=== PATIENT | male | born 1955 | race Caucasian/White ===

== ENCOUNTER 2017-11-04 15:05 | Outpatient (RCR) | payer OTHER, MEDICARE, SELFPAY ==
[2017-11-04 15:20] LABS: Prothrombin Time Fingerstick 24.7 SEC (11.9-14.4)
== END 2017-11-04 15:30 | disposition home or self-care (01) ==
LOC: LAB 15:05
PROVIDERS: Family Provider Family Medicine; PCP Family Medicine; Visit Provider Internal Medicine Cardiovascular Disease
DX: I48.1 Persistent atrial fibrillation (principal)
CPT/HCPCS: 36416; 85610

== ENCOUNTER 2017-12-15 10:24 | Outpatient (RCR) | payer OTHER, MEDICARE, SELFPAY ==
[2017-12-15 11:22] LABS: International Normalized Ratio 2.5; Prothrombin Time (Protime)PT. 25.9 SECONDS (11.7-14.9)
[2017-12-15 11:43] LABS: PSA,Total- Diagnostic < 0.01 ng/mL (0.0-4.0)
== END 2017-12-15 10:45 | disposition home or self-care (01) ==
LOC: LAB 10:24
PROVIDERS: Family Provider Family Medicine; PCP Family Medicine; Visit Provider Internal Medicine Cardiovascular Disease
DX: I48.1 Persistent atrial fibrillation (principal); Z12.5 Encounter for screening for malignant neoplasm of prostate; I47.1 Supraventricular tachycardia; E78.5 Hyperlipidemia, unspecified; Z79.51 Long term (current) use of inhaled steroids
CPT/HCPCS: 36415; 84153; 85610; G0103

== ENCOUNTER 2018-02-05 10:04 | Outpatient (RCR) | payer OTHER, MEDICARE, SELFPAY ==
[2018-02-05 11:07] LABS: International Normalized Ratio 1.8
[2018-02-05 11:38] LABS: PSA,Total - Annual Screen < 0.01 ng/mL (0.00-4.00)
== END 2018-02-05 11:00 | disposition home or self-care (01) ==
LOC: LAB 10:04
PROVIDERS: Family Provider Family Medicine; PCP Family Medicine; Visit Provider Internal Medicine Cardiovascular Disease
DX: I48.1 Persistent atrial fibrillation (principal); Z12.5 Encounter for screening for malignant neoplasm of prostate
CPT/HCPCS: 36415; 84153; 85610; G0103

== ENCOUNTER 2018-03-01 12:08 | Outpatient (RCR) | payer OTHER, MEDICARE, SELFPAY | END 2018-03-01 13:00 | disposition home or self-care (01) | LOC: LAB 12:08 | PROVIDERS: Family Provider Family Medicine; PCP Family Medicine; Visit Provider Internal Medicine Cardiovascular Disease | DX: I48.1 Persistent atrial fibrillation (principal) | CPT/HCPCS: 36416; 85610 ==

== ENCOUNTER 2018-04-22 11:21 | Outpatient (RCR) | payer OTHER, MEDICARE, SELFPAY ==
[2018-04-22 13:29] LABS: International Normalized Ratio 2.3; Prothrombin Time (Protime)PT. 25.4 SECONDS (11.7-14.9)
[2018-04-22 13:47] LABS: AST(SGOT) 18 U/L (15-37); Alanine Aminotransfer ALT/SGPT 24 U/L (16-61); Albumin, Serum 3.5 g/dL (3.2-5.0); Alkaline Phosphatase 57 U/L (45-117); Cholesterol 106 mg/dL (200); Globulin 3.6 g/dL (2.2-4.2); High Density Lipoprotein 31 mg/dL; Protein, Total 7.1 g/dL (6.4-8.2); Triglycerides 166 mg/dL; Very Low Density Lipoprotein 33 mg/dL (5-40)
== END 2018-04-22 12:00 | disposition home or self-care (01) ==
LOC: LAB 11:21
PROVIDERS: Nurse Practitioner Family; Family Provider Family Medicine; PCP Family Medicine; Visit Provider Internal Medicine Cardiovascular Disease
DX: I48.1 Persistent atrial fibrillation (principal); E78.5 Hyperlipidemia, unspecified
CPT/HCPCS: 36415; 80061; 80076; 85610

== ENCOUNTER 2018-06-14 09:16 | Outpatient (RCR) | payer OTHER, MEDICARE, SELFPAY ==
[2018-06-14 11:10] LABS: International Normalized Ratio 2.7
[2018-06-14 11:41] LABS: PSA,Total- Diagnostic < 0.01 ng/mL (0.0-4.0)
== END 2018-06-14 11:00 | disposition home or self-care (01) ==
LOC: LAB 09:16
PROVIDERS: Family Provider Family Medicine; PCP Family Medicine; Visit Provider Internal Medicine Cardiovascular Disease
DX: I48.1 Persistent atrial fibrillation (principal); C61 Malignant neoplasm of prostate
CPT/HCPCS: 36415; 84153; 85610

== ENCOUNTER 2018-09-13 09:20 | Outpatient (RCR) | payer OTHER, MEDICARE, SELFPAY ==
[2018-09-13 10:09] LABS: Absolute Lymphocyte Count 1.13 X10^3/ul (0.83-4.51); Basophil# 0.04 X10^3/uL; Basophil% 0.6 % (0-1); Eosinophil# 0.25 X10^3/uL; Eosinophils% 3.5 % (0-5); Hematocrit 38.4 % (40-54); Hemoglobin 12.4 g/dl (13.0-16.5); Lymphocyte # 1.13 X10^3/ul (4.0); Lymphocyte % 15.9 % (19-41); Mean Corp Hgb Conc 32.3 g/gl (32-36); Mean Corpuscular Hgb 28.6 pg (27.0-32.0); Mean Corpuscular Volume 88.7 fL (80-94); Mean Platelet Vol. 9.3 fl (6.2-12.0); Monocyte# 0.62 X10^3/uL; Monocyte% 8.7 % (0-10); Neutrophil # 4.99 X10^3/uL (2.7-7.7); Neutrophil % 70.3 % (47-70); POSITIVE COUNT NO; POSITIVE DIFFERENTIAL NO; POSITIVE MORPHOLOGY NO; Platelet Count 265 K/mm3 (150-450); RBC Distribution Width CV 15.3 % (11.6-14.6); RBC Distribution Width SD 49.5 fl (35.1-43.9); Red Blood Count 4.33 M/mm3 (4.6-6.2); White Blood Count 7.1 K/mm3 (4.4-11.0)
[2018-09-13 10:30] LABS: International Normalized Ratio 2.2; Prothrombin Time (Protime)PT. 24.1 SECONDS (11.7-14.9)
[2018-09-13 10:58] LABS: Anion Gap 11 (5-15); BUN 28 mg/dL (7-18); BUN/Creat Ratio 28.9 RATIO (10-20); Chloride 109 mmol/L (98-107); Creatinine, Serum 0.97 mg/dL (0.70-1.30); EST Glomerular Filtration Rate 83 mL/min (>60); Est Glom Filt Rate - Afr Amer 101 mL/min (>60); Glucose 125 mg/dL (74-106); Potassium 4.3 mmol/L (3.5-5.1); Sodium Level 142 mmol/L (136-145); T4 Free Direct 0.95 ng/dL (0.76-1.46)
== END 2018-09-24 09:25 | disposition home or self-care (01) ==
LOC: LAB 09:20
PROVIDERS: Family Provider Family Medicine; PCP Family Medicine; Visit Provider Internal Medicine Cardiovascular Disease
DX: I48.1 Persistent atrial fibrillation (principal); I10 Essential (primary) hypertension; E78.5 Hyperlipidemia, unspecified; F41.9 Anxiety disorder, unspecified
CPT/HCPCS: 36415; 80048; 84439; 84443; 85025; 85610

== ENCOUNTER 2018-11-08 09:36 | Outpatient (RCR) | payer OTHER, MEDICARE, SELFPAY ==
[2018-05-06 09:36] VITALS: BMI 40.4
[2018-11-08 08:45] VITALS: BMI 42.4
[2018-11-08 09:56] LABS: Prothrombin Time Fingerstick 26.2 SEC (11.9-14.4)
[2018-11-08 10:49] LABS: AST(SGOT) 16 U/L (15-37); Alanine Aminotransfer ALT/SGPT 25 U/L (16-61); Albumin, Serum 3.4 g/dL (3.2-5.0); Alkaline Phosphatase 56 U/L (45-117); Bilirubin, Direct 0.09 mg/dL (0.00-0.30); Cholesterol 122 mg/dL (200); Globulin 3.3 g/dL (2.2-4.2); High Density Lipoprotein 31 mg/dL; Protein, Total 6.7 g/dL (6.4-8.2); Triglycerides 216 mg/dL; Very Low Density Lipoprotein 43 mg/dL (5-40)
== END 2018-11-08 10:36 | disposition home or self-care (01) ==
LOC: LAB 09:36
PROVIDERS: Family Provider Family Medicine; PCP Family Medicine; Referring Provider Internal Medicine Cardiovascular Disease; Visit Provider Internal Medicine Cardiovascular Disease
DX: I48.1 Persistent atrial fibrillation (principal); I10 Essential (primary) hypertension; E78.5 Hyperlipidemia, unspecified; F41.9 Anxiety disorder, unspecified
CPT/HCPCS: 36415; 36416; 80061; 80076; 85610

== ENCOUNTER → 2018-11-15 06:36 | Outpatient (CLI) | payer OTHER, MEDICARE, SELFPAY ==
[2018-11-08 08:45] VITALS: BMI 42.4
--- NOTE | 2018-11-15 09:56 | STRESSREP ---
Stress Test Report Pharmacologic myocardial perfusion stress test. 63-year-old man with a history of chest pain and coronary artery disease status post coronary bypass surgery. Medications: Aspirin metoprolol rosuvastatin warfarin regular thiazide losartan. Stress protocol: Resting EKG demonstrates sinus bradycardia with a rate of 54 bpm normal intervals are noted resting blood pressure 148/80 mmHg. 0.4 mg of regadenoson was infused per usual protocol followed by rapid intravenous saline flush injection continuous EKG monitoring was performed. Patient maintained sinus rhythm throughout the recording. At rest there were no ST or T wave changes noted to suggest abnormal flow reserve at peak infusion no ST or T wave changes were noted to suggest abnormal flow reserve. The maximum heart rate was 75 bpm which was 47% of maximum predicted heart rate the maximum workload was 1 metabolic equivalent. The resting blood pressure 148/80 mmHg with a final blood pressure 130/78 mmHg. Myocardial perfusion protocol. 14.7 mCi of technetium 99m sestamibi was injected at rest. 0.4 mg of regadenoson was infused per usual protocol. At peak infusion 44.6 mCi of technetium 99m sestamibi was injected stress images were obtained stress and rest images were reconstructed and compared in the short axis vertical long and horizontal long axis. Gated images were also obtained. Perfusion SPECT analysis: Review of the stress images demonstrate normal uptake of tracer noted in all areas of the myocardium. There is a small area of the inferoseptal wall on the stress images with mildly reduced perfusion but there is significant GI uptake noted in this area as well. No obvious areas of defect or reversibility are noted to suggest ischemia. Gated SPECT analysis: The gated ejection fraction is noted to be 63%. Conclusion: Normal pharmacologic myocardial perfusion stress test. Preserved ejection fraction.
--- OUTSIDE RECORDS SUMMARY | 2019-01-17 14:25 | XMS RPT_ITS ---
:1955 Author Organization OHIP Support Name Relationship Address Phone D Unavailable Unavailable Unavailable [facility], YUKO Unavailable [address] + [place] [address] NARCISO, PATRICIA Unavailable [phone] [place] [address] D Unavailable Unavailable Unavailable [facility], YUKO Unavailable [phone] [place] [address] NARCISO, PATRICIA Unavailable [phone] [place] [address] D Unavailable Unavailable Unavailable [facility], YUKO Unavailable [phone] [place] [address] NARCISO, PATRICIA Unavailable [address] + [place] [address] D Unavailable Unavailable Unavailable [facility], YUKO Unavailable [phone] [place] [address] NARCISO, PATRICIA Unavailable [phone] [place] [address] D Unavailable Unavailable Unavailable [facility] YUKO Unavailable [phone] [place] [address] NARCISO, PATRICIA Unavailable [phone] [place] [address] D Unavailable Unavailable Unavailable [facility], YUKO Unavailable [phone] [place] [address] NARCISO, PATRICIA Unavailable [phone] [place] [address] D Unavailable Unavailable Unavailable [facility], YUKO Unavailable [phone] [place] [address] NARCISO PATRICIA Unavailable [phone] [place] [address] D Unavailable Unavailable Unavailable [facility] YUKO Unavailable [phone] [place] [address] NARCISO, PATRICIA Unavailable [address] + [place] [address] D Unavailable Unavailable Unavailable [facility], YUKO Unavailable [address] + [place] [address] PATRICIA STUART Unavailable [address] + [place] [address] D Unavailable Unavailable Unavailable [facility], YUKO Unavailable [address] + [place] [address] PATRICIA STUART Unavailable [address] + [place] [address] D Unavailable Unavailable Unavailable [facility] YUKO Unavailable [address] + [place] [address] PATRICIA STUART Unavailable [address] + [place] [address] D Unavailable Unavailable Unavailable [facility] YUKO Unavailable [address] + [place] [address] PATRICIA STUART Unavailable [address] + [place] [address] D Unavailable Unavailable Unavailable [facility] YUKO Unavailable [address] + [place] [address] PATRICIA STUART Unavailable [address] + [place] [address] D Unavailable Unavailable Unavailable [facility] YUKO Unavailable [address] + [place] [address] D Unavailable Unavailable Unavailable [facility], YUKO Unavailable [address] + [place] [address] Care Team Providers Name Role Phone Abdelrahman Pacheco Attending Unavailable Jami, Lobo Referring Unavailable Lefty, Gerber Attending Unavailable Lefty, Gerber Referring Unavailable Jami, Lobo Primary Care Unavailable Nikita Doir Consulting Unavailable Nikita Dior Attending Unavailable Jami, Lobo Primary Care Unavailable Guevara Ortiz H Attending Unavailable Jami, Lobo Referring Unavailable Guevara Ortiz H Attending Unavailable Guevara Ortiz H Referring Unavailable Jami, Lobo Primary Care Unavailable Lefty, Gerber Attending Unavailable Lefty, [place] Referring Unavailable Jami, Lobo Primary Care Unavailable Nikita Dior Consulting Unavailable Lefty, [place] Attending Unavailable Lefty, [place] Referring Unavailable Jami, Lobo Primary Care Unavailable Nikita Dior Consulting Unavailable Jaime Valdez Attending Unavailable Jami, Lobo Referring Unavailable Jami, Lobo Primary Care Unavailable Mary Ellen Sparks Attending Unavailable Jami, Lobo Referring Unavailable Lefty, [place] Attending Unavailable Lefty, Gerber Referring Unavailable Jami, Lobo Primary Care Unavailable Roof, Guevara H Consulting Unavailable Mary Ellen Sparks Attending Unavailable Jami, Lobo Referring Unavailable Lefty, [place] Attending Unavailable Lefty, [place] Referring Unavailable Jami, Lobo Primary Care Unavailable Roof, Guevara H Consulting Unavailable Carl, Corry M Consulting Unavailable Lefty, [place] Attending Unavailable Jami, Lobo Referring Unavailable Lefty, [place] Attending Unavailable Lefty, Gerber Referring Unavailable Jami, Lobo Primary Care Unavailable Roof, Guevara H Consulting Unavailable Carl, Corry M Consulting Unavailable Lefty, Gerber Attending Unavailable Lefty, Gerber Referring Unavailable Jami, Lobo Primary Care Unavailable Roof, Guevara H Consulting Unavailable Carl, Corry Cancino Consulting Unavailable CONSTANTINE HELMS Attending Unavailable JAMI, LOBO VORA Referring Unavailable CONSTANTINE HELMS Attending Unavailable JAMI, LOBO Referring Unavailable JAMI, LOBO Primary Care Unavailable PROBLEMS PROBLEMS DATE TYPE CONDITION / CODE ATTENDING STATUS SOURCE 11/08/2018 Unknown Z95.1 - Presence of [facility] graft / Hospital Z95.1(ICD-10) Repository 11/08/2018 Unknown R07.9 - Chest pain, [facility] unspecified / Community R07.9(ICD-10) Hospital Repository 11/08/2018 Unknown I48.0 - Paroxysmal [facility] atrial fibrillation Community / I48.0(ICD-10) Hospital Repository 09/27/2018 Unknown I48.1 - Persistent Lefty, Gerber [facility] atrial fibrillation Community / I48.1(ICD-10) Hospital Repository 08/06/2018 Active Unknown / CONSTANTINE HELMS Active [place] UNK(Unknown) [facility] Other [place] Repository 08/06/2018 Admitting Unknown / CONSTANTINE HELMS Active [facility] UNK(Unknown) [facility] Repository 05/06/2018 Unknown E78.5 - Lefty, [place] Active [facility] Hyperlipidemia, Community unspecified / Hospital E78.5(ICD-10) Repository 05/06/2018 Unknown Z98.890 - Other Lefty, [place] [facility] specified Community postprocedural Hospital states / Repository Z98.890(ICD-10) 05/06/2018 Unknown Z86.79 - Personal Lefty, Gerber [facility] history of other Community diseases of the Hospital circulatory system / Repository Z86.79(ICD-10) 05/06/2018 Unknown I10 - Essential Lefty, [place] [facility] (primary) Community hypertension / Hospital I10(ICD-10) Repository 05/06/2018 Unknown I73.9 - Peripheral Lefty, [place] Active [facility] vascular disease, [facility] unspecified / Hospital I73.9(ICD-10) Repository 04/23/2018 Unknown Z79.01 - nursing home Lefty, Gerber [facility] (current) use of [facility] 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 / Hospital Z79.01(ICD-10) Repository 02/23/2018 Unknown Z12.5 - Encounter LeftyDerek larsonril Active [facility] for screening for [facility] malignant neoplasm [facility] / Repository Z12.5(ICD-10) PROCEDURES PROCEDURES No Procedure Records FoundRESULTS RESULTS STRESS REPORT Observed: 11/15/2018 Status: F Source: [place] 10:01 AM [facility] REPOSIT[facility] Cardiovascular Services [address] [place] [address] MR#: [id number] Acct: [id number] Name: GUEVARA SAAB Rep #: [id number] : 1955 63 From: Gerber Olea MD Primary Care: Lobo Farrell MD Status: REG CLI Ordering Dr: Sandra: Barak C Stress Test Report Pharmacologic myocardial perfusion stress test. 63-year-old man with a history of chest pain and coronary artery disease status post coronary bypass surgery. Medications: Aspirin metoprolol rosuvastatin warfarin regular thiazide losartan. Stress protocol: Resting EKG demonstrates sinus bradycardia with a rate of 54 bpm normal intervals are noted resting blood pressure 148/80 mmHg. 0.4 mg of regadenoson was infused per usual protocol followed by rapid intravenous saline flush injection continuous EKG monitoring was performed. Patient maintained sinus rhythm throughout the recording. At rest there were no ST or T wave changes noted to suggest abnormal flow reserve at peak infusion no ST or T wave changes were noted to suggest abnormal flow reserve. The maximum heart rate was 75 bpm which was 47% of maximum predicted heart rate the maximum workload was 1 metabolic equivalent. The resting blood pressure 148/80 mmHg with a final blood pressure 130/78 mmHg. Myocardial perfusion protocol. 14.7 mCi of technetium 99m sestamibi was injected at rest. 0.4 mg of regadenoson was infused per usual protocol. At peak infusion 44.6 mCi of technetium 99m sestamibi was injected stress images were obtained stress and rest images were reconstructed and compared in the short axis vertical long and horizontal long axis. Gated images were also obtained. Perfusion SPECT analysis: Review of the stress images demonstrate normal uptake of tracer noted in all areas of the myocardium. There is a small area of the inferoseptal wall on the stress images with mildly reduced perfusion but there is significant GI uptake noted in this area as well. No obvious areas of defect or reversibility are noted to suggest ischemia. Gated SPECT analysis: The gated ejection fraction is noted to be 63%. Conclusion: Normal pharmacologic myocardial perfusion stress test. Preserved ejection fraction. 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 [address] [place], [address] LIPID PROFILE Collected: 11/08/2018 Status: F Source: [place] 9:46 AM [facility] REPOSITORY TYPE CODE TESTS RESULT OUT OF RANGE REFERENCE UNITS LAB L501.4900 200 mg/dL Normal CHOL 122 Result Comment: <200 mg/dL Desirable 200-240 mg/dL Borderline >240 mg/dL High Risk LAB L501.5000 mg/dL High TRIG 216 Result Comment: The drugs N-Acetylcysteine and Metamizole may falsely depress this assay. Serum Triglycerides Reference Interval Normal <150 mg/dL Borderline high 150 - 199 mg/dL High 200 - 499 mg/dL Very High > or = 500 mg/dL LAB L501.6400 mg/dL Low HDL 31 Result Comment: The drugs N-Acetylcysteine and Metamizole may falsely depress this assay. Reference Range HDL <40 mg/dL Low HDL Cholesterol HDL >or= 60 mg/dL High HDL Cholesterol LAB L501.6500 0-130 mg/dL Normal LDL 48 LAB L501.6600 5-40 mg/dL High VLDL 43 Performed By: #### L500.3400, L500.4100 #### [facility] [address] [place], [address] PROTIME W/INR Collected: 11/08/2018 Status: F Source: [place] 9:45 AM [facility] REPOSITORY TYPE CODE TESTS RESULT OUT OF REFERENCE UNITS RANGE LAB L9200.1001 11.9-14.4 SEC High PROTIME ISTAT 26.2 Result Comment: Reference Range 11.9 - 14.4 LAB L9200.2000 Normal INR ISTAT 2.30 Result Comment: Critical Value > 3.5 Performed By: #### L9200.0000 #### [facility] Point of Care [address] [place], [place] [address] PULMONARY VISIT REPORT Observed: 10/12/2018 Status: F Source: [place] 12:10 PM [facility] REPOSITORY [facility] [place] [address] [place] [address] OFFICE VISIT Date of Service: 10/12/18 MR#: [id number] Acct: [id number] Name: GUEVARA SAAB Rep #: [id number] : 1955 Provider: Abdelrahman Pacheco MD Age/Sex: 63/M Location: [facility] Status: Signed Assessment AND Plan Problems 1. DANGELO (obstructive sleep apnea) G47.33 2. PVD (peripheral vascular disease) I73.9 3. S/P radiofrequency ablation operation for arrhythmia Z98.890; Z86.79 4. Restless legs syndrome (RLS) G25.81 Plan Harshad discussion with patient about his elevated AHI on compliance report. This is slightly improved from the previous, but is still elevated at 16-hour. Patient has been tried on medication for restless legs in the past and states that this was not effective. Patient states that he feels that the BiPAP is working effectively. Did discuss possibility of a repeat titration study, but after review of the risks, benefits and alternatives, patient would like to remain on his current BiPAP settings. Did stress to the patient role of weight loss and the overall disease plan of care. Patient has set a goal to lose 10 pounds by the next appointment. Encourage weight loss. Continue BiPAP at current settings. Plan Detail Follow Up 6 Months (CSM) HPI 6 M FU: Chief Complaint: DANGELO Details: Patient is a 63-year-old male, currently under the care of Dr. Farrell, who presents for evaluation secondary to obstructive sleep apnea. Since last visit, patient denies any ER visits, hospitalizations or prednisone burst. Patient is currently not using any inhalers. Patient feels subjectively improved compared to previous. Patient reports he has been compliant with his BiPAP therapy. Patient states I cannot sleep without it. Patient states he did have to transition from a full facemask back to a nasal interface secondary to claustrophobia. Patient states that he still has some difficulty with initially falling asleep at night, but my best sleep is at 5 AM. Patient does report 3-4 episodes of nocturia per night, but does not take naps during the day. Patient does have some dyspnea on exertion, but he attributes this to his body weight. Patient also has a history of claudication status post surgery, which limits his ability to get around. Patient denies any lower extremity edema, chest pain, abdominal pain, nausea or vomiting. Documentation personally reviewed with the patient Compliance report (August 2018): Compliant 100% of the time for an average of 12 hours 24 minutes on BiPAP 15/11 centimeters of water with residual AHI of 16.4 and fairly controlled leak. HPI Comments Details: Intake Vital Signs10/12/18 Height 5 ft 8 in 10/12/18 Weight: 124.738 kg Intake Visit Reasons: 6 M Spring Forger Required: No Accompanied by: Self Allergies adhesive Allergy (Verified 10/12/18 10:57) Unknown latex Allergy (Verified 10/12/18 10:57) Unknown lisinopril Allergy (Verified 10/12/18 10:57) Unknown Penicillins Allergy (Verified 10/12/18 10:57) Unknown rivaroxaban [From Xarelto] Allergy (Verified 10/12/18 10:57) Unknown Medications Aspirin [Adult Low Dose Aspirin EC] 81 mg PO DAILY 04/18/16 [History Confirmed 10/12/18] hydrochlorothiazide 12.5 mg capsule 12.5 mg PO DAILY #90 cap 10/21/17 [Rx Confirmed 10/12/18] cilostazol 50 mg tablet 50 mg PO BID tab 11/04/17 [History Confirmed 10/12/18] paroxetine 30 mg tablet 30 mg PO QDAY 11/04/17 [History Confirmed 10/12/18] metoprolol tartrate 50 mg tablet 50 mg PO BID #180 tab 11/30/17 [Rx Confirmed 10/12/18] omeprazole 10 mg capsule,delayed release 10 mg PO QDAY 02/24/18 [History Confirmed 10/12/18] rosuvastatin 40 mg tablet 40 mg PO QHS tab 02/24/18 [History Confirmed 10/12/18] tamsulosin 0.4 mg capsule 0.4 mg PO QDAY 02/24/18 [History Confirmed 10/12/18] fenofibrate nanocrystallized 145 mg tablet 145 mg PO DAILY #90 tab 03/15/18 [Rx Confirmed 10/12/18] losartan 100 mg tablet 100 mg PO DAILY #90 tab 04/14/18 [Rx Confirmed 10/12/18] warfarin 5 mg tablet 5 mg PO .COMPLEX #90 tab 10/11/18 [Rx Confirmed 10/12/18] [facility] Medical History Hyperlipidemia (Chronic) Persistent atrial fibrillation (Chronic) Long-term use of high-risk medication (Chronic) Tobacco abuse (Chronic) Malaise and fatigue (Chronic) Dyspnea on exertion (Chronic) DANGELO (obstructive sleep apnea) (Chronic) Bronchitis (Acute) Sinusitis (Acute) Hyperlipemia, mixed (Chronic) Hypertension (Chronic) PVD (peripheral vascular disease) (Chronic) Atherosclerosis of creek coronary artery 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) nursing home (current) use 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 (Chronic) Paroxysmal atrial fibrillation (Chronic) Cancer (Acute) Hemorrhoids (Acute) Lung disease (Acute) SOB (shortness of breath) (Acute) Surgical History History of cardiac catheterization (Resolved) History of bilateral cataract extraction (Resolved) S/P radiofrequency ablation operation for arrhythmia (Chronic) S/P femoropopliteal bypass surgery (Chronic 08/2010) History of coronary artery stent placement (Chronic) Hx of CABG (Chronic 05/2006) Family History Father Cancer Lung Other Dementia Heart disease Social History Smoking Status: Former smoker second hand exposure: No alcohol intake: current alcohol intake frequency: 0-2 drinks per day Alcohol type: beer substance use type: does not use caffeine: No what type of physical activity do you participate in: none Review of Systems Const CONSTITUTIONAL: Negative anorexia, body ache, chills, daytime sleepiness, fever(s), night sweats, oral thrush, stops breathing during sleep, weight loss, sleeping in chair, fatigue, weight loss, weight gain, frequent colds, seasonal allergies, other, headache(s) or orthopnea EETM Ear Nose Throat Mouth: Positive hearing normal; negative hard of hearing, hoarseness, dry mouth in morning, change in vision, itchy eyes, eye pain, swallowing Difficulty, ear pain, nose bleed, headache(s), mouth pain, nasal congestion, nasal discharge, post nasal drip, sinus pain, sinus pressure, sore throat or other Cardio Cardiovascular: Negative chest pain, chest pain at rest, chest pain with activity, irregular heart rhythm, edema, shortness of breath when lying down, palpitations, murmur or other Resp Respiratory: Positive as per HPI and shortness of breath shortness of breath: Positive with activity; negative pain with cough, wheezing, chest congestion, cough, chest tightness, pain on inspiration, inhalers, increase use of rescue inhalers, snoring, apnea or other Gastro Gastrointestional: Negative bloody stools, change in appetite, difficulty swallowing, reflux, hematemesis, melena stool, loose stool, constipation or other Genitourinary: Positive nocturia; negative blood in urine, pain with urination or other Musc Musculoskeletal: Negative body pain, back pain, neck pain or other Skin/Breast Skin/Breast: Negative dry skin, itching, rash, unusual bruising, breast lump or other Neuro Neurological: Negative restless legs, confusion, weakness or other Psych Psychocological: Negative abnormal sleep pattern, anxiety, thoughts of hurting self/others, hopelessness or other Lymph Lymphatic: Negative easy bleeding, easy bruising, swollen lymph nodes or other Exam Const Constitutional: Positive conversant, cooperative, in no acute respiratory distress, healthy appearing, well developed, well nourished, good hygiene and obese; negative smells of smoke, dyspenic or wearing supplemental oxygen Head Head: Positive normocephalic and atraumatic; negative cyanosis of lips/distal nose, frontal sinus tenderness or maxillary sinus tenderness Eyes Eye: Positive clear conjunctiva; negative nystagmus, scleral abnormality or cataract present Ears Ear: Positive hearing normal and external ears normal; negative hard of hearing Nose Nose: Positive external nose normal, septum normal and no nasal discharge; negative epistaxis or nasal polyp Mouth Mouth: Positive oral mucosae normal, no lesions, edentulous and crowded posterior oropharynx; negative post nasal drip, malodorous breath or oral thrush present Mallampati Score: IV: Mallampati Score Neck Neck: Positive normal visual inspection, full ROM, trachea midline and male neck greater than 43 cm (17 in); negative lymphadenopathy or JVD Chest Wall Chest: Positive normal inspection of the chest and symmetric chest movement; negative crepitus or tenderness Resp lung sounds: Positive clear to auscultation, good air exchange, normal expiratory time and normal respiratory effort; negative wheezes, rhonchi, rales, use of accessory muscles, wheeze present on forced exhalation or dullness to percussion Cardio Cardiac: Positive regular rate, S1 normal and S2 normal; negative murmur, regular rhythm, rub or gallop GI GI: Positive normal to inspection, normal bowel sounds and obese; negative distended, ascites or epigastric tenderness Genitourinary: Positive deferred Musc Musculoskeletal: Positive steady gait; negative using an assistive device for ambulation, kyphosis or scoliosis Skin Pulmonary Skin Exam: Positive intact; negative rash, lesion, ulcers, erythema or dermal atrophy Pulses Pulse: Yes radial pulses present Extremities Extremities: Yes capillary refill normal, No clubbing, No cyanosis, No edema, No stasis dermatitis Neuro Neurologic: Yes conversant, Yes no focal neuro deficits, Yes normal concentration, Yes understands questions, Yes cooperative, Yes normal cognition, Yes normal coordination Lymph Lymphatic: No lymphadenopathy Psych Appearance: Positive grossly normal Mental Status: Positive mental status grossly normal Mood: Positive congruent mood Affect: Positive normal affect Coding Level of Care Code Off vis,est,level 3 Diagnoses DANGELO (obstructive sleep apnea) G47.33 PVD (peripheral vascular disease) I73.9 S/P radiofrequency ablation operation for arrhythmia Z98.890; Z86.79 Restless legs syndrome (RLS) G25.81 10/12/18 1210 <Electronically signed by Abdelrahman Pacheco MD> Date Abdelrahman Pacheco MD Cosigner Signature: Date (if applicable) CC: Lobo Farrell MD OBSOLETE Observed: 10/09/2018 Status: COMPLETED Source: [place] 12:00 AM [facility] [place] REPOSITORY Refill (AGVASBEAL) GUEVARA [id number]) 1955 Date Time Provider Department 10/09/18 LUCILA VAZQUEZ ([facility]) [place] During your visit today, we recorded the following information about you: Allergies As of Date: 10/09/2018 Noted Allergy Reaction ANCEF (CEFAZOLIN SODIUM) 09/04/2006 2 - Rash LATEX 05/15/2016 14 - Other: See Comments Comments: Local skin reaction LISINOPRIL 05/15/2016 3 - Cough PENICILLINS 09/04/2006 4 - Hives XARELTO (RIVAROXABAN) 05/15/2016 14 - Other: See Comments Comments: Rectal bleeding Date Reviewed: 08/06/2018 Reviewed by: Constantine Helms - Fully Assessed Reason for Visit: Refill Request [94] Order(s):clopidogrel (PLAVIX) 75 mg tabletTAKE 1 TABLET BY MOUTH DAILYDisp: 90 tabletRfl: 2 Prescriptions as of 10/09/2018 Sig: CLOPIDOGREL 75 MG TABLET TAKE 1 TABLET BY MOUTH DAILY ASPIRIN 325 MG TABLET Take 81 mg by mouth once guerita* CILOSTAZOL 100 MG TABLET TAKE 1 TABLET BY MOUTH TWICE * FENOFIBRATE NANOCRYSTALLIZED * Take 145 mg by mouth once arminda* HYDROCHLOROTHIAZIDE 12.5 MG T* Take 12.5 mg by mouth once da* HYDROCHLOROTHIAZIDE 12.5 MG C* Take 12.5 mg by mouth once da* LOSARTAN 100 MG TABLET Take 100 mg by mouth once arminda* METOPROLOL TARTRATE 50 MG TAB* Take 50 mg by mouth twice arminda* NITROSTAT 0.4 MG SUBLINGUAL T* PAROXETINE 30 MG TABLET Take 30 mg by mouth once guerita* PREVACID 30 MG CAPSULE,DELAYE* one tablet daily ROSUVASTATIN 40 MG TABLET Take 40 mg by mouth once guerita* WARFARIN 5 MG TABLET Take 5 mg by mouth daily as d* Problem List As Of Date 10/09/2018 Noted Resolved Persistent atrial fibrillation (HCC) [I48.1] CAD (coronary artery disease) [I25.10] MT, old [I25.2] Dyspnea on exertion [R06.09] Anticoagulated on warfarin [Z79.01] Anticoagulant causing adverse effect in therape* More... 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 Peripheral vascular disease (HCC) [I73.9] More... Percutaneous transluminal coronary angioplasty * More... Mitral regurgitation [I34.0] More... Tricuspid regurgitation [I07.1] More... Obstructive sleep apnea [G47.33] More... Prescriptions ordered this encounter Disp Refills Start End CLOPIDOGREL 75 MG TABLET 90 t* 2 10/11/2018 Sig: TAKE 1 TABLET BY MOUTH DAILY Medications Discontinued During This Encounter clopidogrel (PLAVIX) 75 mg tablet 90 t* 2 01/12/2018 10/11/2018 Sig: TAKE 1 TABLET BY MOUTH DAILY Disc: Reason for discontinue is not on file. Encounter Status:Closed by LUCILA VAZQUEZ CNP on 10/11/18 CBC W/DIFF, AUTOMATED Collected: 09/13/2018 Status: F Source: [place] 9:31 AM [facility] REPOSITORY TYPE CODE TESTS RESULT OUT OF RANGE REFERENCE UNITS LAB L100.1000 4.4-11.0 K/mm3 Normal WBC 7.1 LAB L100.1200 4.6-6.2 M/mm3 Low RBC 4.33 LAB L100.1300 13.0-16.5 g/dl Low HGB 12.4 LAB L100.1400 40-54 % Low HCT 38.4 LAB L100.1500 80-94 fL Normal MCV 88.7 LAB L100.1600 27.0-32.0 pg Normal MCH 28.6 LAB L100.1700 32-36 g/gl Normal MCHC 32.3 LAB L100.1810 11.6-14.6 % High RDW CV 15.3 LAB L100.1820 35.1-43.9 fl High RDW SD 49.5 LAB L100.1900 150-450 K/mm3 Normal PLT 265 LAB L100.2000 6.2-12.0 fl Normal MPV 9.3 LAB L100.2100 47-70 % High NEUT% 70.3 LAB L100.2200 19-41 % Low LY% 15.9 LAB L100.2300 0-10 % Normal MONO% 8.7 LAB L100.2400 0-5 % Normal EO% 3.5 LAB L100.2500 0-1 % Normal BASO% 0.6 LAB L100.2550 0.0-0.9 % High IM GRAN % 1.000 Result Comment: IG% - Immature Granulocytes (promyelocytes, myelocytes and metamyelocytes) > 1% indicates that a LEFT SHIFT is Present. LAB L100.2620 2.0-7.7 X10 3/uL Normal Absolute Neut 5.0 LAB L100.2720 0.83-4.51 X10 3/ul Normal Absolute Lymph 1.13 Performed By: #### L100.0100 #### [facility] [address] [place], [place], [address] PROTHROMBIN TIME W/INR Collected: 09/13/2018 Status: F Source: [place] 9:31 AM [facility] REPOSITORY TYPE CODE TESTS RESULT OUT OF RANGE REFERENCE UNITS LAB L300.4150 11.7-14.9 SECONDS High PROTIME 24.1 LAB L300.4200 Normal INR 2.2 Performed By: #### L300.3900 #### [facility] [address] [place], [address] BASIC METABOLIC Collected: 09/13/2018 Status: F Source: [place] PROFILE (BMP) 9:31 AM [facility] REPOSITORY TYPE CODE TESTS RESULT OUT OF RANGE REFERENCE UNITS LAB L501.0100 74-106 mg/dL High GLU 125 Result Comment: Fasting Glucose result from 100 to 125 mg/dL suggests IMPAIRED HOMEOSTASIS per A.D.A. criteria. Please note revised GLUCOSE reference range effective 2017. LAB L501.1000 7-18 mg/dL High BUN 28 LAB L501.1100 0.70-1.30 mg/dL Normal CREAT,SERUM 0.97 Result Comment: The validity of the calculated GFR AND GFRAA in patients over 70 years has not been determined. Clinical correlation is essential. LAB L501.1110 >60 mL/min Normal EST GFR 83 Result Comment: Non- GFR Calc LAB L501.1115 >60 mL/min Normal EST GFR - AA 101 Result Comment: GFR Calc LAB L501.1300 10-20 RATIO High BUN/CRE 28.9 LAB L501.2200 8.5-10.1 mg/dL CA Normal 9.0 LAB L501.5300 136-145 mmol/L NA Normal 142 LAB L501.5600 3.5-5.1 mmol/L K Normal 4.3 LAB L501.5900 98-107 mmol/L High CL 109 LAB L501.6100 21.0-32.0 mmol/L Normal CO2 22.0 LAB L501.6200 5-15 Normal GAP 11 Performed By: #### L500.2500, L501.9520, L506.0400 #### [facility] [address] [place], [address] THYROID STIM HORMONE Collected: 09/13/2018 Status: F Source: PALM (TSH) 9:31 AM [facility] REPOSITORY TYPE CODE TESTS RESULT OUT OF RANGE REFERENCE UNITS LAB L501.9520 0.358-3.74 uIU/mL Normal TSH 3.20 Performed By: #### L500.2500, L501.9520, L506.0400 #### [facility] [address] [place], [address] T4 FREE DIRECT Collected: 09/13/2018 Status: F Source: PALM 9:31 AM [facility] REPOSITORY TYPE CODE TESTS RESULT OUT OF RANGE REFERENCE UNITS LAB L506.0400 0.76-1.46 ng/dL Normal T4 FREE 0.95 DIRECT Performed By: #### L500.2500, L501.9520, L506.0400 #### [facility] [address] [place], [address] PROGRESS Observed: 08/06/2018 Status: COMPLETED Source: [place] 11:44 AM [facility] REPOSITORY HNO ID: [id number] Author: Constantine Helms Service: (none) Author Type: Physician Type: Progress Notes Filed: 08/06/2018 11:47 AM Note Text: This patient is seen back in follow-up of his bilateral femoral-popliteal bypasses in claudication symptoms. He seems to be doing reasonably well without any evidence of new symptomatology. He remains a relatively moderate distance claudication without evidence of any rest pain. His initial bypasses were done for bilateral rest pain. At this point in time on examination his feet are both pink and warm and capillary refill is good bilaterally. He has palpable pulses and strong Doppler signals at the right foot he has weaker pulses and weak Doppler signals in the left foot. There may be some issue that he has had with the left femoral-popliteal bypass however at this point in time with his symptoms being stable I would not do anything further. He concurs with this. At this point in time I discussed with him continuing to try to walk as much as he can avoiding surfaces that are uneven and to avoid up hill and stairs as much as possible. These are the things that seemed to make his claudication symptoms occur more regularly. He states that today he walked from the parking lot to the office without any claudication symptoms at all and that is a couple 100 yards. At this point I feel as long as he can continue to do his daily activities without significant pain that I would be reluctant to consider re-intervention. I discussed with him the symptoms of rest pain and tissue loss and that he should contact us immediately should these occur otherwise I will see Guevara crouch in 1 year for ongoing follow-up.I spent 15 minutes in the visit, with more than 50% of the total soyx-dl-gyii time of the visit in counseling / coordination of care. CAPO Observed: 08/06/2018 Status: COMPLETED Source: [place] 11:15 AM [facility] REPOSITORY Office Visit (TAMIMIAmrik) GUEVARA SAAB ([id number]) 1955 M Date Time Provider Department 08/06/18 11:15 AM CONSTANTINE HELMS During your visit today, we recorded the following information about you: Pulse Respiration Blood pressure Weight 72/minute 20/minute 132/70 117.9 kg Height 1.753 m Constantine Helms MD 08/06/2018 11:47 AM Signed This patient is seen back in follow-up of his bilateral femoral-popliteal bypasses in claudication symptoms. He seems to be doing reasonably well without any evidence of new symptomatology. He remains a relatively moderate distance claudication without evidence of any rest pain. His initial bypasses were done for bilateral rest pain. At this point in time on examination his feet are both pink and warm and capillary refill is good bilaterally. He has palpable pulses and strong Doppler signals at the right foot he has weaker pulses and weak Doppler signals in the left foot. There may be some issue that he has had with the left femoral-popliteal bypass however at this point in time with his symptoms being stable I would not do anything further. He concurs with this. At this point in time I discussed with him continuing to try to walk as much as he can avoiding surfaces that are uneven and to avoid up hill and stairs as much as possible. These are the things that seemed to make his claudication symptoms occur more regularly. He states that today he walked from the parking lot to the office without any claudication symptoms at all and that is a couple 100 yards. At this point I feel as long as he can continue to do his daily activities without significant pain that I would be reluctant to consider re-intervention. I discussed with him the symptoms of rest pain and tissue loss and that he should contact us immediately should these occur otherwise I will see Guevara back in 1 year for ongoing follow-up.I spent 15 minutes in the visit, with more than 50% of the total pxdy-xn-kofk time of the visit in counseling / coordination of care. Referring Provider: LOBO FARRELL [[id number]] Allergies As of Date: 08/06/2018 Noted Allergy Reaction ANCEF (CEFAZOLIN SODIUM) 09/04/2006 2 - Rash LATEX 05/15/2016 14 - Other: See Comments Comments: Local skin reaction LISINOPRIL 05/15/2016 3 - Cough PENICILLINS 09/04/2006 4 - Hives XARELTO (RIVAROXABAN) 05/15/2016 14 - Other: See Comments Comments: Rectal bleeding Date Reviewed: 08/06/2018 Reviewed by: Constantine Helms - Fully Assessed Reason for Visit: Peripheral Vascular Disease (PVD) [3545] Cmt: Guevara is here for yearly follwo up Primary Visit Diagnosis:Peripheral vascular disease (HCC) [I73.9] Prescriptions as of 08/06/2018 Sig: CILOSTAZOL 100 MG TABLET TAKE 1 TABLET BY MOUTH TWICE * CLOPIDOGREL 75 MG TABLET TAKE 1 TABLET BY MOUTH DAILY HYDROCHLOROTHIAZIDE 12.5 MG C* Take 12.5 mg by mouth once da* LOSARTAN 100 MG TABLET Take 100 mg by mouth once arminda* NITROSTAT 0.4 MG SUBLINGUAL T* METOPROLOL TARTRATE 50 MG TAB* Take 50 mg by mouth twice arminda* FENOFIBRATE NANOCRYSTALLIZED * Take 145 mg by mouth once arminda* ROSUVASTATIN 40 MG TABLET Take 40 mg by mouth once guerita* ASPIRIN 325 MG TABLET Take 81 mg by mouth once guerita* WARFARIN 5 MG TABLET Take 5 mg by mouth daily as d* PAROXETINE 30 MG TABLET Take 30 mg by mouth once guerita* PREVACID 30 MG CAPSULE,DELAYE* one tablet daily HYDROCHLOROTHIAZIDE 12.5 MG T* Take 12.5 mg by mouth once da* Problem List As Of Date 08/06/2018 Noted Resolved Persistent atrial fibrillation (HCC) [I48.1] CAD (coronary artery disease) [I25.10] MT, old [I25.2] Dyspnea on exertion [R06.09] Anticoagulated on warfarin [Z79.01] Anticoagulant causing adverse effect in therape* More... 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 Peripheral vascular disease (HCC) [I73.9] More... Percutaneous transluminal coronary angioplasty * More... Mitral regurgitation [I34.0] More... Tricuspid regurgitation [I07.1] More... Obstructive sleep apnea [G47.33] More... Letter Text Encounter Status:Closed by CONSTANTINE HELMS MD on 08/06/18 PROTHROMBIN TIME W/INR Collected: 06/14/2018 Status: F Source: [place] 9:24 AM [facility] REPOSITORY TYPE CODE TESTS RESULT OUT OF RANGE REFERENCE UNITS LAB L300.4150 11.7-14.9 SECONDS High PROTIME 29.0 LAB L300.4200 Normal INR 2.7 Performed By: #### L300.3900 #### [facility] [address] [place], [place], [id number] PSA,TOTAL- DIAGNOSTIC Collected: 06/14/2018 Status: F Source: [place] 9:24 AM [facility] REPOSITORY TYPE CODE TESTS RESULT OUT OF RANGE REFERENCE UNITS LAB L501.9940 0.0-4.0 ng/mL PSA, Normal DIAGNOSTIC < 0.01 Result Comment: This test was performed using the TPSA assay method for the [employer] chemistry system. Values obtained with different assay methods cannot be used interchangably. When changing PSA assays in the course of monitoring a patient, additional sequential testing should be carried out to confirm baseline values. Performed By: #### L501.9940 #### [facility] [address] [place], [address] OBSOLETE Observed: 06/14/2018 Status: COMPLETED Source: [place] 12:00 AM [facility] REPOSITORY Refill (AGVASACC) GUEVARA SAAB ([id number]) 1955 M Date Time Provider Department 06/14/18 LUCILA VAZQUEZ ([facility]) AGVASACC During your visit today, we recorded the following information about you: Allergies As of Date: 06/14/2018 Noted Allergy Reaction ANCEF (CEFAZOLIN SODIUM) 09/04/2006 2 - Rash LATEX 05/15/2016 14 - Other: See Comments Comments: Local skin reaction LISINOPRIL 05/15/2016 3 - Cough PENICILLINS 09/04/2006 4 - Hives XARELTO (RIVAROXABAN) 05/15/2016 14 - Other: See Comments Comments: Rectal bleeding Date Reviewed: 08/07/2017 Reviewed by: Constantine Helms - Fully Assessed Reason for Visit: Refill Request [94] Order(s):cilostazol (PLETAL) 100 mg tabletTAKE 1 TABLET BY MOUTH TWICE DAILY.Disp: 180 tabletRfl: 3 Prescriptions as of 06/14/2018 Sig: CILOSTAZOL 100 MG TABLET TAKE 1 TABLET BY MOUTH TWICE * CLOPIDOGREL 75 MG TABLET TAKE 1 TABLET BY MOUTH DAILY HYDROCHLOROTHIAZIDE 12.5 MG C* Take 12.5 mg by mouth once da* LOSARTAN 100 MG TABLET Take 100 mg by mouth once arminda* NITROSTAT 0.4 MG SUBLINGUAL T* HYDROCHLOROTHIAZIDE 12.5 MG T* Take 12.5 mg by mouth once da* METOPROLOL TARTRATE 50 MG TAB* Take 50 mg by mouth twice arminda* FENOFIBRATE NANOCRYSTALLIZED * Take 145 mg by mouth once arminda* ROSUVASTATIN 40 MG TABLET Take 40 mg by mouth once guerita* ASPIRIN 325 MG TABLET Take 81 mg by mouth once guerita* WARFARIN 5 MG TABLET Take 5 mg by mouth daily as d* PAROXETINE 30 MG TABLET Take 30 mg by mouth once guerita* PREVACID 30 MG CAPSULE,DELAYE* one tablet daily Problem List As Of Date 06/14/2018 Noted Resolved Persistent atrial fibrillation (HCC) [I48.1] CAD (coronary artery disease) [I25.10] MT, old [I25.2] Dyspnea on exertion [R06.09] Anticoagulated on warfarin [Z79.01] Anticoagulant causing adverse effect in therape* More... 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 Peripheral vascular disease (HCC) [I73.9] More... Percutaneous transluminal coronary angioplasty * More... Mitral regurgitation [I34.0] More... Tricuspid regurgitation [I07.1] More... Obstructive sleep apnea [G47.33] More... Prescriptions ordered this encounter Disp Refills Start End CILOSTAZOL 100 MG TABLET 180 * 3 06/14/2018 Route: ORAL Sig: TAKE 1 TABLET BY MOUTH TWICE DAILY. Medications Discontinued During This Encounter cilostazol (PLETAL) 100 mg tablet 180 * 3 06/24/2017 06/14/2018 Route: ORAL Sig: Take 1 tablet by mouth twice daily. Disc: Reason for discontinue is not on file. Encounter Status:Closed by LUCILA VAZQUEZ CNP on 06/14/18 CARDIOLOGY VISIT Observed: 05/06/2018 Status: F Source: [place] REPORT 10:03 AM [facility] REPOSITORY Center [facility] [address] [place] [address] [address] [place] [address] OFFICE VISIT Date of Service: 05/06/18 MR#: [id number] Acct: [id number] Name: GUEVARA SAAB Rep #: [id number] : 1955 Provider: Gerber Olea MD Age/Sex: 62/M Location: [facility] [place] Status: Signed HPI HPI Chief Complaint: Follow up visit Details: GUEVARA SAAB, is a 62 M who presents to the office today for a follow-up visit. He is a gentleman with a history of coronary artery disease status post carotid bypass surgery in 2005 with a left internal mammary artery to the left anterior descending artery, saphenous vein graft to the circumflex artery to the posterior descending artery and 2 posterolateral branches and a sequential fashion. He also had stenting of the posterior descending artery in 2016 as well as hypertension. He also know he had had issues with paroxysmal atrial fibrillation underwent cardioversion and ablation in 2008 and a repeat ablation in 2015. He tells me that he has been doing well with only occasional chest pain which has not been increasing in frequency he has not had to use any nitroglycerin for this he has had no dizziness or diaphoresis no near syncope or syncope and he has been compliant with all his medications he continues to use his CPAP mask at night and has not had any palpitations to suggest recurrence of his atrial fibrillation. His physical exam today demonstrates clear lung szymanski regular rate and rhythm no pedal edema and normal blood pressure. 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 Required: No Accompanied by: none Is patient in pain?: No Allergies adhesive Allergy (Verified 04/22/18 10:34) Unknown latex Allergy (Verified 04/22/18 10:34) Unknown lisinopril Allergy (Verified 04/22/18 10:34) Unknown Penicillins Allergy (Verified 04/22/18 10:34) Unknown rivaroxaban [From Xarelto] Allergy (Verified 04/22/18 10:34) Unknown Medications Aspirin [Adult Low Dose Aspirin EC] 81 mg PO DAILY 04/18/16 [History Confirmed 05/06/18] warfarin 5 mg tablet 5 mg PO DAILY #90 tab 10/13/17 [Rx Confirmed 05/06/18] hydrochlorothiazide 12.5 mg capsule 12.5 mg PO DAILY #90 cap 10/21/17 [Rx Confirmed 05/06/18] cilostazol 50 mg tablet 50 mg PO BID tab 11/04/17 [History Confirmed 05/06/18] paroxetine 30 mg tablet 30 mg PO QDAY 11/04/17 [History Confirmed 05/06/18] metoprolol tartrate 50 mg tablet 50 mg PO BID #180 tab 11/30/17 [Rx Confirmed 05/06/18] omeprazole 10 mg capsule,delayed release 10 mg PO QDAY 02/24/18 [History Confirmed 05/06/18] rosuvastatin 40 mg tablet 40 mg PO QHS tab 02/24/18 [History Confirmed 03/25/18] tamsulosin 0.4 mg capsule 0.4 mg PO QDAY 02/24/18 [History Confirmed 05/06/18] fenofibrate nanocrystallized 145 mg tablet 145 mg PO DAILY #90 tab 03/15/18 [Rx Confirmed 05/06/18] losartan 100 mg tablet 100 mg PO DAILY #90 tab 04/14/18 [Rx Confirmed 05/06/18] Ejection fraction %: 50 to 54 [facility] Medical History Hyperlipidemia (Chronic) Persistent atrial fibrillation (Chronic) Long-term use of high-risk medication (Chronic) Tobacco abuse (Chronic) Malaise and fatigue (Chronic) Dyspnea on exertion (Chronic) DANGELO (obstructive sleep apnea) (Chronic) Bronchitis (Acute) Sinusitis (Acute) History of coronary artery stent placement (Chronic) Hyperlipemia, mixed (Chronic) Hypertension (Chronic) PVD (peripheral vascular disease) (Chronic) Atherosclerosis of creek coronary artery 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) 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) Paroxysmal atrial fibrillation (Chronic) Cancer (Acute) Hemorrhoids (Acute) Lung disease (Acute) SOB (shortness of breath) (Acute) Surgical History History of cardiac catheterization (Resolved) History of bilateral cataract extraction (Resolved) S/P radiofrequency ablation operation for arrhythmia (Chronic) S/P femoropopliteal bypass surgery (Chronic 08/2010) Hx of CABG (Chronic 05/2006) Family History Father Cancer Lung Other Dementia Heart disease Social History Smoking Status: Former smoker second hand exposure: No alcohol intake: current alcohol intake frequency: 0-2 drinks per day Alcohol type: beer substance use type: does not use caffeine: No what type of physical activity do you participate in: none ROS Const Const: Negative for fatigue, weakness, night sweats, excessive sweating, frequent falls, headache(s) or daytime sleepiness Eyes Eyes: Negative for loss of peripheral vision, transient loss of vision, blind spots, double vision or blurry vision ENT ENT: Negative for headache(s), dizziness, balance problems, Nosebleed/epistaxis, tongue swelling or lip swelling Cardio Chest Pain: No Palpitations: No Edema: None Muscle aches with walking: None Resp Respiratory: Negative for SOB at rest, SOB orthopnea\SOB lying down, Cough, paroxysmal nocturnal dyspnea or SOB with activity GI GI: Negative nausea, vomiting, heartburn, black,tarry stools or bright, red blood in stools : Negative for hematuria Musc Musc: Negative for balance problems, muscle aches/ myalgia, muscle weakness or joint pain Skin Skin: Negative non-healing lesions, unusual bruising or rash Neuro Neuro: Negative for weakness, frequent falls, headache(s), double vision, dizziness, lightheadedness, orthostatic symptoms, blurry vision or lack of coordination Ernie Hematologic/Lymphatic: Negative for easy bruising or easy bleeding Endo Endo: Negative for fatigue, excessive sweating, cold intolerance, heat intolerance, increased thirst/drinking or hair loss Psych Psych: Negative for anxiety or depression Allergy Allergy/Immunology: Negative for throat swelling, Negative for tongue swelling, Negative for hives, Negative for rash, Negative for lip swelling Cardiology Exam Const Appearance: cooperative, healthy appearing, well developed, well groomed and no acute distress Nutritional Appearance: well nourished and average body habitus Orientation: alert, awake and oriented x3 Head Head: normal to inspection, normocephalic and atraumatic Ears: hearing grossly normal bilaterally and external ears normal Nose: external nose normal, nasal mucous membranes and turbinates normal, nares normal, septum normal, no nasal discharge Face and Sinus: face symmetric Mouth: oral mucosae normal, tongue normal, oropharynx normal and moist mucous membranes Teeth and gingiva: dentition normal Throat: posterior oropharynx normal, tonsils normal and uvula midline Eyes General: appearance normal, both eyes and all related structures Eyelids: eyelids normal Conjunctivae: conjunctivae normal Pupils: PERRL, normal by confrontation and accommodation normal EOM: EOM intact bilaterally Neck Neck: normal visual inspection, trachea midline and no JVD JVD: +5 Carotids: normal carotid upstroke and bounding pulses Chest Chest inspection: normal inspection of the chest, symmetric chest movement and normal respiratory effort Auscultation: Bilateral: Clear to Auscultation Cardio Palpation: normal PMI Rate: regular rate Rhythm: regular rhythm Heart sounds: S1 normal, S2 normal and normal, physiologic split S2; negative rub, gallop or murmur GI GI: normal to inspection, soft, no hepatosplenomegaly and bowel sounds present Neuro General: alert, awake, oriented x3, no focal sensory deficit, gait normal and moves all extremities Skin Skin: no rashes or lesions noted Extremities Pulses: Normal: Right Femoral Pulse, Left Femoral Pulse, Right Dorsalis Pedis Pulse, Left Dorsalis Pedis Pulse, Right Posterior Tibial Pulse, Left Posterior Tibial Pulse, Right Radial Pulse, Left Radial Pulse Lower Extremity Edema: None: Bilateral Musculoskel Musculoskeletal: No joint tenderness Psych Psychological: normal affect Assessment AND Plan 1. Hx of CABG Z95.1 NATION to LAD, SVG to side to side to obtuse marginal AND end to side to LCX in a sequential fashion, SVG side to side to PD branch AND end to side to 2nd posterolateral branch of RCA in 05/2006 Plan He appears to be doing well from this standpoint he does have some stable angina but it does not appear that this warrants any change in medication or any testing at this time. We will continue to monitor it cleared carefully and have suggested to him that should he have any increased symptoms he should not hesitate to get in touch with us. 2. S/P radiofrequency ablation operation for arrhythmia Z98.890; Z86.79 11/2008; 2016 Plan He is status post radiofrequency ablation for atrial fibrillation he appears to be maintaining sinus rhythm his Holter monitor in December 2016 did not reveal any atrial fibrillation or ventricular tachyarrhythmia and he will continue on his beta- carie as well as his warfarin. 3. Essential hypertension I10 Plan His blood pressure appears to be under excellent control at this particular time and we will not make any changes in his medications. His last echocardiogram demonstrated an ejection fraction of 50% with mild to moderate tricuspid regurgitation. 4. Hyperlipidemia E78.5 Plan He remains on his lipid-lowering therapy. His most recent lipid profile demonstrated a total cholesterol of 106, LDL of 42, HDL of 31. No changes will be made. 5. PVD (peripheral vascular disease) I73.9 Plan He continues to see the vascular surgeon for the above. He does not have significant claudication he remains active is able to golf and take care of his activities of daily living. Thank you for allowing me to participate in the care of your patient. Please don't hesitate to call if any issues arise Plan Detail Follow Up 6 Months (jhr) Coding Level of Care Code Off vis,est,level 4 Diagnoses Hx of CABG Z95.1 S/P radiofrequency ablation operation for arrhythmia Z98.890; Z86.79 Essential hypertension I10 Hypertension type: essential hypertension Hyperlipidemia E78.5 PVD (peripheral vascular disease) I73.9 Coding Level of Care Code Off vis,est,level 4 Diagnoses Hx of CABG Z95.1 S/P radiofrequency ablation operation for arrhythmia Z98.890; Z86.79 Essential hypertension I10 Hypertension type: essential hypertension Hyperlipidemia E78.5 PVD (peripheral vascular disease) I73.9 05/06/18 1003 <Electronically signed by Gerber Olea MD> Date Gerbre Olea MD Cosigner Signature: Date (if applicable) CC: Lobo Farrell MD PULMONARY VISIT REPORT Observed: 04/22/2018 Status: F Source: [place] 11:49 AM [facility] REPOSITORY [facility] [address] [place] [address] OFFICE VISIT Date of Service: 04/22/18 MR#: [id number] Acct: [id number] Name: GUEVARA SAAB Rep #: [id number] : 1955 Provider: Mary Ellen Sparks Age/Sex: 62/M [place] [facility] [place] Status: Signed Assessment AND Plan 1. DANGELO (obstructive sleep apnea) G47.33 Plan Stable. Patient is using and benefiting from BiPAP. He states that he cannot sleep without it. No indication for titration study at this time even given his elevated AHI. We will continue to try to treat the restless leg syndrome in anticipation that this may lower his AHI. He has been encouraged to contact the office with an update on whether or not he is going to continue the medication. Otherwise, follow-up with Dr. Pacheco in 6 months. He does convey understanding and is agreeable to this plan 2. Restless legs syndrome (RLS) G25.81 Plan He has not had enough time on the medication to determine if it has been effective or not. He is agreeable to continue the medication as long as he does not experience recurrent chest pain. He has been encouraged to contact the office with an update on how he is responding to the medication. Follow-up with Dr. Pacheco in 6 months, otherwise he can contact the office for an acute visit as needed. Plan Detail Follow Up 6 Months ([facility]) HPI 1 M FU: Chief Complaint: Restless sleep HPI Comments Details: This patient presents the office today to follow- up after recently been started on medication. He is ambulatory and currently in room air. At the last office visit he was started on ropinirole for restless limb syndrome. He reports that the first night that he took the medication he experienced chest pain. Therefore he stopped taking medication. Recently (2 nights ago) he took a second dose of the medication and did not experience recurrent chest pain. At night he took 1 tablet, did not notice complete resolution of his symptoms but since she did not have the chest pain he took the medication again the next night. The third night he took 2 tablets. This was last night. He reports that his told him that he was less restless during sleep. He did not experience the chest pain. He did not experience any other medication side effects. He continues good compliance with his BiPAP. Compliance report has been reviewed and shows 100% compliance over the past 30 days. Current settings are 15/11 cm of water. AHI remains elevated at 21.8. Average use is 11 hours nightly. He does not nap. Leaks do not appear to be a consistent issue. Currently does have a cough that is productive of milky white sputum. This is been ongoing for the past 4-8 weeks. He denies any hemoptysis. He denies any wheezing or chest tightness. He does have shortness of breath on exertion. He has not tried any [id number] medications for this. Is not currently on any inhalers. He does report being exposed to ill contact, his my was recently treated for bronchitis.. Intake Vital Signs04/22/18 Height 5 ft 8 in 04/22/18 Weight: 267 lb Intake Visit Reasons: 1 M FU Accompanied by: Self Allergies adhesive Allergy (Verified 04/22/18 10:34) Unknown latex Allergy (Verified 04/22/18 10:34) Unknown lisinopril Allergy (Verified 04/22/18 10:34) Unknown Penicillins Allergy (Verified 04/22/18 10:34) Unknown rivaroxaban [From Xarelto] Allergy (Verified 04/22/18 10:34) Unknown Medications Aspirin [Adult Low Dose Aspirin EC] 81 mg PO DAILY 04/18/16 [History Confirmed 03/25/18] warfarin 5 mg tablet 5 mg PO DAILY #90 tab 10/13/17 [Rx Confirmed 03/25/18] hydrochlorothiazide 12.5 mg capsule 12.5 mg PO DAILY #90 cap 10/21/17 [Rx Confirmed 03/25/18] cilostazol 50 mg tablet 50 mg PO BID tab 11/04/17 [History Confirmed 03/25/18] paroxetine 30 mg tablet 30 mg PO QDAY 11/04/17 [History Confirmed 03/25/18] metoprolol tartrate 50 mg tablet 50 mg PO BID #180 tab 11/30/17 [Rx Confirmed 03/25/18] clindamycin HCl 300 mg capsule 300 mg PO TID #30 cap 02/24/18 [Rx Confirmed 03/25/18] omeprazole 10 mg capsule,delayed release 10 mg PO QDAY 02/24/18 [History Confirmed 03/25/18] rosuvastatin 40 mg tablet 40 mg PO QHS tab 02/24/18 [History Confirmed 03/25/18] tamsulosin 0.4 mg capsule 0.4 mg PO QDAY 02/24/18 [History Confirmed 03/25/18] fenofibrate nanocrystallized 145 mg tablet 145 mg PO DAILY #90 tab 03/15/18 [Rx Confirmed 03/25/18] losartan 100 mg tablet 100 mg PO DAILY #90 tab 04/14/18 [Rx] [facility] Medical History Hyperlipidemia (Chronic) Persistent atrial fibrillation (Chronic) Long-term use of high-risk medication (Chronic) Tobacco abuse (Chronic) Malaise and fatigue (Chronic) Dyspnea on exertion (Chronic) DANGELO (obstructive sleep apnea) (Chronic) Bronchitis (Acute) Sinusitis (Acute) History of coronary artery stent placement (Chronic) Hyperlipemia, mixed (Chronic) Hypertension (Chronic) PVD (peripheral vascular disease) (Chronic) Atherosclerosis of creek coronary artery 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) nursing home (current) use 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 (Chronic) Paroxysmal atrial fibrillation (Chronic) Cancer (Acute) Hemorrhoids (Acute) Lung disease (Acute) SOB (shortness of breath) (Acute) Surgical History History of cardiac catheterization (Resolved) History of bilateral cataract extraction (Resolved) S/P radiofrequency ablation operation for arrhythmia (Chronic) S/P femoropopliteal bypass surgery (Chronic 08/2010) Hx of CABG (Chronic 05/2006) Family History Father Cancer Lung Other Dementia Heart disease Social History Smoking Status: Former smoker second hand exposure: No alcohol intake: current alcohol intake frequency: 0-2 drinks per day Alcohol type: beer substance use type: does not use caffeine: No what type of physical activity do you participate in: none Review of Systems Const CONSTITUTIONAL: Negative anorexia, body ache, chills, daytime sleepiness, fever(s), night sweats, oral thrush, stops breathing during sleep, weight loss, sleeping in chair, fatigue, weight loss, weight gain, frequent colds, seasonal allergies, other, headache(s) or orthopnea EETM Ear Nose Throat Mouth: Positive hearing normal; negative hard of hearing, hoarseness, dry mouth in morning, change in vision, itchy eyes, eye pain, swallowing Difficulty, ear pain, nose bleed, headache(s), mouth pain, nasal congestion, nasal discharge, post nasal drip, sinus pain, sinus pressure, sore throat or other Cardio Cardiovascular: Negative chest pain, chest pain at rest, chest pain with activity, irregular heart rhythm, edema, shortness of breath when lying down, palpitations, murmur or other Resp Respiratory: Positive as per HPI; negative shortness of breath, pain with cough, wheezing, chest congestion, cough, chest tightness, pain on inspiration, inhalers, increase use of rescue inhalers, snoring, apnea or other Gastro Gastrointestional: Negative bloody stools, change in appetite, difficulty swallowing, reflux, hematemesis, melena stool, loose stool, constipation or other Genitourinary: Negative blood in urine, nocturia, pain with urination or other Musc Musculoskeletal: Negative body pain, back pain, neck pain or other Skin/Breast Skin/Breast: Negative dry skin, itching, rash, unusual bruising, breast lump or other Neuro Neurological: Negative restless legs, confusion, weakness or other Psych Psychocological: Negative abnormal sleep pattern, anxiety, thoughts of hurting self/others, hopelessness or other Lymph Lymphatic: Negative easy bleeding, easy bruising, swollen lymph nodes or other Exam Const Constitutional: Positive conversant, cooperative, in no acute respiratory distress, healthy appearing, well developed, well nourished, good hygiene and obese Head Head: Positive normocephalic and atraumatic; negative cyanosis of lips/distal nose Eyes Eye: Positive clear conjunctiva and nystagmus; negative scleral abnormality Ears Ear: Positive hearing normal and external ears normal; negative hard of hearing Nose Nose: Positive external nose normal and no nasal discharge; negative epistaxis Mouth Mouth: Positive oral mucosae normal, no lesions, poor dentition and crowded posterior oropharynx; negative post nasal drip, malodorous breath or oral thrush present Mallampati Score: IV: Mallampati Score Neck Neck: Positive normal visual inspection, full ROM, trachea midline, thick neck and male neck greater than 43 cm (17 in); negative lymphadenopathy, JVD or tender Chest Wall Chest: Positive normal inspection of the chest and symmetric chest movement; negative increased A/P diameter Resp lung sounds: Positive clear to auscultation, good air exchange, normal expiratory time and normal respiratory effort; negative diminished, wheezes, rhonchi, rales, dullness to percussion or wheeze present on forced exhalation Cardio Cardiac: Positive regular rate, regular rhythm, S1 normal and S2 normal; negative murmur GI GI: Positive normal to inspection, normal bowel sounds and obese; negative distended Genitourinary: Positive deferred Musc Musculoskeletal: Positive steady gait and ROM normal; negative kyphosis or scoliosis Skin Pulmonary Skin Exam: Positive intact; negative rash, lesion, erythema, ulcers, scaly or dermal atrophy Pulses Pulse: Yes pulses normal x4 extremities Extremities Extremities: Yes capillary refill normal, No clubbing, No cyanosis, Yes edema Location: lower extremity location: Bilateral pitting +1, No stasis dermatitis Neuro Neurologic: Yes conversant, Yes no focal neuro deficits, Yes cooperative, Yes normal cognition, Yes normal coordination, Yes normal concentration, Yes understands questions, No tremor Lymph Lymphatic: No lymphadenopathy, No tenderness, No cervical adenopathy, No axillary adenopathy Psych Appearance: Positive grossly normal, eye contact and well kempt Mental Status: Positive mental status grossly normal Mood: Positive labile mood Affect: Positive irritable affect Coding Level of Care Code Off vis,est,level 3 Diagnoses DANGELO (obstructive sleep apnea) G47.33 Restless legs syndrome (RLS) G25.81 04/22/18 1149 <Electronically signed by Mary Ellen WILSON> Date Mary Ellen WILSON Cosigner Signature: Date (if applicable) CC: Lobo Farrell MD PROTHROMBIN TIME W/INR Collected: 04/22/2018 Status: F Source: [facility] 11:27 AM [facility] REPOSITORY Order Comment: Comments: STANDING ORDER Comments: STANDING ORDER TYPE CODE TESTS RESULT OUT OF RANGE REFERENCE UNITS LAB L300.4150 11.7-14.9 SECONDS High PROTIME 25.4 LAB L300.4200 Normal INR 2.3 Performed By: #### L300.3900 #### [facility] [address] [place], [place], [address] LIVER PROFILE Collected: 04/22/2018 Status: F Source: [place] 11:27 AM [facility] REPOSITORY TYPE CODE TESTS RESULT OUT OF RANGE REFERENCE UNITS LAB L501.1500 6.4-8.2 g/dL Normal T PROT 7.1 LAB L501.1800 3.2-5.0 g/dL Normal ALB 3.5 LAB L501.1950 2.2-4.2 g/dL Normal GLOB 3.6 LAB L501.4100 15-37 U/L Normal AST 18 LAB L501.4305 45-117 U/L Normal ALK P 57 LAB L501.4405 16-61 U/L Normal ALT 24 LAB L501.4600 0.20-1.00 mg/dL Normal T BILI 0.30 LAB L501.4700 0.00-0.30 mg/dL Normal D BILI 0.10 Performed By: #### L500.3400, L500.4100 #### [facility] [address] [facility]. [place], [place], [id number] LIPID PROFILE Collected: 04/22/2018 Status: F Source: [facility] 11:27 AM [facility] REPOSITORY TYPE CODE TESTS RESULT OUT OF RANGE REFERENCE UNITS LAB L501.4900 200 mg/dL Normal CHOL 106 Result Comment: <200 mg/dL Desirable 200-240 mg/dL Borderline >240 mg/dL High Risk LAB L501.5000 mg/dL Normal TRIG 166 Result Comment: The drugs N-Acetylcysteine and Metamizole may falsely depress this assay. Serum Triglycerides Reference Interval Normal <150 mg/dL Borderline high 150 - 199 mg/dL High 200 - 499 mg/dL Very High > or = 500 mg/dL LAB L501.6400 mg/dL Low HDL 31 Result Comment: The drugs N-Acetylcysteine and Metamizole may falsely depress this assay. Reference Range HDL <40 mg/dL Low HDL Cholesterol HDL >or= 60 mg/dL High HDL Cholesterol LAB L501.6500 0-130 mg/dL Normal LDL 42 LAB L501.6600 5-40 mg/dL Normal VLDL 33 Performed By: #### L500.3400, L500.4100 #### [facility] [address] [place], [address] PULMONARY VISIT REPORT Observed: 03/26/2018 Status: F Source: [facility] 8:26 AM [facility] REPOSITORY [facility] [address] [place] [address] OFFICE VISIT Date of Service: 03/25/18 MR#: [id number] Acct: [id number] Name: GUEVARA SAAB Rep #: [id number] : 1955 Provider: Mary Ellen Sparks Age/Sex: 62/M Location: [facility] [place] Status: Signed Assessment AND Plan 1. DANGELO (obstructive sleep apnea) G47.33 Status Chronic Plan Stable. Maintain on current BiPAP settings. Encouraged ongoing compliance. He is using and benefiting from BiPAP. No indication for titration study at this time. Follow-up with myself in 1 month, if stable plan follow-up in 6 months. 2. Restless legs syndrome (RLS) G25.81 Status Acute Plan New. Plan to start on Requip 0.5mg nightly. Initially, will use 1 0.5 mg tablet 1 hour before bedtime. This will occur for 3 nights, if symptoms persist on that dosing he may increase to 2 0.5 mg tablets 1 hour before bedtime. Follow-up in 1 month to see how he has responded to medication, at which time we will also reviewed his compliance report to see if leaks and AHI are under 1 control. He has been encouraged to contact the office if he has any new or worsening symptoms in the meantime, as well as if he experiences any side effects from medication. Patient is agreeable to this plan. Plan Detail Other Medications New: ropinirole (Requip) administer 1 tablet 1 hour before b1 mg (2 x 0.5 mg) PO QHS 5 days edtime, may use 2 tablets if needed Follow Up 1 Month ([facility]) HPI 6 M FU: Chief Complaint: Shortness of breath with exertion HPI Comments Details: This is a 62 year old very pleasant m, here to follow up for sleep apnea. Current use of pressure support therapy is on average of 11 hours 1 minute per night with current settings of 15/11 cmH2O. he complains of occasional daytime somnolence but does not take naps. He has occasional dry mouth in the morning but does not view this as a significant problem. He does have nocturia 1-2 times a night, which he notes is a significant improvement. He denies snoring through the mask, morning headaches, and significant problems with leaking. He had recently trialed a full facemask but was unsuccessful due to significant leaks and has returned to using his nasal mask. GUEVARA reports feeling generally well rested in the morning and is benefitting from current therapy. Titration study completed on October 30, 2017 shows the patient has an overall [facility] AHI average of 30.2 events per hour, titration was performed the patient was suggested to be treated with 15/11 cm of water. It was also noted that he had a PLMS index of 73.8 events per hour. Complaints report for the past 30 days shows the patient has been 100% compliance, average use is 11 hours. Current settings are 15/11 cm of water. Current AHI remains elevated at 24.8 events on average per hour. Leaks do not appear to be a consistent issue, do occur occasionally. Currently, he feels as though he is recovering from a cold. He recently had a nonproductive cough, some chest congestion and nasal congestion. He has not used any bhfj-[id number] medications and reports that his symptoms are unrelenting. He denies any sputum production, hemoptysis, chest tightness or wheezing. He has not experienced any fever, chills or body aches. See complete review of systems. He is not currently on any inhalers. Intake Vital Signs03/25/18 Height 5 ft 8 in 03/25/18 Weight: 264 lb Intake Visit Reasons: 6 M FU [facility] ANDRE Accompanied by: Self Allergies adhesive Allergy (Verified 03/25/18 08:01) Unknown latex Allergy (Verified 03/25/18 08:01) Unknown lisinopril Allergy (Verified 03/25/18 08:01) Unknown Penicillins Allergy (Verified 03/25/18 08:01) Unknown rivaroxaban [From Xarelto] Allergy (Verified 03/25/18 08:01) Unknown Medications Aspirin [Adult Low Dose Aspirin EC] 81 mg PO DAILY 04/18/16 [History Confirmed 03/25/18] warfarin 5 mg tablet 5 mg PO DAILY #90 tab 10/13/17 [Rx Confirmed 03/25/18] hydrochlorothiazide 12.5 mg capsule 12.5 mg PO DAILY #90 cap 10/21/17 [Rx Confirmed 03/25/18] cilostazol 50 mg tablet 50 mg PO BID tab 11/04/17 [History Confirmed 03/25/18] paroxetine 30 mg tablet 30 mg PO QDAY 11/04/17 [History Confirmed 03/25/18] metoprolol tartrate 50 mg tablet 50 mg PO BID #180 tab 11/30/17 [Rx Confirmed 03/25/18] clindamycin HCl 300 mg capsule 300 mg PO TID #30 cap 02/24/18 [Rx Confirmed 03/25/18] losartan 100 mg tablet 100 mg PO DAILY 02/24/18 [History Confirmed 03/25/18] omeprazole 10 mg capsule,delayed release 10 mg PO QDAY 02/24/18 [History Confirmed 03/25/18] rosuvastatin 40 mg tablet 40 mg PO QHS tab 02/24/18 [History Confirmed 03/25/18] tamsulosin 0.4 mg capsule 0.4 mg PO QDAY 02/24/18 [History Confirmed 03/25/18] fenofibrate nanocrystallized 145 mg tablet 145 mg PO DAILY #90 tab 03/15/18 [Rx Confirmed 03/25/18] ropinirole 0.5 mg tablet 1 mg PO QHS 5 Days #60 tab 03/25/18 [Rx Confirmed 03/25/18] [facility] Medical History Hyperlipidemia (Chronic) Persistent atrial fibrillation (Chronic) Long-term use of high-risk medication (Chronic) Tobacco abuse (Chronic) Malaise and fatigue (Chronic) Dyspnea on exertion (Chronic) DANGELO (obstructive sleep apnea) (Chronic) Bronchitis (Acute) Sinusitis (Acute) History of coronary artery stent placement (Chronic) Hyperlipemia, mixed (Chronic) Hypertension (Chronic) PVD (peripheral vascular disease) (Chronic) Atherosclerosis of creek coronary artery 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) nursing home (current) use 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 (Chronic) Paroxysmal atrial fibrillation (Chronic) Cancer (Acute) Hemorrhoids (Acute) Lung disease (Acute) SOB (shortness of breath) (Acute) Surgical History History of cardiac catheterization (Resolved) History of bilateral cataract extraction (Resolved) S/P radiofrequency ablation operation for arrhythmia (Chronic) S/P femoropopliteal bypass surgery (Chronic 08/2010) Hx of CABG (Chronic 05/2006) Family History Father Cancer Lung Other Dementia Heart disease Social History Smoking Status: Former smoker second hand exposure: No alcohol intake: current alcohol intake frequency: 0-2 drinks per day Alcohol type: beer substance use type: does not use caffeine: No what type of physical activity do you participate in: none Review of Systems Const CONSTITUTIONAL: Negative anorexia, body ache, chills, daytime sleepiness, fever(s), night sweats, oral thrush, stops breathing during sleep, weight loss, sleeping in chair, fatigue, weight loss, weight gain, frequent colds, seasonal allergies, other, headache(s) or orthopnea EETM Ear Nose Throat Mouth: Positive nasal congestion and nasal discharge; negative hard of hearing, hearing normal, hoarseness, dry mouth in morning, change in vision, itchy eyes, eye pain, swallowing Difficulty, ear pain, nose bleed, headache(s), mouth pain, post nasal drip, sinus pain, sinus pressure, sore throat or other Cardio Cardiovascular: Negative chest pain, chest pain at rest, chest pain with activity, irregular heart rhythm, edema, shortness of breath when lying down, palpitations, murmur or other Resp Respiratory: Positive as per HPI, shortness of breath shortness of breath: Positive with activity and cough cough: Positive productive color: Positive thick and white; negative pain with cough, wheezing, chest congestion, chest tightness, pain on inspiration, inhalers, increase use of rescue inhalers, snoring, apnea or other Gastro Gastrointestional: Negative bloody stools, change in appetite, difficulty swallowing, reflux, hematemesis, melena stool, loose stool, constipation or other Genitourinary: Negative blood in urine, nocturia, pain with urination or other Musc Musculoskeletal: Negative body pain, back pain, neck pain or other Skin/Breast Skin/Breast: Negative dry skin, itching, rash, unusual bruising, breast lump or other Neuro Neurological: Negative restless legs, confusion, weakness or other Psych Psychocological: Negative abnormal sleep pattern, anxiety, thoughts of hurting self/others, hopelessness or other Lymph Lymphatic: Negative easy bleeding, easy bruising, swollen lymph nodes or other Exam Const Constitutional: Positive conversant, cooperative, in no acute respiratory distress, healthy appearing, well developed, well nourished, good hygiene and obese Head Head: Positive normocephalic and atraumatic; negative cyanosis of lips/distal nose Eyes Eye: Positive clear conjunctiva and nystagmus; negative scleral abnormality Ears Ear: Positive external ears normal; negative hard of hearing or hearing normal Nose Nose: Positive external nose normal and no nasal discharge; negative epistaxis Mouth Mouth: Positive oral mucosae normal, no lesions, dentures and crowded posterior oropharynx; negative post nasal drip, oral thrush present or malodorous breath Mallampati Score: III: Mallampati Score Neck Neck: Positive normal visual inspection, full ROM, trachea midline and thick neck; negative lymphadenopathy, JVD or tender Chest Wall Chest: Positive normal inspection of the chest and symmetric chest movement; negative increased A/P diameter Resp lung sounds: Positive clear to auscultation, diminished, normal expiratory time, normal respiratory effort and good air exchange; negative wheezes, rhonchi, rales, dullness to percussion or wheeze present on forced exhalation Cardio Cardiac: Positive regular rate, regular rhythm, S1 normal and S2 normal; negative murmur GI GI: Positive normal to inspection, normal bowel sounds and obese; negative distended Genitourinary: Positive deferred Musc Musculoskeletal: Positive steady gait and ROM normal; negative kyphosis or scoliosis Skin Pulmonary Skin Exam: Positive intact; negative rash, lesion, ulcers, erythema, scaly or dermal atrophy Pulses Pulse: Yes radial pulses present, Yes pulses normal x4 extremities Extremities Extremities: No edema, Yes capillary refill normal, No clubbing, No cyanosis Neuro Neurologic: Yes conversant, Yes no focal neuro deficits, Yes understands questions, Yes cooperative, Yes normal cognition, No tremor Lymph Lymphatic: No lymphadenopathy, No tenderness, No cervical adenopathy, No axillary adenopathy Psych Appearance: Positive grossly normal, eye contact and well kempt Mental Status: Positive mental status grossly normal Mood: Positive congruent mood Affect: Positive normal affect Coding Level of Care Code Off vis,est,level 4 Diagnoses DANGELO (obstructive sleep apnea) G47.33 Restless legs syndrome (RLS) G25.81 03/26/18 0826 <Electronically signed by Mary Ellen WILSON> Date Mary Ellen WEBBC Cosigner Signature: Date (if applicable) CC: Lobo Farrell PROTIME W/INR Collected: 03/01/2018 Status: F Source: [facility] [place] 12:25 PM [facility] REPOSITORY TYPE CODE TESTS RESULT OUT OF REFERENCE UNITS RANGE LAB L9200.1001 11.9-14.4 SEC High PROTIME ISTAT 28.0 Result Comment: Reference Range 11.9 - 14.4 LAB L9200.2000 Normal INR ISTAT 2.40 Result Comment: Critical Value > 3.5 Performed By: #### L9200.0000 #### [facility] Point [facility] Care [address] [place] [address] URGENT CARE VISIT Observed: 02/24/2018 Status: F Source: [facility] REPORT 12:38 PM [facility] REPOSITORY [facility] [address] [place] [id number] OFFICE VISIT Date of Service: 02/24/18 MR#: [id number] Acct: [id number] Name: KAISERGUEVARA Rep #: [id number] : 1955 Provider: Jaime FONTAINE Age/Sex: 62/M Location: [facility] [place] Status: Signed Intake Vital Signs02/24/18 Height 5 ft 8 in Intake Visit Reasons: Cough Is patient in pain?: No Allergies adhesive Allergy (Verified 02/24/18 11:30) Unknown latex Allergy (Verified 02/24/18 11:30) Unknown lisinopril Allergy (Verified 02/24/18 11:30) Unknown Penicillins Allergy (Verified 02/24/18 11:30) Unknown rivaroxaban [From Xarelto] Allergy (Verified 02/24/18 11:30) Unknown Medications Aspirin [Adult Low Dose Aspirin EC] 81 mg PO DAILY 04/18/16 [History Confirmed 02/24/18] warfarin 5 mg tablet 5 mg PO DAILY #90 tab 10/13/17 [Rx Confirmed 02/24/18] hydrochlorothiazide 12.5 mg capsule 12.5 mg PO DAILY #90 cap 10/21/17 [Rx Confirmed 02/24/18] cilostazol 50 mg tablet 50 mg PO BID tab 11/04/17 [History Confirmed 02/24/18] paroxetine 30 mg tablet 30 mg PO QDAY 11/04/17 [History Confirmed 02/24/18] metoprolol tartrate 50 mg tablet 50 mg PO BID #180 tab 11/30/17 [Rx Confirmed 02/24/18] clindamycin HCl 300 mg capsule 300 mg PO TID #30 cap 02/24/18 [Rx Confirmed 02/24/18] fenofibrate nanocrystallized 145 mg tablet 145 mg PO DAILY 02/24/18 [History Confirmed 02/24/18] losartan 100 mg tablet 100 mg PO DAILY 02/24/18 [History Confirmed 02/24/18] omeprazole 10 mg capsule,delayed release 10 mg PO QDAY 02/24/18 [History Confirmed 02/24/18] rosuvastatin 40 mg tablet 40 mg PO QHS tab 02/24/18 [History] tamsulosin 0.4 mg capsule 0.4 mg PO QDAY 02/24/18 [History Confirmed 02/24/18] PFSH Medical History History of coronary artery stent placement (Chronic) Hyperlipemia, mixed (Chronic) Hypertension (Chronic) PVD (peripheral vascular disease) (Chronic) Atherosclerosis of creek coronary artery 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) nursing home (current) use 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 (Chronic) Paroxysmal atrial fibrillation (Chronic) Cancer (Acute) Hemorrhoids (Acute) Lung disease (Acute) SOB (shortness of breath) (Acute) Surgical History S/P radiofrequency ablation operation for arrhythmia (Chronic) S/P femoropopliteal bypass surgery (Chronic 08/2010) Hx of CABG (Chronic 05/2006) Family History Other Dementia Heart disease Social History Smoking Status: Former smoker alcohol intake: current alcohol intake frequency: 0-2 drinks per day Alcohol type: beer HPI HPI Details: GUEVARA SAAB, is a 62 M who presents to the office today for initial evaluation approximately 1-1/2 week history of progressively worsening facial pressure, postnasal drip, productive cough and chills. Patient states that she will began over the last 24-48 hours and had an concern and therefore reported here for initial evaluation. He is an ex-smoker stating no other members in his household smoke and no other members in his household with similar signs or symptoms. He notes no complaints of fever, sweats, rash, chest pain/shortness of breath. He notes no other associated symptoms no alleviating or aggravating factors. ROS Const Constitutional: Positive for chills; no fever(s), night sweats or body ache Eyes Eyes: No change in vision ENT ENT: Positive for post nasal drip and sinus pressure; no abnormal hearing, ear pain, ear discharge, ear pressure, hearing loss or sore throat Resp Respiratory: Positive for cough; no chest congestion or shortness of breath Cardio Cardiology: No chest pain at rest, chest pain with exertion, shortness of breath, dyspnea on exertion, irregular heart rhythm, generalized swelling or leg pain with exertion Gastro GI: No abdominal pain, change in stool character or change in bowel habits Skin Skin: No rash Neuro Neurology: No abnormal hearing, abnormal speech or abnormal movements Exam Const General: cooperative, healthy appearing, no acute distress, comfortable, well groomed Nutritional Appearance: average body habitus, obese Orientation: alert, awake, oriented x3 [facility] Head: normal to inspection Ears: hearing grossly normal bilaterally, external ears normal, TM's normal bilaterally, EAC's normal Nose: external nose normal, nares normal, septum normal, no nasal discharge Face and sinus: normal facial exam, face symmetric, sinus tenderness maxillary and frontal Mouth: oral mucosae normal, lip normal, tongue normal, oropharynx normal Teeth and gingiva: gingiva normal, dentition normal Throat: uvula midline, tonsils normal, posterior oropharynx normal, postnasal drainage (Purulent) Eyes General: appearance normal, both eyes and all related structures Neck Neck: normal visual inspection, full ROM, no meningeal signs, supple, lymphadenopathy (Bilateral anterior cervical node swelling and tender to palpation) Neck mass: No Thyroid: thyroid normal Lymphatic: no lymphadenopathy noted Chest Chest palpation AND inspection: normal inspection of the chest Resp Effort AND Inspection: normal respiratory effort, able to speak in complete sentences, symmetric chest movement, cough (Nonproductive) Quality of cough: wet Auscultation: Bilateral: Clear to Auscultation Cardio Palpation: normal PMI Rate: regular rate Rhythm: regular rhythm Heart Sounds: S1 normal, S2 normal, no gallops, no murmurs, no rubs Pulses: radial pulses present Skin General: no rashes or lesions noted Neuro General: alert, awake, oriented x3, gait normal Cognition: normal cognition Speech: speech normal Gait: normal gait Motor: muscle tone normal throughout Sensory Exam: no sensory deficits noted Psych Appearance: grossly normal Mental Status: mental status grossly normal Mood: congruent mood Affect: normal affect Speech and Movement: speech and movement normal Attitude: cooperative Thought Process: normal Thought Content: normal Judgment: judgment good Assessment AND Plan Problems 1. Sinusitis J32.9 2. Bronchitis J40 Plan Clindamycin as prescribed today. Fluids, rest, Tylenol, warm facial compresses as needed as instructed today. Avoid tobacco smoke exposure. Follow-up with PCP in 3-5 days should symptoms not improve, sooner should symptoms worsen or any other concerns develop. Patient states acknowledging understanding all the above. This note was generated with SL[employer] dictation software. It may contain incorrect words, spelling, and punctuation that were not noted in checking the note before signing. Medications New: clindamycin HCl please inform pt unable to prescribe azithromycin due to300 mg PO TID interaction w/ other meds Coding Level of Care Code Off vis,est,level 3 Diagnoses Sinusitis J32.9 Bronchitis J40 02/24/18 1238 <Electronically signed by Jaime FONTAINE> Date Jaime FONTAINE Cosigner Signature: Date (if applicable) CC: PROTHROMBIN TIME W/INR Collected: 02/05/2018 Status: F Source: [place] 10:12 AM [facility] REPOSITORY TYPE CODE TESTS RESULT OUT OF RANGE REFERENCE UNITS LAB L300.4150 11.7-14.9 SECONDS High PROTIME 21.0 LAB L300.4200 Normal INR 1.8 Performed By: #### L300.3900 #### [facility] [address] [place], [address] PSA,TOTAL - ANNUAL Collected: 02/05/2018 Status: F Source: [facility] 10:12 AM [facility] REPOSITORY Order Comment: SEND RESULTS OF PSA TO . TYPE CODE TESTS RESULT OUT OF RANGE REFERENCE UNITS LAB L501.9910 0.00-4.00 ng/mL Normal PSA,TOT < 0.01 SCREEN Result Comment: This test was performed using the TPSA assay method for the [employer] chemistry system. Values obtained with different assay methods cannot be used interchangably. When changing PSA assays in the course of monitoring a patient, additional sequential testing should be carried out to confirm baseline values. Performed By: #### L501.9910 #### [facility] [address] [place], [address] OBSOLETE Observed: 01/12/2018 Status: COMPLETED Source: [place] 12:00 AM [facility]IN[facility] OTHER CAMPUS REPOSITORY Refill (AGVASBEAL) GUEVARA SAAB ([id number]) 1955 M Date Time Provider Department 01/12/18 LUCILA VAZQUEZ (TAXATION CONSULTANT) AGVASBEAL During your visit today, we recorded the following information about you: Allergies As of Date: 01/12/2018 Noted Allergy Reaction ANCEF (CEFAZOLIN SODIUM) 09/04/2006 2 - Rash LATEX 05/15/2016 14 - Other: See Comments Comments: Local skin reaction LISINOPRIL 05/15/2016 3 - Cough PENICILLINS 09/04/2006 4 - Hives XARELTO (RIVAROXABAN) 05/15/2016 14 - Other: See Comments Comments: Rectal bleeding Date Reviewed: 08/07/2017 Reviewed by: Constantine Helms - Fully Assessed Reason for Visit: Refill Request [94] Order(s):clopidogrel (PLAVIX) 75 mg tabletTAKE 1 TABLET BY MOUTH DAILYDisp: 90 tabletRfl: 2 Prescriptions as of 01/12/2018 Sig: CLOPIDOGREL 75 MG TABLET TAKE 1 TABLET BY MOUTH DAILY CILOSTAZOL 100 MG TABLET Take 1 tablet by mouth twice * HYDROCHLOROTHIAZIDE 12.5 MG C* Take 12.5 mg by mouth once da* LOSARTAN 100 MG TABLET Take 100 mg by mouth once arminda* NITROSTAT 0.4 MG SUBLINGUAL T* HYDROCHLOROTHIAZIDE 12.5 MG T* Take 12.5 mg by mouth once da* METOPROLOL TARTRATE 50 MG TAB* Take 50 mg by mouth twice arminda* FENOFIBRATE NANOCRYSTALLIZED * Take 145 mg by mouth once arminda* ROSUVASTATIN 40 MG TABLET Take 40 mg by mouth once guerita* ASPIRIN 325 MG TABLET Take 81 mg by mouth once guerita* WARFARIN 5 MG TABLET Take 5 mg by mouth daily as d* PAROXETINE 30 MG TABLET Take 30 mg by mouth once guerita* PREVACID 30 MG CAPSULE,DELAYE* one tablet daily Problem List As Of Date 01/12/2018 Noted Resolved Persistent atrial fibrillation (HCC) [I48.1] CAD (coronary artery disease) [I25.10] MT, old [I25.2] Dyspnea on exertion [R06.09] Anticoagulated on warfarin [Z79.01] Anticoagulant causing adverse effect in therape* More... 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 Peripheral vascular disease (HCC) [I73.9] More... Percutaneous transluminal coronary angioplasty * More... Mitral regurgitation [I34.0] More... Tricuspid regurgitation [I07.1] More... Obstructive sleep apnea [G47.33] More... Prescriptions ordered this encounter Disp Refills Start End CLOPIDOGREL 75 MG TABLET 90 t* 2 01/12/2018 Sig: TAKE 1 TABLET BY MOUTH DAILY Medications Discontinued During This Encounter clopidogrel (PLAVIX) 75 mg tablet 90 t* 3 12/11/2016 01/12/2018 Sig: TAKE 1 TABLET BY MOUTH DAILY Disc: Reason for discontinue is not on file. Encounter Status:Closed by LUCILA VAZQUEZ CNP on 01/12/18 PROTHROMBIN TIME W/INR Collected: 12/15/2017 Status: F Source: [place] 10:30 AM [facility] REPOSITORY Order Comment: DR. DIOR WANTS THE PSAD DR. OLEA WANTS THE PT TYPE CODE TESTS RESULT OUT OF RANGE REFERENCE UNITS LAB L300.4150 11.7-14.9 SECONDS High PROTIME 25.9 LAB L300.4200 Normal INR 2.5 Performed By: #### L300.3900 #### [facility] [address] [place], [address] PSA,TOTAL- DIAGNOSTIC Collected: 12/15/2017 Status: F Source: [place] 10:30 AM [facility] REPOSITORY Order Comment: DR. DIOR WANTS THE PSAD DR. OLEA WANTS THE PT TYPE CODE TESTS RESULT OUT OF RANGE REFERENCE UNITS LAB L501.9940 0.0-4.0 ng/mL PSA, Normal DIAGNOSTIC < 0.01 Result Comment: This test was performed using the TPSA assay method for the [employer] chemistry system. Values obtained with different assay methods cannot be used interchangably. When changing PSA assays in the course of monitoring a patient, additional sequential testing should be carried out to confirm baseline values. Performed By: #### L501.9940 #### [facility] [address] [place], [address] ALLERGIES ALLERGIES DATE TYPE / CODE NAME / CODE REACTION SEVERITY SOURCE 11/08/2018 Drug Penicillins/[id number] Unknown Unknown [place] Allergy/416 0476(RXNORM) [facility] 289242([facility] ED [facility]) Repository 11/08/2018 Drug lisinopril/[id number] Unknown Unknown [place] Allergy/416 658(RXNORM) [facility] 218140([facility] ED [facility]) Repository 11/08/2018 Drug adhesive/[id number] Unknown Unknown [facility] [place] Allergy/416 5(RXNORM) [facility] 729676([facility] ED CT) Repository 11/08/2018 Drug latex/[id number](R Unknown Unknown [facility] [place] Allergy/416 XNORM) [facility] 851588([facility] ED CT) Repository 11/08/2018 Drug rivaroxaban/[id number] Unknown Unknown [facility] [place] Allergy/416 2873(RXNORM) [facility] 494464([facility] ED CT) Repository 05/15/2016 DRUG LATEX OTHER: SEE C [facility] INGREDI/419 Other [place] 599251(SNOM Repository ED CT) 05/15/2016 DRUG LISINOPRIL COUGH [facility] INGREDI/419 Other [place] 223881(SNOM Repository ED CT) 05/15/2016 DRUG RIVAROXABAN OTHER: SEE C [facility] INGREDI/419 Other [place] 967955(SNOM Repository ED CT) 09/04/2006 DRUG CEFAZOLIN SODIUM RASH [facility] INGREDI/419 Other [place] 483209(SNOM Repository ED CT) 09/04/2006 Drug PENICILLINS HIVES [facility] Class/98326 Other [place] 1003(SNOMED Repository CT) NG/[id number] CEFAZOLIN SODIUM [facility] Repository NG/06064214 LATEX [facility] Repository NG/[id number] LISINOPRIL [facility] 6([facility]OM[facility]) Repository NG/88327480 PENICILLINS [facility]) Repository NG/17497322 RIVAROXABAN [facility] 6([facility]) Repository ENCOUNTERS ENCOUNTERS ADMIT/DISCHARGE ACCOUNT NUMBER ADMITTING ENCOUNTER LOCATION SOURCE CLASS 11/15/2018 [id number] Ambulatory [facility] ding:[facility] Repository 11/08/2018 [id number] Ambulatory [facility] ding:LAB Repository 11/08/2018/11/08/19 [id number] Ambulatory BMSBuilding: [place] 19 [facility] Repository 10/12/2018/10/12/20 [id number] Ambulatory BMSBuilding: [facility] [place] 18 [facility] Repository 09/13/2018/09/24/20 [id number] Ambulatory [address] ding:LAB Repository 08/06/2018/08/06/20 [id number] Ambulatory [address] Other [place] Repository 08/06/2018/08/06/20 [id number] Ambulatory [address] MEDICAL Repository CENTERBuildi ng:AGWM 06/14/2018/06/14/20 [id number] Ambulatory [facility] [place] ding:LAB Repository 05/06/2018/05/06/20 [id number] Ambulatory BMSBuilding: [place] 18 [facility] Repository 04/22/2018/04/22/20 [id number] Ambulatory [place] [address] ding:LAB Repository 04/22/2018/04/22/20 [id number] Ambulatory BMSBuilding: [facility] [place] 18 [facility] [place] [place] Repository 03/25/2018/03/25/20 [id number] Ambulatory BMSBuilding: [place] 18 BMS.[facility] [place] [place] Repository 03/01/2018/03/01/20 [id number] Ambulatory [place] Ale[place] 18 [facility] ding:LAB Repository 02/24/2018/02/25/20 [id number] Ambulatory BMSBuilding: [facility] [place] 18 [facility] Repository 02/05/2018/02/06/20 [id number] Ambulatory [place] [address] ding:LAB Repository 12/15/2017/12/15/19 [id number] Ambulatory [facility] [place] [address] ding:LAB Repository 12/01/2017 [id number] Ambulatory [facility] ding:LAB.FUT Repository URE PAYERS PAYERS ENCOUNTER GUARANTOR PAYER SUBSCRIBER SOURCE 11/15/2018 GUEVARA WILSONAM197 Primary YUKO A [place] RY Insurance:AETNAPolicy ZULEMAB: [place], [place] Number: [id number] Hospital 29[address]Ogn: (666) [id number] Repository [phone] () Date:1415-74-27TZ [address] [place] [address]ZO: 11/15/2018 Secondary GUEVARA R [place] Insurance:MEDICARE ZULEMAB: [facility] PART A [facility] [id number] Hospital Number: Repository [id number] Date:2018-11-08 11/15/2018 Tertiary NOT GIVENUNK [place] Insurance:SELF PAY [facility] Number: Effective Repository Date:2018-11-08 11/08/2018 GUEVARA GUTIÉRREZ97 Primary YUKO A [facility] [place] RY Insurance:AETNAPolicy GRAHAMDOB: [place] Number: [id number] Hospital [address]Aqd: 330 [id number] Repository [phone] () Date:8379-58-01RK [address], [place] [address]DH: 11/08/2018 Secondary GUEVARA R [place] Insurance:MEDICARE GRAHAMDOB: Community PART A [facility] [id number] Hospital Number: Repository [id number] Date:2017-11-27 11/08/2018 Tertiary NOT GIVENUNK [place] Insurance:SELF PAY [facility] Number: Effective Repository Date:2018-09-27 11/08/2018 GUEVARA GUTIÉRREZ97 Primary GUEVARA R [facility] [place] RY Insurance:MEDICARE GRAHAMDOB: [place] PART A [facility] [id number] Hospital 91993Bcu: (330) Number: Repository [phone] () [id number] Date:2018-05-06 11/08/2018 Secondary YUKO A [facility] [place] Insurance:AETNAPolicy GRAHAMDOB: Community Number: [id number] Hospital [id number] Repository Date:5557-93-50NJ [address], [place] [address]AP: 11/08/2018 Tertiary NOT GIVENUNK [facility] [place] Insurance:SELF PAY [facility] Number: Effective Repository Date:2018-11-05 10/12/2018 GUEVARA GUTIÉRREZ97 Primary YUKO A [facility] [place] RY Insurance:AETNAPolicy GRAHAMDOB: [place] Number: [id number] Hospital [address]Cqu: 330) [id number] Repository [phone] () Date:1282-62-16KD [address], [place] [address]OD: 10/12/2018 Secondary GUEVARA R [facility] [place] Insurance:MEDICARE GRAHAMDOB: Community PART A BPolicy [id number] Hospital Number: Repository [id number] Date:2018-04-22 10/12/2018 Tertiary NOT GIVENUNK [place] Insurance:SELF PAY [facility] Number: Effective Repository Date:2018-10-04 09/13/2018 GUEVARA Brennan [id number] Primary YUKO A [place] RY Insurance:AETNAPolicy GRAHAMDOB: [facility] [place] Number: [id number] Hospital 78[address]Qqu: (336) [id number] Repository [phone] (HP) Date:1902-38-71[address], [place] [address]VT: 09/13/2018 Secondary GUEVARA R [facility] [place] Insurance:MEDICARE GRAHAMDOB: Community PART A BPolicy [id number] Hospital Number: Repository [id number] Date:2017-11-27 09/13/2018 Tertiary NOT GIVENUNK [place] Insurance:SELF PAY [facility] Number: Effective Repository Date:2018-06-29 08/06/2018 GUEVARA R Primary GUEVARA [facility] GRAHAMDOB: Insurance:MEDICARE A GRAHAMDOB: Health System AND BPolicy Number: [id number] Repository RY [id number] [facility] [place] Date: [address]Tyu: (HP) 08/06/2018 Secondary YUKO A [facility] Insurance:AETNA GRAHAMDOB: Health System CHOICE POS IIPolicy [id number] Repository Number: [id number] Date: 06/14/2018 GUEVARA Amin [id number] Primary YUKO A [place] RY Insurance:AETNAPolicy GRAHAMDOB: [place] Number: [id number] Hospital 41892Zzv: (905) [id number] Repository [phone] (HP) Date:0735-78-86ED [address] [address]KM: 06/14/2018 Secondary GUEVARA R [facility] [place] Insurance:MEDICARE GRAHAMDOB: Community PART A BPolicy [id number] Hospital Number: Repository [id number] Date:2017-11-27 06/14/2018 Tertiary NOT GIVENUNK [facility] [place] Insurance:SELF PAY [facility] Number: Effective Repository Date:2018-04-23 05/06/2018 GUEVARA GUTIÉRREZ97 Primary YUKO A [facility] [place] RY Insurance:AETNAPolicy GRAHAMDOB: Community [facility] [place] Number: [id number] Hospital [address]Fnj: 330 [id number] Repository [phone] () Date:8911-25-82XI [address] [address]MN: 05/06/2018 Secondary GUEVARA R [place] Insurance:MEDICARE GRAHAMDOB: Community PART A [facility] [id number] Hospital Number: Repository [id number] Date:2017-11-04 05/06/2018 Tertiary NOT GIVENUNK [place] Insurance:SELF PAY [facility] Number: Effective Repository Date:2018-05-06 04/22/2018 GUEVARA GUTIÉRREZ97 Primary YUKO A [place] RY Insurance:AETNAPolicy GRAHAMDOB: [facility] [place] Number: [id number] Hospital 820[address]Qxb: 330 [id number] Repository [phone] (HP) Date:9624-74-95UY [address], [place] [address]CY: 04/22/2018 Secondary GUEVARA R [facility] [place] Insurance:MEDICARE GRAHAMDOB: Community PART A olicy [id number] Hospital Number: Repository [id number] Date:2017-11-27 04/22/2018 Tertiary NOT GIVENUNK [facility] [place] Insurance:SELF PAY [facility] Number: Effective Repository Date:2018-03-25 04/22/2018 GUEVARA GUTIÉRREZ97 Primary YUKO A [place] RY Insurance:AETNAPolicy GRAHAMDOB: [place], [place] Number: [id number] Hospital 103[address]Bgu: 330 [id number] Repository [phone] () Date:1624-64-99LN [address], [place] [address]SN: 04/22/2018 Secondary GUEVARA R [place] Insurance:MEDICARE GRAHAMDOB: Community PART A olic [id number] Hospital Number: Repository [id number] Date:2018-03-25 04/22/2018 Tertiary NOT GIVENUNK [place] Insurance:SELF PAY [facility] Hospital Number: Effective Repository Date:2018-04-20 03/25/2018 GUEVARA [id number] Primary YUKO A [place] ZHANG Insurance:AETNAPolicy GRAHAMDOB: [place], [place] Number: [id number] Hospital 7[address]Ysd: 330 [id number] Repository [phone] () Date:0193-33-08TB [address], [place] [address]SN: 03/25/2018 Secondary GUEVARA Fink Insurance:MEDICARE GRAHAMDOB: Community PART A [facility] [id number] Hospital Number: Repository [id number] Date:2017-10-05 03/25/2018 Tertiary NOT GIVENUNK [place] Insurance:SELF PAY [facility] Hospital Number: Effective Repository Date:2018-03-23 03/01/2018 GUEVARA [id number] Primary YUKO A Ale[place] ZHANG Insurance:AETNAPolicy GRAHAMDOB: [place], [place] Number: [id number] Hospital 605[address]Qji: 330 [id number] Repository [phone] () Date:1195-06-23UL [address], [place] [address]RP: 03/01/2018 Secondary GUEVARA Brennan Ale[place] Insurance:MEDICARE GRAHAMDOB: Community PART A [facility] [id number] Hospital Number: Repository [id number] Date:2017-11-27 03/01/2018 Tertiary NOT GIVENUNK [facility] [place] Insurance:SELF PAY [facility] Number: Effective Repository Date:2018-02-23 02/24/2018 GUEVARA Brennan [id number] Primary YUKO ZHANG Insurance:AETNAPolicy GRAHAMDOB: [facility] [place] Number: [id number] Hospital 439[address]Sku: 330 [id number] Repository [phone] (HP) Date:4855-13-08AN [address] [address]AM: 02/24/2018 Secondary GUEVARA R [place] Insurance:MEDICARE GRAHAMDOB: Community PART A olic [id number] Hospital Number: Repository [id number] Date:2018-02-24 02/24/2018 Tertiary NOT GIVENUNK [facility] [place] Insurance:SELF PAY [facility] Hospital Number: Effective Repository Date:2018-02-24 02/05/2018 GUEVARA WILSONAM260 Primary YUKO ZHANG Insurance:AETNAPolicy GRAHAMDOB: [facility] [place] Number: [id number] Hospital [address]Drv: (374) [id number] Repository [phone] () Date:4419-20-04BZ [address], [place] [address]QU: 02/05/2018 Secondary GUEVARA R Ale[place] Insurance:MEDICARE GRAHAMDOB: Community PART A olicy [id number] Hospital Number: Repository [id number] Date:2017-11-27 02/05/2018 Tertiary NOT GIVENUNK [facility] [place] Insurance:SELF PAY [facility] Hospital Number: Effective Repository Date:2017-12-24 12/15/2017 GUEVARA Brennan [id number] Primary Yuko ZHANG Insurance:AETNAPolicy GrahamDOB: [facility] [place] Number: [id number] Hospital 89[address]Lev: (653) [id number] Repository [phone] (HP) Date:9467-48-37[address] [address]HE: 12/15/2017 Secondary GUEVARA Fink Insurance:MEDICARE GRAHAMDOB: Community PART A olicy [id number] Hospital Number: Repository [id number] Date:2017-11-27 12/15/2017 Tertiary NOT GIVENUNK [facility] [place] Insurance:SELF PAY [facility] Hospital Number: Effective Repository Date:2017-11-27 12/01/2017 GUEVARA COTTER Primary Yuko ZHANG Insurance:AETNAPolicy GrahamDOB: Community [place], [place] Number: [id number] Hospital 10[address]Arr: (141) [id number] Repository [phone] () Date:5182-34-89NB [address] [place] [address]RW: 12/01/2017 Secondary GUEVARA Fink Insurance:MEDICARE GRAHAMDOB: Community PART A [facility] [id number] Hospital Number: Repository [id number] Date:2017-12-01 12/01/2017 Tertiary NOT GIVENUNK [facility] [place] Insurance:SELF PAY [facility] Number: Effective Repository Date:2017-12-01
== END ==
PROVIDERS: Family Provider Family Medicine; PCP Family Medicine; Referring Provider Nurse Practitioner Family; Visit Provider Nurse Practitioner Family
DX: R07.9 Chest pain, unspecified (principal); I48.0 Paroxysmal atrial fibrillation; Z95.1 Presence of aortocoronary bypass graft
CPT/HCPCS: 78452; 93017; A9500; A4216; J2785

== ENCOUNTER 2019-02-03 09:50 | Outpatient (RCR) | payer OTHER, MEDICARE, SELFPAY ==
[2019-02-03 10:06] LABS: Prothrombin Time Fingerstick 28.7 SEC (11.9-14.4)
== END 2019-02-22 16:00 | disposition home or self-care (01) ==
LOC: LAB 09:50
PROVIDERS: Family Provider Family Medicine; PCP Family Medicine; Referring Provider Internal Medicine Cardiovascular Disease; Visit Provider Internal Medicine Cardiovascular Disease
DX: I48.1 Persistent atrial fibrillation (principal); Z79.01 Long term (current) use 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
CPT/HCPCS: 36416; 85610

== ENCOUNTER 2019-03-28 09:18 | Outpatient (RCR) | payer OTHER, MEDICARE, SELFPAY ==
[2019-03-28 08:45] VITALS: BMI 42.5
[2019-03-29 07:20] LABS: Prothrombin Time Fingerstick 36.5 SEC (11.9-14.4)
== END 2019-03-28 10:00 | disposition home or self-care (01) ==
LOC: LAB 09:18
PROVIDERS: Family Provider Family Medicine; PCP Family Medicine; Referring Provider Internal Medicine Cardiovascular Disease; Visit Provider Internal Medicine Cardiovascular Disease
DX: I48.1 Persistent atrial fibrillation (principal); Z79.01 Long term (current) use 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
CPT/HCPCS: 36416; 85610

== ENCOUNTER 2019-05-18 10:31 | Outpatient (RCR) | payer OTHER, MEDICARE, SELFPAY ==
[2019-05-18 10:46] LABS: Prothrombin Time Fingerstick 35.6 SEC (11.9-14.4)
== END 2019-05-18 16:25 | disposition home or self-care (01) ==
LOC: LAB 10:31
PROVIDERS: Family Provider Family Medicine; PCP Family Medicine; Referring Provider Internal Medicine Cardiovascular Disease; Visit Provider Internal Medicine Cardiovascular Disease
DX: I48.1 Persistent atrial fibrillation (principal); Z79.01 Long term (current) use 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
CPT/HCPCS: 36416; 85610

== ENCOUNTER 2019-06-16 13:54 | Outpatient (RCR) | payer OTHER, MEDICARE, SELFPAY ==
[2019-05-24 10:02] VITALS: BMI 41.8
[2019-06-16 15:26] LABS: International Normalized Ratio 2.6; Prothrombin Time (Protime)PT. 27.6 SECONDS (11.7-14.9)
[2019-06-16 15:59] LABS: PSA,Total- Diagnostic 0.04 ng/mL (0.0-4.0)
== END 2019-06-16 16:00 | disposition home or self-care (01) ==
LOC: LAB 13:54
PROVIDERS: Family Provider Family Medicine; PCP Family Medicine; Referring Provider Internal Medicine Cardiovascular Disease; Visit Provider Internal Medicine Cardiovascular Disease
DX: I48.1 Persistent atrial fibrillation (principal); Z79.01 Long term (current) use 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; C61 Malignant neoplasm of prostate
CPT/HCPCS: 36415; 84153; 85610

== ENCOUNTER → 2019-07-05 | Outpatient (CLI) | payer OTHER, MEDICARE, SELFPAY ==
[2019-07-05 12:21] VITALS: BMI 40.9
--- NOTE | 2019-07-05 12:44 | CT_ITS ---
STUDY: LOW DOSE CT LUNG CANCER SCREENING REASON FOR EXAM: Male, 63 years old. Current smoker. 2 packs per day for 20 years. History of prostate cancer and radiation therapy. RADIATION DOSAGE (If Supplied By Facility): CTDIvol = ( 4.02 ) mGy, DLP = ( 150.49 ) mGycm TECHNIQUE: No contrast was administered. Low dose technique was utilized (average mAS-38 and kVp 120). 1.25 mm axial source images with a slice interval of 1.25-mm were reconstructed in lung windows. 2.5 mm axial source images with a slice interval of 2.5-mm were reconstructed in lung windows. 5.0 mm axial source images with a slice interval of 5.0-mm were reconstructed in soft tissue windows. Nodule measured using lung windows on PACS and/or independent workstation with automated measurement of minimum and maximum diameter. Nodule measurement reported as average diameter rounded to the nearest whole number. Growth is defined as an increase ins size of greater than 1.5 mm. COMPARISON: Comparison is made with prior study dated January 19, 2017. NODULES: No suspicious nodule is seen. Emphysema: Mild degree of emphysematous changes. Findings suggest a mild right apical scarring as well as mild scarring in the anterior aspect of the lingular segment of the left upper lobe and right middle lobe. Aorta: Atherosclerotic plaque formation. Coronary arteries: Prior CABG. Coronary artery calcification. Heart: Cardiomegaly. Mediastinal nodes: Small mediastinal lymph nodes. Other chest and abdominal findings: Degenerative changes of the thoracic spine. CT/Low Dose CT Lung Screening IMPRESSION: Lung-RADS category 2 - Continue annual screening with LDCT in 12 months. IMPORTANT NOTES FOR USE: ACR Lung-RADS Version 1.0 Assessment Categories Release Date: February 20, 2014 Category: Coded 0-4 bases on nodule(s) with highest degree of suspicion. Negative screen is defined as categories 1 and 2; a positive screen is defined as categories 3 and 4. Category 3 and 4A nodules that are unchanged on interval CT should be coded as category 2, and individuals returned to screening in 12 months. Category 4X: Category 3 or 4 nodules with additional imaging findings that increase the suspicion of lung cancer, such as spiculation, GGN that doubles in size in 1 year, enlarged lymph notes, etc. Category Modifiers: S (significant finding unrelated to lung cancer) and C (prior history of treated lung cancer) may be added to the 0-4 Lung-RADS Electronically Signed: Kings Riley, at 13:44 EDT , Service support ,
== END | disposition home or self-care (01) ==
LOC: CT 12:43
PROVIDERS: Family Provider Family Medicine; PCP Family Medicine; Referring Provider Nurse Practitioner Family; Visit Provider Nurse Practitioner Family
DX: F17.209 Nicotine dependence, unspecified, with unspecified nicotine-induced disorders (principal); Z12.2 Encounter for screening for malignant neoplasm of respiratory organs
CPT/HCPCS: G0297

== ENCOUNTER 2019-09-29 09:12 | Outpatient (RCR) | payer OTHER, MEDICARE, SELFPAY ==
[2019-05-24 10:02] VITALS: BMI 41.8
[2019-09-29 06:15] VITALS: BMI 42.7
[2019-09-29 09:55] LABS: Prothrombin Time (Protime)PT. 22.5 SECONDS (11.7-14.9)
== END 2019-10-25 23:59 ==
LOC: PAVLAB 09:12
PROVIDERS: Family Provider Family Medicine; PCP Family Medicine; Referring Provider Internal Medicine Cardiovascular Disease; Visit Provider Internal Medicine Cardiovascular Disease
DX: I48.11 Longstanding persistent atrial fibrillation (principal); Z79.01 Long term (current) use 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
CPT/HCPCS: 36415; 85610

== ENCOUNTER 2019-12-06 10:10 | Outpatient (RCR) | payer OTHER, MEDICARE, SELFPAY ==
[2019-12-06 10:25] LABS: Prothrombin Time Fingerstick 35.8 SEC (11.9-14.4)
== END 2019-12-06 18:00 | disposition home or self-care (01) ==
LOC: LAB 10:10
PROVIDERS: Family Provider Family Medicine; PCP Family Medicine; Referring Provider Internal Medicine Cardiovascular Disease; Visit Provider Internal Medicine Cardiovascular Disease
DX: I48.19 Other persistent atrial fibrillation (principal); Z79.01 Long term (current) use 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
CPT/HCPCS: 36416; 85610

== ENCOUNTER 2019-12-29 07:25 | Day surgery (SDC) | payer OTHER, MEDICARE, SELFPAY ==
[2019-12-22 14:24] VITALS: BMI 42.7
[2019-12-29 07:50] VITALS: BP 130/75; PULSE 67; RESP 17; TEMP 36.6; O2SAT 97; BMI 40.9
[2019-12-29] MEDS: Lactated Ringers 1,000 ML 100 ML IV (08:04)
--- NOTE | 2019-12-29 08:04 | HP.PCM_ITS ---
History and Physical Date of Admission: 12/29/19 [facility] [address] [place] [address] OFFICE VISIT Date of Service: 12/22/19 MR#: [id number] Acct: [id number] Name: GUEVARA SAAB Rep #: [id number] : 1955 Provider: Francisco goldstein MD Age/Sex: 64/M Location: [facility] Status: Signed Intake Vital Signs 12/22/19 Height 5 ft 9 in 12/22/19 Weight: 285 lb 12/22/19 BMI 42.0 12/22/19 BP 95/60 12/22/19 Blood Pressure Location Rt brachial 12/22/19 Position Sitting 12/22/19 Respiration 18 12/22/19 Pulse 76 12/22/19 Pulse Source Monitor 12/22/19 Temp 98.6 F 12/22/19 Temp Source Oral 12/22/19 Pulse Oximetry (%) 93 12/22/19 Oxygen Delivery Method room air Intake Visit Reasons: RECTAL BLEEDING/ COLONOSCOPY Chief Complaint: Follow up visit Digital Assistant Required: No Is patient in pain?: No Allergies adhesive Allergy (Verified 12/22/19 14:20) Unknown latex Allergy (Verified 12/22/19 14:20) Unknown lisinopril Allergy (Verified 12/22/19 14:20) Unknown Penicillins Allergy (Verified 12/22/19 14:20) Unknown rivaroxaban [From Xarelto] Allergy (Verified 12/22/19 14:20) Unknown Medications paroxetine HCl 30 mg tablet 30 mg PO QDAY 11/04/17 [History Confirmed 12/22/19] losartan 100 mg tablet 50 mg PO BID tab 11/08/18 [History Confirmed 12/22/19] hydrochlorothiazide 12.5 mg capsule 12.5 mg PO DAILY #90 cap 10/17/19 [Rx Confirmed 12/22/19] warfarin 5 mg tablet 5 mg PO .COMPLEX #90 tab 10/28/19 [Rx Confirmed 12/22/19] fenofibrate nanocrystallized 145 mg tablet 145 mg PO DAILY #90 tab 12/06/19 [Rx Confirmed 12/22/19] metoprolol tartrate 50 mg tablet 50 mg PO BID #180 tab 12/06/19 [Rx Confirmed 12/22/19] rosuvastatin 40 mg tablet 40 mg PO QHS #90 tab 12/06/19 [Rx Confirmed 12/22/19] aspirin 325 mg tablet 325 mg PO DAILY 12/22/19 [History Confirmed 12/22/19] cilostazol 50 mg tablet 100 mg PO BID tab 12/22/19 [History Confirmed 12/22/19] [facility] Medical History Encounter for screening for lung cancer (Acute) Prostate cancer (Chronic) Hemorrhoids (Chronic) Essential (primary) hypertension (Chronic) Restless legs syndrome (RLS) (Chronic) Hyperlipidemia (Chronic) Tobacco abuse (Chronic) DANGELO (obstructive sleep apnea) (Chronic) PVD (peripheral vascular disease) (Chronic) Atherosclerosis of [place] coronary artery of [place] heart without angina pectoris (Chronic) 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) Paroxysmal atrial fibrillation (Chronic) Bronchitis (Resolved) Persistent atrial fibrillation (Resolved) Sinusitis (Resolved) Surgical History History of tonsillectomy and adenoidectomy (Resolved) S/P PTCA (percutaneous transluminal coronary angioplasty) (Resolved 03/07/16) H/O coronary artery bypass surgery (Resolved 05/2006) History of femoropopliteal bypass (Resolved 08/2010) History of radiofrequency ablation procedure for cardiac arrhythmia (Resolved 2015) History of bilateral cataract extraction (Resolved) Family History Father Heart disease Other Dementia Social History (Updated 12/25/19 @ 10:[address] Francisco Nye MD) Smoking Status: Current every day smoker tobacco type: cigarettes Tobacco: How many years used: 20 second hand exposure: No quit status: has quit before counseling given: provider counseling alcohol intake: current alcohol intake frequency: 0-2 drinks per day Alcohol type: beer substance use type: marijuana caffeine: No what type of physical activity do you participate in: none HPI HPI HPI: GUEVARA SAAB, is a 64 M who presents to the office today for HPI HPI HPI: GUEVARA SAAB, is a 64 M who presents to the office today for Evaluation for endoscopy. Patient has been experiencing some rectal bleeding as well as diarrhea. This is been ongoing for many years with the diarrhea the rectal bleeding is something rather new. He has a history of radiation proctitis secondary to having radiation to prostate cancer. His last scope was in 2016 where a snare polypectomy showed a tubular adenoma of his transverse colon and hyperplastic polyps of his right colon. His rectal bleeding was been more on a daily basis as of late he was started on suppositories this did slightly improve the bleeding but it has not gone completely away. ROS General General: No weight change, appetite, fatigue, colon cancer, breast cancer or weakness HEENT HEENT: No difficulty swallowing, eye injury, eye surgery, swollen glands or hoarseness Endo Endocrine: No thyroid disease, diabetes mellitus, thyroid cancer, Hair loss, heat intolerance or cold intolerance Skin Skin: No rash or changing moles Musc Musculoskeletal: No back problems, arthritis, rheumatoid arthritis, gout or joint pain Cardio Cardiovascular: Yes heart disease, atrial fibrillation and heart attack; no murmur, pacemaker, high blood pressure, heart stent, palpitations, shortness of breat with exertion or chest pain Psych Psychiatric: No depression, anxiety or hearing voices Resp Respiratory: Yes shortness of breath, Yes sleep apnea, No cough, Yes COPD, No asthma, No emphysema, No wheezing Gastro Gastrointestinal: No abdominal pain, No nausea or vomiting, Yes diarrhea, No constipation, Yes blood in stool, No acid reflux, Yes hemorrhoids, No ulcers, No gallbladder problem, No black,tarry stools Ernie Hematologic: Yes blood thinners, No blood disorders, No bleeding, No anemia, No blood clots Neuro Neurologic: No system reviewed and no additional complaints, except as docu, No as per HPI, No abnormal walking, No abnormal hearing, No abnormal movements, No abnormal speech, No behavioral changes, No burning sensations, No confusion, No seizure-like activity, No unsteadiness, No dizziness, No localized weakness, No frequent falls, No headache(s), No lack of coordination, No loss of vision, No memory loss, No numbness, No other visual disturbances, No radiating pain, No restless legs, No sensory deficit, No fainting, No tingling, No tremor(s), No weakness, No other Exam Const General: no acute distress, well developed, well hydrated Orientation: oriented to person, oriented to place, oriented to time [facility] Head: normocephalic, atraumatic Ears: external ears normal Mouth: moist mucous membranes Eyes Sclera: sclerae normal Pupils: normal by confrontation Neck Neck: no lymphadenopathy noted Neck mass: No Thyroid: thyroid normal, symmetrical Chest Chest palpation & inspection: normal inspection of the chest Resp Effort & Inspection: normal respiratory effort Auscultation: clear to auscultation bilaterally Percussion: percussion normal Cardio Rate: regular rate Rhythm: regular rhythm Heart Sounds: no murmurs GI Inspection: obesity Palpation: soft, no hepatosplenomegaly, no masses, nontender Rectal Exam: other Other: Rectal exam deferred. Extrem General: normal to inspection, no clubbing, cyanosis or edema Assessment & Plan Problems 1. Rectal hemorrhage K62.5 2. Diarrhea, unspecified type R19.7 Plan I have discussed the above with the patient. I have offered the patient colonoscopy for evaluation. I have explained the risks/benefits of the procedure and described the procedure. I have discussed the risks with the patient, including but not limited to: infection, bleeding, perforation of the GI tract requiring emergency surgery, inability to complete the procedure, injury to any internal organs, complications of anesthesia, etc. - the patient understands and agrees to proceed. I have answered all the patient's questions to the patient's satisfaction and t he patient has no further questions. The patient has been given instructions for the colon cleansing preparation. We will be doing random colon biopsies. Orders Orders: Colonoscopy 12/22/19 Coding Level of Care Code Off vis,new,level 3 Diagnoses Rectal hemorrhage K62.5 Diarrhea, unspecified type R19.7 ??Diarrhea type: unspecified type 12/25/19 1002 <Electronically signed by Francisco mehta MD> Date _ Francisco Nye MD Cosigner Signature: Date (if applicable) CC: Alban Farrell MD ~ I have re-examined the patient. There are no clinical changes since date of exam.
--- NOTE | 2019-12-29 08:30 | COLBX_PTH ---
PATIENT: GUEVARA SAAB LOC: EN U#:[id number] AGE/SX: 64/M ROOM: RE12/29/[address]: Dr. Francisco Nye MD : 1955 BED: DIS: 12/29/2019 SPEC #: [id number] RECD: 12/29/19 08:54 STATUS: KARTIK SHASHANK #: [id number] THERESA: 12/29/19 08:[address]: Francisco Nye DEPT: SURGICAL PATHOLOGY RECD BY: Jaiden Correia ENTERED: 12/29/19 09:37 SP TYPE: COLON BX OTHR DR: Dr. Alban Farrell MD Tissues: COLON BIOPSY Procedures: Surgery Specimen Level IV HEADER OPERATION: Colonoscopy (MAC) PRE-OP DIAGNOSIS: Diarrhea, rectal bleeding TISSUE SUBMITTED: Random colon biopsies MICROSCOPIC DIAGNOSIS Colon, random biopsy: Fragments of colonic mucosa, no pathologic diagnosis. SJ:meseret 12/30/19 MICROSCOPIC DESCRIPTION Slides are reviewed. GROSS DESCRIPTION Received in fixative is one container labeled with the patient's name and designated random colon biopsy. The specimen consists of multiple irregular fragments of light sewell soft tissue that in aggregate measure 1.5 x 0.7 x 0.1 cm. The specimen is totally submitted in one cassette. / SJ:meseret 12/29/19 TC:4 CPT: 74211
--- NOTE | 2019-12-29 08:41 | OP.COLON_ITS ---
Patient Name: Adalberto Prather Procedure Date: 12/29/2019 8:03 AM Date of : 1955 Age: 64 Procedure: Colonoscopy Indications: Clinically significant diarrhea of unexplained origin, Rectal bleeding Providers: Francisco Nye MD Referring MD: Alban Farrell Medicines: See the Anesthesia note for documentation of the administered medications Patient Profile: This is a 64 year old male. Refer to note in patient chart for documentation of history and physical. Last Colonoscopy: 2015. Complications: No immediate complications. Procedure: Pre-Anesthesia Assessment: - Prior to the procedure, a History and Physical was performed, and patient medications and allergies were reviewed. The patient's tolerance of previous anesthesia was also reviewed. The risks and benefits of the procedure and the sedation options and risks were discussed with the patient. All questions were answered, and informed consent was obtained. Prior Anticoagulants: The patient has taken Coumadin (warfarin), last dose was 7 days prior to procedure. ASA Grade Assessment: III - A patient with severe systemic disease. After reviewing the risks and benefits, the patient was deemed in satisfactory condition to undergo the procedure. After I obtained informed consent, the scope was passed under direct vision. Throughout the procedure, the patient's blood pressure, pulse, and oxygen saturations were monitored continuously. The adult colonoscope was introduced through the anus and advanced to the cecum, identified by appendiceal orifice and ileocecal valve. The colonoscopy was performed without difficulty. The patient tolerated the procedure well. The quality of the bowel preparation was good. Scope In: 8:25:02 AM Scope Withdrawal Time 0 hours 6 minutes 6 seconds Scope Out: 8:35:30 AM Total Procedure Duration Time 0 hours 10 minutes 28 seconds Findings: The colon (entire examined portion) appeared normal. Biopsies for histology were taken with a cold forceps from the entire colon for evaluation of microscopic colitis. Non-bleeding external and internal hemorrhoids were found during retroflexion. The hemorrhoids were mild and small. The exam was otherwise without abnormality. Impression: - The entire examined colon is normal. Biopsied. - Non-bleeding external and internal hemorrhoids. - The examination was otherwise normal. Recommendation: - Discharge patient to home. - Resume previous diet. - Continue present medications. - Await pathology results. - Repeat colonoscopy in 10 years for surveillance. - Return to my office in 1 week. Procedure Code(s): --- Professional --- 41281, Colonoscopy, flexible; with biopsy, single or multiple Diagnosis Code(s): --- Professional --- K64.8, Other hemorrhoids R19.7, Diarrhea, unspecified K62.5, Hemorrhage of anus and rectum CPT copyright 2017 [employer]. All rights reserved. The codes documented in this report are preliminary and upon network communications engineer review may be revised to meet current compliance requirements. MD Francisco Willams MD 12/29/2019 8:41:30 AM This report has been signed electronically. Number of Addenda: 0 Note Initiated On: 12/29/2019 8:03 AM
--- NOTE | 2019-12-29 08:41 | OP.CCLET_ITS ---
12/29/2019 Alban Farrell Re : Colonoscopy procedure for Adalberto Farrell This procedure was performed on December. My impressions and recommendations are as follows: Impressions : - The entire examined colon is normal. Biopsied. - Non-bleeding external and internal hemorrhoids. - The examination was otherwise normal. Recommendations : - Discharge patient to home. - Resume previous diet. - Continue present medications. - Await pathology results. - Repeat colonoscopy in 10 years for surveillance. - Return to my office in 1 week. My findings are described in the full procedure note, which is enclosed. If I can be of further assistance, please feel free to contact me at Doctor phone number(s): , Fax: [phone], Work: . Sincerely, MD Francisco Willams MD 12/29/2019 8:41:30 AM This report has been signed electronically.
[2019-12-29 08:45] VITALS: BP 104/61; BP 130/75; PULSE 61; RESP 16; TEMP 36.6; O2SAT 93
[2019-12-29 08:50] VITALS: BP 109/64; BP 130/75; PULSE 60; RESP 16; O2SAT 94
[2019-12-29 08:55] VITALS: BP 112/61; BP 130/75; PULSE 60; RESP 16; O2SAT 93
[2019-12-29 09:00] VITALS: BP 130/48; BP 130/75; PULSE 62; RESP 16; TEMP 36.8; O2SAT 94
[2019-12-29 09:19] VITALS: BP 130/75
[2019-12-29 12:56] LABS: Prothrombin Time Fingerstick 16.9 SEC (11.9-14.4)
== END 2019-12-29 09:21 | disposition home or self-care (01) ==
LOC: EN 07:26 → AC 07:27
PROVIDERS: PCP Family Medicine; Referring Provider Family Medicine; Visit Provider Surgery
PROC: 0DJD8ZZ Inspection of Lower Intestinal Tract, Via Natural or Artificial Opening Endoscopic (ICD-10-PCS; CPT 45378; principal; 2019-12-29 08:25)
DX: K64.4 Residual hemorrhoidal skin tags (principal); K64.8 Other hemorrhoids; K62.5 Hemorrhage of anus and rectum; I10 Essential (primary) hypertension; E78.5 Hyperlipidemia, unspecified; G47.33 Obstructive sleep apnea (adult) (pediatric); I73.9 Peripheral vascular disease, unspecified; I25.10 Atherosclerotic heart disease of native coronary artery without angina pectoris; I48.91 Unspecified atrial fibrillation; I25.2 Old myocardial infarction; F32.9 Major depressive disorder, single episode, unspecified; F17.210 Nicotine dependence, cigarettes, uncomplicated; Z86.010 Personal history of colon polyps; Z85.46 Personal history of malignant neoplasm of prostate; Z95.1 Presence of aortocoronary bypass graft; Z79.01 Long term (current) use 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; Z79.82 Long term (current) use of aspirin; Z79.899 Other long term (current) drug therapy
CPT/HCPCS: 45380; 36416; 85610; 88305; J7120

== ENCOUNTER 2020-04-16 14:10 | Outpatient (RCR) | payer OTHER, MEDICARE, SELFPAY ==
[2019-12-22 14:24] VITALS: BMI 42.7
== END 2020-04-16 18:00 | disposition home or self-care (01) ==
LOC: LAB 14:10
PROVIDERS: Family Provider Family Medicine; PCP Family Medicine; Referring Provider Internal Medicine Cardiovascular Disease; Visit Provider Internal Medicine Cardiovascular Disease
DX: I48.19 Other persistent atrial fibrillation (principal); Z79.01 Long term (current) use 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
CPT/HCPCS: 36416; 85610

== ENCOUNTER → 2020-07-05 | Outpatient (CLI) | payer OTHER, MEDICARE, SELFPAY ==
[2020-07-05 12:28] LABS: Absolute Neutrophil Count 6.1 X10^3/uL (2.0-7.7); Basophil# 0.06 X10^3/uL; Basophil% 0.7 % (0-1); Eosinophil# 0.25 X10^3/uL; Hematocrit 43.2 % (40-54); Hemoglobin 13.8 g/dL (13.0-16.5); Lymphocyte % 14.4 % (19-41); Mean Corp Hgb Conc 31.9 g/dL (32-36); Mean Corpuscular Hgb 27.7 pg (27.0-32.0); Mean Corpuscular Volume 86.6 fL (80-94); Mean Platelet Vol. 9.6 fl (6.2-12.0); Monocyte# 0.64 X10^3/uL; Monocyte% 7.7 % (0-10); NRBC Flagged by Analyzer 0 % (0-5); Neutrophil # 6.07 X10^3/uL (2.7-7.7); Platelet Count 314 K/mm3 (150-450); RBC Distribution Width CV 14.8 % (11.6-14.6); RBC Distribution Width SD 47.1 fl (35.1-43.9); Red Blood Count 4.99 M/mm3 (4.6-6.2); White Blood Count 8.3 K/mm3 (4.4-11.0)
[2020-07-05 12:52] LABS: International Normalized Ratio 2.4; Prothrombin Time (Protime)PT. 25.7 SECONDS (11.7-14.9)
[2020-07-05 13:04] LABS: Vitamin B12 323 pg/mL (211-911)
[2020-07-05 13:05] LABS: ALB/GLOB Ratio 0.9 RATIO (0.9-2.4); AST(SGOT) 17 U/L (15-37); Alanine Aminotransfer ALT/SGPT 24 U/L (16-61); Albumin, Serum 3.4 g/dL (3.2-5.0); Alkaline Phosphatase 67 U/L (45-117); Anion Gap 8 (5-15); BUN 24 mg/dL (7-18); BUN/Creat Ratio 22.9 RATIO (10-20); Calcium,Total 9.2 mg/dL (8.5-10.1); Chloride 106 mmol/L (98-107); Cholesterol 111 mg/dL (200); Creatinine, Serum 1.05 mg/dL (0.70-1.30); EST Glomerular Filtration Rate 76 mL/min (>60); Est Glom Filt Rate - Afr Amer 92 mL/min (>60); Ferritin 136 ng/mL (26-388); Globulin 3.8 g/dL (2.2-4.2); Glucose 180 mg/dL (74-106); High Density Lipoprotein 26 mg/dL; Iron 62 ug/dL (65-175); PSA,Total- Diagnostic 0.06 ng/mL (0.0-4.0); Protein, Total 7.2 g/dL (6.4-8.2); Sodium Level 138 mmol/L (136-145); Thyroid Stim Hormone (TSH) 4.63 uIU/mL (0.358-3.74); Triglycerides 317 mg/dL; Very Low Density Lipoprotein 63 mg/dL (5-40)
== END | disposition home or self-care (01) ==
LOC: LAB.FUTURE 09:52 → BFHLAB 12:16
PROVIDERS: Internal Medicine Cardiovascular Disease; PCP Family Medicine; Visit Provider Family Medicine
DX: E78.5 Hyperlipidemia, unspecified (principal); D64.9 Anemia, unspecified; I10 Essential (primary) hypertension; C61 Malignant neoplasm of prostate; I48.0 Paroxysmal atrial fibrillation; Z79.01 Long term (current) use 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
CPT/HCPCS: 36415; 80053; 80061; 82607; 82728; 83540; 83735; 84153; 84443; 85025; 85610

== ENCOUNTER 2020-08-28 10:03 | Observation (INO) | payer OTHER, MEDICARE, SELFPAY ==
[2020-08-28] VITALS (12 sets, daily range): BP systolic 114–138; BP diastolic 61–70; PULSE 60–99; RESP 16–18; TEMP 36.4–36.9; O2SAT 95–99; BMI 40.6
--- NOTE | 2020-08-28 10:32 | ED.DCSUM_ITS ---
- ER Visit Summary Date of Service: 08/28/20 Chief Complaint: Diarrhea and fatigue History of Present Illness: The patient is a 65 M presents with diarrhea that is been getting worse over the past week. Patient describes the diarrhea as watery. Patient denies any melena or hematochezia. Patient admits to an episode of nausea and vomiting. Patient states nothing makes it better or worse. Patient states he feels weak all over. Patient denies any fevers or chills. Patient denies any urinary complaints. Patient denies any chest pain or shortness of breath. Physical Examination: Vital signs are stable. Patient is afebrile. Patient is in no acute distress. Oral mucosa is pink and moist. Neck is supple. Trachea is midline. There is no JVD noted. Heart was regular rate and rhythm. Lungs are clear and equal bilaterally. Abdomen is soft. Bowel sounds are normal. Th ere is mild diffuse tenderness. There is no rebound or guarding noted. Skin is warm dry. Cranial nerves II through XII are intact. There are no focal motor or sensory deficits noted. Extremities are intact. There is no calf tenderness or edema. Test Results: CBC is within normal limits. Comprehensive metabolic profile showed an elevated creatinine of 1.92 and an elevated BUN of 66. Lipase was also elevated at 807. Urinalysis was normal. Emergency Department Course and Treatment: Patient was given IV fluids here. Patient is feeling better on reevaluation. Case was discussed with the hospitalist, Dr. Romero. She will admit the patient for observation. Patient understood and was agreeable with the plan. All questions were answered. Disposition: Admit to hospital Impression: 1. Acute kidney injury 2. Acute pancreatitis This note was generated with [employer] dictation software. It may contain incorrect words, spelling, and punctuation that were not noted in review of the chart prior to signing ED Disposition - Plan for ED Patient: Disposition: Acute Care Hospital [facility] Diagnosis: Acute kidney injury, Pancreatitis Referrals: Alban Farrell MD [Primary Care Provider] -
[2020-08-28] MEDS: 0.9% Normal Saline 1,000 ML 1000 ML IV (10:46)
[2020-08-28 10:55] LABS: Absolute Lymphocyte Count 1.37 X10^3/uL (0.83-4.51); Absolute Neutrophil Count 6.3 X10^3/uL (2.0-7.7); Basophil# 0.05 X10^3/uL; Basophil% 0.6 % (0-1); Eosinophil# 0.15 X10^3/uL; Eosinophils% 1.7 % (0-5); Hematocrit 48.9 % (40-54); Hemoglobin 15.9 g/dL (13.0-16.5); Lymphocyte # 1.37 X10^3/ul (4.0); Lymphocyte % 15.2 % (19-41); Mean Corp Hgb Conc 32.5 g/dL (32-36); Mean Corpuscular Hgb 28.2 pg (27.0-32.0); Mean Corpuscular Volume 86.9 fL (80-94); Mean Platelet Vol. 9.6 fl (6.2-12.0); Monocyte# 0.99 X10^3/uL; NRBC Flagged by Analyzer 0 % (0-5); Neutrophil # 6.33 X10^3/uL (2.7-7.7); Neutrophil % 70.3 % (47-70); POSITIVE MORPHOLOGY YES; Platelet Count 322 K/mm3 (150-450); RBC Distribution Width CV 15.1 % (11.6-14.6); RBC Distribution Width SD 47.9 fl (35.1-43.9); Red Blood Count 5.63 M/mm3 (4.6-6.2)
[2020-08-28 10:56] LABS: Differential Indicated SCAN CRITERIA MET
[2020-08-28 11:11] LABS: ALB/GLOB Ratio 0.9 RATIO (0.9-2.4); AST(SGOT) 18 U/L (15-37); Alanine Aminotransfer ALT/SGPT 32 U/L (16-61); Albumin, Serum 3.7 g/dL (3.2-5.0); Alkaline Phosphatase 77 U/L (45-117); Anion Gap 8 (5-15); BUN 66 mg/dL (7-18); BUN/Creat Ratio 34.4 RATIO (10-20); Calcium,Total 9.8 mg/dL (8.5-10.1); Chloride 106 mmol/L (98-107); Creatinine, Serum 1.92 mg/dL (0.70-1.30); EST Glomerular Filtration Rate 38 mL/min (>60); Est Glom Filt Rate - Afr Amer 46 mL/min (>60); Estimated Creatinine Clearance 38.87 ml/min; Globulin 4.3 g/dL (2.2-4.2); Glucose 121 mg/dL (74-106); Lipase 807 U/L (73-393); Potassium 4.2 mmol/L (3.5-5.1); Sodium Level 135 mmol/L (136-145)
[2020-08-28 11:15] LABS: Bacteria 0 SEEN /hpf (None Seen); Mucous, Urine 0 SEEN /hpf (<or=2+); Red Blood Cells-Urine 0 SEEN /hpf (0-5)
[2020-08-28 11:16] LABS: Color, Urine Yellow (Yellow); Glucose, Dipstick Normal (Normal); Ketone-Dipstick 5 mg/dl (Negative); Leukocyte Esterase-Dipstick 25 /ul (Negative); Nitrite-Dipstick Negative (Negative); Occult Blood-Urine Negative /ul (Negative); Protein-Dipstick 30 mg/dl (Negative); Urine Clarity Sl. Cloudy (Clear); Urine Urobilinogen Normal (Normal)
[2020-08-28 11:18] LABS: Urine Bilirubin Dipstick 1 mg/dL (Negative)
[2020-08-28 11:24] LABS: Squamous Epithelial Cells - UA 0-5 SEEN /hpf (0-5); White Blood Cells 5-10 SEEN /hpf (0-5)
[2020-08-28 11:25] LABS: Hyaline Cast 10-25 SEEN /lpf (0-5)
[2020-08-28 11:32] LABS: Reactive Lymphocyte RARE
--- NOTE | 2020-08-28 11:57 | HP.PCM_ITS ---
History of Present Illness Date of Admission: 08/28/20 Chief Complaint: diarrhea The patient is a 65 year old M with a past medical history as outlined. He was admitted through the ED on 08/28/2020 with a complaint of diarrhea for 1 week. Patient does not member what he ate a week ago but says several other people ate the same thing. However he was 89 who started having diarrhea. Diarrhea was persistent and he cannot count the number of times he has it every day as he says is too many. It was nonbloody. He had no associated abdominal pain no vomiting no nausea. He denied any fever or chills. He has not been on any antibiotics recently and has not had any contact with any body with Covid. Review of symptoms otherwise negative. In the ED, at time of review, vitals were temperature of 98 Fahrenheit with blood pressure 119/65, pulse rate of 63 respiratory rate of 18. She was saturating at 99% on room air. Chemistry showed sodium of 135 with creatinine of 1.92 and potassium of 4.2. Lipase was elevated at 827. CBC showed WBC of 9 with hemoglobin of 15.9 and platelets of 322. He has been admitted to be managed for acute gastroenteritis and JAYNE. [] Past Medical History Past Medical History (Chronic Problems): Chronic Problems (Last Updated 07/05/20 @ 19:06 by Stephie Dimas) Atherosclerosis of [place] coronary artery of [place] heart without angina pectoris (Chronic) Paroxysmal atrial fibrillation (Chronic) RFA in 2008 & 2016 Essential (primary) hypertension (Chronic) Hyperlipidemia (Chronic) PVD (peripheral vascular disease) (Chronic) prison (current) use 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 (Chronic) Prostate cancer (Chronic) Tobacco abuse (Chronic) Medical History: Medical History (Last Updated 07/05/20 @ 19:06 by Stephie Dimas) Atherosclerosis of [place] coronary artery of [place] heart without angina pectoris (Chronic) I25.10 Paroxysmal atrial fibrillation (Chronic) I48.0 RFA in 2008 & 2016 Essential (primary) hypertension (Chronic) I10 Hyperlipidemia (Chronic) E78.5 PVD (peripheral vascular disease) (Chronic) I73.9 prison (current) use 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 (Chronic) Z79.01 Encounter for screening for lung cancer (Resolved) Z12.2 Prostate cancer (Chronic) C61 Tobacco abuse (Chronic) Z72.0 Hemorrhoids K64.9 DANGELO (obstructive sleep apnea) G47.33 BiPAP 15/11 cm of water. Restless legs syndrome (RLS) G25.81 Bronchitis (Resolved) J40 Persistent atrial fibrillation I48.1 Sinusitis (Resolved) J32.9 Allergies adhesive Allergy (Verified 08/28/20 10:05) Unknown latex Allergy (Verified 08/28/20 10:05) Unknown lisinopril Allergy (Verified 08/28/20 10:05) Unknown Penicillins Allergy (Verified 08/28/20 10:05) Unknown rivaroxaban [From Xarelto] Allergy (Verified 08/28/20 10:05) Unknown Home Medications: Ambulatory Orders Medication Instructions Recorded paroxetine HCl 30 mg tablet 40 mg PO QDAY 11/04/17 hydrochlorothiazide 12.5 mg capsule 12.5 mg PO DAILY #90 cap 10/17/19 fenofibrate nanocrystallized 145 145 mg PO DAILY #90 tab 12/06/19 mg tablet metoprolol tartrate 50 mg tablet 50 mg PO BID #180 tab 12/06/19 rosuvastatin 40 mg tablet 40 mg PO QHS #90 tab 12/06/19 Aspirin [Aspir 81] 81 mg PO DAILY 12/28/19 Warfarin Sodium [Coumadin] 5 mg PO SUFRSA 12/28/19 Warfarin [Coumadin ([facility])] 2.5 mg PO MOTUWETH 12/28/19 losartan 100 mg tablet 50 mg PO BID #60 tab 05/16/20 cilostazol 50 mg tablet 100 mg PO BID 90 Days #360 tab 07/31/20 Surgical History: Surgical History (Last Updated 07/05/20 @ 19:05 by Stephie Dimas) History of coronary angioplasty (Resolved) Onset Date: 03/07/16 Z98.61 [id number] RCA-Mid PDA 03/07/16 H/O coronary artery bypass surgery (Resolved) Onset Date: 05/2006 Z95.1 CABG x 5: NATION-LAD, Sequential SVG-LCx and OM, Sequential SVG-RPDA and RPLB 05/2006 History of bilateral cataract extraction Z98.41, Z98.42 History of femoropopliteal bypass Onset Date: 08/2010 Z98.890 History of radiofrequency ablation procedure for cardiac arrhythmia Onset Date: 2015 Z98.890 11/2008; 2015 History of tonsillectomy and adenoidectomy Z98.890 Psychiatric History: No pertinent psych hx Lives: With Family Smoking Status: Heavy Smoker (>10/day) Tobacco Use: Cigarettes Alcohol: Occasional Drugs: None - *Family History Paternal Family History: Family History (Last Reviewed 12/25/19 @ 10:[address] Francisco Nye MD) Father Heart disease Other Dementia Review of Systems Constitutional: Reports: Malaise, Weakness. Denies: Chills, Fever, Weight Change Eyes: Denies: Blurred vision HEENT: Denies: Head Aches, Sinus Congestion, Sinus Drainage Cardiovascular: Denies: Chest Pain, Palpitations Respiratory: Denies: Cough, Shortness of Breath, Shortness of breath at rest, Shortness of breath upon exertion, Sputum production Gastrointestinal: Reports: Diarrhea. Denies: Abdominal Pain, Dyspepsia, Nausea, Melena, Vomiting Genitourinary: Denies: Dysuria Musculoskeletal: Denies: Joint Pain, Joint Tenderness Skin: Denies: Rash, Wounds Neurological: Denies: Numbness, Tingling, Focal weakness Psychiatric: Denies: Anxiety, Depression, Homicidal Ideations, Suicidal Ideations Hematologic/ Lymphatic: Denies: Easy Bruising, Easy Bleeding VTE Information - Inpt Only VTE Present on Admission: No VTE Pharm Prophylaxis ordered?: Yes Patient Problems: Active and Suspected Problems (Last Updated 07/05/20 @ 19:06 by Stephie Dimas) Acute kidney injury (Acute) Pancreatitis (Acute) - Physical Exam Vitals/I&O's: Vital Signs Temp Pulse Resp BP Pulse Ox 97.8 F 60 16 114/64 96 08/28/20 11:05 08/28/20 11:05 08/28/20 11:05 08/28/20 11:05 08/28/20 11:05 Oxygen Delivery Method Room Air Weight: 274 lb 12.8 oz Body Mass Index (BMI) 40.6 General: Alert, Oriented x3, Cooperative, No apparent distress HEENT: Atraumatic, PERRLA, EOMI, Normocephalic Oral: Dry Mucosa Neck: Supple, No JVD, Negative Carotid Bruits Lungs: Clear to auscultation, Normal air movement Cardiovascular: Regular rate, Regular Rhythm, Normal S1, Normal S2, No murmurs Abdomen: Bowel Sounds Present, Soft, Non Tender, Non-Distended, No Hepato-splenomegaly, Obese Extremities: No edema, Capillary Refill Less than 3 Seconds Skin: No rashes, No breakdown Musculoskeletal: No Tenderness to Palpation of Joints or Extremities Lymphatic: No Cervical, Supraclavicular, or Inguinal Adenopathy Neurological: Cranial nerves II-XII grossly intact, Neuro grossly intact, Motor Exam 5/5 strength throughout Psych/Mental Status: Normal Affect, Appropriate, Alert and oriented to time, place, person, mood and affect Laboratory Results 08/28/20 10:40: WBC 9.0, RBC 5.63, Hgb 15.9, Hct 48.9, MCV 86.9, MCH 28.2, MCHC 32.5, RDW Std Deviation 47.9 H, RDW Coeff of [place] 15.1 H, Plt Count 322, MPV 9.6, Immature Gran % (Auto) 1.200 H, Neut % (Auto) 70.3 H, Lymph % (Auto) 15.2 L, [place] % (Auto) 11.0 H, Eos % (Auto) 1.7, Baso % (Auto) 0.6, Absolute Neuts (auto) 6.3, Absolute Lymphs (auto) 1.37, Nucleated RBC % 0, Reactive Lymphocytes RARE 08/28/20 10:40: Sodium 135 L, Potassium 4.2, Chloride 106, Carbon Dioxide 21.0, Anion Gap 8, BUN 66 H, Creatinine 1.92 H, Estim Creat Clear Calc 38.87, Est GFR (MDRD) Af Amer 46 L, Est GFR (MDRD) Non-Af 38 L, BUN/Creatinine Ratio 34.4 H, Glucose 121 H, Calcium 9.8, Total Bilirubin 0.30, AST 18, ALT 32, Alkaline Phosphatase 77, Total Protein 8.0, Albumin 3.7, Globulin 4.3 H, Albumin/Globulin Ratio 0.9, Lipase 807 H 08/28/20 11:10: Urine Color Yellow, Urine Clarity Sl. Cloudy, Urine pH 5.0, Ur Specific [place] 1.020, Urine Protein 30 H, Urine Glucose (UA) Normal, Urine Ketones 5 H, Urine Occult Blood Negative, Urine Nitrite Negative, Urine Bilirubin 1 H, Urine Urobilinogen Normal, Ur Leukocyte Esterase 25 H, Urine RBC 0 SEEN, Urine WBC 5-10 SEEN, Ur Squamous Epith Cells 0-5 SEEN, Urine Bacteria 0 SEEN, Hyaline Casts 10-25 SEEN, Urine Mucus 0 SEEN Assessment/Plan All Active Problems (Last Updated 07/05/20 @ 19:06 by Stephie Dimas) Acute kidney injury (Acute) Pancreatitis (Acute) History of coronary angioplasty (Resolved 03/07/16) H/O coronary artery bypass surgery (Resolved 05/2006) Encounter for screening for lung cancer (Resolved) Bronchitis (Resolved) Dyspnea on exertion (Resolved) Malaise and fatigue (Resolved) Sinusitis (Resolved) 65 y/o admitted with a complaint of diarrhea # Acute gastroenteritis * admit to Med surg * hydrate wtih IVF NS @ 150cc/hr * check stool for ova, parasites and enteric pathogens, and check for C Diff. * start on clear liquid diet for now * Lipase is elevated at 807. However patient does not have any abdominal pain and lipase does not meet the criteria for acute pancreatitis pain that is not more than 3 times the upper limit of normal. We will therefore monitor. # JAYNE: * Creatinine is 1.92. Baseline is around 1. * This is likely prerenal due to diarrhea. Will hydrate with IV fluids and trend. If creatinine gets worse, will consider full work-up with urine electrolytes and renal ultrasound as necessary. * #History of peripheral artery disease: On cilostazol. #Hyperlipidemia: On statin. #Hypertension: Hold hydrochlorothiazide and losartan on account of JAYNE. Continue metoprolol. #Afib: on coumadin. rate controlled. On metoprolol. Check INR DVT prophylaxis: on coumadin Code status: Full code * Patient counseled extensively about different types of CODE STATUS including full code, DNR CCA and DNR CCA. Patient elects to be full code. * Total [id number] time 16 minutes. OBSV E&M: 37050 Initial observation care L3 Procedures: 32867 Advncd Care Plan 30 Min
--- NOTE | 2020-08-28 13:00 | NURSING ---
315 JAYNE, DIARRHEA KORAM
--- NOTE | 2020-08-28 13:48 | NURSING ---
Left a voicemail for the patient's to call back with updated med list.
[2020-08-28 13:51] LABS: International Normalized Ratio 2.3; Prothrombin Time (Protime)PT. 24.6 SECONDS (11.7-14.9)
[2020-08-28] MEDS: 0.9% Saline Lock 10 ML Syringe IV (14:09)
[2020-08-28] MEDS: 0.9% Normal Saline 1,000 ML 150 ML IV ×2 (14:10→20:28)
[2020-08-28] MEDS: Atorvastatin Calcium 80 MG Tablet PO (20:28)
[2020-08-28] MEDS: Cilostazol 50 MG Tablet 100 MG PO (20:28)
[2020-08-28] MEDS: Metoprolol Tartrate 50 MG Tablet PO (20:28)
[2020-08-29 02:47] VITALS: BP 143/81; PULSE 54; RESP 18; TEMP 36.4; O2SAT 97
[2020-08-29 03:30] VITALS: PULSE 51
[2020-08-29 06:00] LABS: Absolute Lymphocyte Count 1.44 X10^3/uL (0.83-4.51); Absolute Neutrophil Count 4.8 X10^3/uL (2.0-7.7); Basophil# 0.03 X10^3/uL; Basophil% 0.4 % (0-1); Eosinophil# 0.14 X10^3/uL; Eosinophils% 1.9 % (0-5); Hematocrit 44.2 % (40-54); Hemoglobin 14.5 g/dL (13.0-16.5); Lymphocyte # 1.44 X10^3/ul (4.0); Mean Corp Hgb Conc 32.8 g/dL (32-36); Mean Corpuscular Hgb 28.8 pg (27.0-32.0); Mean Corpuscular Volume 87.7 fL (80-94); Mean Platelet Vol. 9.4 fl (6.2-12.0); Monocyte# 0.72 X10^3/uL; NRBC Flagged by Analyzer 0 % (0-5); Neutrophil % 66.7 % (47-70); POSITIVE MORPHOLOGY YES; Platelet Count 256 K/mm3 (150-450); RBC Distribution Width CV 15.1 % (11.6-14.6); RBC Distribution Width SD 48.3 fl (35.1-43.9); Red Blood Count 5.04 M/mm3 (4.6-6.2); White Blood Count 7.2 K/mm3 (4.4-11.0)
[2020-08-29 06:08] LABS: Differential Indicated SCAN CRITERIA MET
[2020-08-29 06:10] LABS: International Normalized Ratio 2.5; Prothrombin Time (Protime)PT. 26.8 SECONDS (11.7-14.9)
[2020-08-29 06:26] LABS: Anion Gap 7 (5-15); BUN 41 mg/dL (7-18); BUN/Creat Ratio 36.3 RATIO (10-20); Calcium,Total 8.4 mg/dL (8.5-10.1); Chloride 112 mmol/L (98-107); Creatinine, Serum 1.13 mg/dL (0.70-1.30); EST Glomerular Filtration Rate 69 mL/min (>60); Est Glom Filt Rate - Afr Amer 84 mL/min (>60); Estimated Creatinine Clearance 66.04 ml/min; Glucose 122 mg/dL (74-106); Potassium 3.8 mmol/L (3.5-5.1); Sodium Level 137 mmol/L (136-145)
[2020-08-29 06:28] LABS: Differential Comment SCANNED
[2020-08-29 08:04] VITALS: PULSE 54
[2020-08-29 08:40] VITALS: BP 127/77; PULSE 58; RESP 16; TEMP 36.8; O2SAT 99
[2020-08-29] MEDS: Cilostazol 50 MG Tablet 100 MG PO (08:59)
[2020-08-29] MEDS: Fenofibrate 145 MG Tablet PO (08:59)
[2020-08-29] MEDS: Paroxetine 20 MG Tablet 40 MG PO (08:59)
[2020-08-29] MEDS: Aspirin E.C. 81 MG Tablet PO (08:59)
[2020-08-29 09:00] VITALS: PULSE 58
--- NOTE | 2020-08-29 13:57 | DCINST_ITS ---
- Discharge Diagnoses Current Active Problems: Current Active and Chronic Problems (Last Updated 07/05/20 @ 19:06 by Stephie Dimas) Acute kidney injury (Acute) Pancreatitis (Acute) You will use the following diet at home:: Cardiac Your food should be the consistency of: Regular Your liquids should be the consistency of: Regular/Thin Discharge Activity: Return to Normal Activity Weight Bearing Status: Weight bearing as tolerated Call your doctor if you observe: Fever of 101 or Higher, Dizziness, Fainting spells, - - persistent diarrhea Instructions: ED Viral Gastroenteritis, Acute Kidney Failure Allergies/Adverse Reactions: Allergies adhesive Allergy (Verified 08/28/20 10:05) Unknown latex Allergy (Verified 08/28/20 10:05) Unknown lisinopril Allergy (Verified 08/28/20 10:05) Unknown Penicillins Allergy (Verified 08/28/20 10:05) Unknown rivaroxaban [From Xarelto] Allergy (Verified 08/28/20 10:05) Unknown Medications to take at Discharge paroxetine HCl 30 mg tablet 40 mg PO QDAY 11/04/17 hydrochlorothiazide 12.5 mg capsule 12.5 mg PO DAILY #90 cap 10/17/19 fenofibrate nanocrystallized 145 mg tablet 145 mg PO DAILY #90 tab 12/06/19 metoprolol tartrate 50 mg tablet 50 mg PO BID #180 tab 12/06/19 rosuvastatin 40 mg tablet 40 mg PO QHS #90 tab 12/06/19 Aspirin [Aspir 81] 81 mg PO DAILY 12/28/19 Warfarin Sodium [Coumadin] 5 mg PO SUFRSA 12/28/19 Warfarin [Coumadin] 2.5 mg PO MOTUWETH 12/28/19 losartan 100 mg tablet 50 mg PO BID #60 tab 05/16/20 cilostazol 50 mg tablet 100 mg PO BID 90 Days #360 tab 07/31/20 Primary Care Physician: Alban Farrell MD [Primary Care Provider] - Please follow up with your Primary Care Physician in: 1-2 weeks Test Results: Test results from this visit will be discussed in further detail at your follow- up appointment, if applicable. Proposed Discharge Date: 08/29/20
--- NOTE | 2020-08-29 14:01 | PCM.DC.SUM ---
Discharge Date and Diagnosis - Problem List Patient Problems: Active and Suspected Problems (Last Updated 07/05/20 @ 19:06 by Stephie Dimas) Acute kidney injury (Acute) Pancreatitis (Acute) Date of Admission: 08/28/20 Date of Discharge: 08/29/20 - Primary Discharge Diagnosis Acute Problems: Active Problems (Last Updated 07/05/20 @ 19:06 by Stephie Dimas) Acute kidney injury (Acute) acute gastroenteritis - Secondary Discharge Diagnosis Chronic Problems: Chronic Problems (Last Updated 07/05/20 @ 19:06 by Stephie Dimas) Atherosclerosis of [place] coronary artery of [place] heart without angina pectoris (Chronic) Paroxysmal atrial fibrillation (Chronic) RFA in 2008 & 2016 Essential (primary) hypertension (Chronic) Hyperlipidemia (Chronic) PVD (peripheral vascular disease) (Chronic) [place] (current) use 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 (Chronic) Prostate cancer (Chronic) Tobacco abuse (Chronic) Hospital Course and Treatment Operations: None Procedures: None Summary of Care Provided: The patient is a 65 year old M with a past medical history as outlined. He was admitted through the ED on 08/28/2020 with a complaint of diarrhea for 1 week. Patient does not member what he ate a week ago but says several other people ate the same thing. However he was 89 who started having diarrhea. Diarrhea was persistent and he cannot count the number of times he has it every day as he says is too many. It was nonbloody. He had no associated abdominal pain no vomiting no nausea. He denied any fever or chills. He has not been on any antibiotics recently and has not had any contact with any body with Covid. Review of symptoms otherwise negative. In the ED, at time of review, vitals were temperature of 98 Fahrenheit with blood pressure 119/65, pulse rate of 63 respiratory rate of 18. She was saturating at 99% on room air. Chemistry showed sodium of 135 with creatinine of 1.92 and potassium of 4.2. Lipase was elevated at 827. CBC showed WBC of 9 with hemoglobin of 15.9 and platelets of 322. He was admitted to be managed for acute gastroenteritis and JAYNE. He was hydrated with IV fluids and put on clear liquid diet. Stool for C. difficile was positive for the C. difficile antigen but negative for the toxin which indicated that he may be a carrier of C. difficile but had no active infection. Patient's diarrhea resolved and he was able to tolerate a regular diet upon advancement. Of note, lipase was 827 but patient had no abdominal pain whatsoever and there was no indication for pancreatitis as lipase was not more than 3 times the upper limit of normal. Patient remained stable and was discharged home on 08/29/2020. I did speak to patient's daughter Rafael who wanted an update about his condition prior to discharge. She was concerned the patient may have pancreatitis but I explained to her that he had no features of pancreatitis such as abdominal pain and the lipase was no markedly elevated enough to meet the criteria for pancreatitis. She did admit to her father drinking but said he had been doing better recently and had not drank in about the last week. Patient remained stable and was discharged home on 08/29/2020. He is to follow-up with his primary care doctor in 1 week. Seen and examined prior to discharge. He had no complaints and said he felt so well he wanted to go to [facility] which he could see from his window. Review of systems otherwise negative. Labs and vitals reviewed. JAYNE had resolved and creatinine had trended down to about 1.1. O/E: Vital Signs Temp Pulse Resp BP Pulse Ox 98.2 F 58 L 16 127/77 H 99 08/29/20 08:40 08/29/20 09:00 08/29/20 08:40 08/29/20 08:40 08/29/20 08:40 General: Alert, Oriented x3, Cooperative, No apparent distress HEENT: Atraumatic, PERRLA, EOMI, Normocephalic Oral: Dry Mucosa Neck: Supple, No JVD, Negative Carotid Bruits Lungs: Clear to auscultation, Normal air movement Cardiovascular: Regular rate, Regular Rhythm, Normal S1, Normal S2, No murmurs Abdomen: Bowel Sounds Present, Soft, Non Tender, Non-Distended, No Hepato-splenomegaly, Obese Extremities: No edema, Capillary Refill Less than 3 Seconds Skin: No rashes, No breakdown Musculoskeletal: No Tenderness to Palpation of Joints or Extremities Lymphatic: No Cervical, Supraclavicular, or Inguinal Adenopathy Neurological: Cranial nerves II-XII grossly intact, Neuro grossly intact, Motor Exam 5/5 strength throughout Psych/Mental Status: Normal Affect, Appropriate, Alert and oriented to time, place, person, mood and affect Plan is for discharge home. Patient Problems: Active and Suspected Problems (Last Updated 07/05/20 @ 19:06 by Stephie Dimas) Acute kidney injury (Acute) Pancreatitis (Acute) - Physical Exam Vitals/I&O's: Vital Signs Temp Pulse Resp BP Pulse Ox 98.2 F 58 L 16 127/77 H 99 08/29/20 08:40 08/29/20 09:00 08/29/20 08:40 08/29/20 08:40 08/29/20 08:40 Oxygen Delivery Method Room Air Weight: 274 lb 12.793 oz Body Mass Index (BMI) 40.6 Intake and Output for Last 24 Hours 08/27/20 08/28/20 08/29/20 23:59 23:59 23:59 Intake Total 1944 1500 / 1500 Output Total 1700 / 1700 Balance 1944 / 1944 -200 / -200 Microbiology Past 72 Hours 08/28/20 19:25 Stool C. difficile GDH Antigen & Toxins - Final 08/28/20 19:25 Stool C. difficile DNA Amplification - Final Laboratory Results 08/29/20 05:40: WBC 7.2, RBC 5.04, Hgb 14.5, Hct 44.2, MCV 87.7, MCH 28.8, MCHC 32.8, RDW Std Deviation 48.3 H, RDW Coeff of Asad 15.1 H, Plt Count 256, MPV 9.4, Immature Gran % (Auto) 1.000 H, Neut % (Auto) 66.7, Lymph % (Auto) 20.0, [place] % (Auto) 10.0, Eos % (Auto) 1.9, Baso % (Auto) 0.4, Absolute Neuts (auto) 4.8, Absolute Lymphs (auto) 1.44, Nucleated RBC % 0, Differential Comment SCANNED 08/29/20 05:40: PT 26.8 H, INR 2.5 08/29/20 05:40: Sodium 137, Potassium 3.8, Chloride 112 H, Carbon Dioxide 18.0 L, Anion Gap 7, BUN 41 H, Creatinine 1.13, Estim Creat Clear Calc 66.04, Est GFR (MDRD) Af Amer 84, Est GFR (MDRD) Non-Af 69, BUN/Creatinine Ratio 36.3 H, Glucose 122 H, Calcium 8.4 L Current Medications Aspirin (Aspirin E.C. 81 Mg Tablet) [facility] Last Admin: 08/29/20 08:59 Dose: 81 mg Documented by: Atorvastatin Calcium (Atorvastatin Calcium 80 Mg Tablet) 80 mg PO QHS [facility] Last Admin: 08/28/20 20:28 Dose: 80 mg Documented by: Cilostazol (Cilostazol 50 Mg Tablet) 100 mg PO BID [facility] Last Admin: 08/29/20 08:59 Dose: 100 mg Documented by: Fenofibrate (Fenofibrate 145 Mg Tablet) [facility] Last Admin: 08/29/20 08:59 Dose: 145 mg Documented by: Sodium Chloride () 250 mls @ 15 mls/hr IV .[id number] PRN PRN Reason: Saline Flush Sodium Chloride () 250 mls @ 15 mls/hr IV .[id number] PRN PRN Reason: Additional IVPB Infusion Metoprolol Tartrate (Metoprolol Tartrate 50 Mg Tablet) 50 mg PO BID [facility] Last Admin: 08/29/20 09:00 Dose: Not Given Documented by: Ondansetron HCl (Ondansetron 4 Mg/2 Ml Vial) 4 mg IV Q8H PRN PRN PRN Reason: NAUSEA/VOMITING Paroxetine HCl (Paroxetine 20 Mg Tablet) 40 mg PO DAILY [facility] Last Admin: 08/29/20 08:59 Dose: 40 mg Documented by: Sodium Chloride (0.9% Saline Lock 10 Ml Syringe) 10 - 40 ml IV UD PRN PRN Reason: SALINE FLUSH Last Admin: 08/28/20 14:09 Dose: 10 ml Documented by: Warfarin Sodium (Warfarin 2.5 Mg Tablet) 2.5 mg PO [id number]@1700 [facility] Last Admin: 08/28/20 16:30 Dose: 2.5 mg Documented by: Warfarin Sodium (Warfarin 5 Mg Tablet) 5 mg PO SuFrSa@1700 [facility] Discharge Diet: Low fat/ Low Cholesterol Discharge Activity: Return to Normal Activity Weight Bearing Status: Weight bearing as tolerated Call your doctor if you observe: Fever of 101 or Higher, Dizziness, Fainting spells, - - persistent diarrhea Home Medications: Medications to take at Discharge paroxetine HCl 30 mg tablet 40 mg PO QDAY 11/04/17 hydrochlorothiazide 12.5 mg capsule 12.5 mg PO DAILY #90 cap 10/17/19 fenofibrate nanocrystallized 145 mg tablet 145 mg PO DAILY #90 tab 12/06/19 metoprolol tartrate 50 mg tablet 50 mg PO BID #180 tab 12/06/19 rosuvastatin 40 mg tablet 40 mg PO QHS #90 tab 12/06/19 Aspirin [Aspir 81] 81 mg PO DAILY 12/28/19 Warfarin Sodium [Coumadin] 5 mg PO SUFRSA 12/28/19 Warfarin [Coumadin] 2.5 mg PO MOTUWETH 12/28/19 losartan 100 mg tablet 50 mg PO BID #60 tab 05/16/20 cilostazol 50 mg tablet 100 mg PO BID 90 Days #360 tab 07/31/20 Primary Care Physician: Alban Farrell MD [Primary Care Provider] - Please follow up with your Primary Care Physician in: 1-2 weeks Patient Instructions: Acute Kidney Failure, ED Viral Gastroenteritis Disposition: Home Minutes spent on discharge:: 35 Patient Condition:: Stable Medical Necessity - Tobacco Use Smoking Status: Heavy Smoker (>10/day) Tobacco Use: Cigarettes Meaningful Use Info Meaningful Use Diagnoses (Choose all that apply): None applicable OBSV E&M: 25820 Observation care discharge
[2020-08-29 14:46] VITALS: BP 110/67; PULSE 74; RESP 16; TEMP 36.4; O2SAT 98
== END 2020-08-29 14:46 | disposition home or self-care (01) ==
LOC: ED 11:56 → MS3 12:38
PROVIDERS: Admitting Provider Student in an Organized Health Care Education/Training Program; Emergency Provider Emergency Medicine; PCP Family Medicine; Visit Provider Student in an Organized Health Care Education/Training Program
DX: K85.90 Acute pancreatitis without necrosis or infection, unspecified (principal); N17.9 Acute kidney failure, unspecified; F17.210 Nicotine dependence, cigarettes, uncomplicated; Z23 Encounter for immunization; I25.10 Atherosclerotic heart disease of native coronary artery without angina pectoris; E78.5 Hyperlipidemia, unspecified; I48.19 Other persistent atrial fibrillation; I73.9 Peripheral vascular disease, unspecified; I10 Essential (primary) hypertension; G47.33 Obstructive sleep apnea (adult) (pediatric); G25.81 Restless legs syndrome; Z79.899 Other long term (current) drug therapy; Z85.46 Personal history of malignant neoplasm of prostate; Z79.01 Long term (current) use 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; Z79.82 Long term (current) use of aspirin
CPT/HCPCS: 80048; 80053; 81001; 83690; 85025; 85610; 87177; 87209; 87493; 96360; 96361; 99218; 99284; J7030; 90686; A4216; G0378

== ENCOUNTER → 2020-08-31 15:37 | Outpatient (CLI) | payer OTHER, MEDICARE, SELFPAY ==
[2020-08-28 12:57] VITALS: BMI 40.6
[2020-09-03 11:03] LABS: Thyroid Stim Hormone (TSH) 3.19 uIU/mL (0.358-3.74)
== END ==
PROVIDERS: PCP Family Medicine; Referring Provider Family Medicine; Visit Provider Family Medicine
DX: R79.89 Other specified abnormal findings of blood chemistry (principal)
CPT/HCPCS: 36415; 84443

== ENCOUNTER → 2020-09-04 13:24 | Outpatient (CLI) | payer OTHER, MEDICARE, SELFPAY ==
[2020-08-28 12:57] VITALS: BMI 40.6
--- NOTE | 2020-09-04 13:25 | CT_ITS ---
STUDY: LOW DOSE CT LUNG CANCER SCREENING REASON FOR EXAM: Male, 65 years old. LUNG CANCER SCREENING. 1PPD X 30 YEARS RADIATION DOSAGE (If Supplied By Facility): CTDIvol = ( 3.40 ) mGy, DLP = ( 111.46 ) mGycm TECHNIQUE: No contrast was administered. Low dose technique was utilized (average mAS-38 and kVp 120). 1.25 mm axial source images with a slice interval of 1.25-mm were reconstructed in lung windows. 2.5 mm axial source images with a slice interval of 2.5-mm were reconstructed in lung windows. 5.0 mm axial source images with a slice interval of 5.0-mm were reconstructed in soft tissue windows. Nodule measured using lung windows on PACS and/or independent workstation with automated measurement of minimum and maximum diameter. Nodule measurement reported as average diameter rounded to the nearest whole number. Growth is defined as an increase ins size of greater than 1.5 mm. COMPARISON: Comparison is made with prior study dated 07/05/2019. NODULES: No suspicious nodules are seen. Emphysema: Hyperinflation. Mild degree of emphysematous changes with subpleural blebs more prominent in the upper lobes. Stable mild scarring in the right lung apex as well as in the anterior aspect of the lingular segment of the left upper lobe and right middle lobe. Endobronchial lesion: None Aorta: Atherosclerotic plaque formation. Coronary arteries: Prior CABG. Calcification of the [place] coronary arteries. Mediastinal nodes: Small mediastinal lymph nodes. Other chest and abdominal findings: Degenerative changes of the thoracic spine. CT/Low Dose CT Lung Screening IMPRESSION: Lung-RADS category 2 - Continue annual screening with LDCT in 12 months. IMPORTANT NOTES FOR USE: ACR Lung-RADS Version 1.0 Assessment Categories Release Date: February 20, 2014 Category: Coded 0-4 bases on nodule(s) with highest degree of suspicion. Negative screen is defined as categories 1 and 2; a positive screen is defined as categories 3 and 4. Category 3 and 4A nodules that are unchanged on interval CT should be coded as category 2, and individuals returned to screening in 12 months. Category 4X: Category 3 or 4 nodules with additional imaging findings that increase the suspicion of lung cancer, such as spiculation, GGN that doubles in size in 1 year, enlarged lymph notes, etc. Category Modifiers: S (significant finding unrelated to lung cancer) and C (prior history of treated lung cancer) may be added to the 0-4 Lung-RADS Electronically Signed: Kings Riley, at 13:57 EST , Service support ,
== END ==
PROVIDERS: PCP Family Medicine; Referring Provider Nurse Practitioner Family; Visit Provider Nurse Practitioner Family
DX: F17.210 Nicotine dependence, cigarettes, uncomplicated (principal); Z12.2 Encounter for screening for malignant neoplasm of respiratory organs
CPT/HCPCS: G0297

== ENCOUNTER → 2020-10-10 | Outpatient (CLI) | payer OTHER, MEDICARE, SELFPAY ==
[2020-10-09 09:23] VITALS: BMI 41.8
== END | disposition home or self-care (01) ==
PROVIDERS: PCP Family Medicine; Referring Provider Nurse Practitioner Adult Health; Visit Provider Nurse Practitioner Adult Health
DX: N39.0 Urinary tract infection, site not specified (principal)
CPT/HCPCS: 87086; 87088

== ENCOUNTER 2021-01-03 11:44 | Outpatient (RCR) | payer OTHER, MEDICARE, SELFPAY ==
[2020-11-02 10:33] VITALS: BMI 41.8
[2021-01-03] MEDS: COVID-19 VACC, MRNA(PFIZER)/PF 30 MCG/0.3 ML SYRINGE IM (11:10)
[2021-01-24] MEDS: COVID-19 VACC, MRNA(PFIZER)/PF 30 MCG/0.3 ML SYRINGE IM (10:42)
== END 2021-01-03 23:59 ==
LOC: IMMUN 11:44
PROVIDERS: PCP Family Medicine; Visit Provider Family Medicine
DX: Z23 Encounter for immunization (principal)
CPT/HCPCS: 0001A; 0002A; 91300

== ENCOUNTER 2021-01-03 11:52 | Outpatient (RCR) | payer OTHER, MEDICARE, SELFPAY ==
[2020-11-02 10:33] VITALS: BMI 41.8
[2021-01-03 12:20] LABS: International Normalized Ratio 1.4
[2021-01-03 12:32] LABS: PSA,Total- Diagnostic 0.06 ng/mL (0.0-4.0)
== END 2021-01-03 18:00 | disposition home or self-care (01) ==
LOC: LAB 11:52
PROVIDERS: Nurse Practitioner Adult Health; Family Provider Family Medicine; PCP Family Medicine; Referring Provider Internal Medicine Cardiovascular Disease; Visit Provider Internal Medicine Cardiovascular Disease
DX: C61 Malignant neoplasm of prostate (principal); Z79.01 Long term (current) use 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; I48.0 Paroxysmal atrial fibrillation
CPT/HCPCS: 36415; 84153; 85610

== ENCOUNTER 2021-01-24 10:23 | Outpatient (RCR) | payer OTHER, MEDICARE, SELFPAY ==
[2020-11-02 10:33] VITALS: BMI 41.8
== END 2021-02-22 23:59 ==
LOC: PAVLAB 10:23
PROVIDERS: Family Provider Family Medicine; PCP Family Medicine; Referring Provider Internal Medicine Cardiovascular Disease; Visit Provider Internal Medicine Cardiovascular Disease
DX: I48.0 Paroxysmal atrial fibrillation (principal); Z79.01 Long term (current) use 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
CPT/HCPCS: 36415; 85610

== ENCOUNTER → 2021-03-04 15:14 | Outpatient (CLI) | payer OTHER, MEDICARE, SELFPAY ==
[2020-11-02 10:33] VITALS: BMI 41.8
== END ==
PROVIDERS: PCP Family Medicine; Referring Provider Family Medicine; Visit Provider Family Medicine
DX: R19.7 Diarrhea, unspecified (principal)
CPT/HCPCS: 83630; 87177; 87209; 87493; 87506

== ENCOUNTER 2021-04-09 10:24 | Outpatient (RCR) | payer OTHER, MEDICARE, SELFPAY ==
[2020-11-02 10:33] VITALS: BMI 41.8
[2021-04-09 07:37] VITALS: BMI 40.7
[2021-04-09 10:49] LABS: International Normalized Ratio 2.6
== END 2021-04-24 23:59 ==
LOC: PAVLAB 10:24
PROVIDERS: Family Provider Family Medicine; PCP Family Medicine; Referring Provider Internal Medicine Cardiovascular Disease; Visit Provider Internal Medicine Cardiovascular Disease
DX: I48.0 Paroxysmal atrial fibrillation (principal); Z79.01 Long term (current) use 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
CPT/HCPCS: 36415; 85610

== ENCOUNTER 2021-09-04 10:58 | Outpatient (RCR) | payer MEDICARE, SELFPAY ==
[2021-09-04 11:27] LABS: International Normalized Ratio 1.4; Prothrombin Time (Protime)PT. 16.4 SECONDS (11.7-14.9)
== END 2021-09-24 23:59 ==
LOC: PAVLAB 10:58
PROVIDERS: Family Provider Family Medicine; PCP Family Medicine; Referring Provider Internal Medicine Cardiovascular Disease; Visit Provider Internal Medicine Cardiovascular Disease
DX: I48.0 Paroxysmal atrial fibrillation (principal); Z79.01 Long term (current) use 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
CPT/HCPCS: 36415; 85610

== ENCOUNTER → 2021-10-07 11:23 | Outpatient (CLI) | payer MEDICARE, SELFPAY ==
--- NOTE | 2021-10-07 11:25 | CT_ITS ---
STUDY: LOW DOSE CT LUNG CANCER SCREENING REASON FOR EXAM: Male, 66 years old. 40+ pack year smoking history RADIATION DOSAGE (If Supplied By Facility): CTDIvol = ( 4.02 ) mGy, DLP = ( 141.95 ) mGycm TECHNIQUE: No contrast was administered. Low dose technique was utilized (average mAS-38 and kVp 120). 1.25 mm axial source images with a slice interval of 1.25-mm were reconstructed in lung windows. 2.5 mm axial source images with a slice interval of 2.5-mm were reconstructed in lung windows. 5.0 mm axial source images with a slice interval of 5.0-mm were reconstructed in soft tissue windows. Nodule measured using lung windows on PACS and/or independent workstation with automated measurement of minimum and maximum diameter. Nodule measurement reported as average diameter rounded to the nearest whole number. Growth is defined as an increase ins size of greater than 1.5 mm. COMPARISON: 09/04/2020 FINDINGS: Stable underlying emphysema with nonspecific pleural thickening. No suspicious organized infiltrate, groundglass opacifications, or suspicious noncalcified mass or nodule. 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 No suspicious adenopathy. Peripheral calcifications noted in the thoracic aorta without aneurysm. Bony structures show degenerative change. Limited cuts through the upper abdomen do not show a suspicious abnormality CT/Low Dose CT Lung Screening IMPRESSION: Lung-RADS category 2 - Continue annual screening with LDCT in 12 months. IMPORTANT NOTES FOR USE: ACR Lung-RADS Version 1.1 Assessment Categories Release Date: 2018 Category: Coded 0-4 bases on nodule(s) with highest degree of suspicion. Negative screen is defined as categories 1 and 2; a positive screen is defined as categories 3 and 4. Category 3 and 4A nodules that are unchanged on interval CT should be coded as category 2, and individuals returned to screening in 12 months. Category 4X: Category 3 or 4 nodules with additional imaging findings that increase the suspicion of lung cancer, such as spiculation, GGN that doubles in size in 1 year, enlarged lymph notes, etc. Category Modifiers: S (significant finding unrelated to lung cancer) Electronically Signed: Tay Topete MD at 14:37 EST , Service support ,
== END ==
PROVIDERS: PCP Family Medicine; Referring Provider Nurse Practitioner Acute Care; Visit Provider Nurse Practitioner Acute Care
DX: F17.210 Nicotine dependence, cigarettes, uncomplicated (principal)
CPT/HCPCS: 71271

== ENCOUNTER 2021-10-09 09:45 | Outpatient (RCR) | payer MEDICARE, SELFPAY ==
[2021-09-25 00:03] VITALS: BMI 40.7
[2021-10-09 10:36] LABS: International Normalized Ratio 1.8
== END 2021-10-25 23:59 ==
LOC: PAVLAB 09:45
PROVIDERS: Family Provider Family Medicine; PCP Family Medicine; Referring Provider Internal Medicine Cardiovascular Disease; Visit Provider Internal Medicine Cardiovascular Disease
DX: I48.0 Paroxysmal atrial fibrillation (principal); Z79.01 Long term (current) use 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
CPT/HCPCS: 36415; 85610

== ENCOUNTER → 2022-07-28 | Outpatient (CLI) | payer MEDICARE, SELFPAY ==
[2022-07-28 13:01] LABS: Microalbumin,Random Urine 48.1 mg/L (NO RANGE EST.); Microalbumin:Creatinine Ratio 50.1 mg/g CRE (<30 mg/g CRE)
[2022-07-28 13:23] LABS: ALB/GLOB Ratio 0.9 RATIO (0.9-2.4); AST(SGOT) 17 U/L (15-37); Alanine Aminotransfer ALT/SGPT 28 U/L (16-61); Albumin, Serum 3.3 g/dL (3.2-5.0); Alkaline Phosphatase 49 U/L (45-117); Anion Gap 8 (5-15); BUN 26 mg/dL (7-18); BUN/Creat Ratio 25.5 RATIO (10-20); Calcium,Total 9.2 mg/dL (8.5-10.1); Chloride 108 mmol/L (98-107); Cholesterol 103 mg/dL (200); Creatinine, Serum 1.02 mg/dL (0.70-1.30); EST Glomerular Filtration Rate 78 mL/min (>60); Est Glom Filt Rate - Afr Amer 94 mL/min (>60); Globulin 3.5 g/dL (2.2-4.2); Glucose 98 mg/dL (74-106); High Density Lipoprotein 34 mg/dL; Potassium 4.1 mmol/L (3.5-5.1); Protein, Total 6.8 g/dL (6.4-8.2); Sodium Level 140 mmol/L (136-145); Thyroid Stim Hormone (TSH) 2.42 uIU/mL (0.358-3.74); Triglycerides 144 mg/dL; Very Low Density Lipoprotein 29 mg/dL (5-40)
== END | disposition home or self-care (01) ==
LOC: BFHLAB 10:44
PROVIDERS: Internal Medicine Endocrinology, Diabetes & Metabolism; PCP Family Medicine; Visit Provider Internal Medicine Cardiovascular Disease
DX: I10 Essential (primary) hypertension (principal); E11.9 Type 2 diabetes mellitus without complications; E78.2 Mixed hyperlipidemia; E55.9 Vitamin D deficiency, unspecified
CPT/HCPCS: 80053; 80061; 82043; 82306; 82570; 84443

== ENCOUNTER → 2022-08-05 | Outpatient (CLI) | payer MEDICARE, SELFPAY ==
--- NOTE | 2022-08-05 06:54 | ECHOCS_ITS ---
Reason For Study: s/p CABG Procedure This was a 2D Doppler, Color Flow transthoracic echocardiogram. The study was technically difficult. Contrast injection was performed. Exam performed in department. Left Ventricle Normal LV size. Left ventricular systolic function is normal. The estimated ejection fraction is 55 %. No regional wall motion abnormalities noted. Right Ventricle Normal RV size. Normal systolic function. Atria The left atrium is moderately enlarged. The right atrium is mildly enlarged. Mitral Valve Normal mitral valve. Tricuspid Valve Normal tricuspid valve. Mild tricuspid valve insufficiency. Pulmonary artery systolic pressure is 36 mmHg. Aortic Valve Trisinus/trileaflet aortic valve. Mild focal aortic valve calcification. Pulmonic Valve Normal pulmonic valve. Great Vessels Normal aortic root. The pulmonary artery is normal size. Normal inferior vena cava. Pericardium/Pleural No pericardial effusion. Medication 20 gauge I.V. with prn adaptor inserted into left arm. Diluted definity 2.5ml given slow IV push to enhance endocardial definition. MMode/2D Measurements & Calculations LVIDd: 5.7 cm IVSd: 1.0 cm Ao root diam: 4.1 cm LVIDs: 3.7 cm LVPWd: 1.1 cm LA dimension: 5.5 cm RVDd: 4.5 cm FS: 34.6 % LAV(MOD-bp): 104.6 ml LA A4 area: 30.2 cm2 RA A4 area: 26.1 cm2 LAV(MOD-bp) Indexed: 45.8 ml/m2 LAV(MOD-sp2): 104.5 ml LAV(MOD-sp4): 97.1 ml Time Measurements MV dec time: 0.18 sec Doppler Measurements & Calculations MV E max edgar: 127.8 cm/sec Lat Peak E' Edgar: 9.2 cm/sec Med Peak E' Edgar: 8.1 cm/sec MV A max edgar: 34.8 cm/sec E/E' lat: 13.8 E/E' med: 15.8 MV E/A: 3.7 MV V2 max: 143.9 cm/sec MV P1/2t max edgar: 144.9 cm/sec Ao V2 max: 115.3 cm/sec MV max P.3 mmHg MV P1/2t: 61.8 msec Ao max P.3 mmHg MV V2 mean: 59.9 cm/sec MV dec slope: 686.9 cm/sec2 MV mean P.0 mmHg MV V2 VTI: 38.0 cm MVA(P1/2t): 3.6 cm2 AI max edgar: 333.6 cm/sec LV V1 max: 107.8 cm/sec PA V2 max: 86.7 cm/sec AI max P.5 mmHg LV V1 max P.6 mmHg AI dec slope: 172.5 cm/sec2 LV V1 mean P.3 mmHg AI P1/2t: 566.4 msec LV V1 mean: 71.9 cm/sec LV V1 VTI: 25.5 cm TR max edgar: 287.8 cm/sec TR max P.1 mmHg ECHO/Echo Complete W/ Contrast Interpretation Summary Normal LV size. Left ventricular systolic function is normal. The estimated ejection fraction is 55 %. Pulmonary artery systolic pressure is 36 mmHg. Contrast injection was performed. Ordering Physician: Gerber Olea Referring Physician: Alban Farrell Performed By: Eduar Huff RCS
--- NOTE | 2022-08-05 18:40 | STRESSREP_ITS ---
Stress Test Report Pharmacologic myocardial perfusion stress test. 66-year-old man with a history of coronary artery bypass surgery with a NATION to the LAD saphenous vein graft to the posterior descending artery and circumflex artery and 2 posterolateral branches in a sequential fashion. Myocardial perfusion protocol. Resting EKG demonstrates sinus rhythm with a rate of 61 bpm normal intervals are noted resting blood pressure is 142/76 mmHg. 0.4 mg of regadenoson was infused per usual protocol followed by rapid intravenous saline flush injection continuous EKG monitoring was performed. The maximum heart rate attained was 82 bpm which was 53% of max impacted heart rate the maximum workload was 1 metabolic equivalent. At rest there were no ST or T wave changes noted to suggest abnormal flow reserve and at peak infusion nonspecific ST changes were noted with did not meet the criteria for ischemia. No clinical angina was noted. The final blood pressure was 142/76 mmHg. Myocardial perfusion protocol. 14.8 mCi of technetium 99m sestamibi was injected at rest. 0.4 mg of regadenoson was infused per usual protocol. At peak infusion 44.6 mCi of t echnetium 99m sestamibi was injected stress images were obtained stress and rest images were reconstructed in comparing the short axis vertical long and horizontal long axis. Gated images were also obtained to Perfusion SPECT analysis: Review of the stress images demonstrate a normal cardiac silhouette size. There is mild reduction of perfusion noted in the apex and the anterior septal wall and the inferoseptal wall. The resting images demonstrate improvement in these areas suggesting a mild to moderate amount of composite ischemia in the apical segment in the inferoseptal segments. No previous infarct is noted. Gated SPECT analysis: The gated ejection fraction is 63%. Conclusion: Abnormal pharmacologic myocardial perfusion stress test with mild to moderate anterior apical and inferoseptal ischemia present. Preserved ejection fraction.
== END | disposition home or self-care (01) ==
PROVIDERS: PCP Family Medicine; Referring Provider Internal Medicine Cardiovascular Disease; Visit Provider Internal Medicine Cardiovascular Disease
DX: I25.10 Atherosclerotic heart disease of native coronary artery without angina pectoris (principal); I48.0 Paroxysmal atrial fibrillation; Z95.1 Presence of aortocoronary bypass graft
CPT/HCPCS: 78452; 93017; 93306; A9500; Q9957; A4216; C8929; J2785

== ENCOUNTER → 2022-08-11 | Outpatient (CLI) | payer MEDICARE, SELFPAY ==
--- NOTE | 2022-08-11 10:03 | RAD_ITS ---
INDICATION: Pre-Procedure: [facility] EXAMINATION/TECHNIQUE: X-RAY - XR Chest 2 Views COMPARISON: 02/21/2016. FINDINGS: Slight increase in interstitial markings likely represents chronic lung changes. Sternal cerclage wires and vascular clips are present from a prior sternotomy and coronary artery bypass graft procedure (CABG). Tortuous and calcified thoracic aorta. The heart is borderline enlarged. No pleural effusion or pneumothorax. Degenerative changes of the thoracic spine. RAD/Chest PA and Lateral IMPRESSION: Chronic lung changes. No definite acute lung findings. Electronically Signed: Bob Hannah MD at 17:00 EDT ,
[2022-08-15 07:45] VITALS: BMI 40.1
--- NOTE | 2022-08-15 10:19 | HP.PCM_ITS ---
History and Physical Date of Admission: 08/18/22 GUEVARA SAAB, is a 66 M who presents to the office today for a diagnostic heart cath for an abnormal stress test. He has a history of coronary artery disease status post coronary bypass surgery in 2005 with a left internal mammary artery to the left anterior descending artery, saphenous vein graft to the circumflex artery to the posterior descending artery and 2 posterolateral branches and a sequential fashion.? He also had stenting of the posterior descending artery in 2015, paroxysmal atrial fibrillation with cardioversion and ablation in 2008 and repeat ablation 2015, hypertension, hyperlipidemia, vascular disease in which he follows with the vascular surgeon, prostate cancer, and obstructive sleep apnea with CPAP therapy. Pt was in the office in May for a routine appt. He had a stress test for routine follow up this demonstrated Abnormal pharmacologic myocardial perfusion stress test with mild to moderate anterior apical and inferoseptal ischemia present. Because of this he is undergoing a heart cath. Preserved ejection fraction. He denies chest, arm, jaw, or neck discomfort. He continues with shortness of breath with exertion that improves with rest. He denies symptoms of shortness of breath at rest, orthopnea, PND, sudden weight gain, or bilateral lower extremity edema. He denies chronic cough. He denies palpitations, lightheadedness, dizziness, near syncope, or syncopal episodes. He denies claudication issues. He denies fever or chills. He denies blood in urine, blood in stool, or epistaxis. He denies myalgia. He denies unexplainable fatigue. His exercise tolerance is stable. Medications aspirin 81 mg tablet,delayed release 81 mg PO DAILY 12/28/19 [History Confirmed 06/10/22] losartan 50 mg tablet 50 mg PO BID #180 tabs 10/15/21 [Rx Confirmed 06/10/22] doxycycline hyclate 100 mg tablet 100 mg PO BID #20 tabs 11/06/21 [Rx Confirmed 06/10/22] dulaglutide 0.75 mg/0.5 mL subcutaneous pen injector (Trulicity) 0.75 mg (0.5 mL) subcut QWEEK #2 mL 11/15/21 [Rx Confirmed 06/10/22] icosapent ethyl 1 gram capsule (Vascepa) 2 g PO BID #120 caps 11/15/21 [Rx Confirmed 06/10/22] metformin 500 mg tablet 500 mg PO BID #60 tabs 11/15/21 [Rx Confirmed 06/10/22] cilostazol 50 mg tablet 100 mg PO BID 90 days #360 tabs 11/25/21 [Rx Confirmed 06/10/22] hydrochlorothiazide 12.5 mg capsule 12.5 mg PO DAILY #90 caps 11/25/21 [Rx Confirmed 06/10/22] metoprolol tartrate 50 mg tablet 50 mg PO BID #180 tabs 12/19/21 [Rx Confirmed 06/10/22] fenofibrate nanocrystallized 145 mg tablet See Rx Instructions .Route .COMPLEX #90 tabs 01/07/22 [Rx Confirmed 06/10/22] rosuvastatin 40 mg tablet 40 mg PO QHS #90 tabs 03/13/22 [Rx Confirmed 06/10/22] warfarin 5 mg tablet 5 mg PO .COMPLEX #90 tabs 03/13/22 [Rx Confirmed 06/10/22] clopidogrel 75 mg tablet (Plavix) 75 mg PO DAILY 06/10/22 [History Confirmed 06/10/22] fenofibrate nanocrystallized 145 mg tablet (Tricor) 145 mg PO DAILY 06/10/22 [History Confirmed 06/10/22] paroxetine HCl 40 mg tablet (Paxil) 40 mg PO DAILY 06/10/22 [History Confirmed 06/10/22] warfarin 5 mg tablet 5 mg PO DAILY 06/10/22 [History Confirmed 06/10/22] Ejection fraction %: 50 to 54 PFSH Medical History? Acute kidney injury Atherosclerosis of [place] coronary artery of [place] heart without angina pectoris Bronchitis Diabetes Encounter for screening for lung cancer Essential (primary) hypertension Hemorrhoids Hyperlipidemia correction (current) use 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 Nicotine dependence Obesity DANGELO (obstructive sleep apnea) Pancreatitis Paroxysmal atrial fibrillation Persistent atrial fibrillation Prostate cancer PVD (peripheral vascular disease) Restless legs syndrome (RLS) Sinusitis Surgical History? H/O coronary artery bypass surgery (05/2006) History of bilateral cataract extraction History of coronary angioplasty (03/07/16) History of femoropopliteal bypass (08/2010) History of radiofrequency ablation procedure for cardiac arrhythmia (2015) History of tonsillectomy and adenoidectomy Family History? Father Heart diseaseOther Dementia Social History? Smoking Status:? Former smoker how long ago did patient quit smoking:? 3 months ago alcohol intake:? current alcohol intake frequency: 3 or more drinks per day Alcohol type: beer substance use type:? marijuana caffeine:? No what type of physical activity do you participate in:? none ROS Const Const: Negative for fatigue, weakness, headache(s), frequent falls, difficulty sleeping or excessive sweating Eyes Eyes: Negative for loss of peripheral vision, transient loss of vision, blurry vision, double vision or tunnel vision ENT ENT: Negative for headache(s), dizziness, Nosebleed/epistaxis or balance problems Cardio Chest Pain: No Palpitations: No Edema: None Muscle aches with walking: None Resp Respiratory: Negative for SOB with activity, SOB at rest, SOB orthopnea\SOB lying down, Cough or paroxysmal nocturnal dyspnea GI GI: Negative nausea, vomiting, heartburn or black,tarry stools : Negative for hematuria Musc Musc: Negative for muscle aches/ myalgia, muscle weakness, joint pain or balance problems Skin Skin: Negative non-healing lesions, rash or unusual bruising Neuro Neuro: Negative for dizziness, lightheadedness, near syncope, syncope, orthostatic symptoms, frequent falls, headache(s), weakness, confusion, memory loss, blurry vision, double vision, vertigo or lack of coordination Ernie Hematologic/Lymphatic: Negative for easy bleeding or easy bruising Endo Endo: Negative for fatigue, excessive sweating, flushing or increased thirst/drinking Psych Psych: Negative for anxiety or depression Allergy Allergy/Immunology: Negative for hives and Negative for rash Cardiology Exam Const Appearance: cooperative, healthy appearing, comfortable and no acute distress Nutritional Appearance: well nourished and obese Orientation: alert, awake and oriented x3 Head Head: normal to inspection Ears: hearing grossly normal bilaterally Nose: external nose normal Face and Sinus: face symmetric Mouth: oral mucosae normal Eyes General: appearance normal, both eyes and all related structures Eyelids: eyelids normal EOM: EOM intact bilaterally Neck Neck: normal visual inspection and no JVD Carotids: normal carotid upstroke Chest Chest inspection: normal inspection of the chest, symmetric chest movement and normal respiratory effort; Negative cough Auscultation: Bilateral: Clear to Auscultation Cardio Rate: regular rate Rhythm: regular rhythm Heart sounds: S1 normal and S2 normal; Negative rub, gallop or murmur GI GI: normal to inspection and obese Neuro General: patient alert, patient awake, patient oriented x3 and CN's II-XI intact bilaterally Skin Skin: no rashes or lesions noted Extremities Pulses: Normal: Right Posterior Tibial Pulse, Left Posterior Tibial Pulse, Right Radial Pulse and Left Radial Pulse Lower Extremity Edema: None: Bilateral Psych Psychological: normal affect Assessment & Plan Assessment/Plan (1) Abnormal stress test: (2) Atherosclerosis of [place] coronary artery of [place] heart without angina pectoris: (3) H/O coronary artery bypass surgery: (4) Paroxysmal atrial fibrillation: (5) Essential (primary) hypertension: (6) Hyperlipidemia: QUALIFIERS: Hyperlipidemia type: mixed hyperlipidemia Qualified Code(s): E78.2 - Mixed hyperlipidemia PLAN: Plan Pt will undergo a diagnostic heart cath today. Recommendations will be based on findings.
== END | disposition home or self-care (01) ==
PROVIDERS: PCP Family Medicine; Referring Provider Internal Medicine Cardiovascular Disease; Visit Provider Internal Medicine Cardiovascular Disease
DX: R94.39 Abnormal result of other cardiovascular function study (principal); E11.9 Type 2 diabetes mellitus without complications; I25.10 Atherosclerotic heart disease of native coronary artery without angina pectoris; I10 Essential (primary) hypertension
CPT/HCPCS: 71046

== ENCOUNTER 2022-09-09 11:05 | Day surgery (SDC) | payer MEDICARE, SELFPAY ==
[2022-09-09] VITALS (10 sets, daily range): BP systolic 125–160; BP diastolic 60–87; PULSE 56–60; RESP 14–16; TEMP 35.9; O2SAT 90–95; BMI 39.8
[2022-09-09 11:15] LABS: INR Fingerstick 1.1; Prothrombin Time Fingerstick 14.3 SEC (11.7-14.9)
--- NOTE | 2022-09-09 17:28 | CL.D_ITS ---
Patient Name: GUEVARA SAAB Study Date: 09/09/2022 Performing: Gerber Olea MD Ht: 68 inches 172.72 cm : 1955 Wt: 262.3 lbs 118.84 kg Age: 67 Gender: male BSA: 2.29 PROCEDURE(S) PERFORMED [id number]-(17100)[facility] CLINICAL PROFILE AND INDICATIONS Indications: Suspected CAD Heart Failure: None Stress/Imaging Date: 08/05/22Stress Test with SPECT MPI: Positive Low Risk CAD Presentations: No Sxs, no angina. CONCLUSIONS Severe [place] coronary artery disease with patent bypass grafts to the LAD territory, circumflex territory, and right coronary artery territory. RECOMMENDATIONS Medical therapy DESCRIPTION OF PROCEDURE The patient arrived to the procedure lab. The risks and benefits of the procedure as well as a full description of our services here and current unavailability of surgical backup were fully explained to the patient and/or their significant other prior to the catheterization. The Timeout was completed, verifying the correct patient and procedure. The patient's procedural site was prepped and draped in the usual fashion. Local anesthetic was given subcutaneously to right groin region with Lidocaine 2%. Using a modified Seldinger technique, Left Coronary Artery selective angiography was performed in multiple views using a 5 Fr. JL 5 catheter. Right Coronary Artery selective angiography was then performed in multiple views using a 5 Fr. 3DRC (Carlos) catheter. Saphenous Vein graft to the RCA selective angiography was performed in multiple views using a 5 Fr. 3DRC (Carlos) catheter. Saphenous Vein graft to the OM 1 selective angiography was performed in multiple views using a 5 Fr. 3DRC (Carlos) catheter. Left internal mammary artery graft to the LAD selective angiography was performed in multiple views using a 5 Fr. 3DRC (Carlos) catheter.The arterial sheath was pulled and manual compression applied until hemostasis is achieved. CORONARY ANGIOGRAPHY DOMINANCE: Right Dominant LEFT HEART ASSESSMENT Left Ventricular Ejection Fraction: by Echo 55 % Normal LV wall motion Normal Left Ventricular systolic function LEFT MAIN: Severely diseased and subtotally occluded LEFT ANTERIOR DESCENDING ARTERY: OSTIAL LAD: is occluded CIRCUMFLEX ARTERY: OSTIAL CIRC: is occluded RIGHT CORONARY ARTERY: This vessel is diffusely diseased throughout with multiple areas of 60 to 70% stenosis GRAFTS: NATION graft to the Mid LAD is patent Sequential graft to the First and second obtuse marginal branches is patent with small distal vessels but no high-grade obstruction Sequential graft to the Posterior descending artery limbs is patent with diffuse disease but no high-grade obstruction COMPLICATIONS No Complications PROCEDURE MEDICATIONS Versed 1 mg IV Fentanyl 50 mcg IV Versed 1 mg IV Oxygen: 2 L/min via nasal cannula Aspirin (325mg) 1 Tabs PO @ 09/09/2022 12:53:25 SUMMARY OF HEMODYNAMIC DATA Time AIR REST ECG 11:36:51 AO 118/42 (77) SA 13:07:19 Signed By Gerber Olea MD On 09/09/2022 17:28:35 Gerber Olea MD
--- NOTE | 2022-09-09 18:54 | NURSING ---
Bedrest completed at 1845, Pt walked in hallway. Site remains soft, no bruising, no bleeding noted.
== END 2022-09-09 19:06 | disposition home or self-care (01) ==
LOC: CLSP 11:12 → PCU 14:28
PROVIDERS: PCP Family Medicine; Referring Provider Internal Medicine Cardiovascular Disease; Visit Provider Internal Medicine Cardiovascular Disease
DX: I25.10 Atherosclerotic heart disease of native coronary artery without angina pectoris (principal); I48.0 Paroxysmal atrial fibrillation; E11.9 Type 2 diabetes mellitus without complications; G47.33 Obstructive sleep apnea (adult) (pediatric); E78.5 Hyperlipidemia, unspecified; E66.9 Obesity, unspecified; Z95.1 Presence of aortocoronary bypass graft; Z87.891 Personal history of nicotine dependence; Z79.899 Other long term (current) drug therapy; Z79.84 Long term (current) use of oral hypoglycemic drugs; Z79.01 Long term (current) use 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; Z68.39 Body mass index [BMI] 39.0-39.9, adult
CPT/HCPCS: 36416; 85610; 93455; 99152; 99153; J7040; C1769; Q9967

== ENCOUNTER → 2022-09-29 | Outpatient (CLI) | payer MEDICARE, SELFPAY | END | disposition home or self-care (01) | LOC: RAD 08:14 | PROVIDERS: PCP Family Medicine; Visit Provider Internal Medicine Critical Care Medicine | DX: Z00.00 Encounter for general adult medical examination without abnormal findings (principal) ==

== ENCOUNTER → 2022-11-21 | Outpatient (CLI) | payer MEDICARE, SELFPAY ==
--- NOTE | 2022-11-21 08:36 | CT_ITS ---
STUDY: LOW DOSE CT LUNG CANCER SCREENING REASON FOR EXAM: Male, 67 years old. Smoker and gt; 40 pack years RADIATION DOSAGE (If Supplied By Facility): CTDIvol = ( 4.02 ) mGy, DLP = ( 152.50 ) mGycm TECHNIQUE: No contrast was administered. Low dose technique was utilized (average mAS-38 and kVp 120). 1.25 mm axial source images with a slice interval of 1.25-mm were reconstructed in lung windows. 2.5 mm axial source images with a slice interval of 2.5-mm were reconstructed in lung windows. 5.0 mm axial source images with a slice interval of 5.0-mm were reconstructed in soft tissue windows. COMPARISON: Comparison is made with prior study dated 10/07/2021. NODULES: No suspicious nodules are seen. Emphysema: Stable linear scarring in the anterior aspect of the right upper lobe. Stable mild emphysematous changes at the lung bases with the scarring. Endobronchial lesion: Unremarkable Aorta: Atherosclerotic calcification of the aortic arch. CORONARY ARTERIES: Coronary artery calcification is seen. Heart: Unremarkable Pulmonary artery: Unremarkable Mediastinal nodes: Small mediastinal lymph nodes Other chest and abdominal findings: CT/Low Dose CT Lung Screening IMPRESSION: Lung-RADS category 2 - Continue annual screening with LDCT in 12 months. IMPORTANT NOTES FOR USE: ACR Lung-RADS Version 1.1 Assessment Categories Release Date: 2018 Category: Coded 0-4 bases on nodule(s) with highest degree of suspicion. Negative screen is defined as categories 1 and 2; a positive screen is defined as categories 3 and 4. Category 3 and 4A nodules that are unchanged on interval CT should be coded as category 2, and individuals returned to screening in 12 months. Category 4X: Category 3 or 4 nodules with additional imaging findings that increase the suspicion of lung cancer, such as spiculation, GGN that doubles in size in 1 year, enlarged lymph notes, etc. Category Modifiers: S (significant finding unrelated to lung cancer) Electronically Signed: Kinsg Riley MD at 13:56 EST ,
== END | disposition home or self-care (01) ==
LOC: CT 08:35
PROVIDERS: PCP Family Medicine; Visit Provider Nurse Practitioner Acute Care
DX: Z87.891 Personal history of nicotine dependence (principal)
CPT/HCPCS: 71271

== ENCOUNTER 2023-08-07 22:44 | Inpatient (IN) | payer MEDICARE, SELFPAY ==
[2023-08-07 22:47] VITALS: BP 160/102; PULSE 142; RESP 18; TEMP 35.6; O2SAT 97; BMI 39.6
[2023-08-07 22:49] VITALS: BP 160/102; PULSE 142; RESP 18; TEMP 35.6; O2SAT 97
--- NOTE | 2023-08-07 22:52 | EKG12_ITS ---
Test Reason : CP Blood Pressure : / mmHG Vent. Rate : 117 BPM Atrial Rate : 288 BPM P-R Int : 000 ms QRS Dur : 094 ms QT Int : 364 ms P-R-T Axes : 143 078 009 degrees QTc Int : 507 ms Atrial Fibrillation with variable A-V block Nonspecific ST and T wave abnormality Abnormal ECG Confirmed by ZAIRA LY, LEELA ([id number]), editor school photograph RAZA RODRIGEZ ([id number]) on 08/11/2023 7:47:48 AM Referred By: CHAN Confirmed By:LEELA MENESES MD
[2023-08-07 23:34] LABS: Absolute Lymphocyte Count 2.06 X10^3/uL (0.83-4.51); Absolute Neutrophil Count 6.9 X10^3/uL (2.0-7.7); Basophil# 0.08 X10^3/uL; Basophil% 0.8 % (0-1); Eosinophil# 0.24 X10^3/uL; Eosinophils% 2.4 % (0-5); Hematocrit 48.9 % (40-54); Hemoglobin 16.1 g/dL (13.0-16.5); Lymphocyte # 2.06 X10^3/ul (0.83-4.51); Lymphocyte % 20.2 % (19-41); Mean Corp Hgb Conc 32.9 g/dL (32-36); Mean Corpuscular Hgb 28.3 pg (27.0-32.0); Mean Corpuscular Volume 86.1 fL (80-94); Mean Platelet Vol. 9.3 fl (6.2-12.0); Monocyte# 0.77 X10^3/uL; Monocyte% 7.6 % (0-10); NRBC Flagged by Analyzer 0 % (0-5); Neutrophil # 6.93 X10^3/uL (2.7-7.7); Neutrophil % 67.9 % (47-70); Platelet Count 305 K/mm3 (150-450); RBC Distribution Width CV 15.4 % (11.6-14.6); RBC Distribution Width SD 48.2 fl (35.1-43.9); Red Blood Count 5.68 M/mm3 (4.6-6.2); White Blood Count 10.2 K/mm3 (4.4-11.0)
--- NOTE | 2023-08-07 23:35 | EDS_ITS ---
HPI History of Present Illness Chief Complaint: Chest Pain Informant: patient, spouse/S.O. and family Narrative Narrative: Patient is a 68-year-old male with past medical history of paroxysmal atrial fibrillation/flutter on Coumadin with hypertension and hyperlipidemia. Patient states for the last 24 to 48 hours she has experienced chest discomfort located in the middle portion of his chest along the lower sternum/upper abdomen. He states there is no associated nausea vomiting diaphoresis or shortness of breath with the discomfort. He states this evening he noticed that when he checked his vitals that his heart rate was elevated. Family states that cardioversions have not worked for him and he is required 2 previous ablations. 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 Nicotine dependence Obesity DANGELO (obstructive sleep apnea) Pancreatitis Paroxysmal atrial fibrillation Persistent atrial fibrillation Prostate cancer PVD (peripheral vascular disease) Restless legs syndrome (RLS) Sinusitis Home Medications paroxetine HCl 40 mg tablet (Paxil) 40 mg PO DAILY DEPRESSION 06/10/22 [History Last Taken Unknown] nitroglycerin 0.4 mg sublingual tablet (Nitrostat) 0.4 mg sublingual Q5-15M PRN chest pain #25 tabs 08/25/22 [Rx Last Taken Unknown] cilostazol 50 mg tablet 100 mg (2 x 50 mg) PO BID BLOOD THINNER 90 days #360 tabs 12/15/22 [Rx Last Taken Unknown] metoprolol tartrate 50 mg tablet 50 mg PO BID BP #180 tabs 01/30/23 [Rx Last Taken Unknown] rosuvastatin 40 mg tablet 40 mg PO QHS CHOLESTEROL #90 tabs 04/27/23 [Rx Last Taken Unknown] glimepiride 4 mg tablet 4 mg PO DAILY SUGAR #90 tabs 05/25/23 [Rx Last Taken Unknown] fenofibrate nanocrystallized 145 mg tablet 145 mg PO DAILY TRIGYLCERIDES #90 tabs 08/03/23 [Rx Last Taken Unknown] losartan 50 mg tablet 50 mg PO DAILY BP 08/08/23 [History Last Taken Unknown] warfarin 5 mg tablet 5 mg PO .COMPLEX BLOOD THINNER 08/08/23 [History Last Taken Unknown] Allergy/AdvReac Type Severity Reaction Status Date / Time adhesive Allergy Unknown Verified 08/07/23 22:45 latex Allergy Unknown Verified 08/07/23 22:45 lisinopril Allergy Unknown Verified 08/07/23 22:45 Penicillins Allergy Unknown Verified 08/07/23 22:45 rivaroxaban [From Xarelto] Allergy Unknown Verified 08/07/23 22:45 Family History Father Heart disease Other Cancer Dementia Surgical History H/O coronary artery bypass surgery (05/2006) H/O Mohs micrographic surgery for skin cancer History of bilateral cataract extraction History of coronary angioplasty (03/07/16) History of femoropopliteal bypass (08/2010) History of nasal surgery History of radiofrequency ablation procedure for cardiac arrhythmia (2015) History of tonsillectomy and adenoidectomy Social History Smoking Status: Current every day smoker tobacco type: cigarettes Tobacco: How many years used: 40 alcohol intake: current alcohol intake frequency: 3 or more drinks per day Alcohol type: beer substance use type: marijuana caffeine: No what type of physical activity do you participate in: none ROS ROS ED Constitutional Constitutional ED: Denies chills or fever(s) ENT ENT ED: Denies sore throat Cardiovascular Cardiovascular: Reports chest pain and racing heartbeat Respiratory/Chest Respiratory/Chest: Denies cough or dyspnea Gastrointestinal Gastrointestinal: Denies abdominal pain, diarrhea, nausea or vomiting Genitourinary Genitourinary ED: Denies dysuria Musculoskeletal Musculoskeletal: Denies back pain or myalgias Integumentary Denies rash Neurologic Neurologic: Denies headache(s) Hematologic/Lymphatic Hematologic/Lymphatic: Reports easy bleeding and easy bruising EXAM Physical Exam Const Vital Signs: 08/07/23 22:47 08/07/23 22:49 08/07/23 23:40 Temperature 96.1 F L 96.1 F L Temperature Source Temporal Temporal Pulse Rate 142 H 142 H Respiratory Rate 18 18 Respiratory Effort Normal Blood Pressure 160/102 H 160/102 H Blood Pressure Mean 121 121 Pulse Ox 97 97 Oxygen Delivery Method Room Air Room Air 08/08/23 00:15 08/08/23 01:00 Temperature Temperature Source Pulse Rate 69 71 Respiratory Rate 16 15 Respiratory Effort Blood Pressure 119/74 133/76 H Blood Pressure Mean 89 95 Pulse Ox 94 94 Oxygen Delivery Method Room Air Room Air Positive well nourished, well developed and obese General Appearance ED: well developed; Negative for pallor Nutritional Appearance: obese HEENT Reports moist mucous membranes Eyes PERRL and EOMs intact bilaterally General Eye ED: Negative for pale conjunctiva or scleral icterus Neck supple and no JVD Chest Wall palpation of chest normal Resp normal respiratory effort and clear to auscultation bilaterally Cardio Rate: other Other Details: Irregularly irregular rhythm with tachycardic rate GI normal to inspection, nondistended, normoactive bowel sounds, non-tender, non- distended and no masses GI Narrative: No voluntary guarding or rigidity. No pulsatile mass or fluid wave Auscultation: normoactive bowel sounds Palpation: soft Extremity normal to inspection Extremity Narrative: Negative Homans' sign bilaterally Neuro oriented x3, CN's II-XII intact bilaterally and no sensory deficits noted Sensorium / Orientation: alert Motor Exam: strength 5/5 throughout Psych mental status grossly normal Skin no rashes or lesions noted General Skin Exam: Negative for pallor MDM MDM MDM Narrative Medical decision making narrative: Patient presented to the ER hypertensive and tachycardic with an EKG showing atrial flutter. Secondary to this basic labs were obtained and a chest x-ray was ordered. Differential diagnosis is for a breakthrough of paroxysmal atrial flutter with tachycardic rate versus non-STEMI versus thyroid dysfunction versus acute kidney injury versus electrolyte abnormality. Lab work showed an elevated troponin at 799 consistent with non-STEMI. However after patient was given 20 mg of IV Cardizem and the rate reduced to 70 and patient reported resolution of his pain. Patient did state that after thinking about it he realized he was having profuse sweating and fatigue 2 or 3 days prior to today's symptoms. Therefore at this time I believe patient had a non-STEMI which led to his cardiac dysrhythmia. The case was discussed with cardiology on-call Dr. Olea and he recommends admission for continued observation with potential stress test versus heart catheterization. As the patient is on Coumadin he does not recommend any type of heparin and as rate is not controlled after 1 dose of Cardizem he recommends just spot treatment if rate increases once again. Plan of care was discussed with the patient and family and both are agreeable to it. Secondary to this medicine/hospitalist was contacted for admission and he does agree to accept the patient at this time History & Record Review Discussion w/independent historian: Patient Lab Data Attestation: I reviewed the patient's lab results. Labs: Laboratory Results - last 24 hr 08/07/23 08/08/23 23:20 01:25 WBC 10.2 RBC 5.68 Hgb 16.1 Hct 48.9 MCV 86.1 MCH 28.3 MCHC 32.9 RDW Std Deviation 48.2 H RDW Coeff of Asad 15.4 H Plt Count 305 MPV 9.3 Immature Gran % (Auto) 1.100 H Neut % (Auto) 67.9 Lymph % (Auto) 20.2 [place] % (Auto) 7.6 Eos % (Auto) 2.4 Baso % (Auto) 0.8 Absolute Neuts (auto) 6.9 Absolute Lymphs (auto) 2.06 Nucleated RBC % 0 PT 29.8 H INR 2.8 APTT 41.9 H Sodium 140 Potassium 3.5 Chloride 108 H Carbon Dioxide 26.0 Anion Gap 6 BUN 29 H Creatinine 1.22 Estim Creat Clear Calc 56.84 Est GFR (MDRD) Af Amer 76 Est GFR (MDRD) Non-Af 63 BUN/Creatinine Ratio 23.8 H Glucose 139 H Calcium 9.9 Magnesium 2.0 Total Bilirubin 0.40 Direct Bilirubin 0.12 AST 19 ALT 26 Alkaline Phosphatase 62 Troponin I High Sens 799 H* 1011 H* Total Protein 7.0 Albumin 3.3 Globulin 3.7 Lipase 40 TSH 7.58 H Radiography Diagnostic Testing: Clinical Impression(s) from Imaging Studies Chest X-Ray 08/07/23 23:40 IMPRESSION: Bibasilar atelectasis. No acute abnormalities identified. 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
--- NOTE | 2023-08-07 23:40 | RAD_ITS ---
EXAM: XR CHEST, 1 VIEW CLINICAL INDICATION: chest pain TECHNIQUE: Frontal view of the chest. COMPARISON: Two-view chest 08/11/2022 FINDINGS: LUNGS AND PLEURAL SPACES: Bibasilar atelectasis. No pneumothorax. No effusion. HEART: Unremarkable. Cardiac silhouette not enlarged. MEDIASTINUM: Surgical changes of the mediastinum. BONES/JOINTS: Unremarkable. SOFT TISSUES: Unremarkable. RAD/Chest 1 View (Portable) IMPRESSION: Bibasilar atelectasis. No acute abnormalities identified. Electronically Signed: Yevgeniy Mayberry MD at 0:29 EDT ,
[2023-08-07] MEDS: dilTIAZem 25 MG/5 ML Vial 20 MG IV BOLUS (23:46)
[2023-08-08] VITALS (9 sets, daily range): BP systolic 119–159; BP diastolic 66–95; PULSE 69–85; RESP 15–20; TEMP 36.1–36.8; O2SAT 94–96; BMI 39.4
--- NOTE | 2023-08-08 00:12 | EKG12_ITS ---
Test Reason : RHYTHM CONVERSION Blood Pressure : / mmHG Vent. Rate : 069 BPM Atrial Rate : 288 BPM P-R Int : 000 ms QRS Dur : 102 ms QT Int : 418 ms P-R-T Axes : 000 069 065 degrees QTc Int : 447 ms Atrial Fibrillation Abnormal ECG Confirmed by ZAIRA LY, LEELA ([id number]), online editor RAZA RODRIGEZ ([id number]) on 08/11/2023 7:47:16 AM Referred By: Confirmed By:LEELA MENESES MD
[2023-08-08 00:14] LABS: AST(SGOT) 19 U/L (15-37); Alanine Aminotransfer ALT/SGPT 26 U/L (16-61); Albumin, Serum 3.3 g/dL (3.2-5.0); Alkaline Phosphatase 62 U/L (45-117); Anion Gap 6 (5-15); BUN 29 mg/dL (7-18); BUN/Creat Ratio 23.8 RATIO (10-20); Bilirubin, Direct 0.12 mg/dL (0.00-0.30); Calcium,Total 9.9 mg/dL (8.5-10.1); Chloride 108 mmol/L (98-107); Creatinine, Serum 1.22 mg/dL (0.70-1.30); EST Glomerular Filtration Rate 63 mL/min (>60); Est Glom Filt Rate - Afr Amer 76 mL/min (>60); Estimated Creatinine Clearance 56.84 ml/min; Globulin 3.7 g/dL (2.2-4.2); Glucose 139 mg/dL (74-106); Lipase 40 U/L (13-75); Potassium 3.5 mmol/L (3.5-5.1); Sodium Level 140 mmol/L (136-145); Thyroid Stim Hormone (TSH) 7.58 uIU/mL (0.358-3.74); Troponin-I HS 799 pg/mL (3.0-78.0)
[2023-08-08 00:30] LABS: International Normalized Ratio 2.8; Prothrombin Time (Protime)PT. 29.8 SECONDS (11.7-14.9)
[2023-08-08 00:31] LABS: Partial Thromboplast Time 41.9 Seconds (24.1-36.2)
--- NOTE | 2023-08-08 01:23 | PCM.HP.STD ---
HPI - General General Date of Admission: 08/08/23 Date of Service: 08/08/23 Chief Complaint: Chest pain HPI Narrative GUEVARA SAAB, is a 68 M with a significant history of tobacco abuse; CAD status post 5 vessel CABG; paroxysmal A-fib and a flutter status post ablation who presents emergency department with substernal chest pain that started on the same day of presentation. Patient reports that his pain intensity was 6 out of 10. He described the pain as a heartburn. The pain was episodic. The pain was nonradiating. He denies any aggravating factors to the pain. Nitroglycerin helped with the pain. He denies any nausea or vomiting. He reports palpitations. On presentation to the emergency department patient was in a flutter with rates of about 117. He was given a Cardizem bolus IV which effectively controlled his rates but continues to be in A-fib. 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 Nicotine dependence Obesity DANGELO (obstructive sleep apnea) Pancreatitis Paroxysmal atrial fibrillation Persistent atrial fibrillation Prostate cancer PVD (peripheral vascular disease) Restless legs syndrome (RLS) Sinusitis Home Medications paroxetine HCl 40 mg tablet (Paxil) 40 mg PO DAILY DEPRESSION 06/10/22 [History Last Taken Unknown] nitroglycerin 0.4 mg sublingual tablet (Nitrostat) 0.4 mg sublingual Q5-15M PRN chest pain #25 tabs 08/25/22 [Rx Last Taken Unknown] cilostazol 50 mg tablet 100 mg (2 x 50 mg) PO BID BLOOD THINNER 90 days #360 tabs 12/15/22 [Rx Last Taken Unknown] metoprolol tartrate 50 mg tablet 50 mg PO BID BP #180 tabs 01/30/23 [Rx Last Taken Unknown] rosuvastatin 40 mg tablet 40 mg PO QHS CHOLESTEROL #90 tabs 04/27/23 [Rx Last Taken Unknown] glimepiride 4 mg tablet 4 mg PO DAILY SUGAR #90 tabs 05/25/23 [Rx Last Taken Unknown] fenofibrate nanocrystallized 145 mg tablet 145 mg PO DAILY TRIGYLCERIDES #90 tabs 08/03/23 [Rx Last Taken Unknown] losartan 50 mg tablet 50 mg PO DAILY BP 08/08/23 [History Last Taken Unknown] warfarin 5 mg tablet 5 mg PO .COMPLEX BLOOD THINNER 08/08/23 [History Last Taken Unknown] Allergy/AdvReac Type Severity Reaction Status Date / Time adhesive Allergy Unknown Verified 08/07/23 22:45 latex Allergy Unknown Verified 08/07/23 22:45 lisinopril Allergy Unknown Verified 08/07/23 22:45 Penicillins Allergy Unknown Verified 08/07/23 22:45 rivaroxaban [From Xarelto] Allergy Unknown Verified 08/07/23 22:45 Family History Father Heart disease Other Cancer Dementia Surgical History H/O coronary artery bypass surgery (05/2006) H/O Mohs micrographic surgery for skin cancer History of bilateral cataract extraction History of coronary angioplasty (03/07/16) History of femoropopliteal bypass (08/2010) History of nasal surgery History of radiofrequency ablation procedure for cardiac arrhythmia (2015) History of tonsillectomy and adenoidectomy Social History Smoking Status: Current every day smoker tobacco type: cigarettes Tobacco: How many years used: 40 alcohol intake: current alcohol intake frequency: 3 or more drinks per day Alcohol type: beer substance use type: marijuana caffeine: No what type of physical activity do you participate in: none ROS ROS Narrative Pertinent positives and pertinent negatives as noted in HPI. All other systems were reviewed and are negative Vital Signs Vital Signs Vital Signs: 08/07/23 22:47 08/07/23 22:49 08/07/23 23:40 Temperature 96.1 F L 96.1 F L Temperature Source Temporal Temporal Pulse Rate 142 H 142 H Respiratory Rate 18 18 Respiratory Effort Normal Blood Pressure 160/102 H 160/102 H Blood Pressure Mean 121 121 Pulse Ox 97 97 Oxygen Delivery Method Room Air Room Air 08/08/23 00:15 Temperature Temperature Source Pulse Rate 69 Respiratory Rate 16 Respiratory Effort Blood Pressure 119/74 Blood Pressure Mean 89 Pulse Ox 94 Oxygen Delivery Method Room Air Weight Weight: 118.1 kg Body Mass Index (BMI) 39.6 Physical Exam Narrative Physical exam: General: Well-nourished, well-developed. Head: Normocephalic, atraumatic, no tenderness Eyes: Vision is grossly intact. EOMI ENT, no trauma, moist mucous membranes, no rhinorrhea Neck: Nontender, No thyromegaly. CVS: Regular rate and rhythm. S1-S2 present. No murmur, gallop or rub. Respiratory : clear to auscultation bilaterally, chest wall nontender Abdomen: Soft, nontender, nondistended, normal bowel sounds, no masses : Deferred Back: Nontender, no CVA tenderness, no midline spinal tenderness, deformities, step-offs Extremities: Nontender full range of motion, no trauma Skin: Normal color, no trauma, abrasions Neuro: Alert, oriented, cranial nerves II through XII grossly intact. Psychiatry: Normal mood. Normal affect. Not depressed. Not anxious. Results Lab / Micro Data 08/07/23 23:20 08/07/23 23:20 Labs: Laboratory Results - last 24 hr 08/07/23 23:20: WBC 10.2, RBC 5.68, Hgb 16.1, Hct 48.9, MCV 86.1, MCH 28.3, MCHC 32.9, RDW Std Deviation 48.2 H, RDW Coeff of Asad 15.4 H, Plt Count 305, MPV 9.3, Immature Gran % (Auto) 1.100 H, Neut % (Auto) 67.9, Lymph % (Auto) 20.2, [place] % (Auto) 7.6, Eos % (Auto) 2.4, Baso % (Auto) 0.8, Absolute Neuts (auto) 6.9, Absolute Lymphs (auto) 2.06, Nucleated RBC % 0, PT 29.8 H, INR 2.8, APTT 41.9 H, Sodium 140, Potassium 3.5, Chloride 108 H, Carbon Dioxide 26.0, Anion Gap 6, BUN 29 H, Creatinine 1.22, Estim Creat Clear Calc 56.84, Est GFR (MDRD) Af Amer 76, Est GFR (MDRD) Non-Af 63, BUN/Creatinine Ratio 23.8 H, Glucose 139 H, Calcium 9.9, Magnesium 2.0, Total Bilirubin 0.40, Direct Bilirubin 0.12, AST 19, ALT 26, Alkaline Phosphatase 62, Troponin I High Sens 799 H*, Total Protein 7.0, Albumin 3.3, Globulin 3.7, Lipase 40, TSH 7.58 H Radiology Impression Chest X-Ray 08/07/23 23:40 IMPRESSION: Bibasilar atelectasis. No acute abnormalities identified. Electronically Signed: Yevgeniy Mayberry MD at 0:29 EDT , Assessment & Plan Assessment/Plan (1) Non-ST elevated myocardial infarction (non-STEMI): (2) Atrial flutter with rapid ventricular response: PLAN: Plan Non-STEMI Initial high sensitive troponin was 7 nine 9 repeat was [address] on a monitored bed at progressive care unit Actual CXR image was independently visualized. No acute cardiopulmonary process was noted. Agrees with with radiology interpretation Actual EKG tracing was independently visualized. EKG tracing showed A-fib with RVR was controlled by Cardizem bolus Patient is on warfarin. On presentation full dose aspirin was given at the emergency department. We will continue patient on daily baby aspirin. SL NTG 0.4 mg prn as needed for chest pain ordered Morphine as needed for pain ordered We will check lipid panel. We will start the metoprolol continued. Morphine and Tylenol for pain. Stat EKG as needed for chest pain Afebrile 5-year Cardizem given. Rhythm rates controlled. DVT prophylaxis ordered. Hypertension Blood pressure is not within goal Home blood pressure medication continued. Trend blood pressure and adjust blood pressure medications. Time spent in the patient's overall evaluation,decision-making process, review of diagnostic data, adjustment of management, discussion with other providers, nursing nursing and ancillary staff involved in patient's care documentation, 70 minutes. Charges/Coding Visit Charges Inpatient E&M: 75070 Init Hosp L3
[2023-08-08] MEDS: Aspirin 325 MG Tablet PO (01:39)
[2023-08-08 01:59] LABS: Troponin-I HS 1011 pg/mL (3.0-78.0)
--- NOTE | 2023-08-08 03:08 | EKG12_ITS ---
Test Reason : CP ADMIT Blood Pressure : / mmHG Vent. Rate : 083 BPM Atrial Rate : 277 BPM P-R Int : 000 ms QRS Dur : 098 ms QT Int : 402 ms P-R-T Axes : 151 068 -09 degrees QTc Int : 472 ms Atrial flutter with variable A-V block Abnormal ECG When compared with ECG of 08-AUG-2023 00:21, MANUAL COMPARISON REQUIRED, DATA IS UNCONFIRMED Confirmed by ZAIRA LY, LEELA ([id number]), communications editor DICK KINSEY ([id number]) on 08/13/2023 1:38:12 PM Referred By: Confirmed By:LEELA MENESES MD
[2023-08-08 06:34] LABS: Absolute Lymphocyte Count 1.96 X10^3/uL (0.83-4.51); Absolute Neutrophil Count 5.2 X10^3/uL (2.0-7.7); Basophil# 0.09 X10^3/uL; Basophil% 1.1 % (0-1); Eosinophil# 0.25 X10^3/uL; Hematocrit 48.4 % (40-54); Hemoglobin 15.4 g/dL (13.0-16.5); Lymphocyte # 1.96 X10^3/ul (0.83-4.51); Lymphocyte % 23.7 % (19-41); Mean Corp Hgb Conc 31.8 g/dL (32-36); Mean Corpuscular Hgb 27.7 pg (27.0-32.0); Mean Corpuscular Volume 87.2 fL (80-94); Mean Platelet Vol. 9.2 fl (6.2-12.0); Monocyte# 0.69 X10^3/uL; Monocyte% 8.4 % (0-10); NRBC Flagged by Analyzer 0 % (0-5); Neutrophil # 5.18 X10^3/uL (2.7-7.7); Neutrophil % 62.7 % (47-70); Platelet Count 289 K/mm3 (150-450); RBC Distribution Width CV 15.5 % (11.6-14.6); RBC Distribution Width SD 49.4 fl (35.1-43.9); Red Blood Count 5.55 M/mm3 (4.6-6.2); White Blood Count 8.3 K/mm3 (4.4-11.0)
[2023-08-08 06:44] LABS: International Normalized Ratio 2.6; Prothrombin Time (Protime)PT. 28.2 SECONDS (11.7-14.9)
[2023-08-08 07:08] LABS: Anion Gap 6 (5-15); BUN 28 mg/dL (7-18); BUN/Creat Ratio 26.7 RATIO (10-20); Calcium,Total 9.6 mg/dL (8.5-10.1); Chloride 110 mmol/L (98-107); Creatinine, Serum 1.05 mg/dL (0.70-1.30); EST Glomerular Filtration Rate 75 mL/min (>60); Est Glom Filt Rate - Afr Amer 91 mL/min (>60); Estimated Creatinine Clearance 66.05 ml/min; Glucose 103 mg/dL (74-106); Potassium 3.8 mmol/L (3.5-5.1); Sodium Level 139 mmol/L (136-145)
[2023-08-08 07:12] LABS: Troponin-I HS 1224 pg/mL (3.0-78.0)
--- NOTE | 2023-08-08 07:58 | PN.HOSP_ITS ---
Reason for Visit Reason for Visit: Diagnoses Non-ST elevation (NSTEMI) myocardial infarction (08/08/23) Unspecified atrial flutter (08/08/23) Subjective Subjective Patient is a 68-year-old gentleman with past medical history single for coronary artery disease with previous CABG who presented with chest discomfort with elevated troponin consistent with acute non-STEMI admitted to monitored bed for further management Objective Data Objective Data Vital Signs: Vital Signs Temp Pulse Resp BP Pulse Ox O2 Del Method 97.0 F L 76 15 153/82 H 96 Room Air 08/08/23 02:59 08/08/23 02:59 08/08/23 02:59 08/08/23 02:59 08/08/23 02:59 08/08/23 03:00 Oxygen Delivery Method Room Air Weight: 117.6 kg Body Mass Index (BMI) 39.4 Lab / Micro Data 08/08/23 06:12 08/08/23 06:12 Labs: Laboratory Results - last 24 hr 08/07/23 23:20: WBC 10.2, RBC 5.68, Hgb 16.1, Hct 48.9, MCV 86.1, MCH 28.3, MCHC 32.9, RDW Std Deviation 48.2 H, RDW Coeff of Asad 15.4 H, Plt Count 305, MPV 9.3, Immature Gran % (Auto) 1.100 H, Neut % (Auto) 67.9, Lymph % (Auto) 20.2, [place] % (Auto) 7.6, Eos % (Auto) 2.4, Baso % (Auto) 0.8, Absolute Neuts (auto) 6.9, Absolute Lymphs (auto) 2.06, Nucleated RBC % 0, PT 29.8 H, INR 2.8, APTT 41.9 H, Sodium 140, Potassium 3.5, Chloride 108 H, Carbon Dioxide 26.0, Anion Gap 6, BUN 29 H, Creatinine 1.22, Estim Creat Clear Calc 56.84, Est GFR (MDRD) Af Amer 76, Est GFR (MDRD) Non-Af 63, BUN/Creatinine Ratio 23.8 H, Glucose 139 H, Calcium 9.9, Magnesium 2.0, Total Bilirubin 0.40, Direct Bilirubin 0.12, AST 19, ALT 26, Alkaline Phosphatase 62, Troponin I High Sens 799 H*, Total Protein 7.0, Albumin 3.3, Globulin 3.7, Lipase 40, TSH 7.58 H 08/08/23 01:25: Troponin I High Sens 1011 H* 08/08/23 06:12: WBC 8.3, RBC 5.55, Hgb 15.4, Hct 48.4, MCV 87.2, MCH 27.7, MCHC 31.8 L, RDW Std Deviation 49.4 H, RDW Coeff of Asad 15.5 H, Plt Count 289, MPV 9.2, Immature Gran % (Auto) 1.100 H, Neut % (Auto) 62.7, Lymph % (Auto) 23.7, [place] % (Auto) 8.4, Eos % (Auto) 3.0, Baso % (Auto) 1.1 H, Absolute Neuts (auto) 5.2, Absolute Lymphs (auto) 1.96, Nucleated RBC % 0, PT 28.2 H, INR 2.6, Sodium 139, Potassium 3.8, Chloride 110 H, Carbon Dioxide 23.0, Anion Gap 6, BUN 28 H, Creatinine 1.05, Estim Creat Clear Calc 66.05, Est GFR (MDRD) Af Amer 91, Est GFR (MDRD) Non-Af 75, BUN/Creatinine Ratio 26.7 H, Glucose 103, Calcium 9.6, Troponin I High Sens 1224 H* Radiography Diagnostic Testing: Radiology Impression Chest X-Ray 08/07/23 23:40 IMPRESSION: Bibasilar atelectasis. No acute abnormalities identified. Electronically Signed: Yevgeniy Mayberry MD at 0:29 EDT , Physical Exam Narrative GENERAL: cooperative HEENT: Atraumatic; normocephalic EYES; Anicteric, Normal Conjunctiva NECK; supple, normal thyroid, RESPIRATORY: Diminished to auscultation CARDIOVASCULAR: Regular S1 S2, GI: soft, normoactive bowel sounds, : No Renal angle tenderness; EXTREMITIES: No edema, no clubbing, MUSCULOSKELETAL: no muscle wasting NEURO: Awake; no lateralizing signs. SKIN: No Rash PSYCH; Flat affect Assessment & Plan Assessment/Plan (1) Non-ST elevated myocardial infarction (non-STEMI): (2) Atrial flutter with rapid ventricular response: PLAN: Plan Patient is a 68-year-old gentleman with past medical history single for coronary artery disease with previous CABG who presented with chest discomfort with elevated troponin consistent with acute non-STEMI admitted to monitored bed for further management 1. Acute non-STEMI ? Admitted to monitored bed managed per protocol with beta-blockers, aspirin, statin therapy. Patient was not placed on heparin since patient is on warfarin with a therapeutic INR. Patient to undergo subsequent evaluation with a 2D echo. Case discussed with cardiology. Plans for patient to undergo left heart catheterization on 08/10/2023 with intervention if needed 2. Coronary artery disease ? Status post CABG in 2005. Patient is on guideline directed medical therapy 3. Class II obesity with BMI of 39.4 ? Weight loss advised 4. Hypertension - Blood pressure controlled, home medications continued with dose adjustment as needed 5. Obstructive sleep apnea ? Patient is on CPAP at home home settings continued 6. Diabetes mellitus type II -patient's oral hypoglycemics held. Placed on long acting insulin, Accu-Cheks a.c. and at bedtime and covered with sliding scale insulin 7. Peripheral arterial disease ? Patient is on cilostazol did continue 8. Paroxysmal A-fib ? Rate controlled on systemic anticoagulation with warfarin INR on admission 2.6. Warfarin held in anticipation of patient left heart catheterization 9. Dyslipidemia -Patient is on statin therapy as well as fenofibrate, continued at home dose 10. DVT prophylaxis ? On systemic anticoagulation Time spent in the patient's overall evaluation,decision-making process, review of diagnostic data, adjustment of management, discussion with other providers, nursing nursing and ancillary staff involved in patient's care documentation, 55 Minutes Charges/Coding Visit Charges Inpatient E&M: 14666 [facility] Hosp L3
[2023-08-08] MEDS: 0.9% Saline Lock 10 ML Syringe IV (09:01)
--- NOTE | 2023-08-08 09:21 | ECHOD_ITS ---
Reason For Study: s/p CABG Procedure This was a 2D Doppler, Color Flow transthoracic echocardiogram. Exam performed portable in patient room. Left Ventricle Normal LV size. Moderate concentric left ventricular hypertrophy. Left ventricular systolic function is normal. The estimated ejection fraction is 55 %. No regional wall motion abnormalities noted. Right Ventricle Normal RV size. Normal systolic function. Atria The left atrium is moderately enlarged. Normal right atrium. Mitral Valve There is mild mitral annular calcification. Tricuspid Valve Normal tricuspid valve. Mild (1+) tricuspid valve insufficiency. Pulmonary artery systolic pressure is 44 mmHg. Aortic Valve The aortic valve is not well visualized. Mild (1+) aortic valve insufficiency. Pulmonic Valve Normal pulmonic valve. Great Vessels Mildly dilated aortic root. The pulmonary artery is normal size. Normal inferior vena cava. Pericardium/Pleural No pericardial effusion. MMode/2D Measurements & Calculations LVIDd: 5.5 cm IVSd: 1.5 cm Ao root diam: 4.1 cm LVIDs: 4.0 cm LVPWd: 1.5 cm RVDd: 4.6 cm FS: 27.1 % LAV(MOD-bp): 80.7 ml LA A4 area: 26.2 cm2 LA dimension(2D): 5.7 cm LAV(MOD-bp) Indexed: 35.4 ml/m2 LAV(MOD-sp2): 71.2 ml LAV(MOD-sp4): 75.4 ml RA A4 area: 19.2 cm2 Doppler Measurements & Calculations MV E max edgar: 122.4 cm/sec Lat Peak E' Edgar: 10.4 cm/sec Med Peak E' Edgar: 9.0 cm/sec E/E' lat: 11.8 E/E' med: 13.6 Ao V2 max: 140.5 cm/sec AI max edgar: 325.0 cm/sec LV V1 max: 120.0 cm/sec Ao max P.9 mmHg AI max P.2 mmHg LV V1 max P.8 mmHg Ao V2 mean: 100.6 cm/sec AI dec slope: 141.1 cm/sec2 LV V1 mean P.4 mmHg Ao mean P.5 mmHg AI P1/2t: 674.5 msec LV V1 mean: 69.4 cm/sec Ao V2 VTI: 25.8 cm LV V1 VTI: 22.1 cm AV (velocity ratio): 0.86 PA V2 max: 83.4 cm/sec TR max edgar: 316.3 cm/sec TR max P.0 mmHg ECHO/Echo Complete Interpretation Summary Normal LV size. Moderate concentric left ventricular hypertrophy. Left ventricular systolic function is normal. The estimated ejection fraction is 55 %. There is mild mitral annular calcification. Mild (1+) aortic valve insufficiency. Pulmonary artery systolic pressure is 44 mmHg. Ordering Physician: Gerber Olea Referring Physician: Sara Pemberton Performed By: Sara Ortiz, SAVAGE, RVT
[2023-08-08] MEDS: Fenofibrate 145 MG Tablet PO (09:23)
[2023-08-08] MEDS: Metoprolol Tartrate 50 MG Tablet PO ×2 (09:23→22:39)
[2023-08-08] MEDS: Aspirin E.C. 81 MG Tablet PO (09:23)
[2023-08-08] MEDS: Losartan Potassium 50 MG Tablet PO (09:23)
[2023-08-08] MEDS: Cilostazol 50 MG Tablet 100 MG PO ×2 (09:24→22:40)
[2023-08-08] MEDS: Paroxetine 20 MG Tablet 40 MG PO (09:24)
--- NOTE | 2023-08-08 09:25 | PCM.CONS.C ---
Assessment & Plan Assessment/Plan (1) Non-ST elevated myocardial infarction (non-STEMI): PLAN: He does present with a non-ST elevation myocardial infarction, I did review his previous cardiac catheterization. I would recommend that we obtain an echocardiogram and then schedule him for a repeat cardiac catheterization when his INR is appropriate. I discussed this with him he understands and agrees to proceed. (2) Atrial flutter with rapid ventricular response: PLAN: He does have atrial fibrillation flutter with a controlled ventricular response rate. The plan is to continue him on the anticoagulation postprocedure and for him to remain on his beta-carie. (3) Coronary artery disease with angina pectoris: PLAN: He does have history of coronary artery disease status post coronary bypass surgery. His last catheterization a year ago demonstrated patent NATION to the LAD, saphenous vein graft to the right coronary artery, and a sequential saphenous vein graft to obtuse marginal branches. Distal disease was noted. We will take a look at this again. If medical therapy is recommended he may be a candidate for low-dose colchicine. (4) Essential (primary) hypertension: PLAN: His blood pressure appears to be under good control and the plan to be to continue the current medical therapy. (5) Obesity: QUALIFIERS: Obesity type: due to excess calories Obesity classification: adult class 3 (BMI >= 40) Serious obesity comorbidity presence: with serious comorbidity Body mass index: BMI 40.0-44.9 Qualified Code(s): E66.01 - Morbid (severe) obesity due to excess calories; Z68.41 - Body mass index [BMI]40.0-44.9, adult PLAN: He does have a history of obesity. The plan is for him to continue with risk factor modification. He will also continue using his CPAP for his obstructive sleep apnea. HPI Consult Data Date of Consult: 08/08/23 HPI Narrative HPI Narrative: GUEVARA SAAB, is a 68 M who presents to the emergency room with complaints of chest discomfort over the last 2 days. He says approximately 2 weeks ago he had significant diaphoresis which was unprovoked. He has a history of coronary artery disease status post coronary bypass surgery in 2005 with a left internal mammary artery to the left anterior descending artery, saphenous vein graft to the circumflex artery to the posterior descending artery and 2 posterolateral branches and a sequential fashion.? He also had stenting of the posterior descending artery in 2016, paroxysmal atrial fibrillation with cardioversion and ablation in 2008 and repeat ablation 2016, hypertension, hyperlipidemia, vascular disease in which he follows with the vascular surgeon, prostate cancer, and obstructive sleep apnea with CPAP therapy. He is at the moment in permanent atrial fibrillation. He was seen in the office in November of this year and at that time he denied any chest pain or shortness of breath. He says that he has had multiple surgeries on his nose and other parts of his body which have necessitated interruption of his Coumadin. In the emergency room he was noted to be in atrial fibrillation with a controlled ventricular response rate. Cardiac enzymes came back abnormal. FOR[facility], LATER [facility] Medical History Acute kidney injury Atherosclerosis of [place] coronary artery of [place] heart without angina pectoris Bronchitis Diabetes Dyspnea on exertion Encounter for screening for lung cancer Essential (primary) hypertension Hemorrhoids Hyperlipidemia residential (current) use 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 Nicotine dependence Obesity DANGELO (obstructive sleep apnea) Pancreatitis Paroxysmal atrial fibrillation Persistent atrial fibrillation Prostate cancer PVD (peripheral vascular disease) Restless legs syndrome (RLS) Sinusitis Home Medications paroxetine HCl 40 mg tablet (Paxil) 40 mg PO DAILY DEPRESSION 06/10/22 [History Last Taken Unknown] nitroglycerin 0.4 mg sublingual tablet (Nitrostat) 0.4 mg sublingual Q5-15M PRN chest pain #25 tabs 08/25/22 [Rx Last Taken Unknown] cilostazol 50 mg tablet 100 mg (2 x 50 mg) PO BID BLOOD THINNER 90 days #360 tabs 12/15/22 [Rx Last Taken Unknown] metoprolol tartrate 50 mg tablet 50 mg PO BID BP #180 tabs 01/30/23 [Rx Last Taken Unknown] rosuvastatin 40 mg tablet 40 mg PO QHS CHOLESTEROL #90 tabs 04/27/23 [Rx Last Taken Unknown] glimepiride 4 mg tablet 4 mg PO DAILY SUGAR #90 tabs 05/25/23 [Rx Last Taken Unknown] fenofibrate nanocrystallized 145 mg tablet 145 mg PO DAILY TRIGYLCERIDES #90 tabs 08/03/23 [Rx Last Taken Unknown] losartan 50 mg tablet 50 mg PO DAILY BP 08/08/23 [History Last Taken Unknown] warfarin 5 mg tablet 5 mg PO .COMPLEX BLOOD THINNER 08/08/23 [History Last Taken Unknown] Allergy/AdvReac Type Severity Reaction Status Date / Time adhesive Allergy Unknown Verified 08/07/23 22:45 latex Allergy Unknown Verified 08/07/23 22:45 lisinopril Allergy Unknown Verified 08/07/23 22:45 Penicillins Allergy Unknown Verified 08/07/23 22:45 rivaroxaban [From Xarelto] Allergy Unknown Verified 08/07/23 22:45 Family History Father Heart disease Other Cancer Dementia Surgical History H/O coronary artery bypass surgery (05/2006) H/O Mohs micrographic surgery for skin cancer History of bilateral cataract extraction History of coronary angioplasty (03/07/16) History of femoropopliteal bypass (08/2010) History of nasal surgery History of radiofrequency ablation procedure for cardiac arrhythmia (2015) History of tonsillectomy and adenoidectomy Social History Smoking Status: Current every day smoker tobacco type: cigarettes Tobacco: How many years used: 40 alcohol intake: current alcohol intake frequency: 3 or more drinks per day Alcohol type: beer substance use type: marijuana caffeine: No what type of physical activity do you participate in: none ROS Constitutional Constitutional: Denies fever(s) or weight loss Eyes Eyes: Reports systems reviewed and no addt'l complaints, except as documented ENT HEENT: Reports systems reviewed and no addt'l complaints, except as documented Cardiovascular Cardiovascular: Denies chest pain at rest, chest pain with activity, dyspnea at rest, dyspnea on exertion, edema, palpitations or paroxysmal nocturnal dyspnea Respiratory/Chest Respiratory/Chest: Denies dyspnea on exertion, productive cough, shortness of breath at rest or shortness of breath with exertion Gastrointestinal Gastrointestinal: Denies change in bowel habits, nausea, vomiting or weight changes Genitourinary Genitourinary: Denies difficulty urinating Musculoskeletal Musculoskeletal: Denies joint stiffness or muscle weakness Integumentary Integumentary: Denies lesions Neurologic Neurologic: Denies dizziness or syncope Psychiatric Psychiatric: Denies anxiety Endocrine Endocrinology: Denies excessive sweating or fatigue Hematologic/Lymphatic Hematologic/Lymphatic: Denies anemia Allergic/Immunologic Allergic/Immunologic: Denies seasonal rhinorrhea Physical Exam Const alert, oriented x3 and no apparent distress General Appearance: cooperative HEENT hearing grossly normal bilaterally Head and Scalp: atraumatic Eyes EOMs intact bilaterally Neck General: normal visual inspection Chest inspection of chest normal and palpation of chest normal Resp normal respiratory effort Auscultation: clear to auscultation bilaterally Cardio S1 normal heart sound and S2 normal heart sound Jugular Venous Distention: JVD Rhythm: abnormal rhythm irregularly irregular GI normal to inspection, nondistended, normoactive bowel sounds Extremity normal capillary refill and no pedal edema Peripheral Pulses: Yes pulses 2+ throughout and femoral pulses present Skin no rashes or lesions noted Neuro oriented x3 and CN's II-XII intact bilaterally Psych Appearance: grossly normal and appropriate Risk Stratification Risk Stratification Applicable: Yes Age >/= 65: Yes >/= 3 CAD Risk Factors (HTN, HLD, DM, family hx of CAD, or current smoker): Yes Aspirin Use in the Past 7 Days: Yes Severe Angina (>/= episodes in 24 hours): No EKG ST Changes >/= 0.5mm: No Positive Cardiac Marker: Yes NICOLE Risk Stratification Score: 4 NICOLE % Risk: 20% Risk Objective Data Vital Signs: Vital Signs Temp Pulse Resp BP Pulse Ox O2 Del Method 97.6 F L 85 16 159/94 H 96 Room Air 08/08/23 09:13 08/08/23 09:13 08/08/23 09:13 08/08/23 09:13 08/08/23 09:13 08/08/23 09:13 Oxygen Delivery Method Room Air Weight: 259 lb 4.218 oz Body Mass Index (BMI) 39.4 Lab / Micro Data 08/08/23 06:12 08/08/23 06:12 Labs: Laboratory Results - last 24 hr 08/07/23 23:20: WBC 10.2, RBC 5.68, Hgb 16.1, Hct 48.9, MCV 86.1, MCH 28.3, MCHC 32.9, RDW Std Deviation 48.2 H, RDW Coeff of Asad 15.4 H, Plt Count 305, MPV 9.3, Immature Gran % (Auto) 1.100 H, Neut % (Auto) 67.9, Lymph % (Auto) 20.2, Terrell % (Auto) 7.6, Eos % (Auto) 2.4, Baso % (Auto) 0.8, Absolute Neuts (auto) 6.9, Absolute Lymphs (auto) 2.06, Nucleated RBC % 0, PT 29.8 H, INR 2.8, APTT 41.9 H, Sodium 140, Potassium 3.5, Chloride 108 H, Carbon Dioxide 26.0, Anion Gap 6, BUN 29 H, Creatinine 1.22, Estim Creat Clear Calc 56.84, Est GFR (MDRD) Af Amer 76, Est GFR (MDRD) Non-Af 63, BUN/Creatinine Ratio 23.8 H, Glucose 139 H, Calcium 9.9, Magnesium 2.0, Total Bilirubin 0.40, Direct Bilirubin 0.12, AST 19, ALT 26, Alkaline Phosphatase 62, Troponin I High Sens 799 H*, Total Protein 7.0, Albumin 3.3, Globulin 3.7, Lipase 40, TSH 7.58 H 08/08/23 01:25: Troponin I High Sens 1011 H* 08/08/23 06:12: WBC 8.3, RBC 5.55, Hgb 15.4, Hct 48.4, MCV 87.2, MCH 27.7, MCHC 31.8 L, RDW Std Deviation 49.4 H, RDW Coeff of Asad 15.5 H, Plt Count 289, MPV 9.2, Immature Gran % (Auto) 1.100 H, Neut % (Auto) 62.7, Lymph % (Auto) 23.7, Terrell % (Auto) 8.4, Eos % (Auto) 3.0, Baso % (Auto) 1.1 H, Absolute Neuts (auto) 5.2, Absolute Lymphs (auto) 1.96, Nucleated RBC % 0, PT 28.2 H, INR 2.6, Sodium 139, Potassium 3.8, Chloride 110 H, Carbon Dioxide 23.0, Anion Gap 6, BUN 28 H, Creatinine 1.05, Estim Creat Clear Calc 66.05, Est GFR (MDRD) Af Amer 91, Est GFR (MDRD) Non-Af 75, BUN/Creatinine Ratio 26.7 H, Glucose 103, Calcium 9.6, Troponin I High Sens 1224 H* Cardiology Labs/Tests 08/07/23 23:20: WBC 10.2, RBC 5.68, Hgb 16.1, Hct 48.9, MCV 86.1, MCH 28.3, MCHC 32.9, Plt Count 305, MPV 9.3, Immature Gran % (Auto) 1.100 H, Neut % (Auto) 67.9, Lymph % (Auto) 20.2, Terrell % (Auto) 7.6, Eos % (Auto) 2.4, Baso % (Auto) 0.8, Absolute Neuts (auto) 6.9, Nucleated RBC % 0, PT 29.8 H, INR 2.8, APTT 41.9 H, Sodium 140, Potassium 3.5, Chloride 108 H, Carbon Dioxide 26.0, Anion Gap 6, BUN 29 H, Creatinine 1.22, Est GFR (MDRD) Af Amer 76, Est GFR (MDRD) Non-Af 63, BUN/Creatinine Ratio 23.8 H, Glucose 139 H, Calcium 9.9, Magnesium 2.0, Total Bilirubin 0.40, Direct Bilirubin 0.12 08/08/23 06:12: WBC 8.3, RBC 5.55, Hgb 15.4, Hct 48.4, MCV 87.2, MCH 27.7, MCHC 31.8 L, Plt Count 289, MPV 9.2, Immature Gran % (Auto) 1.100 H, Neut % (Auto) 62.7, Lymph % (Auto) 23.7, Terrell % (Auto) 8.4, Eos % (Auto) 3.0, Baso % (Auto) 1.1 H, Absolute Neuts (auto) 5.2, Nucleated RBC % 0, PT 28.2 H, INR 2.6, Sodium 139, Potassium 3.8, Chloride 110 H, Carbon Dioxide 23.0, Anion Gap 6, BUN 28 H, Creatinine 1.05, Est GFR (MDRD) Af Amer 91, Est GFR (MDRD) Non-Af 75, BUN/Creatinine Ratio 26.7 H, Glucose 103, Calcium 9.6 Rhythm: EKG: ECHO: Stress Test: Cardiac Cath: PCI: CT Surgery: Holter monitor: EPS: PPM: CXR: Chest CT Scan: Radiography Diagnostic Testing: Radiology Impression Chest X-Ray 08/07/23 23:40 IMPRESSION: Bibasilar atelectasis. No acute abnormalities identified. Electronically Signed: Yevgeniy Mayberry MD at 0:29 EDT ,
--- NOTE | 2023-08-08 09:40 | CASEMGMT ---
CHEYENNE MARIN Assessment: Face to Face with pt for initial transition planning/care coordination assessment. RN TANIA introduced self and role at [facility], pt voices understanding and consents to assessment. Pt is A&O x4 and answers all questions appropriately at this time. Pt lying in bed with cpap on and at bedside. Care providers, pharmacy, and demographics verified/updated. Admitting Dx: NSTEMI PCP:Sara Pemberton Specialists:emery Pacheco; Lefty cardio; aldo Koo Pref[facility] Insurance: [employer] [facility] Prescription Benefit: yes LNOK: Yuko Prather, ; Catherine Doe, dtr Living Arrangements: Pt lives in a two story home with and 3 steps to enter with a rail. They do not use the upstairs. Pt reports he is I in ADL's and denies concerns at home. Transportation: Pt drives self and denies concerns with transportation. DME:PT/INR machine, CPAP, BGM with sufficient supply of strips and lancets HHC/SNF: Pt denies hx of Pt states no concerns with going home at time of dc. Plan for pt to have heart cath on Thursday. Pt states no further concerns/needs. CM to follow. Advised pt to ask CM if any further question/concerns/needs arise, voices understanding. Pt Goal: Home Plan: Home
[2023-08-08] MEDS: Atorvastatin Calcium 80 MG Tablet PO (22:39)
[2023-08-09 05:16] VITALS: BMI 38.8
[2023-08-09 05:30] VITALS: BP 151/90; PULSE 87; RESP 16; TEMP 36.6; O2SAT 96
[2023-08-09 06:04] LABS: Absolute Neutrophil Count 6.2 X10^3/uL (2.0-7.7); Basophil# 0.07 X10^3/uL; Basophil% 0.8 % (0-1); Eosinophil# 0.23 X10^3/uL; Eosinophils% 2.6 % (0-5); Hematocrit 49.3 % (40-54); Hemoglobin 15.8 g/dL (13.0-16.5); Lymphocyte % 16.9 % (19-41); Mean Corpuscular Hgb 27.7 pg (27.0-32.0); Mean Corpuscular Volume 86.3 fL (80-94); Mean Platelet Vol. 9.4 fl (6.2-12.0); NRBC Flagged by Analyzer 0 % (0-5); Neutrophil # 6.17 X10^3/uL (2.7-7.7); Neutrophil % 69.6 % (47-70); Platelet Count 307 K/mm3 (150-450); RBC Distribution Width CV 15.6 % (11.6-14.6); RBC Distribution Width SD 49.1 fl (35.1-43.9); Red Blood Count 5.71 M/mm3 (4.6-6.2); White Blood Count 8.9 K/mm3 (4.4-11.0)
[2023-08-09 06:51] LABS: International Normalized Ratio 2.2; Prothrombin Time (Protime)PT. 24.8 SECONDS (11.7-14.9)
[2023-08-09 07:04] LABS: Anion Gap 7 (5-15); BUN 27 mg/dL (7-18); Calcium,Total 9.4 mg/dL (8.5-10.1); Chloride 110 mmol/L (98-107); EST Glomerular Filtration Rate 79 mL/min (>60); Est Glom Filt Rate - Afr Amer 96 mL/min (>60); Estimated Creatinine Clearance 69.35 ml/min; Glucose 106 mg/dL (74-106); Magnesium 2.3 mg/dL (1.6-2.6); Phosphorus 3.2 mg/dL (2.5-4.9); Potassium 4.3 mmol/L (3.5-5.1); Sodium Level 138 mmol/L (136-145)
[2023-08-09] MEDS: Fenofibrate 145 MG Tablet PO (07:48)
[2023-08-09] MEDS: Aspirin E.C. 81 MG Tablet PO (07:48)
--- NOTE | 2023-08-09 08:03 | PCM.PN.HOSP ---
Reason for Visit Reason for Visit: Diagnoses Morbid (severe) obesity due to excess calories (08/08/23) Essential (primary) hypertension (08/08/23) Non-ST elevation (NSTEMI) myocardial infarction (08/08/23) Atherosclerotic heart disease of [place] coronary artery with unspecified angina pectoris (08/08/23) Unspecified atrial flutter (08/08/23) Body mass index [BMI] 40.0-44.9, adult (08/08/23) Subjective Subjective Patient seen chest pain improved. Scheduled to undergo left heart catheterization on 08/10/2023 Objective Data Objective Data Vital Signs: Vital Signs Temp Pulse Resp BP Pulse Ox O2 Del Method 97.8 F 87 16 151/90 H 96 Room Air 08/09/23 05:30 08/09/23 05:30 08/09/23 05:30 08/09/23 05:30 08/09/23 05:30 08/09/23 07:38 Oxygen Delivery Method Room Air Weight: 115.8 kg Body Mass Index (BMI) 38.8 Intake & Output: Intake and Output for Last 24 Hours 08/07/23 08/08/23 08/09/23 23:59 23:59 23:59 Intake Total 240 / 240 Balance 240 / 240 Lab / Micro Data 08/09/23 05:07 08/09/23 05:07 Labs: Laboratory Results - last 24 hr 08/09/23 05:07: WBC 8.9, RBC 5.71, Hgb 15.8, Hct 49.3, MCV 86.3, MCH 27.7, MCHC 32.0, RDW Std Deviation 49.1 H, RDW Coeff of Asad 15.6 H, Plt Count 307, MPV 9.4, Immature Gran % (Auto) 1.100 H, Neut % (Auto) 69.6, Lymph % (Auto) 16.9 L, [place] % (Auto) 9.0, Eos % (Auto) 2.6, Baso % (Auto) 0.8, Absolute Neuts (auto) 6.2, Absolute Lymphs (auto) 1.50, Nucleated RBC % 0, PT 24.8 H, INR 2.2, Sodium 138, Potassium 4.3, Chloride 110 H, Carbon Dioxide 21.0, Anion Gap 7, BUN 27 H, Creatinine 1.00, Estim Creat Clear Calc 69.35, Est GFR (MDRD) Af Amer 96, Est GFR (MDRD) Non-Af 79, BUN/Creatinine Ratio 27.0 H, Glucose 106, Calcium 9.4, Phosphorus 3.2, Magnesium 2.3 Radiography Diagnostic Testing: Radiology Impression Echocardiogram 08/08/23 09:21 Interpretation Summary Normal LV size. Moderate concentric left ventricular hypertrophy. Left ventricular systolic function is normal. The estimated ejection fraction is 55 %. There is mild mitral annular calcification. Mild (1+) aortic valve insufficiency. Pulmonary artery systolic pressure is 44 mmHg. Ordering Physician: Gerber Olea Referring Physician: Sara Pemberton Performed By: Sara Ortiz, SAVAGE, RVT Physical Exam Narrative GENERAL: cooperative HEENT: Atraumatic; normocephalic EYES; Anicteric, Normal Conjunctiva NECK; supple, normal thyroid, RESPIRATORY: Diminished to auscultation CARDIOVASCULAR: Regular S1 S2, GI: soft, normoactive bowel sounds, : No Renal angle tenderness; EXTREMITIES: No edema, no clubbing, MUSCULOSKELETAL: no muscle wasting NEURO: Awake; no lateralizing signs. SKIN: No Rash PSYCH; Flat affect Assessment & Plan Assessment/Plan (1) Non-ST elevated myocardial infarction (non-STEMI): (2) Atrial flutter with rapid ventricular response: PLAN: Plan Patient is a 68-year-old gentleman with past medical history single for coronary artery disease with previous CABG who presented with chest discomfort with elevated troponin consistent with acute non-STEMI admitted to monitored bed for further management 1. Acute non-STEMI ? Admitted to monitored bed managed per protocol with beta-blockers, aspirin, statin therapy. Patient was not placed on heparin since patient is on warfarin with a therapeutic INR. Patient to undergo subsequent evaluation with a 2D echo. Case discussed with cardiology. Plans for patient to undergo left heart catheterization on 08/10/2023 with intervention if needed -08/09/2023; Patient seen chest pain improved. Scheduled to undergo left heart catheterization on 08/10/2023 2. Coronary artery disease ? Status post CABG in 2005. Patient is on guideline directed medical therapy 3. Class II obesity with BMI of 39.4 ? Weight loss advised 4. Hypertension - Blood pressure controlled, home medications continued with dose adjustment as needed 5. Obstructive sleep apnea ? Patient is on CPAP at home home settings continued 6. Diabetes mellitus type II -patient's oral hypoglycemics held. Placed on long acting insulin, Accu-Cheks a.c. and at bedtime and covered with sliding scale insulin 7. Peripheral arterial disease ? Patient is on cilostazol did continue 8. Paroxysmal A-fib ? Rate controlled on systemic anticoagulation with warfarin INR on admission 2.6. Warfarin held in anticipation of patient left heart catheterization 9. Dyslipidemia -Patient is on statin therapy as well as fenofibrate, continued at home dose 10. DVT prophylaxis ? On systemic anticoagulation Time spent in the patient's overall evaluation,decision-making process, review of diagnostic data, adjustment of management, discussion with other providers, nursing nursing and ancillary staff involved in patient's care documentation, 35 Minutes Charges/Coding Visit Charges Inpatient E&M: 78186 Subs Hosp L2
[2023-08-09 09:30] VITALS: BP 139/86; PULSE 99; RESP 16; TEMP 36.4; O2SAT 96
[2023-08-09 09:36] VITALS: BP 139/86; PULSE 99
[2023-08-09] MEDS: Losartan Potassium 50 MG Tablet PO (09:36)
[2023-08-09] MEDS: Metoprolol Tartrate 50 MG Tablet PO ×2 (09:36→20:42)
[2023-08-09] MEDS: Paroxetine 20 MG Tablet 40 MG PO (09:37)
[2023-08-09] MEDS: Cilostazol 50 MG Tablet 100 MG PO ×2 (09:37→20:42)
--- NOTE | 2023-08-09 09:58 | PN.CARD_ITS ---
Subjective Subjective Patient seen and evaluated. Appears to be doing quite well at this time. No further chest his pain Objective Data Vital Signs: Vital Signs Temp Pulse Resp BP Pulse Ox O2 Del Method 97.5 F L 99 16 139/86 H 96 Room Air 08/09/23 09:30 08/09/23 09:36 08/09/23 09:30 08/09/23 09:36 08/09/23 09:30 08/09/23 09:30 Oxygen Delivery Method Room Air Weight: 255 lb 4.725 oz Body Mass Index (BMI) 38.8 Intake & Output: Intake and Output for Last 24 Hours 08/07/23 08/08/23 08/09/23 23:59 23:59 23:59 Intake Total 240 / 240 Balance 240 / 240 Lab / Micro Data 08/09/23 05:07 08/09/23 05:07 Labs: Laboratory Results - last 24 hr 08/09/23 05:07: WBC 8.9, RBC 5.71, Hgb 15.8, Hct 49.3, MCV 86.3, MCH 27.7, MCHC 32.0, RDW Std Deviation 49.1 H, RDW Coeff of Asad 15.6 H, Plt Count 307, MPV 9.4, Immature Gran % (Auto) 1.100 H, Neut % (Auto) 69.6, Lymph % (Auto) 16.9 L, [place] % (Auto) 9.0, Eos % (Auto) 2.6, Baso % (Auto) 0.8, Absolute Neuts (auto) 6.2, Absolute Lymphs (auto) 1.50, Nucleated RBC % 0, PT 24.8 H, INR 2.2, Sodium 138, Potassium 4.3, Chloride 110 H, Carbon Dioxide 21.0, Anion Gap 7, BUN 27 H, Creatinine 1.00, Estim Creat Clear Calc 69.35, Est GFR (MDRD) Af Amer 96, Est GFR (MDRD) Non-Af 79, BUN/Creatinine Ratio 27.0 H, Glucose 106, Calcium 9.4, Phosphorus 3.2, Magnesium 2.3 Cardiology Labs/Tests 08/09/23 05:07: WBC 8.9, RBC 5.71, Hgb 15.8, Hct 49.3, MCV 86.3, MCH 27.7, MCHC 32.0, Plt Count 307, MPV 9.4, Immature Gran % (Auto) 1.100 H, Neut % (Auto) 69.6, Lymph % (Auto) 16.9 L, [place] % (Auto) 9.0, Eos % (Auto) 2.6, Baso % (Auto) 0.8, Absolute Neuts (auto) 6.2, Nucleated RBC % 0, PT 24.8 H, INR 2.2, Sodium 138, Potassium 4.3, Chloride 110 H, Carbon Dioxide 21.0, Anion Gap 7, BUN 27 H, Creatinine 1.00, Est GFR (MDRD) Af Amer 96, Est GFR (MDRD) Non-Af 79, BUN/Creatinine Ratio 27.0 H, Glucose 106, Calcium 9.4, Phosphorus 3.2, Magnesium 2.3 Rhythm: EKG: ECHO: Stress Test: Cardiac Cath: PCI: CT Surgery: Holter monitor: EPS: PPM: CXR: Chest CT Scan: Radiography Diagnostic Testing: Radiology Impression Echocardiogram 08/08/23 09:21 Interpretation Summary Normal LV size. Moderate concentric left ventricular hypertrophy. Left ventricular systolic function is normal. The estimated ejection fraction is 55 %. There is mild mitral annular calcification. Mild (1+) aortic valve insufficiency. Pulmonary artery systolic pressure is 44 mmHg. Ordering Physician: Gerber Olea Referring Physician: Sara Pemberton Performed By: Sara Ortiz, RDCS, RVT Physical Exam Const alert, oriented x3 and no apparent distress General Appearance: cooperative HEENT hearing grossly normal bilaterally Head and Scalp: atraumatic Eyes EOMs intact bilaterally Neck General: normal visual inspection Chest inspection of chest normal and palpation of chest normal Resp normal respiratory effort Auscultation: clear to auscultation bilaterally Cardio S1 normal heart sound and S2 normal heart sound Jugular Venous Distention: JVD Rhythm: abnormal rhythm irregularly irregular GI normal to inspection, nondistended, normoactive bowel sounds Extremity normal capillary refill and no pedal edema Peripheral Pulses: Yes pulses 2+ throughout and femoral pulses present Skin no rashes or lesions noted Neuro oriented x3 and CN's II-XII intact bilaterally Psych Appearance: grossly normal and appropriate Assessment & Plan Assessment/Plan (1) Non-ST elevated myocardial infarction (non-STEMI): PLAN: He does present with a non-ST elevation myocardial infarction, I did review his previous cardiac catheterization. His echocardiogram demonstrated preserved left ventricular ejection fraction. He will be scheduled for a repeat cardiac catheterization when his INR is appropriate. I discussed this with him he understands and agrees to proceed. (2) Atrial flutter with rapid ventricular response: PLAN: He does have atrial fibrillation flutter with a controlled ventricular response rate. The plan is to continue him on the anticoagulation postprocedure and for him to remain on his beta-carie. (3) Coronary artery disease with angina pectoris: PLAN: He does have history of coronary artery disease status post coronary bypass surgery. His last catheterization a year ago demonstrated patent NATION to the LAD, saphenous vein graft to the right coronary artery, and a sequential saphenous vein graft to obtuse marginal branches. Distal disease was noted. We will take a look at this again. If medical therapy is recommended he may be a candidate for low-dose colchicine. (4) Essential (primary) hypertension: PLAN: His blood pressure appears to be under good control and the plan to be to continue the current medical therapy. (5) Obesity: QUALIFIERS: Obesity type: due to excess calories Obesity classification: adult class 3 (BMI >= 40) Serious obesity comorbidity presence: with serious comorbidity Body mass index: BMI 40.0-44.9 Qualified Code(s): E66.01 - Morbid (severe) obesity due to excess calories; Z68.41 - Body mass index [BMI]40.0-44.9, adult PLAN: He does have a history of obesity. The plan is for him to continue with risk factor modification. He will also continue using his CPAP for his obstructive sleep apnea.
[2023-08-09 15:33] VITALS: BP 144/83; PULSE 93; RESP 16; TEMP 37.1; O2SAT 96
[2023-08-09 20:42] VITALS: PULSE 76
[2023-08-09] MEDS: Atorvastatin Calcium 80 MG Tablet PO (20:42)
[2023-08-09 21:00] VITALS: BP 149/84; PULSE 76; RESP 18; TEMP 36.6; O2SAT 95
[2023-08-10] VITALS (13 sets, daily range): BP systolic 116–153; BP diastolic 79–108; PULSE 72–97; RESP 13–22; TEMP 36.2–36.6; O2SAT 92–97; BMI 38.8
--- NOTE | 2023-08-10 05:00 | EKG12_ITS ---
Test Reason : AM EKG Blood Pressure : / mmHG Vent. Rate : 095 BPM Atrial Rate : 000 BPM P-R Int : 000 ms QRS Dur : 086 ms QT Int : 390 ms P-R-T Axes : 000 070 001 degrees QTc Int : 490 ms Atrial fibrillation Junctional ST depression, probably normal Abnormal ECG When compared with ECG of 08-AUG-2023 02:39, MANUAL COMPARISON REQUIRED, DATA IS UNCONFIRMED Confirmed by ZAIRA LY, LEELA ([id number]), order editor DICK KINSEY ([id number]) on 08/13/2023 1:34:08 PM Referred By: Confirmed By:LEELA MENESES MD
[2023-08-10] MEDS: 0.9% Normal Saline (1000mL) 1,000 ML 15 ML IV (05:13)
[2023-08-10] MEDS: Metoprolol Tartrate 50 MG Tablet PO (05:13)
[2023-08-10] MEDS: Aspirin E.C. 81 MG Tablet PO (05:14)
[2023-08-10] MEDS: Losartan Potassium 50 MG Tablet PO (05:15)
[2023-08-10 06:46] LABS: Absolute Lymphocyte Count 1.83 X10^3/uL (0.83-4.51); Absolute Neutrophil Count 6.1 X10^3/uL (2.0-7.7); Basophil# 0.08 X10^3/uL; Basophil% 0.9 % (0-1); Eosinophil# 0.25 X10^3/uL; Eosinophils% 2.7 % (0-5); Hemoglobin 15.8 g/dL (13.0-16.5); Lymphocyte # 1.83 X10^3/ul (0.83-4.51); Lymphocyte % 20.1 % (19-41); Mean Corp Hgb Conc 32.2 g/dL (32-36); Mean Corpuscular Hgb 27.9 pg (27.0-32.0); Mean Corpuscular Volume 86.4 fL (80-94); Mean Platelet Vol. 9.6 fl (6.2-12.0); Monocyte# 0.78 X10^3/uL; Monocyte% 8.6 % (0-10); NRBC Flagged by Analyzer 0 % (0-5); Neutrophil # 6.08 X10^3/uL (2.7-7.7); Neutrophil % 66.6 % (47-70); Platelet Count 302 K/mm3 (150-450); RBC Distribution Width CV 15.6 % (11.6-14.6); RBC Distribution Width SD 49.1 fl (35.1-43.9); Red Blood Count 5.67 M/mm3 (4.6-6.2); White Blood Count 9.1 K/mm3 (4.4-11.0)
[2023-08-10 06:59] LABS: International Normalized Ratio 1.6; Prothrombin Time (Protime)PT. 19.4 SECONDS (11.7-14.9)
[2023-08-10 07:12] LABS: Anion Gap 8 (5-15); BUN 29 mg/dL (7-18); BUN/Creat Ratio 26.6 RATIO (10-20); Calcium,Total 9.5 mg/dL (8.5-10.1); Chloride 109 mmol/L (98-107); Creatinine, Serum 1.09 mg/dL (0.70-1.30); EST Glomerular Filtration Rate 72 mL/min (>60); Est Glom Filt Rate - Afr Amer 87 mL/min (>60); Estimated Creatinine Clearance 63.62 ml/min; Glucose 114 mg/dL (74-106); Potassium 3.9 mmol/L (3.5-5.1); Sodium Level 138 mmol/L (136-145)
[2023-08-10] MEDS: Paroxetine 20 MG Tablet 40 MG PO (09:02)
[2023-08-10] MEDS: Cilostazol 50 MG Tablet 100 MG PO (09:02)
--- NOTE | 2023-08-10 10:03 | CASEMGMT ---
Insurance review for hospitals In-network with?Em [facility] if transfer is recommended is as follows:. [facility], [place], [facility], [facility], [facility], [facility] ([facility]), [facility], [facility], and . Lori Robb, Discharge Planning Asst.
--- NOTE | 2023-08-10 10:31 | CASEMGMT ---
Patient has a Healthcare Power of Marina Porter and a Healthcare Living Will. Patient is aware they are not on file at [facility] and to bring in copies. Sosa CADET
--- NOTE | 2023-08-10 10:45 | EKG12_ITS ---
Test Reason : PCI Blood Pressure : / mmHG Vent. Rate : 089 BPM Atrial Rate : 300 BPM P-R Int : 000 ms QRS Dur : 102 ms QT Int : 402 ms P-R-T Axes : 000 065 014 degrees QTc Int : 489 ms Atrial flutter with variable A-V block Abnormal ECG When compared with ECG of 10-AUG-2023 05:34, MANUAL COMPARISON REQUIRED, DATA IS UNCONFIRMED Confirmed by ZAIRA LY, LEELA ([id number]), technical editor DICK KINSEY ([id number]) on 08/13/2023 1:33:29 PM Referred By: ZAIRA Confirmed By:LEELA MENESES MD
--- NOTE | 2023-08-10 11:04 | PCM.PN.HOSP ---
Reason for Visit Reason for Visit: Diagnoses Morbid (severe) obesity due to excess calories (08/08/23) Essential (primary) hypertension (08/08/23) Non-ST elevation (NSTEMI) myocardial infarction (08/08/23) Atherosclerotic heart disease of [place] coronary artery with unspecified angina pectoris (08/08/23) Unspecified atrial flutter (08/08/23) Body mass index [BMI] 40.0-44.9, adult (08/08/23) Subjective Subjective Patient scheduled to undergo [facility] Objective Data Objective Data Vital Signs: Vital Signs Temp Pulse Resp BP Pulse Ox O2 Del Method 97.2 F L 96 16 141/81 H 92 Room Air 08/10/23 09:00 08/10/23 09:00 08/10/23 09:00 08/10/23 09:00 08/10/23 09:00 08/10/23 09:31 Oxygen Delivery Method Room Air Weight: 115.9 kg Body Mass Index (BMI) 38.8 Intake & Output: Intake and Output for Last 24 Hours 08/08/23 08/09/23 08/10/23 23:59 23:59 23:59 Intake Total 240 / 240 0.5 / 0.5 Balance 240 / 240 0.5 / 0.5 Lab / Micro Data 08/10/23 05:40 08/10/23 05:40 Labs: Laboratory Results - last 24 hr 08/10/23 05:40: WBC 9.1, RBC 5.67, Hgb 15.8, Hct 49.0, MCV 86.4, MCH 27.9, MCHC 32.2, RDW Std Deviation 49.1 H, RDW Coeff of Asad 15.6 H, Plt Count 302, MPV 9.6, Immature Gran % (Auto) 1.100 H, Neut % (Auto) 66.6, Lymph % (Auto) 20.1, [place] % (Auto) 8.6, Eos % (Auto) 2.7, Baso % (Auto) 0.9, Absolute Neuts (auto) 6.1, Absolute Lymphs (auto) 1.83, Nucleated RBC % 0, PT 19.4 H, INR 1.6, Sodium 138, Potassium 3.9, Chloride 109 H, Carbon Dioxide 21.0, Anion Gap 8, BUN 29 H, Creatinine 1.09, Estim Creat Clear Calc 63.62, Est GFR (MDRD) Af Amer 87, Est GFR (MDRD) Non-Af 72, BUN/Creatinine Ratio 26.6 H, Glucose 114 H, Calcium 9.5 Physical Exam Narrative GENERAL: cooperative HEENT: Atraumatic; normocephalic EYES; Anicteric, Normal Conjunctiva NECK; supple, normal thyroid, RESPIRATORY: Diminished to auscultation CARDIOVASCULAR: Regular S1 S2, GI: soft, normoactive bowel sounds, : No Renal angle tenderness; EXTREMITIES: No edema, no clubbing, MUSCULOSKELETAL: no muscle wasting NEURO: Awake; no lateralizing signs. SKIN: No Rash PSYCH; Flat affect Assessment & Plan Assessment/Plan (1) Non-ST elevated myocardial infarction (non-STEMI): (2) Atrial flutter with rapid ventricular response: PLAN: Plan Patient is a 68-year-old gentleman with past medical history single for coronary artery disease with previous CABG who presented with chest discomfort with elevated troponin consistent with acute non-STEMI admitted to monitored bed for further management 1. Acute non-STEMI ? Admitted to monitored bed managed per protocol with beta-blockers, aspirin, statin therapy. Patient was not placed on heparin since patient is on warfarin with a therapeutic INR. Patient to undergo subsequent evaluation with a 2D echo. Case discussed with cardiology. Plans for patient to undergo left heart catheterization on 08/10/2023 with intervention if needed -08/09/2023; Patient seen chest pain improved. Scheduled to undergo left heart catheterization on 08/10/2023 -08/10/2023 Scheduled to undergo left heart catheterization 2. Coronary artery disease ? Status post CABG in 2005. Patient is on guideline directed medical therapy 3. Class II obesity with BMI of 39.4 ? Weight loss advised 4. Hypertension - Blood pressure controlled, home medications continued with dose adjustment as needed 5. Obstructive sleep apnea ? Patient is on CPAP at home home settings continued 6. Diabetes mellitus type II -patient's oral hypoglycemics held. Placed on long acting insulin, Accu-Cheks a.c. and at bedtime and covered with sliding scale insulin 7. Peripheral arterial disease ? Patient is on cilostazol did continue 8. Paroxysmal A-fib ? Rate controlled on systemic anticoagulation with warfarin INR on admission 2.6. Warfarin held in anticipation of patient left heart catheterization 9. Dyslipidemia -Patient is on statin therapy as well as fenofibrate, continued at home dose 10. DVT prophylaxis ? On systemic anticoagulation Time spent in the patient's overall evaluation,decision-making process, review of diagnostic data, adjustment of management, discussion with other providers, nursing nursing and ancillary staff involved in patient's care documentation, 35 Minutes Charges/Coding Visit Charges Inpatient E&M: 82088 Subs Hosp L2
--- NOTE | 2023-08-10 11:09 | CL.D_ITS ---
Patient Name: GUEVARA SAAB Study Date: 08/10/2023 Performing: Ana Luisa Whitlock MD Ht: 68 inches 172.72 cm : 1955 Wt: 255.8 lbs 115.9 kg Age: 68 Gender: male BSA: 2.27 PROCEDURE(S) PERFORMED [id number]-([id number])[facility] CL[facility]ICAL PROFILE AND INDICATIONS Indications: ACS <= 24 hrs Heart Failure: None Stress/Imaging Stress/Image Study Performed: No CAD Presentations: Non-STEMI. Symptom onset Date/Time: Time Not Available CONCLUSIONS Severe yocha dehe CAD as described. Patent 3 out of 4 bypass grafts. RECOMMENDATIONS Medical Therapy for CAD DESCRIPTION OF PROCEDURE The patient arrived to the procedure lab. The risks and benefits of the procedure as well as a full description of our services here and current unavailability of surgical backup were fully explained to the patient and/or their significant other prior to the catheterization. The Timeout was completed, verifying the correct patient and procedure. The patient's procedural site was prepped and draped in the usual fashion. Local anesthetic was given subcutaneously to right groin region with Lidocaine 2%. Using a modified Seldinger technique, arterial access was obtained via the right femoral artery, a 5Fr sheath was inserted. Left Coronary Artery selective angiography was performed in multiple views using a 5 Fr. JL 5 catheter. Right Coronary Artery selective angiography was then performed in multiple views using a 5 Fr. JR 4 catheter. Saphenous Vein graft to the Circumflex selective angiography was performed in multiple views using a 5 Fr. JR 4 catheter. Left internal mammary artery graft to the LAD selective angiography was performed in multiple views using a 5 Fr. IM catheter. Saphenous Vein graft to the RPDA sequential to PL branch selective angiography was performed in multiple views using a 5 Fr. MPA.Contrast was injected through the sheath and the Right Iliac and Femoral artery were assessed for possible closure device.The arterial sheath was pulled and manual compression applied until hemostasis is achieved. CORONARY ANGIOGRAPHY DOMINANCE: Right Dominant LEFT MAIN: severe diffuse disease LEFT ANTERIOR DESCENDING ARTERY: OSTIAL LAD: 100 % Stenosis CIRCUMFLEX ARTERY: OSTIAL CIRC: 80 % Stenosis RIGHT CORONARY ARTERY: OSTIAL RCA: 60-70 % Stenosis DISTAL RCA: 70-80 % Stenosis. Collateral flow noted from LAD to RPDA (see during NATION to LAD injection) GRAFTS: NATION graft to the LAD is widely patent Saphenous Vein graft to the CIRC is patent Saphenous Vein graft to the PLV is patent. This is a sequential graft to RPDA and RPL. There is no flow from this graft to the RPDA. This finding is unchanged from 2021. COMPLICATIONS No Complications PROCEDURE MEDICATIONS Versed 1 mg IV Fentanyl 50 mcg IV Versed 1 mg IV Oxygen: 2 L/min via nasal cannula SUMMARY OF HEMODYNAMIC DATA Time AIR REST ECG 09:18:06 AO 124/79 (99) SA 09:45:00 Signed By Ana Luisa Whitlock MD On 08/10/2023 11:08:54 Ana Luisa Whitlock MD
--- NOTE | 2023-08-10 13:22 | PCM.DC.SUM ---
Providers Date of Admission: 08/08/23 Date of Discharge: 08/10/23 Primary Care Physician: KATIE Hoover Consultations 08/08/23 02:33 Consult: Cardiology Routine Consulting Provider: Gerber Olea Reason for Consult: nstemi EMERGENT Consult: Yes MD Notified: Yes Date Notified: 08/08/23 Time Notified: 01:37 Method of Notification: ED Physician Initiated Method of Consult:: In-Person Reason For Visit: NSTEMI Diagnosis Discharge Diagnosis (1) Non-ST elevated myocardial infarction (non-STEMI): Status: Acute Code(s): I21.4 - Non-ST elevation (NSTEMI) myocardial infarction (2) Atrial flutter with rapid ventricular response: Status: Acute Code(s): I48.92 - Unspecified atrial flutter Plan Patient is a 68-year-old gentleman with past medical history single for coronary artery disease with previous CABG who presented with chest discomfort with elevated troponin consistent with acute non-STEMI admitted to monitored bed for further management 1. Acute non-STEMI ? Admitted to monitored bed managed per protocol with beta-blockers, aspirin, statin therapy. Patient was not placed on heparin since patient is on warfarin with a therapeutic INR. Patient to undergo subsequent evaluation with a 2D echo. Case discussed with cardiology. Plans for patient to undergo left heart catheterization on 08/10/2023 with intervention if needed -08/09/2023; Patient seen chest pain improved. Scheduled to undergo left heart catheterization on 08/10/2023 -08/10/2023 Scheduled to undergo left heart catheterization ? 08/10/2023 patient left heart catheterization was apparently unchanged from the previous one a year ago. Cardiology subsequently recommended optimization of medical therapy with addition of Ranexa 2. Coronary artery disease ? Status post CABG in 2005. Patient is on guideline directed medical therapy 3. Class II obesity with BMI of 39.4 ? Weight loss advised 4. Hypertension - Blood pressure controlled, home medications continued with dose adjustment as needed 5. Obstructive sleep apnea ? Patient is on CPAP at home home settings continued 6. Diabetes mellitus type II -patient's oral hypoglycemics held. Placed on long acting insulin, Accu-Cheks a.c. and at bedtime and covered with sliding scale insulin 7. Peripheral arterial disease ? Patient is on cilostazol did continue 8. Paroxysmal A-fib ? Rate controlled on systemic anticoagulation with warfarin INR on admission 2.6. Warfarin held in anticipation of patient left heart catheterization 9. Dyslipidemia -Patient is on statin therapy as well as fenofibrate, continued at home dose 10. DVT prophylaxis ? On systemic anticoagulation Time spent in the patient's overall evaluation,decision-making process, review of diagnostic data, adjustment of management, discussion with other providers, nursing nursing and ancillary staff involved in patient's care documentation, 35 Minutes Medications at Discharge Home Medications paroxetine HCl 40 mg tablet (Paxil) 40 mg PO DAILY DEPRESSION 06/10/22 nitroglycerin 0.4 mg sublingual tablet (Nitrostat) 0.4 mg sublingual Q5-15M PRN chest pain #25 tabs 08/25/22 cilostazol 50 mg tablet 100 mg (2 x 50 mg) PO BID BLOOD THINNER 90 days #360 tabs 12/15/22 metoprolol tartrate 50 mg tablet 50 mg PO BID BP #180 tabs 01/30/23 rosuvastatin 40 mg tablet 40 mg PO QHS CHOLESTEROL #90 tabs 04/27/23 glimepiride 4 mg tablet 4 mg PO DAILY SUGAR #90 tabs 05/25/23 fenofibrate nanocrystallized 145 mg tablet 145 mg PO DAILY TRIGYLCERIDES #90 tabs 08/03/23 losartan 50 mg tablet 50 mg PO DAILY BP 08/08/23 warfarin 5 mg tablet 5 mg PO .COMPLEX BLOOD THINNER 08/08/23 aspirin 81 mg tablet,delayed release 81 mg PO BREAKFAST #60 tabs 08/10/23 ranolazine 500 mg tablet,extended release,12 hr 500 mg PO BID #120 tabs 08/10/23 Physical Exam Narrative GENERAL: cooperative HEENT: Atraumatic; normocephalic EYES; Anicteric, Normal Conjunctiva NECK; supple, normal thyroid, RESPIRATORY: Diminished to auscultation CARDIOVASCULAR: Regular S1 S2, GI: soft, normoactive bowel sounds, : No Renal angle tenderness; EXTREMITIES: No edema, no clubbing, MUSCULOSKELETAL: no muscle wasting NEURO: Awake; no lateralizing signs. SKIN: No Rash PSYCH; Flat affect Weight / BMI Weight Weight: 115.9 kg Body Mass Index (BMI) 38.8 ABG / Lab / Microbiology Data 08/10/23 05:40 08/10/23 05:40 Laboratory: Laboratory Results - last 24 hr 08/10/23 05:40: WBC 9.1, RBC 5.67, Hgb 15.8, Hct 49.0, MCV 86.4, MCH 27.9, MCHC 32.2, RDW Std Deviation 49.1 H, RDW Coeff of Asad 15.6 H, Plt Count 302, MPV 9.6, Immature Gran % (Auto) 1.100 H, Neut % (Auto) 66.6, Lymph % (Auto) 20.1, [place] % (Auto) 8.6, Eos % (Auto) 2.7, Baso % (Auto) 0.9, Absolute Neuts (auto) 6.1, Absolute Lymphs (auto) 1.83, Nucleated RBC % 0, PT 19.4 H, INR 1.6, Sodium 138, Potassium 3.9, Chloride 109 H, Carbon Dioxide 21.0, Anion Gap 8, BUN 29 H, Creatinine 1.09, Estim Creat Clear Calc 63.62, Est GFR (MDRD) Af Amer 87, Est GFR (MDRD) Non-Af 72, BUN/Creatinine Ratio 26.6 H, Glucose 114 H, Calcium 9.5 D/C Instructions Discharge Diet: Low fat / Low cholesterol and 1800 Calorie Control Diet Discharge Activity: Return to Normal Activity Call your doctor if you observe: Fever of 101 or Higher, Shortness of breath, Fainting spells and Chest pain Meaningful Use Info Meaningful Use Diagnoses (Choose all that apply): AMI AMI/Post PCI/Angioplasty Aspirin given w/in 24hrs of arrival?: Yes ASA at discharge?: Yes Statins at discharge?: Yes Reynaldo/ARB at discharge?: No Reason Reynaldo/ARB not ordered:: Not indicated Beta Selena at discharge?: Yes Done w/ Acute NH measure.: Yes Documented LVEF (%): 55 Discharge Plan Admission Admit Date/Time: 08/08/23 01:27 Attending Provider: Dallas Mane Primary Care Provider: Sara Pemberton Consulting Providers: Gerber Olea; Chase Austin Discharge Orders/Prescriptions Prescriptions: New aspirin 81 mg Tablet,Delayed Release (Dr/Ec) 81 mg PO BREAKFAST Qty: 60 0RF ranolazine 500 mg tablet extended release 12 hr 500 mg PO BID Qty: 120 0RF Continued paroxetine HCl [Paxil] 40 mg tablet 40 mg PO DAILY losartan 50 mg tablet 50 mg PO DAILY Patient Comments: TAKE 1 TABLET BY MOUTH TWICE DAILY warfarin 5 mg tablet 5 mg PO .COMPLEX Protocol: Dose Management Condition: Thursday Dose/Route: 2.5 mg Instruction: 0.5 x 5 mg tablets Condition: Thursday Dose/Route: 2.5 mg Instruction: 0.5 x 5 mg tablets Condition: Thursday Dose/Route: 5 mg Instruction: 1 x 5 mg tablet Condition: Thursday Dose/Route: 5 mg Instruction: 1 x 5 mg tablet Condition: Dose/Route: 5 mg Instruction: 1 x 5 mg tablet Condition: Thursday Dose/Route: 2.5 mg Instruction: 0.5 x 5 mg tablets Condition: Thursday Dose/Route: 2.5 mg Instruction: 0.5 x 5 mg tablets Protocol Text: Adjustment Start Date: Thursday07/24/23 INR Value: 2.7 INR Date: 07/24/23 Recheck Date: 07/31/23 Rx Instructions: 5 mg PO; 5 mg PO 1 tablet by mouth 4 days per week and 2.5 tablet by mouth 3 days per week; OR DIRECTED nitroglycerin [Nitrostat] 0.4 mg tablet, sublingual 0.4 mg sublingual Q5-15M PRN (Reason: chest pain) Qty: 25 3RF Rx Instructions: do not exceed 3 doses per episode cilostazol 50 mg tablet 100 mg PO BID 90 Days Qty: 360 3RF Hold Instructions: coumadin metoprolol tartrate 50 mg tablet 50 mg PO BID Qty: 180 3RF rosuvastatin 40 mg tablet 40 mg PO QHS Qty: 90 3RF glimepiride 4 mg tablet 4 mg PO DAILY Qty: 90 1RF fenofibrate nanocrystallized 145 mg tablet 145 mg PO DAILY Qty: 90 4RF Referrals / Follow Up: Gerber Olea MD [Med Staff - Active Staff] - Within 2 Weeks Alban Farrell MD [Non-Staff] - Within 2 Weeks Sara Pemberton NP-C [Primary Care Provider] - Disposition Disposition (needs filled in before D/C Order can be placed): Home, Self Care Charges/Coding Visit Charges Inpatient E&M: 17409 Disch Hosp >30min
--- NOTE | 2023-08-10 14:10 | PHA.DC.MC.R ---
Pharmacy [facility] has performed discharge medication reconciliation and counseling for this patient. The patient's discharge medication list was reviewed for discrepancies and discrepancies were resolved. The patient was counseled on the following discharge medications and changes in medications for homegoing were reviewed. The Reason for Use, instructions for use, and potential side effects were reviewed for all new medications. The patient's questions regarding all of their medications were answered. 1. Aspirin 81 mg PO daily 2. Ranolazine 500 mg PO BID The patient was able to verbally demonstrate an understanding of their discharge medications. Medications at Discharge Home Medications paroxetine HCl 40 mg tablet (Paxil) 40 mg PO DAILY DEPRESSION 06/10/22 nitroglycerin 0.4 mg sublingual tablet (Nitrostat) 0.4 mg sublingual Q5-15M PRN chest pain #25 tabs 08/25/22 cilostazol 50 mg tablet 100 mg (2 x 50 mg) PO BID BLOOD THINNER 90 days #360 tabs 12/15/22 metoprolol tartrate 50 mg tablet 50 mg PO BID BP #180 tabs 01/30/23 rosuvastatin 40 mg tablet 40 mg PO QHS CHOLESTEROL #90 tabs 04/27/23 glimepiride 4 mg tablet 4 mg PO DAILY SUGAR #90 tabs 05/25/23 fenofibrate nanocrystallized 145 mg tablet 145 mg PO DAILY TRIGYLCERIDES #90 tabs 08/03/23 losartan 50 mg tablet 50 mg PO DAILY BP 08/08/23 warfarin 5 mg tablet 5 mg PO .COMPLEX BLOOD THINNER 08/08/23 aspirin 81 mg tablet,delayed release 81 mg PO BREAKFAST #60 tabs 08/10/23 ranolazine 500 mg tablet,extended release,12 hr 500 mg PO BID #120 tabs 08/10/23
--- NOTE | 2023-08-10 14:45 | CASEMGMT ---
CHEYENNE MARIN updated by [facility] that patient will need prior auth for Ranexa. CHEYENNE MARIN called [phone] and completed prior auth via phone and got approval. Auth # [id number]. CHEYENNE MARIN updated [facility]. CHEYENNE MARIN in to discuss needs at discharge with patient. Patient denies needs at discharge. Patient had no further questions or concerns.
--- NOTE | 2023-08-10 15:16 | NURSING ---
pt ambulated after heart cath recovery complete. Femoral site c/d/i.
== END 2023-08-10 16:32 | disposition home or self-care (01) | DRG 281 ==
LOC: ED 08-08 01:20 → PCU 08-08 03:36
PROVIDERS: Admitting Provider Hospitalist; Emergency Provider Emergency Medicine; PCP Nurse Practitioner Family; Visit Provider Internal Medicine
DX: I21.4 Non-ST elevation (NSTEMI) myocardial infarction (principal); I48.92 Unspecified atrial flutter; I48.21 Permanent atrial fibrillation; E11.51 Type 2 diabetes mellitus with diabetic peripheral angiopathy without gangrene; Z95.1 Presence of aortocoronary bypass graft; I25.119 Atherosclerotic heart disease of native coronary artery with unspecified angina pectoris; I10 Essential (primary) hypertension; E78.5 Hyperlipidemia, unspecified; F17.210 Nicotine dependence, cigarettes, uncomplicated; G47.33 Obstructive sleep apnea (adult) (pediatric); Z68.39 Body mass index [BMI] 39.0-39.9, adult; E66.9 Obesity, unspecified; Z79.01 Long term (current) use 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; Z79.02 Long term (current) use of antithrombotics/antiplatelets; Z95.5 Presence of coronary angioplasty implant and graft; Z85.46 Personal history of malignant neoplasm of prostate
CPT/HCPCS: 36415; 71045; 80048; 80076; 83690; 83735; 84100; 84443; 84484; 85025; 85610; 85730; 93005; 93306; 93454; 97802; 99152; 99153; 99284; J7030; Q9957; Q9967; A4216; C1769

== ENCOUNTER → 2023-08-14 | Outpatient (CLI) | payer MEDICARE, SELFPAY ==
[2023-08-14 12:23] LABS: Absolute Lymphocyte Count 1.44 X10^3/uL (0.83-4.51); Absolute Neutrophil Count 6.3 X10^3/uL (2.0-7.7); Basophil# 0.09 X10^3/uL; Eosinophils% 3.4 % (0-5); Hematocrit 48.7 % (40-54); Hemoglobin 15.7 g/dL (13.0-16.5); Lymphocyte # 1.44 X10^3/ul (0.83-4.51); Lymphocyte % 16.1 % (19-41); Mean Corp Hgb Conc 32.2 g/dL (32-36); Mean Corpuscular Hgb 27.9 pg (27.0-32.0); Mean Corpuscular Volume 86.7 fL (80-94); Mean Platelet Vol. 9.6 fl (6.2-12.0); Monocyte# 0.76 X10^3/uL; Monocyte% 8.5 % (0-10); NRBC Flagged by Analyzer 0 % (0-5); Neutrophil # 6.25 X10^3/uL (2.7-7.7); Neutrophil % 70.1 % (47-70); Platelet Count 283 K/mm3 (150-450); RBC Distribution Width CV 15.6 % (11.6-14.6); RBC Distribution Width SD 49.1 fl (35.1-43.9); Red Blood Count 5.62 M/mm3 (4.6-6.2); White Blood Count 8.9 K/mm3 (4.4-11.0)
[2023-08-14 13:22] LABS: ALB/GLOB Ratio 0.8 RATIO (0.9-2.4); AST(SGOT) 15 U/L (15-37); Alanine Aminotransfer ALT/SGPT 26 U/L (16-61); Albumin, Serum 3.1 g/dL (3.2-5.0); Alkaline Phosphatase 61 U/L (45-117); Anion Gap 9 (5-15); BUN 24 mg/dL (7-18); BUN/Creat Ratio 20.3 RATIO (10-20); Chloride 109 mmol/L (98-107); Cholesterol 105 mg/dL (200); Creatinine, Serum 1.18 mg/dL (0.70-1.30); EST Glomerular Filtration Rate 65 mL/min (>60); Est Glom Filt Rate - Afr Amer 79 mL/min (>60); Globulin 3.8 g/dL (2.2-4.2); Glucose 160 mg/dL (74-106); High Density Lipoprotein 30 mg/dL; PSA,Total - Annual Screen 0.05 ng/mL (0.00-4.00); Potassium 4.2 mmol/L (3.5-5.1); Protein, Total 6.9 g/dL (6.4-8.2); Sodium Level 137 mmol/L (136-145); Triglycerides 262 mg/dL; Very Low Density Lipoprotein 52 mg/dL (5-40)
== END | disposition home or self-care (01) ==
LOC: BFHLAB 10:33
PROVIDERS: PCP Nurse Practitioner Family; Visit Provider Nurse Practitioner Family
DX: I10 Essential (primary) hypertension (principal); C61 Malignant neoplasm of prostate; E11.9 Type 2 diabetes mellitus without complications
CPT/HCPCS: 36415; 80053; 80061; 84153; 85025; G0103

== ENCOUNTER → 2023-08-18 | Outpatient (CLI) | payer MEDICARE, SELFPAY ==
[2023-08-18 13:16] LABS: Vitamin B12 265 pg/mL (211-911); Vitamin D,25 Hydroxy 19.5 ng/mL
[2023-08-18 13:40] LABS: Ferritin 100 ng/mL (26-388); Iron 62 ug/dL (65-175); T4 Free Direct 0.91 ng/dL (0.76-1.46); Thyroid Stim Hormone (TSH) 4.61 uIU/mL (0.358-3.74)
== END | disposition home or self-care (01) ==
LOC: BFHLAB 10:29
PROVIDERS: PCP Nurse Practitioner Family; Referring Provider Nurse Practitioner Family; Visit Provider Nurse Practitioner Family
DX: R53.83 Other fatigue (principal); E55.9 Vitamin D deficiency, unspecified; E61.1 Iron deficiency; E53.8 Deficiency of other specified B group vitamins; R79.89 Other specified abnormal findings of blood chemistry
CPT/HCPCS: 36415; 82306; 82607; 82728; 83540; 84439; 84443

== ENCOUNTER → 2023-09-29 | Outpatient (CLI) | payer MEDICARE, SELFPAY ==
--- NOTE | 2023-10-02 13:43 | PFTCOMP ---
COMPLETE PULMONARY FUNCTION TEST INTERPRETATION Brief HPI: Patient is a 68-year-old male, currently under the care of Mary Ellen Sparks, who presents to [facility] for complete pulmonary function tests secondary to diagnosis of dyspnea. Respiratory therapist reports good effort and reproducible results. Interpretation: Forced expiration spirometry shows a moderate large airways obstructive ventilatory defect with an FEV1 of 68% predicted. There is no significant bronchodilator response by strict ATS criteria. Spirograms are of good quality and plateau slowly, indicating slowly emptying areas of the lungs. The respiratory flow volume loop shows decreased expiratory flow rates at all lung volumes consistent with airway obstruction. Lung volumes by body plethysmography show a normal total lung capacity at 5.73 L, 85% predicted. All other lung volumes are within normal limits. Diffusion capacity by carbon monoxide is decreased at 42% predicted. The airway resistance is normal. Compared to previous pulmonary function tests from 06/30/2017, there has been a significant reduction in DLCO. Impression: Irreversible moderate large airways obstructive ventilatory defect with a disproportionate reduction in diffusion capacity, and some worsening compared to 2017
== END | disposition home or self-care (01) ==
LOC: PSN 12:57
PROVIDERS: PCP Nurse Practitioner Family; Referring Provider Nurse Practitioner Acute Care; Visit Provider Nurse Practitioner Acute Care
DX: R06.09 Other forms of dyspnea (principal)
CPT/HCPCS: 94060; 94726; 94729

== ENCOUNTER → 2023-10-01 | Outpatient (CLI) | payer MEDICARE, SELFPAY ==
[2023-10-01 11:29] VITALS: PULSE 56; PULSE 61; PULSE 82; O2SAT 94; O2SAT 96
--- NOTE | 2023-10-01 11:32 | CPS ---
Pt needed to take a rest against the wall at end of minute 1 due to calf pain. Pt denies any S.O.B. Pt refused to do any more of the walk. Pt again stated it was due to his pain in his legs that he had surgery on the veins years ago and that he is having issues with walking from the pain. Pt also stated he never walks for 6 minutes at a time.
--- NOTE | 2023-10-02 13:57 | PCM.PSN.6M ---
PSN 6 Minute Walk Test 6 Minute Walk Test 6 Minute Walk Test: 6 Minute Walk Test PSN:6-Minute Walk Test Start: 10/01/23 11:28 Freq: Status: Active Protocol: [id number].[id number] Document 10/01/23 11:29 [facility] (Rec: 10/01/23 11:39 [facility] Desktop) 6 Minute Walk Test Date Performed 10/01/23 Time Performed 11:15 Height 5 ft 8 in Weight: 121.563 kg Weight in Pounds 268.[address]: Yael Assistive device used: None Pre-test Oxygen Delivery Method Room Air Pulse Ox 96 Pulse Rate (60-100) 61 Dyspnea Hannah Scale (0-10) 1 Exertion Hannah Scale (6-20) 6 Number of Rests Taken 1 1st minute Oxygen Delivery Method Room Air Pulse Ox 94 Pulse Rate (60-100) 82 Post-test Oxygen Delivery Method Room Air Pulse Ox 96 Pulse Rate (60-100) 56 L Full Laps Walked 2 Partial Lap, Number of Tiles Walked 0 Total Distance Walked (ft) 118 10/01/23 11:32 Cardiopulmonary Services by Dennise Garcia Pt needed to take a rest against the wall at end of minute 1 due to calf pain. Pt denies any S.O.B. Pt refused to do any more of the walk. Pt again stated it was due to his pain in his legs that he had surgery on the veins years ago and that he is having issues with walking from the pain. Pt also stated he never walks for 6 minutes at a time. Initialized on 10/01/23 11:32 - END OF NOTE Interpretation Interpretation: The patient was noted to be 96% on room air at rest. However, patient developed significant calf pain within the first minute of ambulation and refused to finish. In total, the patient traveled only 118 feet during testing. Consider evaluation for peripheral vascular disease and claudication as a cause of limited exercise tolerance. If patient can have intervention, might be worth retesting Recommendations Recommendations: Patient with no significant desaturation, but does have findings consistent with possible claudication as a limitation exercise tolerance. Patient might need to be retested if there is intervention available
== END | disposition home or self-care (01) ==
LOC: PSN 11:08
PROVIDERS: PCP Nurse Practitioner Family; Referring Provider Nurse Practitioner Acute Care; Visit Provider Nurse Practitioner Acute Care
DX: R06.09 Other forms of dyspnea (principal)
CPT/HCPCS: 94618

== ENCOUNTER → 2023-11-26 | Outpatient (CLI) | payer MEDICARE, SELFPAY ==
--- NOTE | 2023-11-26 13:07 | CT_ITS ---
STUDY: LOW DOSE CT LUNG CANCER SCREENING REASON FOR EXAM: Male, 68 years old. 4 pack per day smoker x50 years now smokes one half pack per day RADIATION DOSAGE (If Supplied By Facility): CTDIvol = ( 4.02 ) mGy, DLP = ( 145.47 ) mGycm TECHNIQUE: No contrast was administered. Low dose technique was utilized (average mAS-38 and kVp 120). 1.25 mm axial source images with a slice interval of 1.25-mm were reconstructed in lung windows. 2.5 mm axial source images with a slice interval of 2.5-mm were reconstructed in lung windows. 5.0 mm axial source images with a slice interval of 5.0-mm were reconstructed in soft tissue windows. COMPARISON: 11/21/2022 FINDINGS: Lung windows show the lungs to be normally expanded. Chronic interstitial changes noted in both lung szymanski without organized infiltrate, effusion, or suspicious noncalcified mass or nodule. There is evidence of chronic bronchitis. Limited soft tissue windows show a normal-appearing thyroid gland. 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 Bony structures show degenerative change. Limited cuts through the upper abdomen do not show suspicious solid organ abnormality. Overall, no interval change since the previous study CT/Low Dose CT Lung Screening IMPRESSION: Lung-RADS category 2 - Continue annual screening with LDCT in 12 months. IMPORTANT NOTES FOR USE: ACR Lung-RADS Version 1.1 Assessment Categories Release Date: 2018 Category: Coded 0-4 bases on nodule(s) with highest degree of suspicion. Negative screen is defined as categories 1 and 2; a positive screen is defined as categories 3 and 4. Category 3 and 4A nodules that are unchanged on interval CT should be coded as category 2, and individuals returned to screening in 12 months. Category 4X: Category 3 or 4 nodules with additional imaging findings that increase the suspicion of lung cancer, such as spiculation, GGN that doubles in size in 1 year, enlarged lymph notes, etc. Category Modifiers: S (significant finding unrelated to lung cancer) Electronically Signed: Tay Topete MD at 14:13 EST ,
--- OUTSIDE RECORDS SUMMARY | 2023-11-26 14:59 | XMS RPT_ITS | CCD ---
Author Name Unknown Address [address] [place] [address] Organization [facility] Care Team Providers Care Manager Lvn Name Role Phone Gisele WINSLOWNMarjorie Unavailable Unavaila chidi Dimas, RN, Stephie Cancino Unavailable Unavailjannet Dimas, [place], Stephie Cancino Unavailable Unavailjannet e VINCE Nurse Unavailable Unavailable Gloria Oliver Unavailable Unavailable [place] Dimas, Stephie Cancino Unavailable UnavailCONSTANTINE Purvis Unavailable Unavailable ALBAN FARRELL Unavailable Unavailable ALBAN FARRELL Unavailable Unavailable Alban Farrell Primary Care Provider Lefty, Gerber S Unavailable Constantine Helms Unavailable [phone] Alban Farrell MD Primary Care Provider Lefty, [place] S Unavailable Constantine Helms MD Unavailable [phone] Justina Jiménez MD Primary Care Provider Lefty Gerber S Unavailable Constantine Helms MD Unavailable ALBAN FARRELL Primary Care Unavailable YSABEL ROSE Attending Unavailable JUSTINA JIMÉNEZ Primary Care Unavailable AUGUSTINE PARSON Attending Unavailable YSABEL ROSE Attending Unavailable JUSTINA JIMÉNEZ Primary Care Unavailable YSABEL ROSE Attending Unavailable JUSTINA JIMÉNEZ Primary Care Unavailable YSABEL ROSE Attending Unavailable JUSTINA JIMÉNEZ Primary Care Unavailable Allergies Allergy Classification Reported Allergen(s) Allergy Type Date of Onset Reaction(s) Facility (6 sources) Adhesive bandage; Translations: [ADHESIVE BANDAGES] allergy to substance 5 [facility] Work Phone: [phone] (16 sources) lisinopril; Translations: [LISINOPRIL] Drug Allergy 5 Cough [facility] Work Phone: [phone] (8 sources) natural latex rubber; Translations: [LATEX] allergy to substance 5 rash [facility] Work Phone: [phone] (6 sources) penicillin Drug Allergy 1 Severe hives [facility] Work Phone: [phone] (6 sources) rivaroxaban Drug Allergy 6 Rectal Bleeding [facility] Work Phone: [phone] (10 sources) ceFAZolin; Translations: [CEFAZOLIN SODIUM] Drug Allergy 6 Rash [facility] Repository (10 sources) Penicillins; Translations: [PENICILLINS] Propensity to adverse reactions (disorder) [address] [facility] Repository (10 sources) rivaroxaban; Translations: [RIVAROXABAN] Drug Allergy 6 Other: See Comments [facility] Repository (8 sources) Latex Drug Intolerance 6 Other: See Comments [facility] Medications Completed/Discontinued Medications Medication Drug Class(es) Dates Sig (Normalized) Sig (Original) acetaminophen 325 mg / HYDROcodone bitartrate 5 mg oral tablet (2 sources) Opioid Agonist Start: 05-07-2023 take 1 tablet by mouth every four hours as needed for pain, then take 2 tablets by mouth every six hours as needed for pain HYDROcodone-aceta minophen (NORCO) 5-325 mg per tablet TAKE 1 TABLET BY MOUTH EVERY 4 HOURS or 2 tablets every 6 hours as needed for pain 0 05/07/2023 Active Problems Active Problems Problem Classification Problem Date Documented Date Episodic/Chronic Acute myocardial infarction (6 sources) Subsequent ST elevation (STEMI) myocardial infarction of inferior wall; Translations: [Subsequent ST elevation (STEMI) myocardial infarction of inferior wall] Onset: 05-01-2011 05-01-2011 Chronic Cardiac dysrhythmias (20 sources) Persistent atrial fibrillation; Translations: [Atrial fibrillation] Onset: 05-01-2011 03-05-2016 Chronic Complication of device; implant or graft (18 sources) 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; Translations: [Arteriosclerosis of autologous vein coronary artery bypass graft] Onset: 05-01-2011 07-23-2016 Chronic Coronary atherosclerosis and other heart disease (20 sources) Coronary arteriosclerosis; Translations: [Coronary atherosclerosis] Onset: 05-01-2011 Resolved: 08-24-2015 05-01-2011 Chronic Coronary atherosclerosis and other heart disease (10 sources) Presence of aortocoronary bypass graft; Translations: [History of percutaneous transluminal coronary angioplasty] Onset: 05-01-2011 05-01-2011 Episodic Disorders of lipid metabolism (6 sources) Hyperlipidemia; Translations: [Hyperlipidemia, unspecified] Onset: 05-01-2011 05-01-2011 Chronic Heart valve disorders (16 sources) Tricuspid valve regurgitation; Translations: [Mitral valve regurgitation] 05-15-2016 Chronic Malaise and fatigue (14 sources) Malaise and fatigue; Translations: [Fatigue] Onset: 03-05-2016 03-05-2016 Episodic Open wounds of head; neck; and trunk (11 sources) Open wound of nose; Translations: [Unspecified open wound of nose, sequela] Onset: 05-18-2023 05-25-2023 Episodic Other aftercare (6 sources) Anticoagulant effect; Translations: [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) use 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] 05-15-2016 Episodic Other lower respiratory disease (14 sources) Dyspnea on exertion; Translations: [Other forms of dyspnea] Onset: 12-24-2016 12-24-2016 Episodic Other nervous system disorders (6 sources) Claudication; Translations: [Peripheral vascular disease, unspecified] Onset: 05-12-2014 02-21-2016 Chronic Other nutritional; endocrine; and metabolic disorders (8 sources) Body mass index 30+ - obesity; Translations: [Obesity, unspecified] 05-15-2016 Chronic Other nutritional; endocrine; and metabolic disorders (8 sources) Obese class II; Translations: [Obesity, unspecified] Onset: 05-19-2023 05-25-2023 Chronic Peripheral and visceral atherosclerosis (20 sources) Peripheral vascular disease, unspecified; Translations: [Peripheral vascular disease] Onset: 05-12-2014 05-12-2014 Chronic Poisoning by other medications and drugs (8 sources) Anticoagulant adverse reaction; Translations: [Adverse effect 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, initial encounter] 05-15-2016 Episodic Residual codes; unclassified (8 sources) Obstructive sleep apnea syndrome; Translations: [Obstructive sleep apnea (adult) (pediatric)] 05-15-2016 Chronic Residual codes; unclassified (1 source) Postoperative state; Translations: [Other specified postprocedural states] 07-01-2023 Episodic Residual codes; unclassified (1 source) Other specified postprocedural states; Translations: [Post-operative state] Onset: 07-01-2023 Episodic Substance-related disorders (14 sources) Tobacco dependence syndrome; Translations: [Nicotine dependence] Onset: 02-21-2016 02-21-2016 Chronic Unclassified (20 sources) Body mass index (BMI) 38.0-38.9, adult; Translations: [Body mass index (BMI) 36.0-36.9, adult] Onset: 07-26-2013 Resolved: 02-21-2016 02-21-2016 Chronic Unclassified (6 sources) Long-term drug therapy; Translations: [Other parts counterman (current) drug therapy] Onset: 05-01-2011 05-01-2011 Unclassified (6 sources) Radiofrequency ablation operation for arrhythmia ; Translations: [Other specified postprocedural states] Onset: 02-21-2016 02-21-2016 Unclassified (1 source) Unknown / UNK(Unknown) Onset: 08-06-2018 Unclassified (2 sources) Anticoagulant effect; Translations: [Anticoagulated on warfarin] 05-15-2016 Unclassified (1 source) New Patient Onset: 05-12-2023 Past or Other Problems Problem Classification Problem Date Documented Date Episodic/Chronic Cardiac dysrhythmias (12 sources) Palpitations; Translations: [Palpitations] Onset: 05-01-2011 Resolved: 03-10-2016 03-10-2016 Episodic Nonspecific chest pain (18 sources) Chest pain; Translations: [Other chest pain] Onset: 02-21-2016 Resolved: 03-10-2016 03-05-2016 Episodic Screening or history of mental health and substance abuse (12 sources) Personal history of nicotine dependence; Translations: [Personal history of nicotine dependence] Onset: 05-01-2011 Resolved: 03-10-2016 03-10-2016 Episodic Syncope (12 sources) Syncope and collapse; Translations: [Syncope and collapse] Onset: 05-01-2011 Resolved: 03-10-2016 03-10-2016 Episodic Unclassified (12 sources) Preoperative cardiovascular examination ; Translations: [Encounter for preprocedural cardiovascular examination] Onset: 05-01-2011 Resolved: 08-24-2015 08-24-2015 Results Test Name Value Interpretation Reference Range Facil ity Vital Signs Date Time Vital Sign Value Performing Clinician Gutierrez erickson 07-01-2023 11:24-0400 Diastolic blood pressure 77 mm[Hg] Augustine Parson APRN.HOSPITAL EDUCATOR Work Phone: [facility] 07-01-2023 11:24-0400 Heart rate 57 /min Augustine Parson VOICE OVER ANNOUNCER.HOSPITAL EDUCATOR Work Phone: [facility] 07-01-2023 11:24-0400 Systolic blood pressure 147 mm[Hg] Augustine Parson VOICE OVER ANNOUNCER.HOSPITAL EDUCATOR Work Phone: [facility] 06-03-2023 11:24-0400 Body height 172.7 cm Ysabel Rose MD Work Phone: [facility] 06-03-2023 11:24-0400 Body weight 118.39 kg Ysabel Rose MD Work Phone: [facility] 05-12-2023 08:28-0400 Body height 172.7 cm Ysabel Rose MD Work Phone: [facility] 05-12-2023 08:28-0400 Body weight 119.3 kg Ysabel Rose MD Work Phone: [facility] 09-16-2017 05:23-0500 BMI (Body Mass Index) 39.57 kg/m2 [facility] Work Phone: 09-16-2017 05:23-0500 Body Temperature 98.2 [degF] [facility] Work Phone: 09-16-2017 05:23-0500 BP Diastolic 76 mm[Hg] [facility] Work Phone: 09-16-2017 05:23-0500 BP Systolic 132 mm[Hg] [facility] Work Phone: 09-16-2017 05:23-0500 Height 175.26 cm [facility] Work Phone: 09-16-2017 05:23-0500 Pulse (Heart Rate) 60 /min [facility] Work Phone: 09-16-2017 05:23-0500 Respiratory Rate 18 /min [facility] Work Phone: 09-16-2017 05:23-0500 Weight 121.56 kg [facility] Work Phone: 06-25-2017 06:11-0400 BMI (Body Mass Index) 39.72 kg/m2 [facility] Work Phone: 06-25-2017 06:11-0400 Body Temperature 97.5 [degF] [facility] Work Phone: 06-25-2017 06:11-0400 BP Diastolic 59 mm[Hg] [facility] Work Phone: 06-25-2017 06:11-0400 BP Systolic 92 mm[Hg] [facility] Work Phone: 06-25-2017 06:11-0400 Height 175.26 cm [place] [facility] Work Phone: 06-25-2017 06:11-0400 Pulse (Heart Rate) 64 /min [facility] Work Phone: 06-25-2017 06:11-0400 Respiratory Rate 18 /min [facility] Work Phone: 06-25-2017 06:11-0400 Weight 122.02 kg [place] [facility] Work Phone: 11-25-2016 09:20-0500 BSA (Body Surface Area) 2.35 m2 [place] [facility] Work Phone: 07-24-2016 13:06-0400 Pulse Oximetry 96 % Stephie Dimas RN [facility] Work Phone: Encounters Encounter Date Encounter Type Care Provider Facility Start: 07-01-2023 End: 07-01-2023 ambulatory JUSTINA JIMÉNEZ Facility:[facility] Start: 07-01-2023 End: 07-01-2023 Patient encounter procedure Augustine Parson VOICE OVER ANNOUNCER.HOSPITAL EDUCATOR Work Phone: [facility] [place] [facility] Procedures Date Procedure Procedure Detail Performing Clinician Start: 07-05-2020 End: 07-05-2020 EXTERNAL LAB External Provider Start: 04-07-2017 End: 04-07-2017 Follow Up Appt 6 months Barak Boswell Start: 04-07-2017 End: 04-07-2017 MMBarak Olea MD Start: 01-15-2017 End: 01-15-2017 *BMP Loida Russell PA-C Work Phone: Start: 01-15-2017 End: 01-15-2017 SPACE STUDIES FACULTY MEMBER Loida Russell PA-C Work Phone: Start: 01-15-2017 End: 01-15-2017 Follow Up Appt 3 months Loida Russell PA-C Work Phone: Start: 01-15-2017 End: 02-26-2017 INR in Platelet poor plasma by Coagulation assay Loida Russell PA-C Work Phone: Start: 12-24-2016 End: 01-23-2017 24 hour holter monitor Gerber Olea MD Start: 12-24-2016 End: 01-19-2017 Ct angiography chest w/contrast/noncontrast Gerber Olea MD Start: 12-24-2016 End: 01-19-2017 Echocardiography Gerber Olea MD Start: 11-25-2016 End: 11-25-2016 Ecg routine ecg w/least 12 lds w/i&r Gerber Olea MD Start: 11-25-2016 End: 11-25-2016 Follow Up Appt 4 months Barak Boswell Start: 11-25-2016 End: 11-25-2016 MMBarak Olea MD Start: 08-21-2016 End: 08-21-2016 *Hepatic Function Panel Barak Boswell Start: 08-21-2016 End: 08-21-2016 Lipid 1996 panel - Serum or Plasma Gerber Olea MD Start: 07-24-2016 End: 07-24-2016 Follow Up Appt 4 months Barak Boswell Start: 07-24-2016 End: 07-24-2016 MMBarak Olea MD Start: 05-13-2016 End: 05-13-2016 Follow Up Appt 3 months Barak Boswell Start: 05-13-2016 End: 05-13-2016 MMBarak Olea MD Start: 04-18-2016 End: 04-19-2016 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 to 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[employer] mechanical Gerber Olea MD Start: 04-17-2016 End: 04-18-2016 *BMP Gerber Olea MD Start: 04-17-2016 End: 04-18-2016 INR in Platelet poor plasma by Coagulation assay Gerber Olea MD Start: 04-17-2016 End: 04-17-2016 Nurse, Teaching, Wound Check (no charge) Gerber Olea MD Start: 04-03-2016 End: 04-18-2016 Cardioversion Gerber Olea MD Start: 04-03-2016 End: 04-03-2016 SP[employer]UDIES FACULTY MEMBER Gerber Olea MD Start: 04-03-2016 End: 04-18-2016 Ecg routine ecg w/least 12 lds w/i&r Gerber Olea MD Start: 04-03-2016 End: 04-03-2016 Follow Up Appt 6 weeks Gerber Olea MD Start: 04-03-2016 End: 04-23-2016 INR in Platelet poor plasma by Coagulation assay Gerber Olea MD Start: 04-03-2016 End: 04-18-2016 Transesophageal echocardiogram (MARITZA) Gerber Olea MD Start: 03-12-2016 End: 03-12-2016 Ecg routine ecg w/least 12 lds w/i&r Gerber Olea MD Start: 03-12-2016 End: 03-12-2016 Follow Up Appt 3 months Barak Boswell Start: 03-12-2016 End: 03-12-2016 MMM Gerber Olea MD Start: 03-05-2016 End: 03-05-2016 Nurse, Teaching, Wound Check (no charge) Gerber Olea MD Start: 02-21-2016 End: 02-21-2016 *BMP Gerber Olea MD Start: 02-21-2016 End: 02-21-2016 *Hepatic Function Panel Barak Boswell Start: 02-21-2016 End: 02-21-2016 CBC W Auto Differential panel - Blood Gerber Olea MD Start: 02-21-2016 End: 02-26-2016 Chest x-ray Gerber Olea MD Start: 02-21-2016 End: 02-21-2016 SPACE [employer]UDIES FACULTY MEMBER Gerber Olea MD Start: 02-21-2016 End: 02-26-2016 Ecg routine ecg w/least 12 lds w/i&r Gerber Olea MD Start: 02-21-2016 End: 02-21-2016 Follow Up Appt 3 months Barak Boswell Start: 02-21-2016 End: 02-21-2016 INR in Platelet poor plasma by Coagulation assay Gerber Olea MD Start: 02-21-2016 End: 02-26-2016 Left Heart Cath W/Grafts Gerber Olea MD Start: 02-21-2016 End: 02-21-2016 Lipid 1996 panel - Serum or Plasma Gerber Olea MD Start: 08-24-2015 End: 08-25-2015 Documentation of current medications Gerber Olea MD Start: 08-24-2015 End: 08-24-2015 Follow Up Appt 6 months Barak Boswell Start: 08-24-2015 End: 08-24-2015 MMM Gerber Olea MD Start: 02-21-2015 End: 02-21-2015 SP[employer]UDIES FACULTY MEMBER Loida Russell PA-C Work Phone: Start: 02-21-2015 End: 02-22-2015 Documentation of current medications Loida Russell PA-C Work Phone: Start: 02-21-2015 End: 02-21-2015 Ecg routine ecg w/least 12 lds w/i&r Loida Russlel PA-C Work Phone: Start: 02-21-2015 End: 02-21-2015 Follow Up Appt 6 months Loida Russell PA-C Work Phone: Start: 02-21-2015 End: 02-21-2015 Thyrotropin [Units/volume] in Serum or Plasma Loida Russell PA-C Work Phone: Start: 08-22-2014 End: 08-22-2014 Follow Up Appt 6 months Barak Boswell Start: 08-22-2014 End: 08-22-2014 KIANA Olea MD Start: 01-31-2014 End: 01-31-2014 [employer]AC[employer]Y MEMBER Loida Russell PA-C Work Phone: Start: 01-31-2014 End: 01-31-2014 Follow Up Appt 6 months Loida Russell PA-C Work Phone: Start: 07-26-2013 End: 01-20-2014 Follow Up Appt 6 months Barak Boswell Start: 07-26-2013 End: 01-20-2014 MMBarak Olea MD Start: 07-26-2013 End: 01-20-2014 Nuclear stress test -exercise Gerber Olea MD Start: 04-25-2013 End: 08-16-2013 *Hepatic Function Panel Barak Boswell Start: 04-25-2013 End: 08-16-2013 Lipid 1996 panel - Serum or Plasma Gerber Olea MD Start: 09-29-2012 End: 11-24-2012 *Hepatic Function Panel Barak Boswell Start: 09-29-2012 End: 09-29-2012 Follow Up Appt 6 months Barak Boswell Start: 09-29-2012 End: 11-24-2012 Lipid 1996 panel - Serum or Plasma Gerber Olea MD Start: 02-24-2012 End: 02-24-2012 Follow Up Appt 6 months Barak Boswell History of coronary artery bypass grafting S/P CABG (coronary artery bypass graft) Ysabel Rose MD Work Phone: History of percutane ous transluminal coronary angioplasty Percutaneous transluminal coronary angioplasty (PTCA) within last 14 to 24 months Ysabel Rose MD Work Phone: Plan of Treatment Date Care Activity Detail Author Start: 06-26-2023 Influenza vaccination INFLUENZA (#1) [facility] Start: 10-26-2022 ADVANCE DIRECTIVE DISCUSSION ADVANCE DIRECTIVE DISCUSSION [facility] Start: 10-26-2022 DEPRESSION ASSESSMENT DEPRESSION ASSESSMENT [facility] Start: 11-28-2021 COVID-19 VACCINE (4 - Pfizer series) COVID-19 VACCINE (4 - Pfizer series) [facility] Start: 08-21-2021 LIPID SCREEN LIPID SCREEN [facility] Start: 02-25-2021 LIPID SCREEN LIPID SCREEN [facility] Start: 06-26-2020 Influenza vaccination INFLUENZA (#1) [facility] Start: 09-24-2019 DIABETES SCREEN DIABETES SCREEN [facility] Start: 03-15-2018 End: 03-15-2018 Appointment Appointment [facility] Work Phone: Start: 10-23-2017 End: 10-23-2017 Appointment Appointment [facility] Work Phone: Start: 09-16-2017 End: 09-16-2017 [facility] Work Phone: Start: 09-16-2017 End: 09-16-2017 Follow Up Appt 6 months Follow Up Appt 6 months [facility] Work Phone: Start: 09-16-2017 End: 09-16-2017 Retitration ONLY -PCP to follow up Retitration ONLY -PCP to follow up [facility] Work Phone: Start: 09-16-2017 End: 09-16-2017 Appointment Appointment [facility] Work Phone: Start: 08-21-2017 Hepatitis B surface antibody level LDL CHOLESTEROL [facility] Start: 06-25-2017 End: 06-25-2017 Follow Up Appt 3 months Follow Up Appt 3 months [facility] Work Phone: Start: 06-25-2017 End: 06-25-2017 INR Coag RelTime (PPP) *PT/INR - Standing Order [facility] Work Phone: Start: 06-25-2017 End: 06-25-2017 Pulmonary Function Test - complete Pulmonary Function Test - complete [facility] Work Phone: Start: 04-07-2017 End: 04-07-2017 Follow Up Appt 6 months Follow Up Appt 6 months [facility] Work Phone: Start: 04-07-2017 End: 04-07-2017 MMM MMM [facility] Work Phone: Start: 02-25-2017 Hepatitis B surface antibody level LDL CHOLESTEROL [facility] Start: 02-19-2017 End: 08-23-2016 *Hepatic Function Panel *Hepatic Function Panel [facility] Work Phone: Start: 02-19-2017 End: 08-23-2016 Lipid panel [AGGREGATE] *Lipid Profile CC PCP [facility] Work Phone: Start: 01-15-2017 End: 01-15-2017 *BMP *BMP [facility] Work Phone: Start: 01-15-2017 End: 01-15-2017 SP[employer]UDIES FACULTY MEMBER SPACE [employer]UDIES FACULTY MEMBER [facility] Work Phone: Start: 01-15-2017 End: 01-15-2017 Follow Up Appt 3 months Follow Up Appt 3 months [facility] Work Phone: Start: 01-15-2017 End: 02-26-2017 INR Coag RelTime (PPP) *PT/INR - Standing Order [facility] Work Phone: Start: 12-24-2016 End: 12-25-2016 24 hour holter monitor 24 hour holter monitor [facility] Work Phone: Start: 12-24-2016 End: 12-25-2016 Ct angiography chest w/contrast/noncontrast CTA Chest, with contrast material(s) [facility] Work Phone: Start: 12-24-2016 End: 12-25-2016 Echocardiography Echocardiogram (complete) [facility] Phone: Start: 11-25-2016 End: 11-25-2016 Ecg routine ecg w/least 12 lds w/i&r EKG (In office) [facility] Work Phone: Start: 11-25-2016 End: 11-25-2016 Follow Up Appt 4 months Follow Up Appt 4 months [employer] Phone: Start: 11-25-2016 End: 11-25-2016 MMM MMM [facility] Phone: Start: 08-21-2016 End: 08-21-2016 *Hepatic Function Panel *Hepatic Function Panel [employer] Phone: Start: 08-21-2016 End: 08-21-2016 Lipid panel [AGGREGATE] *Lipid Profile CC PCP [employer] Phone: Start: 07-24-2016 End: 07-24-2016 Follow Up Appt 4 months Follow Up Appt 4 months [employer] Phone: Start: 07-24-2016 End: 07-24-2016 MMM MMM [facility] Phone: Start: 05-13-2016 End: 05-13-2016 Follow Up Appt 3 months Follow Up Appt 3 months [employer] Work Phone: Start: 05-13-2016 End: 05-13-2016 MMM MMM [facility] Work Phone: Start: 04-18-2016 End: 04-18-2016 Cardiac Referral Cardiac Referral Jesus Polo, [facility] [place], [address] [place] [address], [id number] [facility] Work Phone: Start: 04-17-2016 End: 04-18-2016 *BMP *BMP [facility] Work Phone: Start: 04-17-2016 End: 04-18-2016 INR Coag RelTime (PPP) *PT/INR [facility] Work Phone: Start: 04-03-2016 End: 04-09-2016 Cardioversion Cardioversion [facility] Work Phone: Start: 04-03-2016 End: 04-03-2016 SPACE STUDIES FACULTY MEMBER SPACE STUDIES FACULTY MEMBER [facility] Work Phone: Start: 04-03-2016 End: 04-18-2016 Ecg routine ecg w/least 12 lds w/i&r EKG (In office) [facility] Work Phone: Start: 04-03-2016 End: 04-03-2016 Follow Up Appt 6 weeks Follow Up Appt 6 weeks [facility] Work Phone: Start: 04-03-2016 End: 04-23-2016 INR Coag RelTime (PPP) *PT/INR - Standing Order [facility] Work Phone: Start: 04-03-2016 End: 04-18-2016 Transesophageal echocardiogram (MARITZA) Transesophageal echocardiogram (MARITZA) [facility] Work Phone: Start: 03-12-2016 End: 03-12-2016 Ecg routine ecg w/least 12 lds w/i&r EKG (In office) [facility] Work Phone: Start: 03-12-2016 End: 03-12-2016 Follow Up Appt 3 months Follow Up Appt 3 months [facility] Work Phone: Start: 03-12-2016 End: 03-12-2016 MMM MMM [facility] Work Phone: Start: 03-11-2016 End: 02-21-2016 *Hepatic Function Panel *Hepatic Function Panel [facility] Work Phone: Start: 03-11-2016 End: 02-21-2016 Lipid panel [AGGREGATE] *Lipid Profile CC PCP [facility] Work Phone: Start: 02-21-2016 End: 02-21-2016 *BMP *BMP [facility] Work Phone: Start: 02-21-2016 End: 02-21-2016 CBC W Auto Differential panel - Blood *CBC without Diff [facility] Work Phone: Start: 02-21-2016 End: 02-26-2016 Chest x-ray X-Ray, Chest, PA & Lateral [facility] Work Phone: Start: 02-21-2016 End: 02-21-2016 SPACE STUDIES FACULTY MEMBER SPACE STUDIES FACULTY MEMBER [facility] Work Phone: Start: 02-21-2016 End: 02-26-2016 Ecg routine ecg w/least 12 lds w/i&r EKG (In office) [facility] Work Phone: Start: 02-21-2016 End: 02-21-2016 Follow Up Appt 3 months Follow Up Appt 3 months [facility] Work Phone: Start: 02-21-2016 End: 02-21-2016 INR Coag RelTime (PPP) *PT/INR [facility] Work Phone: Start: 02-21-2016 End: 02-21-2016 Left Heart Cath W/Grafts Left Heart Cath W/Grafts [facility] Work Phone: Start: 08-24-2015 End: 08-24-2015 Follow Up Appt 6 months Follow Up Appt 6 months [facility] Work Phone: Start: 08-24-2015 End: 08-24-2015 MMM MMM [facility] Work Phone: Start: 02-21-2015 End: 02-21-2015 SPACE STUDIES FACULTY MEMBER SPACE STUDIES FACULTY MEMBER [facility] Work Phone: Start: 02-21-2015 End: 02-21-2015 Ecg routine ecg w/least 12 lds w/i&r EKG (In office) [facility] Work Phone: Start: 02-21-2015 End: 02-21-2015 Follow Up Appt 6 months Follow Up Appt 6 months [facility] Work Phone: Start: 02-21-2015 End: 02-21-2015 Thyroid stimulating hormone (TSH) *TSH [facility] Work Phone: Start: 08-22-2014 End: 08-22-2014 Follow Up Appt 6 months Follow Up Appt 6 months [facility] Work Phone: Start: 08-22-2014 End: 08-22-2014 MMM MMM [facility] Work Phone: Start: 01-31-2014 End: 01-31-2014 SPACE STUDIES FACULTY MEMBER SPACE STUDIES FACULTY MEMBER [facility] Work Phone: Start: 01-31-2014 End: 01-31-2014 Follow Up Appt 6 months Follow Up Appt 6 months [facility] Work Phone: Start: 07-26-2013 End: 01-20-2014 Follow Up Appt 6 months Follow Up Appt 6 months [facility] Work Phone: Start: 07-26-2013 End: 01-20-2014 MMM MMM [facility] Work Phone: Start: 07-26-2013 End: 07-26-2013 Nuclear stress test -exercise Nuclear stress test -exercise [facility] Work Phone: Start: 04-25-2013 End: 08-16-2013 *Hepatic Function Panel *Hepatic Function Panel [facility] Work Phone: Start: 04-25-2013 End: 08-16-2013 Lipid panel [AGGREGATE] *Lipid Profile [facility] Work Phone: Start: 09-29-2012 End: 09-29-2012 *Hepatic Function Panel *Hepatic Function Panel [facility] Work Phone: Start: 09-29-2012 End: 09-29-2012 Follow Up Appt 6 months Follow Up Appt 6 months [facility] Work Phone: Start: 09-29-2012 End: 11-24-2012 Lipid panel [AGGREGATE] *Lipid Profile [facility] Work Phone: Start: 02-24-2012 End: 02-24-2012 Follow Up Appt 6 months Follow Up Appt 6 months [facility] Work Phone: Start: 2011 PROSTATE CANCER SCREENING DISCUSSION PROSTATE CANCER SCREENING DISCUSSION [facility] Start: 2006 SHINGRIX VACCINE (1 of 2) SHINGRIX VACCINE (1 of 2) [facility] Start: 2006 Tuberculosis screening COLORECTAL CANCER SCREENING,SEE MODIFIER [facility] Start: 2001 COLOGUARD (FIT-DNA) COLOGUARD (FIT-DNA) [facility] Start: 2001 Colonoscopy COLONOSCOPY [facility] Start: 2001 COLORECTAL CANCER SCREENING COLORECTAL CANCER SCREENING [facility] Start: [address] COLONOGRAPHY [facility] Start: 2001 FECAL OCCULT BLOOD FECAL OCCULT BLOOD [facility] Start: 2001 SIGMOIDOSCOPY SIGMOIDOSCOPY [facility] Start: 1975 Urine microalbumin profile DTAP,TDAP,TD (1 - Tdap) [facility] Start: 1974 ANNUAL PCP TEAM CHRONIC DISEASE VISIT ANNUAL PCP TEAM CHRONIC DISEASE VISIT [facility] Start: 1974 HEPATITIS C SCREENING HEPATITIS C SCREENING [facility] Start: 1974 HIV SCREENING HIV SCREENING [facility] Start: 1962 PNEUMOCOCCAL: 65+ (1 - PCV) PNEUMOCOCCAL: 65+ (1 - PCV) [facility] Start: 1956 ABDOMINAL AORTIC ANEURYSM SCREENING ABDOMINAL AORTIC ANEURYSM SCREENING [facility] Patient Education [facility] Work Phone: [facility] Payers Date Payer Category Payer Unknown HA [employer] S [employer] MEDIBLUE O [id number] 2021-Present [phone] [address] [place] [address] O [id number] 2021 Unknown [id number] 2011 Private Health Insurance [employer]ET[employer] A ETNA CHOICE POS II [id number] 2011-Present POS [id number] 2010 Medicare MEDICARE MEDICAR E A AND B [id number] 2010-Present [place] Medicare [id number] 1956 Unknown [id number] Medicare [id number] Private Health Insurance [id number] Social History Date Type Detail Facility Start: 06-10-2019 Tobacco smoking stat [facility] Former smoker [facility] Start: 10-26-1973 End: 12-14-2005 History of tobacco use Current smoker [facility] Start: 10-26-1973 End: 12-14-2005 History of tobacco use Cigarette Smoker [facility] Start: 06-10-2019 End: 05-27-2023 Cigarettes smoked current (pack per day) - Reported [facility] Start: 06-10-2019 End: 05-12-2023 Tobacco use and exposure Never used [facility] Start: 06-10-2019 End: 07-01-2023 Alcohol intake Current drinker of alcohol (finding) [facility] Start: 05-15-2016 End: 05-12-2023 Tobacco Comment quit from 1985 - 1995 [facility] Start: 1955 Sex Assigned At Not on file [facility] Start: 10-26-1973 [facility] Start: 05-12-2023 End: 05-27-2023 Tobacco use panel [facility] National Score (1-10 0), lower number is lower risk 52 [facility] Clinical Notes 05-12-2023 to 07-01-2023 Augustine Parson APRN.ANDERS - 07/01/2023 11:30 AM Ysabel Akers MD - 06/18/2023 11:44 AM Ammy Saab - 06/09/2023 8:40 AM Ysabel Akers MD - 06/03/2023 11:45 AM EDT Note Date & Type Note Facility 07-01-2023 Note HNO ID: [id number] Author: Augustine Parson APRN.CNP Service: ? Author Type: Nurse Practitioner Type: Progress Notes Filed: 07/01/2023 11:39 AM Note Text: Plastic Surgery Postop Note Subjective: Guevara Prather is a 67 year old male who presents status post right nasal reconstruction with paramedian forehead flap. Patient is doing well status post division of the flap. Physical Exam There were no vitals taken for this visit. General Appearance: Well appearing, alert, in no acute distress, well-hydrated, well nourished.. Skin: Skin color, texture, turgor normal, no suspicious rashes or lesions. Neurologic: Gait normal. Reflexes normal and symmetric. Sensation grossly intact.. INCISION: Healed; stitches removed ASSESSMENT/PLAN: 1. Post-operative state - ICD9: V45.89, ICD10: Z98.890 -pt happy with results -no issues/questions/concerns at this time -will reach out if needed Augustine Parson APRN.HOSPITAL EDUCATOR [facility] 07-01-2023 History of Present illness Narrative Plastic Surgery Postop Note Subjective: Guevara Prather is a 67 year old male who presents status post right nasal reconstruction with paramedian forehead flap. Patient is doing well status post division of the flap. Physical Exam There were no vitals taken for this visit. General Appearance: Well appearing, alert, in no acute distress, well-hydrated, well nourished.. Skin: Skin color, texture, turgor normal, no suspicious rashes or lesions. Neurologic: Gait normal. Reflexes normal and symmetric. Sensation grossly intact.. INCISION: Healed; stitches removed ASSESSMENT/PLAN: 1. Post-operative state - ICD9: V45.89, ICD10: Z98.890 -pt happy with results -no issues/questions/concerns at this time -will reach out if needed Augustine Parson APRN.HOSPITAL EDUCATOR documented in this encounter [facility] 06-18-2023 Note HNO ID: [id number] Author: Ysabel Rose MD Service: ? Author Type: Physician Type: Progress Notes Filed: 06/18/2023 11:45 AM Note Text: DOS: 06/12/2023 1. Division of paramedian forehead flap Present with Doing very well Able to wear his BiPAP again No complaints Notes headaches have resolved Able to breathe through nose without difficulty Spouse notes that the flap had a slightly purple appearance the day after surgery however that is resolved Exam Forehead healing well, some dry scabbing to the area Right airway patent Flap healing well on the nose A/P 67-year-old male status post right nasal reconstruction with paramedian forehead flap. Patient is doing well status post division of the flap. -Follow-up in 2 weeks for suture removal -Continue antibiotic ointment to the incisions on the nose and forehead -Okay to wear BiPAP -No restrictions [facility] 06-18-2023 History of Present illness Narrative DOS: 06/12/2023 1. Division of paramedian forehead flap Present with Doing very well Able to wear his BiPAP again No complaints Notes headaches have resolved Able to breathe through nose without difficulty Spouse notes that the flap had a slightly purple appearance the day after surgery however that is resolved Exam Forehead healing well, some dry scabbing to the area Right airway patent Flap healing well on the nose A/P 67-year-old male status post right nasal reconstruction with paramedian forehead flap. Patient is doing well status post division of the flap. -Follow-up in 2 weeks for suture removal -Continue antibiotic ointment to the incisions on the nose and forehead -Okay to wear BiPAP -No restrictions documented in this encounter [facility] 06-12-2023 Note HNO ID: [id number] Author: Lulu Velasquez APRN.DERRICK WORKER Service: Anesthesiology Author Type: Nurse Medical Collector Type: Anesthesia Procedure Notes Filed: 06/12/2023 8:39 AM Note Text: ANESTHESIOLOGY PROCEDURE NOTE Airway General Information Procedure Start Time/Medication Administration: 06/12/2023 8:14 AM Patient location during procedure: OR Timeout Performed Pre-procedure: timeout performed Consent Obtained: Yes Patient identity confirmed: arm band and patient Staffing Anesthesiologist: Lupillo Lares MD DERRICK WORKER: Lulu Velasquez APRN.DERRICK WORKER Performed by: DAVON Indications and Patient Condition Indications for airway management: anesthesia Preoxygenated: yes anesthesia circuit Patient position: sniffing Method: asleep Final Airway Details Final airway type: endotracheal airway Final Endotracheal Airway: ETT Cuffed: yes Successful intubation technique: video laryngoscopy Devices used: Granados and intubating stylet Endotracheal tube insertion site: oral Blade: Elbert Blade size: #4 ETT size (mm): 8.0 Measured from: lips Measurement (cm): 23 Placement verified by: chest auscultation and capnometry Cormack-Lehane Classification: grade I - full view of glottis Number of attempts at approach: 1 SIGNATURE: Lulu Velasquez APRN.DERRICK WORKER PATIENT NAME: Guevara Prather DATE: June 12, 2023 TIME: 8:37 AM CSN: [id number] [facility] 06-09-2023 Note HNO ID: [id number] Author: Ammy Quinones Service: ? Author Type: ? Type: Progress Notes Filed: 06/09/2023 8:45 AM Note Text: pagan [facility] 06-09-2023 History of Present illness Narrative pagan documented in this encounter [facility] 06-03-2023 Note HNO ID: [id number] Author: Ysabel Rose MD Service: ? Author Type: Physician Type: Progress Notes Filed: 06/17/2023 8:48 AM Note Text: Post-op DOS: 05/18/23 SURGERY/PROCEDURE(S): 1. Reconstruction of right nose ala and sidewall status post Mohs resection with paramedian forehead flap Doing well Exam Dressing removed, paramedian forehead flap viable A/P 67-year-old male status post for stage paramedian forehead flap for nasal reconstruction -We will schedule for surgery -Discussed risk benefits -Patient expressed understanding wish to proceed [facility] 06-03-2023 History of Present illness Narrative Post-op DOS: 05/18/23 SURGERY/PROCEDURE(S): 1. Reconstruction of right nose ala and sidewall status post Mohs resection with paramedian forehead flap Doing well Exam Dressing removed, paramedian forehead flap viable A/P 67-year-old male status post for stage paramedian forehead flap for nasal reconstruction -We will schedule for surgery -Discussed risk benefits -Patient expressed understanding wish to proceed documented in this encounter [facility] 05-27-2023 Note HNO ID: [id number] Author: Ysabel Rose MD Service: ? Author Type: Physician Type: Progress Notes Filed: 06/16/2023 8:18 AM Note Text: Post-op DOS: 05/18/23 SURGERY/PROCEDURE(S): 1. Reconstruction of right nose ala and sidewall status post Mohs resection with paramedian forehead flap --------- Present with Notes malodor from the dressing Restarted anticoagulation Has had difficulty BiPAP given the nasal forehead flap Exam Bloodstained dressing with dried blood, removed, malodor, after removal, no signs of infection, flap is viable with good healing A/P 67-year-old male status post right paramedian forehead flap for right nasal reconstruction -Dressing change -Healing well -Follow-up 1 week for dressing change -Plan for flap division in 3 weeks -Call with questions [facility] 05-27-2023 History of Present illness Narrative Post-op DOS: 05/18/23 SURGERY/PROCEDURE(S): 1. Reconstruction of right nose ala and sidewall status post Mohs resection with paramedian forehead flap --------- Present with Notes malodor from the dressing Restarted anticoagulation Has had difficulty BiPAP given the nasal forehead flap Exam Bloodstained dressing with dried blood, removed, malodor, after removal, no signs of infection, flap is viable with good healing A/P 67-year-old male status post right paramedian forehead flap for right nasal reconstruction -Dressing change -Healing well -Follow-up 1 week for dressing change -Plan for flap division in 3 weeks -Call with questions documented in this encounter [facility] 05-19-2023 Note HNO ID: [id number] Author: Nina Mcclain PAIrena Service: Plastic Surgery Author Type: Physician 2Nd Grade Teacher Type: Progress Notes Filed: 05/19/2023 10:19 AM Note Text: INPATIENT PROGRESS NOTE SERVICE DATE: 05/19/2023 SERVICE TIME: 8:15 AM Assessment: Pt is POD #1 forehead flap to right nose Plan : N- pain control P- IS CV- ira, hold AM metoprolol, INR, restart Coumadin for AF Fengi- regular diet - No pisano Endo- glucose stable Heme- no h/o anemia Wound- leave dressing intact, Bacitracin to scalp wound and lower nose incision BID Proph- restart Coumadin ID- clinda, no home antibiotic Activity: OOB Dispo- can DC home this afternoon, FU in the office next week Subjective INTERVAL HPI: Pt is POD #1 forehead flap to right nose. He is awake and ready for breakfast. Forehead feels tight. Controlled with Percocet. Current Facility-Administered Medications Medication Dose Route Frequency rosuvastatin 40 mg tab(s) (CRESTOR) 40 mg ORAL DAILY metoprolol tartrate (short acting) 50 mg tab(s) (LOPRESSOR) 50 mg ORAL BID PARoxetine 40 mg tab(s) (PAXIL) 40 mg ORAL DAILY NaCl 0.9% iv flush bag 20 mL INTRAVENOUS PRN acetaminophen 500-1,000 mg tab(s) (TYLENOL) 500-1,000 mg ORAL q 4 H PRN oxyCODONE-acetaminophen 5-325 mg 1 tablet (PERCOCET) 1 tablet ORAL q 4 H PRN HYDROmorphone (PF) 0.5 mg injection (DILAUDID) 0.5 mg INTRAVENOUS q 2 H PRN oxyCODONE-acetaminophen 5-325 mg 2 tablet (PERCOCET) 2 tablet ORAL q 4 H PRN ondansetron (PF) 4 mg injection (ZOFRAN) 4 mg INTRAVENOUS q 4 H PRN fenofibrate 200 mg cap(s) (LOFIBRA) 200 mg ORAL DAILY WITH BREAKFAST warfarin 5 mg tab(s) (COUMADIN) 5 mg ORAL ONCE - WARFARIN Objective PHYSICAL EXAM: BP 141/86 Pulse 47 Temp (Src) 97.9 (Oral) Resp 20 Ht 5' 8 (1.73m) Wt 261 lb (118.4kg) SpO2 96% BMI 39.69 kg/(m2). O2 Therapy: Nasal Cannula, Liters: 2 Physical Exam Performed GENERAL: Alert, no distress, cooperative SKIN: Skin color, texture, turgor normal. No rashes or lesions. HEAD/SINUSES: incision c/d/I and dressing intact right nose. No bleeding or drainage. DATA: Diagnostic tests reviewed for today's visit: No new labs Medication and Non-Pharmacologic VTE Prophylaxis/Anticoagulants Anticoagulant AND Antiplatelet Medications (From admission, onward) Start Dose Route Frequency Last Action Ordered Stop 05/19/23 1700 warfarin 5 mg tab(s) (COUMADIN) 5 mg ORAL ONCE - WARFARIN Ordered 05/19/23 0811 05/20/23 0459 05/18/23 220 vte pharmacologic prophylaxis contraindicated (oh,tx) 05/18/23 220 pneumatic compression stockings (oh,tx) 05/18/23 220 activity - mobilize patient ([place], [place]) VTE Prophylaxis: VTE prophylaxis appropriate SIGNATURE: Nina Mcclain PA-C PATIENT NAME: Guevara Prather DATE: May 19, 2023 TIME: 8:15 AM [facility] 05-18-2023 Note HNO ID: [id number] Author: Gerber Verde RN Service: Nursing Author Type: Registered Nurse Type: Nursing Progress Note Filed: 05/18/2023 4:33 PM Note Text: RT at bedside for breathing treatment; [facility] 05-18-2023 Note HNO ID: [id number] Author: Serenity Feng APRN.DERRICK WORKER Service: ? Author Type: Nurse Medical Collector Type: Anesthesia Procedure Notes Filed: 05/18/2023 1:46 PM Note Text: ANESTHESIOLOGY PROCEDURE NOTE Airway General Information Procedure Start Time/Medication Administration: 05/18/2023 1:24 PM Patient location during procedure: OR Timeout Performed Pre-procedure: timeout performed Consent Obtained: Yes Patient identity confirmed: arm band Staffing DERRICK WORKER: Serenity Feng APRN.DERRICK WORKER Performed by: DERRICK WORKER Indications and Patient Condition Indications for airway management: anesthesia Preoxygenated: yes anesthesia circuit Patient position: sniffing Method: asleep Cricoid Pressure: No Manual In-Line Stabilization: No Difficult Mask: No Airway Accessory: oral airway Final Airway Details Final airway type: endotracheal airway Final Endotracheal Airway: ETT Cuffed: yes Successful intubation technique: video laryngoscopy Devices used: Granados and intubating stylet Endotracheal tube insertion site: oral Blade: Elbert Blade size: #4 ETT size (mm): 7.5 Measured from: lips Measurement (cm): 25 Placement verified by: chest auscultation Cormack-Lehane Classification: grade I - full view of glottis Number of attempts at approach: 1 SIGNATURE: Serenity Feng APRN.CRNA PATIENT NAME: Guevara Prather DATE: May 18, 2023 TIME: 1:44 PM CSN: [id number] [facility] 05-12-2023 Note HNO ID: [id number] Author: Ysabel Rose MD Service: ? Author Type: Physician Type: Progress Notes Filed: 05/25/2023 7:19 AM Note Text: Chief Complaint: Skin cancer of nose [facility] History of Present Illness: Guevara Prather is a 67 year old male that presents today following up from having removal of skin cancer on nose last 05/07/23. Patient is here today to discuss surgery. Patient has a full-thickness defect of the right nose including sidewall and ala. Patient has multiple medical issues including A-fib, on anticoagulation, diabetic, dyspnea on exertion, hypertension, history of NSTEMI and mitral regurgitation, peripheral vascular disease, status post CABG. Patient wears a BiPAP at night and sleeps approximately 12 hours. PAST MEDICAL HISTORY Diagnosis Date Anticoagulant causing adverse effect in therapeutic use rectal bleeding with rivaroxaban (Xarelto) Anticoagulated on warfarin Anxiety disorder feels much better with Paxil; worse without it Atrial fibrillation (HCC) see persistent atrial fibrillation CAD (coronary artery disease) s/p emergent CABG 2005; s/p POBA distal RCA, mid PDA 12/2015 Claudication of calf muscles ([facility]) s/p right fem-pop bypass 01/2013; s/p left fem-pop bypass 08/2010 COPD (chronic obstructive pulmonary disease) ([facility]) Dyspnea on exertion attributes to AF Edentulous had all teeth removed at age 19 yrs; has dentures but has not worn them for many years Essential hypertension Fatigue attributes to AF Former tobacco use GERD (gastroesophageal reflux disease) Hyperlipemia OR, old 05/2006 NSTEMI 05/2006 Mitral regurgitation mild to moderate by MARITZA 03/2016 Nephrolithiasis Obesity (BMI 30-39.9) Obstructive sleep apnea uses CPAP faithfully Percutaneous transluminal coronary angioplasty (PTCA) within last 14 to 24 months POBA 12/2015 Peripheral vascular disease (HCC) sees Dr. Helms, Vascular Surgery; s/p fem-pop bypasses bilaterally Persistent atrial fibrillation (HCC) diagnosed at time of CABG 2005; symptomatic; failed antiarrhythmic drug therapy and one previous AF ablation (PVAI) 2008; s/p redo AF ablation (PVAI) 09/23/2016 Post-radiation rectal bleeding after XRT for prostate cancer Prostate cancer (HCC) diagnosed 05/2014; s/p XRT S/P CABG (coronary artery bypass graft) emergent CABG 2005 Tricuspid regurgitation mild by MARITZA 03/2016 PAST SURGICAL HISTORY Procedure Laterality Date AFIB ABLATION/PULM VEIN ISOLATION 12/18/2008 RFCA [facility] [place], roof line, SVC isolation; [facility] Dr. Polo AFIB ABLATION/PULM VEIN ISOLATION 09/23/2016 redo AF RF ablation/PVAI with ICE-guided, circular mapping, Carto approach using Stereotaxis; secondary sites: CODY, roof, posterior wall; [facility] Dr. Davis BYPASS GRAFT OTHR,FEM-POP Right 02/15/2013 right fem-pop bypass with graft; Dr. Helms; [facility] BYPASS GRAFT OTHR,FEM-POP Left 09/23/2010 left fem-pop bypass with graft; left common femoral patch angioplasty with bovine pericardium; Dr. Helms; [facility] CABG (2) VEIN GRAFTS AND ARTERIAL GRAFT(S 05/2006 emergent CABG: NATION-LAD; SVG-OM-CX; SVG-PDA-PL2 of RCA; [facility] Dr. Sierra CARDIAC CATH 02/26/2016 POBA distal RCA and mid PDA (unable to pass stent) CARDIAC CATH 06/22/2006 severe CAD involving distal LM and distal RCA; IABP placed and patient referred for emergent CABG; [facility] Dr. Hung CARDIAC CATH 02/25/2016 [facility]; patent NATION-LAD; patent SVGs; severe 3-vessel CAD with progression of disease in [place] RCA CARDIOVERSION, ELECTIVE, ELECTRICAL 04/18/16 only transient sinus rhythm for about 30 seconds; [facility] CARDIOVERSION, ELECTIVE, ELECTRICAL 02/09/2007 unsuccessful CARDIOVERSION, ELECTIVE, ELECTRICAL 03/2008 CAROTID DUPLEX COMP 12/17/2015 mild (<50%) disease; antegrade flow in vertebrals CATARACT EXTRACTION HX bilateral ECHO 04/18/16 MARITZA (TRANSESOPHAGEAL ECHO) 04/18/2016 LVEF 45%; moderate LAE; mild to mod MR; mild TR; no LA/CODY thrombus MARITZA (TRANSESOPHAGEAL ECHO) 02/09/2007 MARITZA (TRANSESOPHAGEAL ECHO) 03/2008 MARITZA (TRANSESOPHAGEAL ECHO) 11/2008 FAMILY HISTORY Problem Relation Age of Onset Alzheimer's Disease Mother Cancer Father lung other (adrenal insufficiencey) Sister Social History Tobacco Use Smoking status: Former Packs/day: 2.00 Types: Cigarettes Start date: 10/26/1973 Quit date: 12/14/2005 Years since quittin.4 Smokeless tobacco: Never Tobacco comments: quit from 1985 - 1995 Substance Use Topics Alcohol use: Yes Alcohol/week: 30.0 standard drinks of alcohol Types: 12 Cans of Beer (12oz) per week Drug use: No ALLERGIES Allergen Reactions Ancef [Cefazolin So* Rash Latex Other: See Comments Local skin reaction Lisinopril Cough Penicillins Hives Xarelto [Rivaroxaba* Other: See Comments Rectal bleeding Current Outpatient Medications on File Prior to Visit Medication Sig cil (more content not included)... [facility] 05-12-2023 History of Present illness Narrative Chief Complaint: Skin cancer of nose Referring: Dr. Nina [facility]ess[facility] dermatology History of Present Illness: Guevara Prather is a 67 year old male that presents today following up from having removal of skin cancer on nose last 05/07/23. Patient is here today to discuss surgery. Patient has a full-thickness defect of the right nose including sidewall and ala. Patient has multiple medical issues including A-fib, on anticoagulation, diabetic, dyspnea on exertion, hypertension, history of NSTEMI and mitral regurgitation, peripheral vascular disease, status post CABG. Patient wears a BiPAP at night and sleeps approximately 12 hours. PAST MEDICAL HISTORY Diagnosis Date Anticoagulant causing adverse effect in therapeutic use rectal bleeding with rivaroxaban (Xarelto) Anticoagulated on warfarin Anxiety disorder feels much better with Paxil; worse without it Atrial fibrillation (HCC) see persistent atrial fibrillation CAD (coronary artery disease) s/p emergent CABG 2005; s/p POBA distal RCA, mid PDA 12/2015 Claudication of calf muscles (HCC) s/p right fem-pop bypass 01/2013; s/p left fem-pop bypass 08/2010 COPD (chronic obstructive pulmonary disease) (HCC) Dyspnea on exertion attributes to AF Edentulous had all teeth removed at age 19 yrs; has dentures but has not worn them for many years Essential hypertension Fatigue attributes to AF Former tobacco use GERD (gastroesophageal reflux disease) Hyperlipemia OR, old 05/2006 NSTEMI 05/2006 Mitral regurgitation mild to moderate by MARITZA 03/2016 Nephrolithiasis Obesity (BMI 30-39.9) Obstructive sleep apnea uses CPAP faithfully Percutaneous transluminal coronary angioplasty (PTCA) within last 14 to 24 months POBA 12/2015 Peripheral vascular disease (HCC) sees Dr. Helms, Vascular Surgery; s/p fem-pop bypasses bilaterally Persistent atrial fibrillation (HCC) diagnosed at time of CABG 2005; symptomatic; failed antiarrhythmic drug therapy and one previous AF ablation (PVAI) 2008; s/p redo AF ablation (PVAI) 09/23/2016 Post-radiation rectal bleeding after XRT for prostate cancer Prostate cancer (HCC) diagnosed 05/2014; s/p XRT S/P CABG (coronary artery bypass graft) emergent CABG 2005 Tricuspid regurgitation mild by MARITZA 03/2016 PAST SURGICAL HISTORY Procedure Laterality Date AFIB ABLATION/PULM VEIN ISOLATION 12/18/2008 RFCA [facility] [place], roof line, SVC isolation; [facility] Dr. Polo AFIB ABLATION/PULM VEIN ISOLATION 09/23/2016 redo AF RF ablation/PVAI with ICE-guided, circular mapping, Carto approach using Stereotaxis; secondary sites: CODY, roof, posterior wall; [facility] Dr. Davis BYPASS GRAFT OTHR,FEM-POP Right 02/15/2013 right fem-pop bypass with graft; Dr. Helms; [facility] BYPASS GRAFT OTHR,FEM-POP Left 09/23/2010 left fem-pop bypass with graft; left common femoral patch angioplasty with bovine pericardium; Dr. Helms; [facility] CABG (2) VEIN GRAFTS & ARTERIAL GRAFT(S 05/2006 emergent CABG: NATION-LAD; SVG-OM-CX; SVG-PDA-PL2 of RCA; [facility] Dr. Sierra CARDIAC CATH 02/26/2016 POBA distal RCA and mid PDA (unable to pass stent) CARDIAC CATH 06/22/2006 severe CAD involving distal LM and distal RCA; IABP placed and patient referred for emergent CABG; [facility] Dr. Hung CARDIAC CATH 02/25/2016 [facility]; patent NATION-LAD; patent SVGs; severe 3-vessel CAD with progression of disease in [place] RCA CARDIOVERSION, ELECTIVE, ELECTRICAL 04/18/16 only transient sinus rhythm for about 30 seconds; [place] CARDIOVERSION, ELECTIVE, ELECTRICAL 02/09/2007 unsuccessful CARDIOVERSION, ELECTIVE, ELECTRICAL 03/2008 CAROTID DUPLEX COMP 12/17/2015 mild (<50%) disease; antegrade flow in vertebrals CATARACT EXTRACTION HX bilateral ECHO 04/18/16 MARITZA (TRANSESOPHAGEAL ECHO) 04/18/2016 LVEF 45%; moderate LAE; mild to mod MR; mild TR; no LA/CODY thrombus MARITZA (TRANSESOPHAGEAL ECHO) 02/09/2007 MARITZA (TRANSESOPHAGEAL ECHO) 03/2008 MARITZA (TRANSESOPHAGEAL ECHO) 11/2008 FAMILY HISTORY Problem Relation Age of Onset Alzheimer's Disease Mother Cancer Father lung other (adrenal insufficiencey) Sister Social History Tobacco Use Smoking status: Former Packs/day: 2.00 Types: Cigarettes Start date: 10/26/1973 Quit date: 12/14/2005 Years since quittin.4 Smokeless tobacco: Never Tobacco comments: quit from 1985 - 1995 Substance Use Topics Alcohol use: Yes Alcohol/week: 30.0 standard drinks of alcohol Types: 12 Cans of Beer (12oz) per week Drug use: No ALLERGIES Allergen Reactions Ancef [Cefazolin So* Rash Latex Other: See Comments Local skin reaction Lisinopril Cough Penicillins Hives Xarelto [Rivaroxaba* Other: See Comments Rectal bleeding Current Outpatient Medications on File Prior to Visit Medication Sig cilostazol (PLETAL) 100 mg tablet TAKE 1 TABLET BY MOUTH TWICE DAILY. clopidogrel (PLAVIX) 75 mg tablet TAKE 1 TABLET BY MOUTH DAILY Hydrochlorothiazide 12.5 mg capsule Take 12.5 mg by mouth once daily. losartan (COZAAR) 100 mg tablet Take 100 mg by mouth once daily. NITROSTAT 0.4 mg SL tablet hydrochlorothiazide (HYDRODIURIL, ESIDRIX) 12.5 mg tablet Take 12.5 mg by mouth once daily. metoprolol tartrate, short acting, (LOPRESSOR) 50 mg tablet Take 50 mg by mouth twice daily. fenofibrate nanocrystallized (TRICOR) 145 mg tablet Take 145 mg by mouth once daily. rosuvastatin (CRESTOR) 40 mg tablet Take 40 mg by mouth once daily. aspirin 325 mg tablet Take 81 mg by mouth once daily. warfarin (COUMADIN) 5 mg tablet Take 5 mg by mouth daily as directed. Every other day is 5mg and then 2.5mg every other day PARoxetine (PAXIL) 30 mg tablet Take 30 mg by mouth once daily. PREVACID 30 MG CAP one tablet daily No current facility-administered medications on file prior to visit. Physical Exam BMI: 39.6 Alert & Oriented x 3, NAD Normal respirations 3 x 3 full-thickness defect of the right nose including sidewall, ala. 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 Patient does have a history of A-fib, on blood thinners, COPD, cardiovascular disease, morbid obesity, use of BiPAP. Discussion: 1. We discussed nasal reconstruction with a paramedian forehead flap. Discussed risk and benefits. Patient to stop his anticoagulation and will restart it the day prior. We will attempt to schedule for this week. Patient will try a different BiPAP mask in order to be able to use 1 that does not put compression across the upper portion of the nose. We will arrange surgery and scheduling. We will admit patient for monitoring postoperatively I spent 25 minutes in the visit, with more than 50% of the total ejrc-sa-olbr time of the visit in counseling / coordination of care. Consultation requested by Dr. Nina Mendes for an opinion regarding nasal reconstruction. My final recommendations will be communicated back to the requesting physician by way of shared Medical record or letter to requesting physician via US mail. Ysabel Rose MD documented in this encounter [facility] Diagnosis Open wound of nose with complication, initial encounter- Primary Open wound of nose with complication, initial encounter [facility] Open wound of nose, sequela- Primary [facility] Diagnosis Obesity, Class II, BMI 35-39.9- Primary Obesity, unspecified Open wound of nose, sequela Nicotine use disorder, F17.2 Tobacco use disorder [facility] this [facility] Diagnosis Open wound of nose, sequela- Primary documented in this encounter [facility] note* Diagnosis Post-operative state- Primary Other postprocedural status documented in this encounter [facility] Summary Purpose Family History No Family History Records FoundNo Family History Records Found Advance Directives No Advanced Directives Records FoundNo Advanced Directives Records Found Additional Source Comments (unrecognized sect ion and content) No Status Records FoundNo Status Records Found INFORMATION SOURCE (unrecogn ized section and content) DATE CREATED AUTHOR AUTHOR'S ORGANIZ ATION 07/02/2023 [facility] Source Comments (unrecognize d section and content) In the event this informatio n is protected by the Federal Confidentiality of Alcohol and Drug Abuse Patient Records regulations: The Federal rules restrict any use of the information to criminally investigate or prosecute any alcohol or drug abuse patient.[facility] the event this information is protected by the Federal Confidentiality of Alcohol and Drug Abuse Patient Records regulations: The Federal rules restrict any use of the information to criminally investigate or prosecute any alcohol or drug abuse patient.[facility] the event this information is protected by the Federal Confidentiality of Alcohol and Drug Abuse Patient Records regulations: The Federal rules restrict any use of the information to criminally investigate or prosecute any alcohol or drug abuse patient.[facility] the event this information is protected by the Federal Confidentiality of Alcohol and Drug Abuse Patient Records regulations: The Federal rules restrict any use of the information to criminally investigate or prosecute any alcohol or drug abuse patient.[facility] the event this information is protected by the Federal Confidentiality of Alcohol and Drug Abuse Patient Records regulations: The Federal rules restrict any use of the information to criminally investigate or prosecute any alcohol or drug abuse patient.[facility] the event this information is protected by the Federal Confidentiality of Alcohol and Drug Abuse Patient Records regulations: The Federal rules restrict any use of the information to criminally investigate or prosecute any alcohol or drug abuse patient.[facility] the event this information is protected by the Federal Confidentiality of Alcohol and Drug Abuse Patient Records regulations: The Federal rules restrict any use of the information to criminally investigate or prosecute any alcohol or drug abuse patient.[facility] the event this information is protected by the Federal Confidentiality of Alcohol and Drug Abuse Patient Records regulations: The Federal rules restrict any use of the information to criminally investigate or prosecute any alcohol or drug abuse patient.[facility] Reason for Visit (unrecogniz ed section and content) Reason Comments Post Op Reason Comments Established Patient Care Teams (unrecognized sec tion and content) Manager Lvn Relationship Specialty Start Date End Date Justina Jiménez MD [address] [place], [place] [id number] PCP - General Family Medicine 05/18/23 Gerber Olea Specialty Canteen Manager Cardiology 05/15/16 Constantine Helms MD [address] [place] [address] Specialty Canteen Manager Vascular Surgery 05/15/16 Manager Lvn Relationship Specialty Start Date End Date Justina Jiménez MD [address] [place], [place] [id number] PCP - General Family Medicine 05/18/23 Gerber Olea Specialty Canteen Manager Cardiology 05/15/16 Constantine Helms MD [address] [place] [address] Specialty Canteen Manager Vascular Surgery 05/15/16 Manager Lvn Relationship Specialty Start Date End Date Justina Jiménez MD [address] [place], [place] [phone] PCP - General Family Medicine 05/18/23 Gerber Olea S Specialty Canteen Manager Cardiology 05/15/16 Constantine Helms MD [address] [place] [id number] Specialty Canteen Manager Vascular Surgery 05/15/16 Manager Lvn Relationship Specialty Start Date End Date Justina Jiménez MD [address] [place], [place] [id number] PCP - General Family Medicine 05/18/23 Lefty, Gerber S Specialty Canteen Manager Cardiology 05/15/16 Constantine Helms MD [address] [place] [address] Specialty Canteen Manager Vascular Surgery 05/15/16 Manager Lvn Relationship Specialty Start Date End Date Justina Jiménez MD [address] [place] [id number] PCP - General Family Medicine 05/18/23 Lefty, Gerber S Specialty Canteen Manager Cardiology 05/15/16 Constantine Helms MD [address] [place] [address] Specialty Canteen Manager Vascular Surgery 05/15/16 FOR RECORDS PERTAINING TO PATIENTS WHO ARE OR HAVE BEEN ENROLLED IN A CHEMICAL DEPENDENCY/SUBSTANCEABUSE PROGRAM, SOME INFORMATION MAY BE OMITTED. This clinical summary was aggregated from multiple sources. Caution should be exercised in using it in the provision of clinical care. This summary normalizes information from multiple sources, and as a consequence, information in this document may materially change the coding, format and clinical context of patient data. In addition, data may be omitted in some cases. CLINICAL DECISIONS SHOULD BE BASED ON THE PRIMARY CLINICAL RECORDS. [facility]. provides no warranty or guarantee of the accuracy or completeness of information in this document.
== END | disposition home or self-care (01) ==
LOC: CT 13:01
PROVIDERS: PCP Nurse Practitioner Family; Referring Provider Nurse Practitioner Acute Care; Visit Provider Nurse Practitioner Acute Care
DX: F17.210 Nicotine dependence, cigarettes, uncomplicated (principal)
CPT/HCPCS: 71271

== ENCOUNTER → 2024-01-07 | Outpatient (CLI) | payer MEDICARE, SELFPAY ==
--- NOTE | 2024-01-07 09:49 | ART_ITS ---
Reason For Study: S/P bilateral fem-pop bypass, recurrent claudication Procedure A bilateral lower extremity continuous wave Doppler with analog waveform analysis and ankle brachial indexes. Left Segmental Pressures Left brachial= 194mmHg. Left posterior tibial artery = 29mmHg. Left dorsalis pedis artery = 50mmHg. The left dorsalis pedis waveforms are monophasic. The left posterior tibial artery waveforms are monophasic. Right Segmental Pressures Right brachial= 135mmHg. Right posterior tibial artery = 78mmHg. Right dorsalis pedis artery = 94mmHg. The right dorsalis pedis waveforms are monophasic. The right posterior tibial artery waveforms are monophasic. Indices The right ankle brachial index by the dorsalis pedis is 0.48. The right ankle brachial index by the posterior tibial artery is 0.40. The left ankle brachial index by the dorsalis pedis is 0.26. The left ankle brachial index by the posterior tibial artery is 0.15. . Preliminary report given to Isabella KHAN. VL/Ankle Brachial Index Interpretation Summary Right REGINA 0.48, severe arterial insufficiency. Doppler/PVR waveforms of the rig ht ankle severely diminished at rest. Left REGINA 0.26, severe arterial insufficiency. Doppler/PVR waveforms of the left ankle severely diminished at rest. Ordering Physician: Ling Mark Referring Physician: Sara Pemberton Performed By: Moon Darnell RVT
--- NOTE | 2024-01-07 09:49 | ADU_ITS ---
Reason For Study: S/P bilateral fem-pop bypass, recurrent claudication Right Velocities Left Velocities Ext. Iliac Artery, dist = 257.3 cm./sec. Ext Iliac Artery, dist = 25.9 cm./sec. Common Femoral Artery, mid = 107 cm./sec. Common Femoral Artery, mid = 35.8 cm./sec. Fem-Pop Bypass Fem-Pop Bypass Prox anastomosis, 56.3 cm/sec. Prox anastomosis, 13.4 cm/sec. No Flow throughout bypass. No Flow throughout bypass. Distal anastomosis, 36.5 cm/sec. Profunda Femoral Artery = 15.4 cm./sec. Profunda Femoral Artery = 34.6 cm./sec. Popliteal artery, No flow. Popliteal Artery, mid = 21.1 cm./sec. GEOPOLITICS TEACHER prox, No flow, Post. Tibial Artery, prox = 11.5 cm./sec. GEOPOLITICS TEACHER mid, 12.9 cm/sec. Post. Tibial Artery, mid = 11.8 cm./sec. GEOPOLITICS TEACHER distal, 13.8 cm/sec. Post. Tibial Artery, dist = 16.3 cm./sec. Peroneal artery, No flow. Peroneal artery, No flow. Ant.Tibial Artery, prox = 8.2 cm./sec. SHAHRZAD prox-mid, No flow. Ant Tibial Artery, mid = 6.9 cm./sec. SHAHRZAD distal, 10.9 cm/sec. Ant. Tibial Artery, distal = 12.3 cm./sec. Procedure Exam performed in department. Preliminary report given to Isabella KHAN. /US Art Duplex Bilat Lower Ext Interpretation Summary Right femoral-popliteal bypass occluded. External iliac artery with >50% stenos is, monophasic waveforms distally. Popliteal reconstitution, peroneal and proximal anterior ti bial arteries occluded Left femoral-poplitea artery occluded. External iliac with monophasic waveforms , reconstitution of anterior tibial and distal posterior tibial arteries. Ordering Physician: Ling Mark Referring Physician: Sara Pemberton Performed By: Moon Darnell RVT
== END | disposition home or self-care (01) ==
LOC: CVS 09:49
PROVIDERS: PCP Nurse Practitioner Family; Referring Provider Physician Assistant; Visit Provider Physician Assistant
DX: I73.9 Peripheral vascular disease, unspecified (principal)
CPT/HCPCS: 93922; 93925

== ENCOUNTER 2024-01-19 15:47 | Outpatient (CLI) | payer MEDICARE, SELFPAY ==
--- NOTE | 2024-01-19 15:52 | CT_ITS ---
STUDY: CTA OF THE ABDOMINAL AORTA AND BILATERAL LOWER EXTREMITIES REASON FOR EXAM: Male, 68 years old. PAD, bilat fem-pop bypass graft RADIATION DOSAGE (If Supplied By Facility): CTDIvol = ( 10.80 ) mGy, DLP = ( 1703.50 ) mGycm TECHNIQUE: Axial CT angiography multi-detector data acquisition was obtained from the dome of the liver to the level of the ankles following intravenous administration of 100 ML ISOVUE 370. Axial images and MIP images were reconstructed from the axial data set. Post-processing of the angiographic images was performed, with multiplanar reformation and 3D reconstruction. Individualized dose optimization techniques were used for this CT. TECHNICAL QUALITY: Good COMPARISON: Comparison is made with prior study September 20, 2012. Descriptors of Narrowing: None (0%) Mild (< 50%) Moderate (50-70%) Severe (70-90%) Subtotal/Total Occlusion (90-100%) Non-Evaluable (technically non-diagnostic FINDINGS: Coronary artery calcification. Diffuse fatty infiltration of the liver. Findings suggestive of a 1.9 cm left adrenal adenoma. There is a 3 cm cyst in the lower pole of the right kidney. Abdominal aorta: Atherosclerotic plaque formation. Aneurysmal dilatation of the infrarenal abdominal aorta with a transverse dimension of 3.9 cm. There is evidence of mural thrombus. Celiac and superior mesenteric arteries: Atherosclerotic plaque formation at the origin of the celiac artery as well as the superior mesenteric artery. Tight stenosis at the origin of the superior mesenteric artery. Inferior mesenteric artery: Not visualized. Right renal artery(arteries): Stenotic plaque formation at the origin of the right renal artery. Left renal artery(arteries): Mild atherosclerotic plaque formation at the origin of the left renal artery. Right common iliac artery: Diffuse stenotic calcific plaques. Right external iliac artery: Diffuse calcific plaques with stenoses. Right internal iliac artery: No demonstrated narrowing. Left common iliac artery: Diffuse calcific plaques with tight stenoses. Left external iliac artery: Diffuse calcific plaques with tight stenoses. Left internal iliac artery: No demonstrated narrowing. RIGHT LOWER EXTREMITY Right common femoral artery: Diffuse atherosclerotic plaques and stenoses. Right profundus femoris: No demonstrated narrowing. Right superficial femoral: Diffuse calcified plaques throughout the entire course of the superficial femoral artery with multiple tight stenoses. Right popliteal artery: Calcific plaques with stenoses. Right tibioperoneal trunk: No demonstrated narrowing. Right anterior tibial artery: Scattered calcific plaques Right posterior tibial artery: Scattered calcific plaque Right peroneal artery: Scattered calcific plaques LEFT LOWER EXTREMITY Left common femoral artery: Multiple calcific plaques with tight stenoses. Left profundus femoris: No demonstrated narrowing. Left superficial femoral: Occlusion of the superficial femoral artery at its origin. Left popliteal artery: Reconstitution of the popliteal artery with evidence of a tight stenosis in its midportion. Left tibioperoneal trunk: Calcific plaques without significant stenoses. Left anterior tibial artery: Calcific plaques at its origin. Left posterior tibial artery: Calcific plaques. Left peroneal artery: No demonstrated narrowing. 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 Three-vessel runoff in both lower extremities. Electronically Signed: Kings Riley MD at 13:57 EDT ,
--- NOTE | 2024-01-19 15:54 | CT_ITS ---
STUDY: CT ABDOMEN AND PELVIS WITHOUT CONTRAST REASON FOR EXAM: Male, 68 years old. UNSPECIFIED ABDOMINAL PAIN/GROSS HEMATURIA/ PERSONAL HX OF MALIGN RADIATION DOSAGE (If Supplied By Facility): CTDIvol = ( 21.64 ) mGy, DLP = ( 1200.02 ) mGycm TECHNIQUE: Transaxial images were obtained from the dome of the diaphragm to the symphysis pubis without oral contrast, and without intravenous contrast. Sagittal and coronal images were reconstructed. Individualized dose optimization techniques were used for this CT. COMPARISON: None. FINDINGS: Mild increased linear markings at the lung bases suggestive of scarring. Subpleural blebs. Coronary artery calcification. Prior CABG. Normal liver. Normal gallbladder and extrahepatic biliary system. Normal spleen. Normal pancreas. Normal bilateral adrenal glands. There is a 3.8 cm x 2.8 cm cyst in the lower pole of the right kidney. There is a 2.7 cm x 1.6 cm hypodense nodule along the lateral margin of the left kidney. This most likely represents a small renal cyst. There is evidence of intrarenal arterial branches calcification. Normal visualized stomach. Normal small intestine. There are colonic diverticula consistent with diverticulosis. There is a calcified appendicolith. There is diffuse atherosclerotic calcification of the abdominal aorta and its major visceral branches including the superior mesenteric and celiac arteries. There is minimal aneurysmal dilatation of the infrarenal abdominal aorta with a transverse dimension of 3.8 cm. Normal inferior vena cava. Normal retroperitoneum. Mild diffuse bladder wall thickening. Prostatic calcifications. 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 There is a small umbilical hernia containing fat. There are degenerative changes of the visualized lumbar spine. CT/Abdomen/Pelvis without Cont IMPRESSION: Scarring at the lung bases. Bilateral renal cysts. Atherosclerotic calcification of the abdominal aorta and major visceral branches. Aneurysmal dilatation of the distal abdominal aorta with a transverse dimension of 3.8 cm. Diffusely thickened bladder wall with prostatic calcifications. Electronically Signed: Kings Riley MD at 13:44 EDT ,
[2024-01-19 16:18] LABS: CREATININE FINGERSTICK 1.1 mg/dL (0.70-1.30); EGFR FINGERSTICK > 60.0000 mL/min (>60)
== END 2024-01-19 23:59 | disposition home or self-care (01) ==
PROVIDERS: PCP Nurse Practitioner Family; Referring Provider Nurse Practitioner; Visit Provider Physician Assistant
DX: T82.898A Other specified complication of vascular prosthetic devices, implants and grafts, initial encounter (principal); I73.9 Peripheral vascular disease, unspecified; R10.9 Unspecified abdominal pain; R31.0 Gross hematuria; N28.1 Cyst of kidney, acquired; Z85.46 Personal history of malignant neoplasm of prostate; Z98.890 Other specified postprocedural states; I70.0 Atherosclerosis of aorta
CPT/HCPCS: 74176; 75635; Q9967

== ENCOUNTER → 2024-02-22 | Outpatient (CLI) | payer MEDICARE, SELFPAY ==
[2024-02-22 10:53] LABS: Bacteria 0 SEEN /hpf (None Seen); Mucous, Urine 0 SEEN /hpf (<or=2+); Squamous Epithelial Cells - UA 0 SEEN /hpf (0-5)
[2024-02-22 11:13] LABS: Color, Urine Red (Yellow); Glucose, Dipstick Normal (Normal); Ketone-Dipstick Negative (Negative); Leukocyte Esterase-Dipstick 100 /ul (Negative); Nitrite-Dipstick Negative (Negative); Occult Blood-Urine 250 /ul (Negative); Protein-Dipstick 100 mg/dl (Negative); Specific Gravity, Urine 1.015 (1.002-1.030); Urine Bilirubin Dipstick Negative (Negative); Urine Clarity Cloudy (Clear); Urine Urobilinogen Normal (Normal)
[2024-02-22 11:21] LABS: Red Blood Cells-Urine > 100 SEEN /hpf (0-5); White Blood Cells 0-5 SEEN /hpf (0-5)
[2024-02-22 11:36] LABS: ALB/GLOB Ratio 0.9 RATIO (0.9-2.4); AST(SGOT) 25 U/L (15-37); Alanine Aminotransfer ALT/SGPT 29 U/L (16-61); Albumin, Serum 3.2 g/dL (3.2-5.0); Alkaline Phosphatase 53 U/L (45-117); Anion Gap 5 (5-15); BUN 18 mg/dL (7-18); BUN/Creat Ratio 16.8 RATIO (10-20); Chloride 111 mmol/L (98-107); Creatinine, Serum 1.07 mg/dL (0.70-1.30); EST Glomerular Filtration Rate 73 mL/min (>60); Est Glom Filt Rate - Afr Amer 89 mL/min (>60); Globulin 3.6 g/dL (2.2-4.2); Glucose 108 mg/dL (74-106); Potassium 3.9 mmol/L (3.5-5.1); Protein, Total 6.8 g/dL (6.4-8.2); Sodium Level 140 mmol/L (136-145); T4 Free Direct 0.98 ng/dL (0.76-1.46); Thyroid Stim Hormone (TSH) 1.62 uIU/mL (0.358-3.74); Vitamin D,25 Hydroxy 26.2 ng/mL
[2024-02-23 04:07] LABS: Thyroid Peroxidase AB < 9 IU/mL (0-34)
== END | disposition home or self-care (01) ==
LOC: PAVLAB 10:31
PROVIDERS: PCP Nurse Practitioner Family; Referring Provider Internal Medicine Endocrinology, Diabetes & Metabolism; Visit Provider Internal Medicine Endocrinology, Diabetes & Metabolism
DX: R94.6 Abnormal results of thyroid function studies (principal); I48.0 Paroxysmal atrial fibrillation; E11.9 Type 2 diabetes mellitus without complications; I73.9 Peripheral vascular disease, unspecified; E78.5 Hyperlipidemia, unspecified; I10 Essential (primary) hypertension; E66.9 Obesity, unspecified; E55.9 Vitamin D deficiency, unspecified; R31.9 Hematuria, unspecified
CPT/HCPCS: 36415; 80053; 81001; 82306; 84439; 84443; 86376; 87086; 87088

== ENCOUNTER → 2024-02-25 | Outpatient (CLI) | payer MEDICARE, SELFPAY ==
--- NOTE | 2024-02-25 09:40 | VDLE_ITS ---
Reason For Study: Pre-Op GSV/SSV for BPG RIGHT LEFT Rt GSV Prox Thigh - 0.40cm x 0.42cm Lt GSV Prox Thigh - 0.47cm x 0.45cm Rt GSV Mid Thigh - 0.36cm x 0.34cm Lt GSV Mid Thigh - 0.19cm x 0.20cm Rt GSV Dist Thigh - 0.31cm x 0.35cm Lt GSV Dist Thigh - 0.15cm x 0.18cm RT Anterior ASV Prox Thigh - 0.21cm x 0.21cm Lateral and Medial Branches noted at Mid RT Anterior ASV Mid Thigh - 0.21cm x 0.23cm Thigh GSV. RT Anterior ASV Dist Thigh - 0.20cm x 0.21cm GSV knee to ankle Harvested GSV knee to ankle Harvested SSV is Partially Compressible with bright SSV is Partially Compressible with bright intraluminal echoes throughout. Consistent intraluminal echoes throughout. Consistent with chronic SVT. with chronic SVT. Procedure This is a venous duplex using B-mode, color flow and spectral Doppler. Exam performed in department. The exam was diagnostic. VL/Saphenous Vein Mapping, Bilat Interpretation Summary Right great saphenous vein patent to knee with measurements above. Below knee s egment previously harvested. Left great saphenous vein patent to knee with measurements above. Below knee se gment previously harvested. Bilateral small saphenous veins with chronic venous thrombosis changes Ordering Physician: Ling Mark Referring Physician: Sara Pemberton Performed By: Dannie Rose RVT
== END | disposition home or self-care (01) ==
LOC: CVS 09:39
PROVIDERS: PCP Nurse Practitioner Family; Referring Provider Physician Assistant; Visit Provider Physician Assistant
DX: Z01.818 Encounter for other preprocedural examination (principal); I70.213 Atherosclerosis of native arteries of extremities with intermittent claudication, bilateral legs; Z98.890 Other specified postprocedural states
CPT/HCPCS: 93970

== ENCOUNTER → 2024-03-14 | Outpatient (CLI) | payer MEDICARE, SELFPAY ==
[2024-03-20 02:06] LABS: Calprotectin, Stool 57 ug/g (0-120); Fats, Neutral Normal (.); Fats, Total Normal (.)
== END | disposition home or self-care (01) ==
LOC: LABSPEC 08:41
PROVIDERS: PCP Nurse Practitioner Family; Referring Provider Internal Medicine Gastroenterology; Visit Provider Internal Medicine Gastroenterology
DX: R19.7 Diarrhea, unspecified (principal)
CPT/HCPCS: 82705; 83993

== ENCOUNTER → 2024-05-10 | Outpatient (CLI) | payer MEDICARE, SELFPAY | END | disposition home or self-care (01) | LOC: SL 19:44 | PROVIDERS: PCP Nurse Practitioner Family; Referring Provider Nurse Practitioner Acute Care; Visit Provider Nurse Practitioner Acute Care | DX: G47.33 Obstructive sleep apnea (adult) (pediatric) (principal) | CPT/HCPCS: 95811 ==

== ENCOUNTER → 2024-06-16 | Outpatient (CLI) | payer MEDICARE, SELFPAY ==
[2024-06-16 13:37] LABS: Allen Test Positive; Base Excess -1 mmol/L (-2 to +2); Bicarbonate 23.7 mmol/L (22-26); Blood Gas Specimen Type ART; Mode Not entered; O2 Delivery Device Room Air; PO2 64 mmHG (75-100); SITE L Radial; SO2 93 % (95-99); Total Carbon Dioxide 25 mmol/L; pCO2 35.9 mmHg (35-45); pH 7.43 (7.35-7.45)
== END | disposition home or self-care (01) ==
LOC: PSN 12:43
PROVIDERS: PCP Nurse Practitioner Family; Referring Provider Nurse Practitioner Acute Care; Visit Provider Nurse Practitioner Acute Care
DX: G47.33 Obstructive sleep apnea (adult) (pediatric) (principal); J44.9 Chronic obstructive pulmonary disease, unspecified
CPT/HCPCS: 36600; 82803

== ENCOUNTER → 2024-07-26 | Outpatient (CLI) | payer MEDICARE, SELFPAY | END | disposition home or self-care (01) | LOC: SL 20:15 | PROVIDERS: PCP Nurse Practitioner Family; Referring Provider Nurse Practitioner Acute Care; Visit Provider Nurse Practitioner Acute Care | DX: G47.31 Primary central sleep apnea (principal); G47.39 Other sleep apnea | CPT/HCPCS: 95811 ==

== ENCOUNTER → 2024-08-09 | Outpatient (CLI) | payer MEDICARE, SELFPAY | END | disposition home or self-care (01) | LOC: SL 13:19 | PROVIDERS: PCP Nurse Practitioner Family; Visit Provider Nurse Practitioner Acute Care | DX: Z46.89 Encounter for fitting and adjustment of other specified devices (principal) ==

== ENCOUNTER 2024-08-23 18:02 | Inpatient (IN) | payer MEDICARE, SELFPAY ==
[2024-08-23 18:04] VITALS: BP 167/92; PULSE 59; RESP 20; TEMP 36.3; O2SAT 100
[2024-08-23 18:06] VITALS: BP 167/92; PULSE 59; RESP 20; TEMP 36.3; O2SAT 100
[2024-08-23 18:34] VITALS: BMI 41.8
--- NOTE | 2024-08-23 18:42 | ED.RN ---
Dr. Joy bedside
--- NOTE | 2024-08-23 18:44 | RAD_ITS ---
STUDY: X-RAY - RIGHT HAND REASON FOR EXAM: Male, 69 years old. Infection/pain TECHNIQUE: 3 view(s) of the hand. COMPARISON: None. FINDINGS: Normal radiocarpal articulation. Normal distal radioulnar joint. Normal visualized carpal bones. Normal carpal articulations There is degenerative arthrosis of the carpometacarpal (CMC) articulation of the thumb. Normal second through fifth carpometacarpal joints. Normal metacarpi. Normal metacarpophalangeal joint of the thumb. Normal interphalangeal joint of the thumb. Normal proximal and distal phalanges of the thumb. Normal metacarpophalangeal joints of the second, fourth, fifth fingers. There is degenerative change of the third MCP joint. There is diffuse articular joint space narrowing of the proximal and distal interphalangeal joints of the second through fifth fingers, but without erosive changes or periarticular soft tissue swelling. Normal phalanges of the second through fifth fingers. There is no acute fracture. There is soft tissue swelling of the fingers. RAD/Hand Min 3 Views IMPRESSION: Degenerative joint disease of the hand, as described above. Soft tissue swelling. Electronically Signed: Delroy Perales MD at 20:30 EDT ,
--- NOTE | 2024-08-23 18:46 | EX.ED.UPPERE ---
HPI History of Present Illness Chief Complaint: Wound Check Informant: patient Narrative Narrative: 59-year-old diabetic states he was bit by a dog in the right hand about 2 weeks ago, his doctor put him on doxycycline, he continued to get worse, he was started on Bactrim yesterday but saw orthopedics today, squeezed pus out of it and directed him to the ER so that they could admit him for planned surgical I&D tomorrow. Patient has not been having any fevers or systemic symptoms. 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 Paroxysmal atrial fibrillation Home Medications ?Medication ?Instructions ?Recorded ?Last Taken ?Type paroxetine HCl 40 mg tablet (Paxil) 40 mg PO DAILY DEPRESSION 06/10/22 Unknown History fenofibrate nanocrystallized 145 145 mg PO DAILY TRIGYLCERIDES #90 08/03/23 Unknown Rx mg tablet tabs aspirin 81 mg tablet,delayed 81 mg PO BREAKFAST #60 tabs 08/10/23 Unknown Rx release nitroglycerin 0.4 mg sublingual 0.4 mg sublingual Q5-15M PRN chest 12/08/23 Unknown Rx tablet (Nitrostat) pain #25 tabs ranolazine 500 mg tablet,extended 500 mg PO BID #180 tabs 01/04/24 Unknown Rx release,12 hr metoprolol tartrate 50 mg tablet 50 mg PO BID BP #180 tabs 02/01/24 Unknown Rx rosuvastatin 40 mg tablet 40 mg PO QHS CHOLESTEROL #90 tabs 03/24/24 Unknown Rx cilostazol 50 mg tablet 100 mg (2 x 50 mg) PO BID BLOOD 04/07/24 Unknown Rx THINNER 90 days #360 tabs Ozempic 0.25 mg or 0.5 mg (2 mg/3 0.5 mg (0.736 mL) subcut QWEEK #3 06/10/24 Unknown Rx mL) subcutaneous pen injector mL (semaglutide) guaifenesin 1,200 mg tablet, 1,200 mg PO Q12H #60 tabs 07/05/24 Unknown Rx extended release 12 hr diltiazem HCl 120 mg capsule,24 120 mg PO DAILY #90 caps 07/06/24 Unknown Rx hr,extended release warfarin 5 mg tablet 5 mg PO .COMPLEX BLOOD THINNER #90 07/06/24 Unknown Rx tabs albuterol sulfate 90 mcg/actuation 2 puff inhalation Q4H PRN 07/08/24 Unknown Rx aerosol inhaler (Ventolin HFA) shortness of breath or wheezing #18 grams tiotropium 2.5 mcg-olodaterol 2.5 2 inh inhalation DAILY #4 grams 08/01/24 Unknown Rx mcg/actuation mist for inhalation (Stiolto Respimat) glimepiride 2 mg tablet 4 mg PO DAILY 08/12/24 Unknown History losartan 100 mg tablet (Cozaar) 100 mg PO QDAY 08/12/24 Unknown History omeprazole 20 mg capsule,delayed 20 mg PO QDAY 08/12/24 Unknown History release Allergy/AdvReac Type Severity Reaction Status Date / Time latex Allergy Severe Unknown Verified 08/23/24 18:03 Penicillins Allergy Severe Hives Verified 08/23/24 18:03 rivaroxaban (From Xarelto) Allergy Severe Bleeding Verified 08/23/24 18:03 adhesive Allergy Intermediate Unknown Verified 08/23/24 18:03 lisinopril AdvReac Intermediate other Verified 08/23/24 18:03 Family History (Reviewed 08/12/24 @ 10:07 by Adalberto Ortiz OPERATING ROOM TECHNICIAN, OPERATING ROOM TECHNICIAN-C) Father Heart disease Other Cancer Dementia Surgical History (Reviewed 08/12/24 @ 10:07 by Adalberto Ortiz OPERATING ROOM TECHNICIAN, OPERATING ROOM TECHNICIAN-C) Hx of cardiac catheterization (~08/10/23) History of nasal surgery H/O Mohs micrographic surgery for skin cancer History of coronary angioplasty (03/07/16) H/O coronary artery bypass surgery (05/2006) History of femoropopliteal bypass (08/2010) History of radiofrequency ablation procedure for cardiac arrhythmia (2015) History of tonsillectomy and adenoidectomy History of bilateral cataract extraction Social History (Reviewed 08/12/24 @ 10:07 by Adalberto Ortiz OPERATING ROOM TECHNICIAN, OPERATING ROOM TECHNICIAN-C) Smoking Status: Former smoker quit date: 11/09/23 Tobacco: How many years used: 40 alcohol intake: current alcohol intake frequency: 3 or more drinks per day Alcohol type: beer substance use type: marijuana caffeine: No what type of physical activity do you participate in: none ROS ROS ED Constitutional Constitutional ED: Denies chills or fever(s) Musculoskeletal Musculoskeletal: Reports extremity pain; Denies neck pain Integumentary Reports rash and wounds; Denies Abrasions Neurologic Neurologic: Denies paresthesias or weakness EXAM Physical Exam Const Vital Signs: 08/23/24 18:04 08/23/24 18:06 Temperature 97.4 F L 97.4 F L Temperature Source Oral Oral Pulse Rate 59 L 59 L Respiratory Rate 20 H 20 H Blood Pressure 167/92 H 167/92 H Blood Pressure Mean 117 117 Pulse Ox 100 100 Oxygen Delivery Method Room Air Room Air Positive well nourished, well developed and obese General Appearance ED: well developed and NAD Nutritional Appearance: obese Neck full ROM and supple Resp normal respiratory effort and clear to auscultation bilaterally Cardio regular rate, regular rhythm and no murmurs Rate: Negative for tachycardic GI non-tender and non-distended Auscultation: normoactive bowel sounds Palpation: soft Back/Spine normal ROM and normal to inspection Extremity Extremity Narrative: Swollen erythematous tender wound with opening and purulent discharge in the right hand, it is in the webspace between the thumb and the index finger and including dorsum of the hand with a couple different punctures/openings, there is no lymphangitis streaking or any erythema proximal to the wrist, there is no epitrochlear lymphadenopathy. He is neurovascular tact distally has full range of motion of all fingers. No other rashes or lesions. Neuro oriented x3, no focal motor deficits and no sensory deficits noted Sensorium / Orientation: alert Psych mental status grossly normal and thought process normal Skin Skin Narrative: See extremity exam right hand MDM MDM MDM Narrative Medical decision making narrative: Labs obtained, I was able to express fresh purulent material from the wound which I sent for culture, followed by giving the patient vancomycin and obtaining a 3 view hand x-ray which on interpretation shows no acute bony abnormality or tracking there. Discussed with hospitalist as well as orthopedics who plans on performing operative I&D tomorrow. Management Discussion w/another healthcare provider: Hospitalist and Video Game Designer (Basilio) Discharge Plan Dx/Rx/DC Orders Clinical Impression: Dog bite of right hand with infection, Failure of outpatient treatment Disposition Disposition: Acute Care Hospital [facility]
[2024-08-23 19:06] VITALS: BP 112/79; PULSE 58; RESP 18; TEMP 36.6; O2SAT 93
[2024-08-23 19:20] LABS: Hematocrit 40.7 % (40-54); Hemoglobin 12.6 g/dL (13.0-16.5); Mean Corpuscular Hgb 26.3 pg (27.0-32.0); Mean Corpuscular Volume 84.8 fL (80-94); Mean Platelet Vol. 8.7 fl (6.2-12.0); POSITIVE COUNT YES; POSITIVE MORPHOLOGY YES; Platelet Count 398 K/mm3 (150-450); RBC Distribution Width CV 16.4 % (11.6-14.6); RBC Distribution Width SD 50.7 fl (35.1-43.9); White Blood Count 9.2 K/mm3 (4.4-11.0)
[2024-08-23 19:22] LABS: Differential Indicated MANUAL DIFF
[2024-08-23] MEDS: Vancomycin HCl 1,750 MG in 0.9% Normal Saline (500mL Bag) 500 ML 250 MG IV (19:22)
[2024-08-23 19:39] LABS: International Normalized Ratio 1.9; Prothrombin Time (Protime)PT. 21.4 SECONDS (11.7-14.9)
[2024-08-23 19:40] LABS: Anion Gap 4 (5-15); BUN 28 mg/dL (7-18); BUN/Creat Ratio 25.5 RATIO (10-20); CRP 9.76 mg/L (0.0-3.0); Calcium,Total 9.5 mg/dL (8.5-10.1); Chloride 108 mmol/L (98-107); EST Glomerular Filtration Rate 71 mL/min (>60); Est Glom Filt Rate - Afr Amer 86 mL/min (>60); Estimated Creatinine Clearance 82.71 ml/min; Glucose 63 mg/dL (74-106); Potassium 4.2 mmol/L (3.5-5.1); Sodium Level 136 mmol/L (136-145)
[2024-08-23 20:00] VITALS: BP 146/87; PULSE 60; RESP 20; TEMP 36.4; O2SAT 94
[2024-08-23 20:14] LABS: Eosinophil 6 % (0-5); Lymphocyte 22 % (19-41); Metamyelocyte 1 % (0-1); Monocyte 4 % (0-10); Myelocyte 3 % (0-0); Neutrophil-Band 2 % (0-5); Neutrophil-Segmented 62 % (47-70); Total Cells Counted 100 (MANUAL DIFF)
[2024-08-23 20:16] LABS: Absolute Lymphocyte Count 2.03 X10^3/uL (0.83-4.51); Absolute Neutrophil Count 5.9 X10^3/uL (2.0-7.7); Erythrocyte Sedimentation Rate 38 mm/hr (0-20)
[2024-08-23 20:17] LABS: Toxic Granulation 62
[2024-08-23 20:18] VITALS: BP 146/87; PULSE 60; RESP 20; TEMP 36.4; O2SAT 94
--- NOTE | 2024-08-23 21:14 | PCM.HP.STD ---
HPI - General General Date of Admission: 08/23/24 Date of Service: 08/23/24 Chief Complaint: Right hand dog bite. HPI Narrative GUEVARA SAAB, is a 69 M came to ED with worsening of right hand dog bite which she sustained on 11 August 2024 about 12 days ago. Dog bit him on the dorsal aspect of the right hand and also on ventral aspect. Patient right hand is swollen, edematous, painful 7/10 intensity and erythematous. He was seen by Dr. Richmond as an outpatient and asked him to get admitted for I&D tomorrow. He squeezed purulent material in the office. No fever or chills. Patient had Keflex and doxycycline for 3 to 4 days before changing to doxycycline and Bactrim yesterday which she had only 2 doses. Patient has a history of diabetes mellitus type 2 but A1c was 6.0 on 06/10/2024. Patient was given IV vancomycin initially and further admitted. Patient has history of smoking started at the age of 18, a pack per day and quit in October 2023. [facility] Medical History Abnormal results of thyroid function studies Diabetes Obesity Nicotine dependence DANGELO (obstructive sleep apnea) Pancreatitis Acute kidney injury Encounter for screening for lung cancer Prostate cancer Essential (primary) hypertension Restless legs syndrome (RLS) Hyperlipidemia Persistent atrial fibrillation Dyspnea on exertion Bronchitis Sinusitis Hemorrhoids PVD (peripheral vascular disease) Atherosclerosis of [place] coronary artery of [place] heart without angina pectoris long-term (current) use 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 Paroxysmal atrial fibrillation Home Medications ?Medication ?Instructions ?Recorded ?Last Taken ?Type paroxetine HCl 40 mg tablet (Paxil) 40 mg PO DAILY DEPRESSION 06/10/22 Unknown History fenofibrate nanocrystallized 145 145 mg PO DAILY TRIGYLCERIDES #90 08/03/23 Unknown Rx mg tablet tabs aspirin 81 mg tablet,delayed 81 mg PO BREAKFAST preventative 08/10/23 Unknown Rx release #60 tabs nitroglycerin 0.4 mg sublingual 0.4 mg sublingual Q5-15M PRN chest 12/08/23 Unknown Rx tablet (Nitrostat) pain #25 tabs ranolazine 500 mg tablet,extended 500 mg PO BID angina #180 tabs 01/04/24 Unknown Rx release,12 hr metoprolol tartrate 50 mg tablet 50 mg PO BID BP #180 tabs 02/01/24 Unknown Rx rosuvastatin 40 mg tablet 40 mg PO QHS CHOLESTEROL #90 tabs 03/24/24 Unknown Rx cilostazol 50 mg tablet 100 mg (2 x 50 mg) PO BID BLOOD 04/07/24 Unknown Rx THINNER 90 days #360 tabs diltiazem HCl 120 mg capsule,24 120 mg PO DAILY HTN #90 caps 07/06/24 Unknown Rx hr,extended release warfarin 5 mg tablet 5 mg PO .COMPLEX BLOOD THINNER #90 07/06/24 Unknown Rx tabs albuterol sulfate 90 mcg/actuation 2 puff inhalation Q4H PRN 07/08/24 Unknown Rx aerosol inhaler (Ventolin HFA) shortness of breath or wheezing #18 grams tiotropium 2.5 mcg-olodaterol 2.5 2 inh inhalation DAILY SOB #4 grams 08/01/24 Unknown Rx mcg/actuation mist for inhalation (Stiolto Respimat) glimepiride 2 mg tablet 4 mg PO DAILY diabetes 08/12/24 Unknown History omeprazole 20 mg capsule,delayed 20 mg PO QDAY acid reflux 08/12/24 Unknown History release Allergy/AdvReac Type Severity Reaction Status Date / Time latex Allergy Severe Unknown Verified 08/23/24 18:03 Penicillins Allergy Severe Hives Verified 08/23/24 18:03 rivaroxaban (From Xarelto) Allergy Severe Bleeding Verified 08/23/24 18:03 adhesive Allergy Intermediate Unknown Verified 08/23/24 18:03 lisinopril AdvReac Intermediate other Verified 08/23/24 18:03 Family History Father Heart disease Other Cancer Dementia Surgical History Hx of cardiac catheterization (~08/10/23) History of nasal surgery H/O Mohs micrographic surgery for skin cancer History of coronary angioplasty (03/07/16) H/O coronary artery bypass surgery (05/2006) History of femoropopliteal bypass (08/2010) History of radiofrequency ablation procedure for cardiac arrhythmia (2015) History of tonsillectomy and adenoidectomy History of bilateral cataract extraction Social History Smoking Status: Former smoker quit date: 11/09/23 Tobacco: How many years used: 40 alcohol intake: current alcohol intake frequency: 3 or more drinks per day Alcohol type: beer substance use type: marijuana caffeine: No what type of physical activity do you participate in: none ROS ROS Narrative Constitutional: Reports chronic fatigue and weakness. No fever. Obese. HEENT: Reports systems reviewed and no addt'l complaints, except as documented Respiratory/Chest: DANGELO. No acute shortness of breath or respiratory distress or wheezing. CVS: No chest pain or shortness of breath. CAD, PAD and CABG. Left femoropopliteal surgery. Gastrointestinal: Denies coffee ground emesis, hematemesis or vomiting Genitourinary: Denies burning urination or new urinary tract symptoms Musculoskeletal: Right hand swelling as described in HPI Neurologic: Denies seizure-like symptoms. skin: Dog bite on right hand with redness. Endocrinology: Reports systems reviewed and no addt'l complaints, except as documented Hematologic/Lymphatic: Reports systems reviewed and no addt'l complaints, except as documented Rest 14 ROS are negative except as mentioned in HPI Vital Signs Vital Signs Vital Signs: 08/23/24 18:04 08/23/24 18:06 08/23/24 19:06 Temperature 97.4 F L 97.4 F L 97.8 F Temperature Source Oral Oral Oral Pulse Rate 59 L 59 L 58 L Respiratory Rate 20 H 20 H 18 Blood Pressure 167/92 H 167/92 H 112/79 Blood Pressure Mean 117 117 90 Pulse Ox 100 100 93 Oxygen Delivery Method Room Air Room Air Room Air 08/23/24 20:00 08/23/24 20:18 Temperature 97.6 F L 97.6 F L Temperature Source Oral Pulse Rate 60 60 Respiratory Rate 20 H 20 H Blood Pressure 146/87 H 146/87 H Blood Pressure Mean 106 106 Pulse Ox 94 94 Oxygen Delivery Method Room Air Weight Weight: 275 lb 4.086 oz Body Mass Index (BMI) 41.8 Physical Exam Narrative General: Alert, Oriented x3, Cooperative HEENT: Atraumatic, PERRLA, EOMI, Normocephalic Oral: Deep oropharyngeal structures could not be visualized Neck: Supple, No JVD, Negative Carotid Bruits Chest wall/Lungs: Air entry diminished in bilateral lung bases. No crepitation/rhonchi Cardiovascular: Sinus rhythm, Normal S1, Normal S2, history of CABG, RFA. No M/G/R Abdomen: Bowel Sounds Present, Soft, Non Tender, Non-Distended : No dysuria. No renal angle tenderness. No suprapubic tenderness. Extremities: Left femoropopliteal surgical scar. No edema, Capillary Refill Less than 3 Seconds Skin: Right hand and distal forearm is swollen with redness, tenderness. Purulent and bloody material drainage from 1 of 2 dog bites kelly. Musculoskeletal: Tenderness present in right wrist and hand. Neurological: Cranial nerves II-XII grossly intact, DTR 2+/4. No acute focal neurological deficit. Psych/Mental Status: Normal Affect, Appropriate. Results Lab / Micro Data 08/23/24 19:00 08/23/24 19:00 Labs: Laboratory Results - last 24 hr 08/23/24 19:00: WBC 9.2, RBC 4.80, Hgb 12.6 L, Hct 40.7, MCV 84.8, MCH 26.3 L, MCHC 31.0 L, RDW Std Deviation 50.7 H, RDW Coeff of Asad 16.4 H, Plt Count 398, MPV 8.7, Neut % (Auto) Not Reportable, Absolute Neuts (auto) 5.9, Absolute Lymphs (auto) 2.03, Total Counted 100, Neutrophils % (Manual) 62, Band Neutrophils % 2, Lymphocytes % (Manual) 22, Monocytes % (Manual) 4, Eosinophils % (Manual) 6 H, Metamyelocytes % 1, Myelocytes % 3 H, Diff Path Review May foll, Toxic Granulation 62, ESR 38 H, PT 21.4 H, INR 1.9, Sodium 136, Potassium 4.2, Chloride 108 H, Carbon Dioxide 24.0, Anion Gap 4 L, BUN 28 H, Creatinine 1.10, Estim Creat Clear Calc 82.71, Est GFR (MDRD) Af Amer 86, Est GFR (MDRD) Non-Af 71, BUN/Creatinine Ratio 25.5 H, Glucose 63 L, Calcium 9.5, C-React Prot Ext Range 9.76 H Imaging Radiology Impression Hand X-Ray 08/23/24 18:44 IMPRESSION: Degenerative joint disease of the hand, as described above. Soft tissue swelling. Electronically Signed: Delroy Perales MD at 20:30 EDT , Assessment & Plan Assessment/Plan (1) Dog bite of right hand with infection: PLAN: Plan This 69-year-old gentleman being admitted after dog bite 12 days ago 1. Right hand and distal forearm complicated infection with cellulitis, deep pocket abscess after dog bite: [facility] No fever and patient does not look toxic. Vitals and labs does not suggest features of sepsis. Started on IV antibiotic vancomycin, Cipro and Flagyl as patient is allergic to penicillin. ID consult requested for further opinion. Dr. Richmond is being consulted for surgical management. Plan for incision and drainage tomorrow. X-ray shows soft tissue swelling. CT is ordered by surgeon. 2. Coronary artery disease status post CABG in 2005 and cardiac stent Patient is on guideline directed medical therapy, continued 3. Diabetes mellitus type 2: His kidney function is normal and patient is allergic to latex therefore continue glimepiride. A1c 6.0 in May 2024. Accu-Chek before meals and at bedtime with Humalog sliding scale coverage and hypoglycemia protocol. 4. Class III obesity with BMI of 42.9 kg/m? ? Weight loss advised. Corn Cutter Operator consult 4. Hypertension: Blood pressure 167/92, elevated. Home BP medications continued with monitoring and dose adjustment as needed 5. Obstructive sleep apnea ? Patient is on CPAP at home home settings continued 7. Peripheral arterial disease status post left femoropopliteal surgery: Patient on baby aspirin and cilostazol. Hold cilostazol for proposed surgery tomorrow morning. 8. Paroxysmal A-fib status post RFA: Patient on warfarin, INR subtherapeutic 1.9 but acceptable. Warfarin held because of for surgery. Lovenox DVT dose. 9. Dyslipidemia -Patient is on statin therapy as well as fenofibrate, continued at home dose 10. DVT prophylaxis ? Warfarin held for proposed surgery tomorrow but resume once hemostasis is controlled. Living will/advanced directive/end of life care: Patient does have living will or advanced directive. Patient's POA and his daughter present in ED. After discussion of benefits/risks procedures involved with full code, DNR CC arrest and DNR CC, the patient opted for full code. Patient does want artificial life support including intubation, tube feed, ventilator and/chest compression, central venous catheter, vasopressor and DC shock if needed Total time spent in [id number] encounter in discussion of advanced directive 17 minutes. Laboratory Results 08/23/24 19:00: WBC 9.2, RBC 4.80, Hgb 12.6 L, Hct 40.7, MCV 84.8, MCH 26.3 L, MCHC 31.0 L, RDW Std Deviation 50.7 H, RDW Coeff of Asad 16.4 H, Plt Count 398, MPV 8.7, Neut % (Auto) Not Reportable, Absolute Neuts (auto) 5.9, Absolute Lymphs (auto) 2.03, Total Counted 100, Neutrophils % (Manual) 62, Band Neutrophils % 2, Lymphocytes % (Manual) 22, Monocytes % (Manual) 4, Eosinophils % (Manual) 6 H, Metamyelocytes % 1, Myelocytes % 3 H, Diff Path Review May foll, Toxic Granulation 62, ESR 38 H, PT 21.4 H, INR 1.9, Sodium 136, Potassium 4.2, Chloride 108 H, Carbon Dioxide 24.0, Anion Gap 4 L, BUN 28 H, Creatinine 1.10, Estim Creat Clear Calc 82.71, Est GFR (MDRD) Af Amer 86, Est GFR (MDRD) Non-Af 71, BUN/Creatinine Ratio 25.5 H, Glucose 63 L, Calcium 9.5, C-React Prot Ext Range 9.76 H Clinical Impression(s) from Imaging Studies Hand X-Ray 08/23/24 18:44 IMPRESSION: Degenerative joint disease of the hand, as described above. Soft tissue swelling. Charges/Coding Visit Charges Inpatient E&M: 68432 Disch Hosp >30min Procedures Hospitalists Procedures: 56347 Advncd Care Plan 30 Min
--- NOTE | 2024-08-23 21:17 | CON.PCM.OR_ITS ---
HPI Consult Data Date of Consult: 08/23/24 HPI Narrative HPI Narrative: GUEVARA SAAB, is a 69 M who was seen by for this this afternoon for a right hand dog bite and infection. He was bitten by his dog at home 2 weeks ago. He is seen in his primary care physician who is treated the patient with oral antibiotics. He was recently put on doxycycline due to worsening infection. Cultures were taken yesterday. Due to worsening infection and will call office for an evaluation. I saw the patient this afternoon. Patient and daughter described worsening right hand pain, swelling and foul odor. He also reported purulent drainage. He denied prior injury to the right hand no problems with it. Denies any numbness or tingling. Reports most of his pain is in the first webspace. Denies any feelings of general sickness including fevers, chills, nausea vomiting. Denies any chest pain or shortness of breath. FOR[facility]LY [facility], LATER [facility] Medical History Abnormal results of thyroid function studies Diabetes Obesity Nicotine dependence DANGELO (obstructive sleep apnea) Pancreatitis Acute kidney injury Encounter for screening for lung cancer Prostate cancer Essential (primary) hypertension Restless legs syndrome (RLS) Hyperlipidemia Persistent atrial fibrillation Dyspnea on exertion Bronchitis Sinusitis Hemorrhoids PVD (peripheral vascular disease) Atherosclerosis of [place] coronary artery of [place] heart without angina pectoris FPC (current) use 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 Paroxysmal atrial fibrillation Home Medications ?Medication ?Instructions ?Recorded ?Last Taken ?Type paroxetine HCl 40 mg tablet (Paxil) 40 mg PO DAILY DEPRESSION 06/10/22 Unknown History fenofibrate nanocrystallized 145 145 mg PO DAILY TRIGYLCERIDES #90 08/03/23 Unknown Rx mg tablet tabs aspirin 81 mg tablet,delayed 81 mg PO BREAKFAST preventative 08/10/23 Unknown Rx release #60 tabs nitroglycerin 0.4 mg sublingual 0.4 mg sublingual Q5-15M PRN chest 12/08/23 Unknown Rx tablet (Nitrostat) pain #25 tabs ranolazine 500 mg tablet,extended 500 mg PO BID angina #180 tabs 01/04/24 Unknown Rx release,12 hr metoprolol tartrate 50 mg tablet 50 mg PO BID BP #180 tabs 02/01/24 Unknown Rx rosuvastatin 40 mg tablet 40 mg PO QHS CHOLESTEROL #90 tabs 03/24/24 Unknown Rx cilostazol 50 mg tablet 100 mg (2 x 50 mg) PO BID BLOOD 04/07/24 Unknown Rx THINNER 90 days #360 tabs diltiazem HCl 120 mg capsule,24 120 mg PO DAILY HTN #90 caps 07/06/24 Unknown Rx hr,extended release warfarin 5 mg tablet 5 mg PO .COMPLEX BLOOD THINNER #90 07/06/24 Unknown Rx tabs albuterol sulfate 90 mcg/actuation 2 puff inhalation Q4H PRN 07/08/24 Unknown Rx aerosol inhaler (Ventolin HFA) shortness of breath or wheezing #18 grams tiotropium 2.5 mcg-olodaterol 2.5 2 inh inhalation DAILY SOB #4 grams 08/01/24 Unknown Rx mcg/actuation mist for inhalation (Stiolto Respimat) glimepiride 2 mg tablet 4 mg PO DAILY diabetes 08/12/24 Unknown History omeprazole 20 mg capsule,delayed 20 mg PO QDAY acid reflux 08/12/24 Unknown History release Allergy/AdvReac Type Severity Reaction Status Date / Time latex Allergy Severe Unknown Verified 08/23/24 18:03 Penicillins Allergy Severe Hives Verified 08/23/24 18:03 rivaroxaban (From Xarelto) Allergy Severe Bleeding Verified 08/23/24 18:03 adhesive Allergy Intermediate Unknown Verified 08/23/24 18:03 lisinopril AdvReac Intermediate other Verified 08/23/24 18:03 Family History Father Heart disease Other Cancer Dementia Surgical History Hx of cardiac catheterization (~08/10/23) History of nasal surgery H/O Mohs micrographic surgery for skin cancer History of coronary angioplasty (03/07/16) H/O coronary artery bypass surgery (05/2006) History of femoropopliteal bypass (08/2010) History of radiofrequency ablation procedure for cardiac arrhythmia (2015) History of tonsillectomy and adenoidectomy History of bilateral cataract extraction Social History Smoking Status: Former smoker quit date: 11/09/23 Tobacco: How many years used: 40 alcohol intake: current alcohol intake frequency: 3 or more drinks per day Alcohol type: beer substance use type: marijuana caffeine: No what type of physical activity do you participate in: none ROS ROS Narrative 12 point review systems obtained, negative as otherwise noted in HPI. Vital Signs Vital Signs Vital Signs: 08/23/24 18:04 08/23/24 18:06 08/23/24 19:06 Temperature 97.4 F L 97.4 F L 97.8 F Temperature Source Oral Oral Oral Pulse Rate 59 L 59 L 58 L Respiratory Rate 20 H 20 H 18 Blood Pressure 167/92 H 167/92 H 112/79 Blood Pressure Mean 117 117 90 Pulse Ox 100 100 93 Oxygen Delivery Method Room Air Room Air Room Air 08/23/24 20:00 08/23/24 20:18 Temperature 97.6 F L 97.6 F L Temperature Source Oral Pulse Rate 60 60 Respiratory Rate 20 H 20 H Blood Pressure 146/87 H 146/87 H Blood Pressure Mean 106 106 Pulse Ox 94 94 Oxygen Delivery Method Room Air Weight Weight: 275 lb 4.086 oz Body Mass Index (BMI) 41.8 Physical Exam Narrative General -A&Ox3, NAD, appears stated age. Vital signs stable, afebrile. Respiratory -normal work of breathing, no intercostal retractions. CV -pulses regular, brisk capillary refill ?4 limbs. Abdomen-soft, nontender, nondistended. No guarding, rigidity, rebound tenderness. Musculoskeletal/neurologic -full range of motion nontender throughout bilateral lower extremities, left upper extremitywith full sensation and strength in all dermatomes and myotomes. No midline cervical tenderness. Right hand: Erythema noted about the first webspace without oropharyngitis. Prescriptively from the fingertips. Fluctuance and swelling noted in the first webspace mostly dorsal. 2 significant wounds are noted with expressible purulent drainage on the dorsum of the first metacarpal radial aspect. Sensation intact throughout. Compartments soft and compressible. Lab / Micro Data 08/23/24 19:00 08/23/24 19:00 Labs: Laboratory Results - last 24 hr 08/23/24 19:00: WBC 9.2, RBC 4.80, Hgb 12.6 L, Hct 40.7, MCV 84.8, MCH 26.3 L, M CHC 31.0 L, RDW Std Deviation 50.7 H, RDW Coeff of Asad 16.4 H, Plt Count 398, MPV 8.7, Neut % (Auto) Not Reportable, Absolute Neuts (auto) 5.9, Absolute Lymphs (auto) 2.03, Total Counted 100, Neutrophils % (Manual) 62, Band Neutrophils % 2, Lymphocytes % (Manual) 22, Monocytes % (Manual) 4, Eosinophils % (Manual) 6 H, Metamyelocytes % 1, Myelocytes % 3 H, Diff Path Review May foll, Toxic Granulation 62, ESR 38 H, PT 21.4 H, INR 1.9, Sodium 136, Potassium 4.2, C hloride 108 H, Carbon Dioxide 24.0, Anion Gap 4 L, BUN 28 H, Creatinine 1.10, Estim Creat Clear Calc 82.71, Est GFR (MDRD) Af Amer 86, Est GFR (MDRD) Non-Af 71, BUN/Creatinine Ratio 25.5 H, Glucose 63 L, Calcium 9.5, C-React Prot Ext Range 9.76 H Imaging Radiology Impression Hand X-Ray 08/23/24 18:44 IMPRESSION: Degenerative joint disease of the hand, as described above. Soft tissue swelling. Electronically Signed: Delroy Perales MD at 20:30 EDT , Assessment & Plan Assessment/Plan (1) Dog bite of right hand with infection: PLAN: Patient seen and examined. Subcutaneous abscess is suspected. Will obtain a CT of the right hand with contrast to help guide surgical planning. Incision and drainage of the right hand tomorrow afternoon. IV antibiotics per primary. Cultures were obtained Emergency Department by the emergency room physician. Will follow his cultures closely. Strict elevation right hand. Patient be n.p.o. after breakfast tomorrow. I discussed the procedure in details. I discussed with the risks, benefits, alternatives. Risks include but are not limited to bleeding, infection, loss of life or limb, need for additional surgery, persistent pain, need for repeat surgery, loss of life or limb, numbness or tingling, damage to surrounding structures, nonhealing wounds. Informed consent was obtained. I will defer to primary regarding the degree of anticoagulation given his A-fib history. My preference would be short acting anticoagulant such as weight-based heparin or Lovenox to mitigate intraoperative bleeding. Further recommendations pending surgery.
--- NOTE | 2024-08-23 21:32 | CT_ITS ---
STUDY: CT RIGHT HAND WITH CONTRAST REASON FOR EXAM: Male, 69 years old. R hand abscess, first webspace s/p dog bite RADIATION DOSAGE (If Supplied By Facility): CTDIvol = ( 24.58 ) mGy, DLP = ( 536.02 ) mGycm TECHNIQUE: Transaxial CT imaging of the right hand was performed post contrast administration. The examination was performed with intravenous administration of IV 100mL Isovue-370. Sagittal and coronal images were reconstructed. Individualized dose optimization techniques were used for this CT. COMPARISON: X-ray FINDINGS: Normal visualized radius and ulna. Normal radiocarpal articulation. Normal distal radioulnar joint. There are cysts of the trapezium, trapezoid, and capitate. Normal carpal articulations There is degenerative arthrosis of the carpometacarpal (CMC) articulation of the thumb. Normal second through fifth carpometacarpal joints. Normal metacarpi. Normal metacarpophalangeal joint of the thumb. Normal interphalangeal joint of the thumb. Normal proximal and distal phalanges of the thumb. Normal metacarpophalangeal joints of the second through fifth fingers. There is diffuse articular joint space narrowing of the proximal and distal interphalangeal joints of the second through fifth fingers, but without erosive changes or periarticular soft tissue swelling. Normal phalanges of the second through fifth fingers. There is a 2.4 x 2.1 cm heterogeneous intermediate density enhancing phlegmonous region at the first dorsal interosseous muscle. There is adjacent subcutaneous edema and skin thickening. CT/Extremity Upper WITH Contrast IMPRESSION: Soft tissue swelling with enlargement and phlegmonous appearance of the first dorsal interosseous muscle. No discrete abscess seen. Electronically Signed: Delroy Perales MD at 23:43 EDT ,
--- NOTE | 2024-08-23 21:32 | EKG12_ITS ---
Test Reason : pre-op Blood Pressure : */* mmHG Vent. Rate : 65 BPM Atrial Rate : 65 BPM P-R Int : 156 ms QRS Dur : 110 ms QT Int : 490 ms P-R-T Axes : 64 52 49 degrees QTcB Int : 509 ms Normal sinus rhythm Nonspecific ST abnormality Abnormal ECG When compared with ECG of 10-Aug-2023 11:25, Sinus rhythm has replaced Atrial flutter Confirmed by ZAIRA LY, LEELA ([id number]), tape editor DICK KINSEY ([id number]) on 08/25/2024 11:36:26 AM Referred By: Confirmed By: LEELA MENESES MD
[2024-08-23 21:33] VITALS: BMI 42.8
[2024-08-23 21:41] VITALS: BP 120/65; PULSE 59; RESP 18; TEMP 37.1; O2SAT 94
--- NOTE | 2024-08-23 22:26 | CPS ---
pt brought own cpap machine in set up at bedside
--- NOTE | 2024-08-23 23:09 | PCM.RX.CS ---
Consult Antibiotic Management Pharmacy has been consulted to manage selected antibiotic: Vancomycin Type of Intervention Type of Consult: New start Suspected Infection Suspected Infection: Skin/Soft tissue (Cellulitis/dog bite) Labs Labs: Sodium 136 mmol/L (136-145) 08/23/24 19:00 Potassium 4.2 mmol/L (3.5-5.1) 08/23/24 19:00 Chloride 108 mmol/L (98-107) H 08/23/24 19:00 Carbon Dioxide 24.0 mmol/L (21.0-32.0) 08/23/24 19:00 Anion Gap 4 (5-15) L 08/23/24 19:00 BUN 28 mg/dL (7-18) H 08/23/24 19:00 Creatinine 1.10 mg/dL (0.70-1.30) 08/23/24 19:00 Est GFR (MDRD) Af Amer 86 mL/min (>60) 08/23/24 19:00 Est GFR (MDRD) Non-Af 71 mL/min (>60) 08/23/24 19:00 BUN/Creatinine Ratio 25.5 RATIO (10-20) H 08/23/24 19:00 Glucose 63 mg/dL (74-106) L 08/23/24 19:00 Dosing Weight Weight used for dosin kg Estimated Creatinine Clearance Estimated Creatinine Clearance: 82.71 Goal Trough Goal Trough: 15-20 mcg/mL Pharmacy Plan for Drug Dosing Pharmacy Plan for Drug Dosing: Consulting Physician: Dr. Ayers Indication: Cellulitis/dog bite Goal Trough: 15-20 SrCr: 1.10 CrCl: 82.71 ml/min Comments: Received Vancomycin 1750mg x1 dose in ED at 19:22 08/23/24. Also receiving Ciprofloxacin and Metronidazole. Scheduled for I&D by ortho tomorrow. Vancomycin Dose: 1500mg Q12H to start at 07:00 08/24/24 (AdjBW 92kg) Pending Level: Vancomycin trough @ 06:30 08/25/24 Pharmacy Service will continue to monitor and adjust dosing as required. Follow-Up Labs Follow-Up Labs: Trough: Vancomycin (08/25/24 @ 06:30)
[2024-08-23] MEDS: metroNIDAZOLE 500 MG/100 ML BAG 100 MG IV (23:28)
[2024-08-23] MEDS: Acetaminophen 500 MG Tablet 1000 MG PO (23:34)
[2024-08-23] MEDS: Enoxaparin 40 MG/0.4 ML Syringe SC (23:34)
[2024-08-24] VITALS (15 sets, daily range): BP systolic 121–154; BP diastolic 52–93; PULSE 55–81; RESP 16–20; TEMP 36.2–37.1; O2SAT 91–98; BMI 42.8; BMI 42.9
[2024-08-24] MEDS: Ciprofloxacin 400 MG/200 ML BAG 200 MG IV ×2 (00:40→10:39)
[2024-08-24 01:10] LABS: Bedside Glucose 171 mg/dL (74-106)
[2024-08-24] MEDS: Lactated Ringers 1,000 ML 100 ML IV (01:55)
[2024-08-24] MEDS: oxyCODONE 5 MG Tablet PO ×3 (02:06→23:30)
[2024-08-24] MEDS: 0.9% Saline Lock 10 ML Syringe IV (02:06)
[2024-08-24 04:20] LABS: Hematocrit 35.7 % (40-54); Hemoglobin 11.3 g/dL (13.0-16.5); Mean Corp Hgb Conc 31.7 g/dL (32-36); Mean Corpuscular Hgb 26.6 pg (27.0-32.0); Mean Platelet Vol. 8.7 fl (6.2-12.0); POSITIVE COUNT YES; POSITIVE MORPHOLOGY YES; Platelet Count 374 K/mm3 (150-450); RBC Distribution Width CV 16.6 % (11.6-14.6); RBC Distribution Width SD 50.6 fl (35.1-43.9); Red Blood Count 4.25 M/mm3 (4.6-6.2); White Blood Count 8.8 K/mm3 (4.4-11.0)
[2024-08-24 04:21] LABS: Differential Indicated MANUAL DIFF
[2024-08-24 04:46] LABS: International Normalized Ratio 1.7
[2024-08-24 04:50] LABS: Anion Gap 7 (5-15); BUN 25 mg/dL (7-18); BUN/Creat Ratio 23.8 RATIO (10-20); Chloride 112 mmol/L (98-107); Creatinine, Serum 1.05 mg/dL (0.70-1.30); EST Glomerular Filtration Rate 75 mL/min (>60); Est Glom Filt Rate - Afr Amer 90 mL/min (>60); Estimated Creatinine Clearance 87.81 ml/min; Glucose 102 mg/dL (74-106); Potassium 3.6 mmol/L (3.5-5.1); Sodium Level 140 mmol/L (136-145)
[2024-08-24 05:09] LABS: Eosinophil 5 % (0-5); Lymphocyte 19 % (19-41); Metamyelocyte 5 % (0-1); Monocyte 4 % (0-10); Myelocyte 1 % (0-0); Neutrophil-Band 2 % (0-5); Neutrophil-Segmented 64 % (47-70); Total Cells Counted 100 (MANUAL DIFF)
[2024-08-24 05:14] LABS: Anisocytosis 1+; Howell-Jolly Body RARE; Ovalocyte 1+; Platelet Estimate ADEQUATE (ADEQ); Polychromasia 1+; Tear Drop Cell 1+
[2024-08-24 05:17] LABS: Absolute Lymphocyte Count 1.68 X10^3/uL (0.83-4.51); Absolute Neutrophil Count 5.8 X10^3/uL (2.0-7.7)
[2024-08-24] MEDS: metroNIDAZOLE 500 MG/100 ML BAG 100 MG IV (06:19)
[2024-08-24] MEDS: Acetaminophen 500 MG Tablet 1000 MG PO ×2 (06:19→20:46)
[2024-08-24 06:58] LABS: Bedside Glucose 89 mg/dL (74-106)
--- NOTE | 2024-08-24 07:16 | PN.HOSP_ITS ---
Reason for Visit Reason for Visit: Diagnoses Local infection of the skin and subcutaneous tissue, unspecified (08/23/24) Open bite of right hand, initial encounter (08/23/24) Bitten by dog, initial encounter (08/23/24) Subjective Subjective Patient is a 69-year-old gentleman who presented with right hand and forearm swelling and erythema he had apparently been bitten by a dog 12 days prior to his admission he had been treated with doxycycline and Bactrim without much improvement admitted to regular nursing floor for further management Objective Data Objective Data Vital Signs: Vital Signs Temp Pulse Resp BP Pulse Ox O2 Del Method 97.9 F 55 L 18 147/85 H 97 Room Air 08/24/24 06:37 08/24/24 06:37 08/24/24 06:37 08/24/24 06:37 08/24/24 06:37 08/24/24 06:37 Oxygen Delivery Method Room Air Weight: 127.9 kg Body Mass Index (BMI) 42.8 Intake & Output: Intake and Output for Last 24 Hours 08/22/24 08/23/24 08/24/24 23:59 23:59 23:59 Intake Total 535 / 535 768.33 / 768.33 Balance 535 / 535 768.33 / 768.33 Lab / Micro Data 08/24/24 03:37 08/24/24 03:37 Labs: Laboratory Results - last 24 hr 08/23/24 19:00: WBC 9.2, RBC 4.80, Hgb 12.6 L, Hct 40.7, MCV 84.8, MCH 26.3 L, M CHC 31.0 L, RDW Std Deviation 50.7 H, RDW Coeff of Asad 16.4 H, Plt Count 398, MPV 8.7, Neut % (Auto) Not Reportable, Absolute Neuts (auto) 5.9, Absolute Lymphs (auto) 2.03, Total Counted 100, Neutrophils % (Manual) 62, Band Neutrophils % 2, Lymphocytes % (Manual) 22, Monocytes % (Manual) 4, Eosinophils % (Manual) 6 H, Metamyelocytes % 1, Myelocytes % 3 H, Diff Path Review May foll, Toxic Granulation 62, ESR 38 H, PT 21.4 H, INR 1.9, Sodium 136, Potassium 4.2, C hloride 108 H, Carbon Dioxide 24.0, Anion Gap 4 L, BUN 28 H, Creatinine 1.10, Estim Creat Clear Calc 82.71, Est GFR (MDRD) Af Amer 86, Est GFR (MDRD) Non-Af 71, BUN/Creatinine Ratio 25.5 H, Glucose 63 L, Calcium 9.5, C-React Prot Ext Range 9.76 H 08/23/24 23:22: POC Glucose 171 H 08/24/24 03:37: WBC 8.8, RBC 4.25 L, Hgb 11.3 L, Hct 35.7 L, MCV 84.0, MCH 26.6 L, MCHC 31.7 L, RDW Std Deviation 50.6 H, RDW Coeff of Asad 16.6 H, Plt Count 374, MPV 8.7, Neut % (Auto) Not Reportable, Absolute Neuts (auto) 5.8, Absolute Lymphs (auto) 1.68, Total Counted 100, Neutrophils % (Manual) 64, Band Neutrophils % 2, Lymphocytes % (Manual) 19, Monocytes % (Manual) 4, Eosinophils % (Manual) 5, Metamyelocytes % 5 H, Myelocytes % 1 H, Diff Path Review May foll, Platelet Estimate ADEQUATE, Polychromasia 1+, Anisocytosis 1+, Tear Drop Cells 1+, Ovalocytes 1+, [place] Bodies RARE, PT 20.0 H, INR 1.7, Sodium 140, Potassium 3.6, Chloride 112 H, Carbon Dioxide 22.0, Anion Gap 7, BUN 25 H, Creatinine 1.05, Estim Creat Clear Calc 87.81, Est GFR (MDRD) Af Amer 90, Est GFR (MDRD) Non-Af 75, BUN/Creatinine Ratio 23.8 H, Glucose 102, Calcium 9.0 08/24/24 06:18: POC Glucose 89 Radiography Diagnostic Testing: Radiology Impression Hand X-Ray 08/23/24 18:44 IMPRESSION: Degenerative joint disease of the hand, as described above. Soft tissue swelling. Electronically Signed: Delroy Perales MD at 20:30 EDT , Upper Extremity CT 08/23/24 21:32 IMPRESSION: Soft tissue swelling with enlargement and phlegmonous appearance of the first dorsal interosseous muscle. No discrete abscess seen. Electronically Signed: Delroy Perales MD at 23:43 EDT , Physical Exam Narrative GENERAL: cooperative HEENT: Atraumatic; normocephalic EYES; Anicteric, Normal Conjunctiva NECK; supple, normal thyroid, RESPIRATORY: Diminished to auscultation CARDIOVASCULAR: Regular S1 S2, GI: soft, normoactive bowel sounds, : No Renal angle tenderness; EXTREMITIES: No edema, no clubbing, MUSCULOSKELETAL: no muscle wasting NEURO: Awake; no lateralizing signs. SKIN: No Rash Skin: Right hand and distal forearm is swollen with redness, tenderness. Purulent and bloody material drainage from 1 of 2 dog bites kelly. PSYCH; Flat affect Assessment & Plan Assessment/Plan (1) Dog bite of right hand with infection: PLAN: Plan Patient is a 69-year-old gentleman who presented with right hand and forearm swelling and erythema he had apparently been bitten by a dog 12 days prior to his admission he had been treated with doxycycline and Bactrim without much improvement admitted to regular nursing floor for further management this 69-year-old gentleman being admitted after dog bite 12 days ago 1. Right hand and distal forearm complicated infection with cellulitis, deep pocket abscess after dog bite -Admitted to regular nursing floor started on vancomycin Cipro and Flagyl (has allergy to penicillin). Imaging studies demonstrated Soft tissue swelling with enlargement and phlegmonous appearance of the first dorsal interosseous muscle. No discrete abscess seen consult was placed orthopedic surgery for possible I&D as well as infectious disease 2. Coronary artery disease ? With previous CABG and subsequent stent placement patient is on guideline directed medical therapy which was continued 3. Class III obesity with BMI of 42.9 complicating care, weight loss advised 4. Hypertension ? Blood pressure controlled, home medications continued with dose adjustment as needed 5. Diabetes mellitus type II -patient's oral hypoglycemics held. Placed on long acting insulin, Accu-Cheks a.c. and at bedtime and covered with sliding scale insulin 6. Obstructive sleep apnea ? Consistent use of CPAP encouraged 7. Peripheral arterial disease -status post left femoropopliteal surgery: Patient on baby aspirin and cilostazol. Cilostazol was held in anticipation of patient's surgical procedure 8. Paroxysmal A-fib status post RFA: On systemic anticoagulation with warfarin INR was 1.9 on admission subsequently held plan is to resume following patient's surgical process 9. Dyslipidemia -Patient is on statin therapy as well as fenofibrate, continued at home dose 10. DVT prophylaxis ? Warfarin held for proposed surgery tomorrow but resume once hemostasis is controlled. Time spent in the patient's overall evaluation,decision-making process, review of diagnostic data, adjustment of management, discussion with other providers, nursing nursing and ancillary staff involved in patient's care documentation, 50 Minutes Charges/Coding Visit Charges Inpatient E&M: 69357 [facility] L3
--- NOTE | 2024-08-24 07:37 | CPS ---
Attempted to start SMI and address smoking with pt. Upon entering room pt was heard saying what the hell now. don't you people leave anyone alone. Pt was informed that if he would like I could leave hime alone and come back later. Pt stated good,shut the door It is noted that SMI was not started and pt had his own cpap/bipap machine on.
[2024-08-24] MEDS: Vancomycin HCl 1,500 MG in 0.9% Normal Saline (500mL Bag) 500 ML 250 MG IV ×2 (08:00→19:10)
[2024-08-24] MEDS: dilTIAZem CD 120 MG Capsule PO (10:40)
[2024-08-24] MEDS: Metoprolol Tartrate 50 MG Tablet PO ×2 (10:40→20:45)
--- NOTE | 2024-08-24 11:09 | CPS ---
attempted to do SMI but pt sleeping at this time. SMI held
--- NOTE | 2024-08-24 11:35 | CASEMGMT ---
CHEYENNE MARIN Assessment: Face to Face with pt for initial transition planning/care coordination assessment. RN TANIA introduced self and role at [facility], pt voices understanding and consents to assessment. Pt is A&O x4 and answers all questions appropriately at this time. Pt sitting up in bed in no distress. Care providers, pharmacy, and demographics verified/updated. Admitting Dx: R hand dog bite with infection Strata Score: 2 PCP:Sara Pemberton Specialists:Basilio, ortho; Lefty, cardio; Laura Pulm Preferred Pharmacy: [facility] Insurance: [employer] [facility] Prescription Benefit: yes LNOK: Yuko Prather, ; Catherine Doe, dtr Living Arrangements: Pt lives with in a single story home with 3 steps to enter. Pt reports he is I in ADL/IADLs typically. Pt denies concerns at home. Transportation: Pt drives self and denies concerns with transportation. DME:PT/INR machine, Bipap, BGM with sufficient supply of strips and lancets HHC/SNF: Denies hx of Pt states no concerns with going home at time of dc. Pt to have OR today. Pt states his dtr is a nurse and his dtr in law is a [employer]. Pt does not feel he will need any services at dc. ID to consult. Pt states no further concerns/needs. CM to follow. Advised pt to ask CM if any further question/concerns/needs arise, voices understanding. Pt Goal: Home Plan: Home with family support, follow for wound care and ID yolanda Chung RN, CM
[2024-08-24 12:02] LABS: Bedside Glucose 108 mg/dL (74-106)
[2024-08-24 13:14] LABS: Pathologist Review Reviewed
--- NOTE | 2024-08-24 13:14 | WOUNDNOTE ---
Was consulted on patient for dog bite to the right hand. pt going to OR today with Dr Richmond. will follow.
[2024-08-24 13:16] LABS: Pathologist Review Reviewed
--- NOTE | 2024-08-24 14:38 | PCM.PRE.AN2 ---
ASA Classification* ASA Classification ASA Classification: 3 and E Assessment & Plan Anesthesia* Anesthesia Assessment Anesthesia Assessment: Discussed sedation and/or anesthesia options, risks, benefits, and alternatives with patient/parents/legal guardian/POA. Questions invited. The patient/parents/legal guardian/POA seems to understand and agrees to proceed with anesthesia plan. Reviewed the physical assessment, medical history, allergy history and patient home medications list prior to surgery/procedure/anesthetic and documented any changes. Performed airway and anesthesia risk assessments. Anesthesia Type Anesthesia Type: General Anesthesia Focused Assessment* Temperature: 98.3 F Pulse Rate: 58 Blood Pressure: 142/85 Respiratory Rate: 18 Pulse Ox: 97 Airway Assessment Mouth opens: >3 cm Mallampati Score: II Focused Labs Anesthesia Preop lab: CBC WBC 8.8 K/mm3 (4.4-11.0) 08/24/24 03:37 RBC 4.25 M/mm3 (4.6-6.2) L 08/24/24 03:37 Hgb 11.3 g/dL (13.0-16.5) L 08/24/24 03:37 Hct 35.7 % (40-54) L 08/24/24 03:37 Plt Count 374 K/mm3 (150-450) 08/24/24 03:37 CHEMISTRY Potassium 3.6 mmol/L (3.5-5.1) 08/24/24 03:37 Sodium 140 mmol/L (136-145) 08/24/24 03:37 Magnesium 2.3 mg/dL (1.6-2.6) 08/09/23 05:07 Phosphorus 3.2 mg/dL (2.5-4.9) 08/09/23 05:07 BUN 25 mg/dL (7-18) H 08/24/24 03:37 Creatinine 1.05 mg/dL (0.70-1.30) 08/24/24 03:37 Glucose 102 mg/dL (74-106) 08/24/24 03:37 POC Glucose 108 mg/dL (74-106) H 08/24/24 11:43 TSH 1.62 uIU/mL (0.358-3.74) 02/22/24 10:46 COAG PT 20.0 SECONDS (11.7-14.9) H 08/24/24 03:37 INR 2.3 07/29/24 10:51 Pre-Assessment Diagnosis/Proposed Procedure Planned Operative Procedure(s): I&D right Hand Anesthesia History 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 When Was Last Pacemaker Check QUESTION #4 FULL TEXT: You/Your Family Experience fever (hyperthermia) with Anesthesia Last Oral Intake Last Oral intake: Last Oral Intake NPO since 00:00 08/24/24 13:51 Meds taken in AM with sips of Yes 08/24/24 13:51 water? Meds patient instructed to CARDIZEM. ATENOLOL 08/24/24 13:51 take am of surgery PONV PONV - mathematical scientist: PONV - mathematical scientist Female HX of Motion Sickness HX of N/V After Surgery Non-Smoker Duration of Surgery greater than 60 minutes Number of Risk Factors PONV Score Height & Weight Height & Weight: Anesthesia: Height & Weight Height 5 ft 8 in 08/24/24 13:51 Weight: 127.9 kg 08/24/24 13:51 Body Mass Index (BMI) 42.8 08/24/24 13:51 Respiratory Assessment Respiratory Assessment - mathematical scientist: Respiratory Tract Infection Hx - mathematical scientist Hx Respiratory Tract Infection No 08/23/24 21:37 STOP Sleep Apnea STOP Sleep Apnea - mathematical scientist: STOP Sleep Apnea - mathematical scientist Hx Hypertension Yes: controlled with med 08/24/24 13:47 Hx Sleep Apnea Yes: . 08/23/24 21:34 CPAP No 08/23/24 21:34 BIPAP Yes 08/23/24 21:34 Do you snore loudly (louder than talking or can be heard Do you often feel tired/ fatigued/ sleepy during daytime? Has anyone observed you stop breathing during sleep? STOP Results Positive 08/23/24 21:34 QUESTION #5 FULL TEXT : Do you snore loudly (louder than talking or can be heard through closed doors)? 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 Specify any problems Hx of Preganancy in last 3 N/A 08/23/24 21:34 Months Nurse Filling Out Transfusion DREDICK 08/23/24 21:34 & Questions: Date: 08/23/24 08/23/24 21:34 Time: 21:35 08/23/24 21:34 Patient unable to answer at this time (ie. confused, unrespo /Reproduction History /Reproductive History - mathematical scientist: /Reproductive Hx- mathematical scientist Hx Now No 08/23/24 21:37 Gestational Age (in weeks): EDC: Hx Hx Para Hx Section SAB No 08/23/24 21:37 Active Medications Active Medications: Current Medications Generic Name Dose Route Start Last Admin Trade Name Freq PRN Reason Stop Dose Admin Acetaminophen 1,000 mg 08/23/24 22:00 08/24/24 06:19 Acetaminophen 500 Mg Tablet PO 1,000 mg Q8 SANDRA Administration Albuterol/Ipratropium 3 ml 08/23/24 22:04 Ipratropium/Albuterol Sulfate 3 Ml Ampul.Neb INHALATION Q4H.RT PRN sob Aspirin 81 mg 08/24/24 08:00 08/24/24 08:06 Aspirin E.C. 81 Mg Tablet PO Not Given BREAKFAST SANDRA Atorvastatin Calcium 80 mg 08/24/24 22:00 Atorvastatin Calcium 80 Mg Tablet PO QHS SANDRA Diltiazem HCl 120 mg 08/24/24 10:00 08/24/24 10:40 Diltiazem Cd 120 Mg Capsule PO 120 mg DAILY SANDRA Administration Enoxaparin Sodium 40 mg 08/23/24 22:00 08/23/24 23:34 Enoxaparin 40 Mg/0.4 Ml Syringe SC 40 mg Q24H SANDRA Administration Fenofibrate 145 mg 08/24/24 10:00 08/24/24 10:41 Fenofibrate 145 Mg Tablet PO Not Given DAILY SANDRA Glucagon 1 mg 08/23/24 21:58 Glucagon 1 Mg/Ml Syringe IM X1 PRN Hypoglycemia Protocol Vancomycin IV-PHARMACY TO DOSE 500 mls @ 250 mls/hr 08/23/24 22:00 1 each/ Sodium Chloride IV PRN PRN RX TO DOSE Protocol Sodium Chloride 500 mls @ 15 mls/hr 08/23/24 21:44 IV .[id number] PRN Saline Flush Sodium Chloride 500 mls @ 15 mls/hr 08/23/24 21:44 IV .[id number] PRN Additional IVPB Infusion Dextrose 250 mls @ 0 mls/hr 08/23/24 21:58 Dextrose 10%-Water IV .Q0M PRN HYPOGLYCEMIA Protocol As Directed Vancomycin HCl 1,500 mg/ 530 mls @ 250 mls/hr 08/24/24 07:00 08/24/24 10:15 Sodium Chloride IV Infused Q12H SANDRA Infusion Ceftriaxone Sodium 2 gm/ 50 mls @ 100 mls/hr 08/24/24 14:00 Sodium Chloride IV Q24 SANDRA Insulin Human Lispro 0 unit 08/23/24 22:00 08/24/24 06:22 Insulin Lispro 100 Unit/Ml Insuln.Pen SC Not Given ACHS SANDRA Protocol Metoprolol Tartrate 50 mg 08/24/24 10:00 08/24/24 10:40 Metoprolol Tartrate 50 Mg Tablet PO 50 mg BID SANDRA Administration Protocol Metronidazole 500 mg 08/24/24 14:00 Metronidazole 500 Mg Tablet PO TID SANDRA Nitroglycerin 0.4 mg 08/23/24 22:00 Nitroglycerin (Inpatient Use) 0.4 Mg Tab.Subl SL Q5M PRN CARDIAC/CHEST PAIN Oxycodone HCl 2.5 - 5 mg 08/23/24 21:58 08/24/24 02:06 Oxycodone 5 Mg Tablet PO 5 mg Q4H PRN PRN Administration Pain Score 4-10 Pantoprazole Sodium 20 mg 08/24/24 10:00 08/24/24 10:40 Pantoprazole Sodium 20 Mg Tablet PO Not Given DAILY SANDRA Paroxetine HCl 40 mg 08/24/24 10:00 08/24/24 10:40 Paroxetine 20 Mg Tablet PO Not Given DAILY SANDRA Ranolazine 500 mg 08/24/24 10:00 08/24/24 10:40 Ranolazine 500 Mg Tablet PO Not Given BID SANDRA Senna/Docusate Sodium 2 tablet 08/23/24 22:00 08/24/24 10:41 Senna/Docusate Sodium 1 Tablet PO Not Given BID [facility] Sodium Chloride 10 - 40 ml 08/23/24 21:44 08/24/24 02:06 0.9% Saline Lock 10 Ml Syringe IV 10 ml UD PRN Administration SALINE FLUSH Vancomycin Protocol 1 lab 08/25/24 04:30 Vancomycin Trough/Random Due 08/25/24 08:30 DAILY SANDRA PFSH Medical History Abnormal results of thyroid function studies Diabetes Obesity Nicotine dependence DANGELO (obstructive sleep apnea) Pancreatitis Acute kidney injury Encounter for screening for lung cancer Prostate cancer Essential (primary) hypertension Restless legs syndrome (RLS) Hyperlipidemia Persistent atrial fibrillation Dyspnea on exertion Bronchitis Sinusitis Hemorrhoids PVD (peripheral vascular disease) Atherosclerosis of [place] coronary artery of [place] heart without angina pectoris 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) use 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 Paroxysmal atrial fibrillation Home Medications ?Medication ?Instructions ?Recorded ?Last Taken ?Type paroxetine HCl 40 mg tablet (Paxil) 40 mg PO DAILY DEPRESSION 06/10/22 Unknown History fenofibrate nanocrystallized 145 145 mg PO DAILY TRIGYLCERIDES #90 08/03/23 Unknown Rx mg tablet tabs aspirin 81 mg tablet,delayed 81 mg PO BREAKFAST preventative 08/10/23 Unknown Rx release #60 tabs nitroglycerin 0.4 mg sublingual 0.4 mg sublingual Q5-15M PRN chest 12/08/23 Unknown Rx tablet (Nitrostat) pain #25 tabs ranolazine 500 mg tablet,extended 500 mg PO BID angina #180 tabs 01/04/24 Unknown Rx release,12 hr metoprolol tartrate 50 mg tablet 50 mg PO BID BP #180 tabs 02/01/24 Unknown Rx rosuvastatin 40 mg tablet 40 mg PO QHS CHOLESTEROL #90 tabs 03/24/24 Unknown Rx cilostazol 50 mg tablet 100 mg (2 x 50 mg) PO BID BLOOD 04/07/24 Unknown Rx THINNER 90 days #360 tabs diltiazem HCl 120 mg capsule,24 120 mg PO DAILY HTN #90 caps 07/06/24 Unknown Rx hr,extended release warfarin 5 mg tablet 5 mg PO .COMPLEX BLOOD THINNER #90 07/06/24 Unknown Rx tabs albuterol sulfate 90 mcg/actuation 2 puff inhalation Q4H PRN 07/08/24 Unknown Rx aerosol inhaler (Ventolin HFA) shortness of breath or wheezing #18 grams tiotropium 2.5 mcg-olodaterol 2.5 2 inh inhalation DAILY SOB #4 grams 08/01/24 Unknown Rx mcg/actuation mist for inhalation (Stiolto Respimat) glimepiride 2 mg tablet 4 mg PO DAILY diabetes 08/12/24 Unknown History omeprazole 20 mg capsule,delayed 20 mg PO QDAY acid reflux 08/12/24 Unknown History release Allergy/AdvReac Type Severity Reaction Status Date / Time latex Allergy Severe Unknown Verified 08/23/24 18:03 Penicillins Allergy Severe Hives Verified 08/23/24 18:03 rivaroxaban (From Xarelto) Allergy Severe Bleeding Verified 08/23/24 18:03 adhesive Allergy Intermediate Unknown Verified 08/23/24 18:03 lisinopril AdvReac Intermediate other Verified 08/23/24 18:03 Family History Father Heart disease Other Cancer Dementia Surgical History Hx of cardiac catheterization (~08/10/23) History of nasal surgery H/O Mohs micrographic surgery for skin cancer History of coronary angioplasty (03/07/16) H/O coronary artery bypass surgery (05/2006) History of femoropopliteal bypass (08/2010) History of radiofrequency ablation procedure for cardiac arrhythmia (2015) History of tonsillectomy and adenoidectomy History of bilateral cataract extraction Social History Smoking Status: Former smoker quit date: 11/09/23 Tobacco: How many years used: 40 alcohol intake: current alcohol intake frequency: 3 or more drinks per day Alcohol type: beer substance use type: marijuana caffeine: No what type of physical activity do you participate in: none Review of Systems (Anesthesia) ROS Narrative System reviewed and no additional complaints, except as documented.
[2024-08-24] MEDS: Ceftriaxone 2 GM in 0.9% Normal Saline (50mL MB+) 50 ML IV (14:59)
[2024-08-24] MEDS: Ipratropium/Albuterol Sulfate 3 ML AMPUL.NEB INHALATION (14:59)
--- NOTE | 2024-08-24 15:10 | CON.PCM.ID_ITS ---
Assessment & Plan Assessment/Plan (1) Dog bite of right hand with infection: PLAN: He is to double check last tetanus shot. Wound cx pending. OR today for I&D. Reports rash with cefazolin ruth-op. No issues with PCN, amox, or keflex previously. Will change abx to vanc, ceftriaxone, flagyl. Will follow, thank you HPI Consult Data Date of Consult: 08/24/24 HPI Narrative Reason for Consultation: dog bite HPI Narrative: GUEVARA SAAB, is a 69 M who presented with 2 weeks progressive R hand pain, swelling, redness and drainage after he was bit by his dog 2 weeks ago. Dog was up to date on shots. Did not require stitches, did not get tetanus shot after the bite, thinks he's up to date already. No fever or chills. He is R handed. Saw PCP, given keflex, then doxy, then bactrim. Hand continued to worsen, came to ED, admitted on vanc, cipro, and flagyl with plan for OR today. Full ROS performed and neg except as noted above. 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 Paroxysmal atrial fibrillation Home Medications ?Medication ?Instructions ?Recorded ?Last Taken ?Type paroxetine HCl 40 mg tablet (Paxil) 40 mg PO DAILY DEPRESSION 06/10/22 Unknown History fenofibrate nanocrystallized 145 145 mg PO DAILY TRIGYLCERIDES #90 08/03/23 Unknown Rx mg tablet tabs aspirin 81 mg tablet,delayed 81 mg PO BREAKFAST preventative 08/10/23 Unknown Rx release #60 tabs nitroglycerin 0.4 mg sublingual 0.4 mg sublingual Q5-15M PRN chest 12/08/23 Unknown Rx tablet (Nitrostat) pain #25 tabs ranolazine 500 mg tablet,extended 500 mg PO BID angina #180 tabs 01/04/24 Unknown Rx release,12 hr metoprolol tartrate 50 mg tablet 50 mg PO BID BP #180 tabs 02/01/24 Unknown Rx rosuvastatin 40 mg tablet 40 mg PO QHS CHOLESTEROL #90 tabs 03/24/24 Unknown Rx cilostazol 50 mg tablet 100 mg (2 x 50 mg) PO BID BLOOD 04/07/24 Unknown Rx THINNER 90 days #360 tabs diltiazem HCl 120 mg capsule,24 120 mg PO DAILY HTN #90 caps 07/06/24 Unknown Rx hr,extended release warfarin 5 mg tablet 5 mg PO .COMPLEX BLOOD THINNER #90 07/06/24 Unknown Rx tabs albuterol sulfate 90 mcg/actuation 2 puff inhalation Q4H PRN 07/08/24 Unknown Rx aerosol inhaler (Ventolin HFA) shortness of breath or wheezing #18 grams tiotropium 2.5 mcg-olodaterol 2.5 2 inh inhalation DAILY SOB #4 grams 08/01/24 Unknown Rx mcg/actuation mist for inhalation (Stiolto Respimat) glimepiride 2 mg tablet 4 mg PO DAILY diabetes 08/12/24 Unknown History omeprazole 20 mg capsule,delayed 20 mg PO QDAY acid reflux 08/12/24 Unknown History release Allergy/AdvReac Type Severity Reaction Status Date / Time latex Allergy Severe Unknown Verified 08/23/24 18:03 Penicillins Allergy Severe Hives Verified 08/23/24 18:03 rivaroxaban (From Xarelto) Allergy Severe Bleeding Verified 08/23/24 18:03 adhesive Allergy Intermediate Unknown Verified 08/23/24 18:03 lisinopril AdvReac Intermediate other Verified 08/23/24 18:03 Family History Father Heart disease Other Cancer Dementia Surgical History Hx of cardiac catheterization (~08/10/23) History of nasal surgery H/O Mohs micrographic surgery for skin cancer History of coronary angioplasty (03/07/16) H/O coronary artery bypass surgery (05/2006) History of femoropopliteal bypass (08/2010) History of radiofrequency ablation procedure for cardiac arrhythmia (2015) History of tonsillectomy and adenoidectomy History of bilateral cataract extraction Social History Smoking Status: Former smoker quit date: 11/09/23 Tobacco: How many years used: 40 alcohol intake: current alcohol intake frequency: 3 or more drinks per day Alcohol type: beer substance use type: marijuana caffeine: No what type of physical activity do you participate in: none Physical Exam Const alert, oriented x3 and no apparent distress General Appearance: cooperative HEENT normocephalic and head/scalp atraumatic Eyes PERRL and EOMs intact bilaterally Neck supple and No nodes Resp normal air movement and clear to auscultation bilaterally Cardio regular rate and regular rhythm GI soft to palpation, non-tender and non-distended Extremity General Extremity: edema Skin Skin Narrative: Reviewed photos, R hand swelling, redness, pain, purulent drainage Neuro CN's II-XII intact bilaterally Lab / Micro Data Attestation: I reviewed the patient's lab results. 08/24/24 03:37 08/24/24 03:37 Labs: Laboratory Results - last 24 hr 08/23/24 19:00: WBC 9.2, RBC 4.80, Hgb 12.6 L, Hct 40.7, MCV 84.8, MCH 26.3 L, M CHC 31.0 L, RDW Std Deviation 50.7 H, RDW Coeff of [place] 16.4 H, Plt Count 398, MPV 8.7, Neut % (Auto) Not Reportable, Absolute Neuts (auto) 5.9, Absolute Lymphs (auto) 2.03, Total Counted 100, Neutrophils % (Manual) 62, Band Neutrophils % 2, Lymphocytes % (Manual) 22, Monocytes % (Manual) 4, Eosinophils % (Manual) 6 H, Metamyelocytes % 1, Myelocytes % 3 H, Diff Path Review Reviewed, Toxic Granulation 62, ESR 38 H, PT 21.4 H, INR 1.9, Sodium 136, Potassium 4.2, C hloride 108 H, Carbon Dioxide 24.0, Anion Gap 4 L, BUN 28 H, Creatinine 1.10, Estim Creat Clear Calc 82.71, Est GFR (MDRD) Af Amer 86, Est GFR (MDRD) Non-Af 71, BUN/Creatinine Ratio 25.5 H, Glucose 63 L, Calcium 9.5, C-React Prot Ext Range 9.76 H 08/23/24 23:22: POC Glucose 171 H 08/24/24 03:37: WBC 8.8, RBC 4.25 L, Hgb 11.3 L, Hct 35.7 L, MCV 84.0, MCH 26.6 L, MCHC 31.7 L, RDW Std Deviation 50.6 H, RDW Coeff of Asad 16.6 H, Plt Count 374, MPV 8.7, Neut % (Auto) Not Reportable, Absolute Neuts (auto) 5.8, Absolute Lymphs (auto) 1.68, Total Counted 100, Neutrophils % (Manual) 64, Band Neutrophils % 2, Lymphocytes % (Manual) 19, Monocytes % (Manual) 4, Eosinophils % (Manual) 5, Metamyelocytes % 5 H, Myelocytes % 1 H, Diff Path Review Reviewed, Platelet Estimate ADEQUATE, Polychromasia 1+, Anisocytosis 1+, Tear Drop Cells 1+, Ovalocytes 1+, [place] Bodies RARE, PT 20.0 H, INR 1.7, Sodium 140, Potassium 3.6, Chloride 112 H, Carbon Dioxide 22.0, Anion Gap 7, BUN 25 H, Creatinine 1.05, Estim Creat Clear Calc 87.81, Est GFR (MDRD) Af Amer 90, Est GFR (MDRD) Non-Af 75, BUN/Creatinine Ratio 23.8 H, Glucose 102, Calcium 9.0 08/24/24 06:18: POC Glucose 89 08/24/24 11:43: POC Glucose 108 H Micro: Microbiology 08/23/24 19:00 Bite, Dog Gram Stain - Final Imaging Radiology Impression Hand X-Ray 08/23/24 18:44 IMPRESSION: Degenerative joint disease of the hand, as described above. Soft tissue swelling. Electronically Signed: Delroy Perales MD at 20:30 EDT , Upper Extremity CT 08/23/24 21:32 IMPRESSION: Soft tissue swelling with enlargement and phlegmonous appearance of the first dorsal interosseous muscle. No discrete abscess seen. Electronically Signed: Delroy Perales MD at 23:43 EDT ,
[2024-08-24] MEDS: Bupivacaine Mpf 0.5% 30 ML VIAL (17:00)
--- NOTE | 2024-08-24 17:26 | PCM.POST.ANE ---
Anesthesia: Postop Eval I Current Vital Signs Temperature: 97.2 F Pulse Rate: 64 Blood Pressure: 154/55 Respiratory Rate: 16 Pulse Ox: 91 Oxygen Delivery Method: Room Air Assessment Airway patent: Yes Spontaneous unlabored respirations: Yes Mental status: Awake and Calm nausea: No Vomiting: No Anesthesia Complication: No Fluid Hydration Crystalloid volume administer (ml): 700 Total IV fluid infused: 700 Progress Note Anesthesia document: Postop Eval 1 completed: Yes
--- NOTE | 2024-08-24 17:28 | PCM.OPRPT ---
Operative Report (Standard) Operative Information Surgery/Procedure Performed: Right hand incision and drainage Surgeon: Mike Richmond Date of Procedure: 08/24/24 Procedure Start Time: 16:47 Procedure Stop Time: 17:10 Pre-Operative Diagnosis: 1. Right hand dog bite 2. Right hand subcutaneous abscess Post-Operative Diagnosis: 1. Right hand dog bite 2. Right hand subcutaneous abscess Select all DRAINS/GRAFTS/IMPLANTS that apply: Drains Drain details: Claudette drain Type of Anesthesia: General (Anesthesiologist: Rusty Paige MD) Estimated Blood Loss: 100 cc Fluids Replaced: 300 cc crystalloid Specimen collected: No Description of surgery: Patient was identified in preoperative holding area by name, medical record number, and date of . The operative extremity was marked. All questions were answered to the patient satisfaction. At time of his procedure, patient was brought to the operative suite and positioned supine a standard operating table. General anesthesia was induced and LMA was placed. All bony prominences were well-padded. We spun the bed 90 degrees. We prepped and draped the right hand in a normal, sterile orthopedic fashion with Betadine. We performed timeout confirming the side, site, and operation be performed. No concerns were voiced and we elected to proceed with surgery. I first anesthetized the hand with median radial nerve blocks at the wrist with 20 cc total 0.5% plain bupivacaine. I then open the draining sinuses at the first webspace and dorsal second metacarpal. Minimal purulence was encountered. I was able to easily pass a hemostat from 1 puncture wound to the next with a clear communication consistent with a subcutaneous abscess. 2 additional smaller puncture wounds were noted near the third metacarpal which were opened with a hemostat. I used a curette to debride surrounding tissue. Hemostasis was controlled with bipolar cautery. I then irrigated 1 L saline through the communicating wounds and through the remainder of the dorsal wounds. No purulence was able to be expressed after irrigation. We then changed our gloves and redraped the hand. I placed a [place] drain through the communicating wounds from the first webspace to the dorsal second metacarpal. I loosely reapproximated these wounds with 4-0 Prolene suture interrupted fashion. Bulky sterile dressing was applied. Patient was awakened from anesthesia and extubated. He was transferred to his hospital bed and subsequent to PACU in stable condition. He tolerated the procedure well without apparent complication. Postoperative plan: Patient will be transferred back to his hospital room under the care of the admitting provider Plan to restart Coumadin tomorrow if hand continues to improve clinically Likely plan to pull [place] drain tomorrow and begin soap water soaks as well as range of motion. Strict elevation right hand Continue antibiotics per infectious disease Cultures pending from the emergency room Suspect the patient would benefit from IV antibiotics while cultures pend over the next 48 hours. Surgical Findings: Subcutaneous abscess tracking from dorsal first metacarpal to first webspace. Vice President Quality Improvement sexologist: No Complications Complications: No Admit VTE Documentation VTE Present on Admission: No VTE Mechan Device Prophylaxis: SCD's VTE Pharm Prophylaxis ordered?: No Reason prophylaxis not ordered: Treatment Not Indicated (Holding home Coumadin due to surgery. Plan to restart postoperative day 1 if favorable response to surgery.)
--- NOTE | 2024-08-24 18:17 | PCM.POSTANE2 ---
Anesthesia Postop Eval I Sum Postop Eval Completion status Anesthesia document: Postop Eval 1 completed: Yes Anesthesia Postop Eval I Summary Anesthesia Postop Eval I Summary: Anesthesia Postop Eval I: Assessment Summary Airway patent Yes 08/24/24 17:30 Spontaneous unlabored Yes 08/24/24 17:30 respirations Mental status Awake,Calm 08/24/24 17:30 nausea No 08/24/24 17:30 Vomiting No 08/24/24 17:30 Anesthesia Postop Eval I: Fluid Summary Crystalloid volume administer 700 08/24/24 17:30 (ml) Colloids volume administered ( ml) Blood Product volume administered (ml) Total IV fluid infused 700 08/24/24 17:30 Anesthesia Postop Eval I: Summary Notes Anesthesia Complication No 08/24/24 17:30 Anesthesia Complication Comment: Post-operative progress note Anesthesia: Postop Eval II Evaluation Mental status: Awake and Calm Pain Level: 0 nausea: No Vomiting: No Complications Anesthesia Complication: No
[2024-08-24] MEDS: metroNIDAZOLE 500 MG Tablet PO (19:13)
[2024-08-24] MEDS: Atorvastatin Calcium 80 MG Tablet PO (20:45)
[2024-08-24] MEDS: Enoxaparin 40 MG/0.4 ML Syringe SC (20:46)
[2024-08-24] MEDS: Ranolazine 500 MG Tablet PO (20:46)
[2024-08-25] VITALS (8 sets, daily range): BP systolic 122–146; BP diastolic 69–116; PULSE 53–59; RESP 16–18; TEMP 36.6–37.6; O2SAT 94–96; BMI 42.9
[2024-08-25 00:21] LABS: Bedside Glucose 190 mg/dL (74-106)
[2024-08-25] MEDS: metroNIDAZOLE 500 MG Tablet PO ×3 (06:09→22:25)
[2024-08-25] MEDS: Acetaminophen 500 MG Tablet 1000 MG PO ×3 (06:09→22:28)
[2024-08-25 06:21] LABS: Absolute Lymphocyte Count 1.42 X10^3/uL (0.83-4.51); Absolute Neutrophil Count 7.1 X10^3/uL (2.0-7.7); Basophil# 0.12 X10^3/uL; Basophil% 1.2 % (0-1); Eosinophil# 0.27 X10^3/uL; Eosinophils% 2.7 % (0-5); Hematocrit 39.1 % (40-54); Hemoglobin 12.4 g/dL (13.0-16.5); Lymphocyte # 1.42 X10^3/ul (0.83-4.51); Lymphocyte % 14.2 % (19-41); Mean Corp Hgb Conc 31.7 g/dL (32-36); Mean Corpuscular Hgb 26.8 pg (27.0-32.0); Mean Corpuscular Volume 84.6 fL (80-94); Mean Platelet Vol. 8.4 fl (6.2-12.0); NRBC Flagged by Analyzer 0 % (0-5); Neutrophil # 7.08 X10^3/uL (2.7-7.7); Platelet Count 345 K/mm3 (150-450); RBC Distribution Width SD 51.8 fl (35.1-43.9); Red Blood Count 4.62 M/mm3 (4.6-6.2)
[2024-08-25 06:54] LABS: Anion Gap 5 (5-15); BUN 16 mg/dL (7-18); Calcium,Total 8.8 mg/dL (8.5-10.1); Chloride 111 mmol/L (98-107); EST Glomerular Filtration Rate 79 mL/min (>60); Est Glom Filt Rate - Afr Amer 96 mL/min (>60); Glucose 102 mg/dL (74-106); Magnesium 2.2 mg/dL (1.6-2.6); Phosphorus 3.1 mg/dL (2.5-4.9); Potassium 3.9 mmol/L (3.5-5.1); Sodium Level 140 mmol/L (136-145); Vancomycin, Trough Level 16.7 ug/mL (5.0-15.0)
[2024-08-25 06:59] LABS: Bedside Glucose 96 mg/dL (74-106)
--- NOTE | 2024-08-25 07:03 | PCM.RX.CS ---
Consult Antibiotic Management Pharmacy has been consulted to manage selected antibiotic: Vancomycin Type of Intervention Type of Consult: Follow-up Labs Labs: Sodium 140 mmol/L (136-145) 08/25/24 06:13 Potassium 3.9 mmol/L (3.5-5.1) 08/25/24 06:13 Chloride 111 mmol/L (98-107) H 08/25/24 06:13 Carbon Dioxide 24.0 mmol/L (21.0-32.0) 08/25/24 06:13 Anion Gap 5 (5-15) 08/25/24 06:13 BUN 16 mg/dL (7-18) 08/25/24 06:13 Creatinine 1.00 mg/dL (0.70-1.30) 08/25/24 06:13 Est GFR (MDRD) Af Amer 96 mL/min (>60) 08/25/24 06:13 Est GFR (MDRD) Non-Af 79 mL/min (>60) 08/25/24 06:13 BUN/Creatinine Ratio 16.0 RATIO (10-20) 08/25/24 06:13 Glucose 102 mg/dL (74-106) 08/25/24 06:13 Vancomycin Trough 16.7 ug/mL (5.0-15.0) H 08/25/24 06:13 Microbiology Microbiology: Microbiology 08/23/24 19:00 Bite, Dog Gram Stain - Final Goal Trough Goal Trough: 15-20 mcg/mL Pharmacy Plan for Drug Dosing Pharmacy Plan for Drug Dosing: VANCOMYCIN LEVEL RECEIVED Current Vancomycin Dose: 1500mg IV Q12hr Number of Doses Received: 3 (ED dose + 2 scheduled doses) Vancomycin Level: 16.7 Hours Since Last Dose: 11hr Renal Function: 1.0 Renal Function Trend: stable Lab/Micro: WCx growing 2+ GPC Vancomycin Plan/Comments: Patient had a trough drawn which resulted in a value of 16.7 (goal 15-20). Patient's trough was drawn appropriately and is within therapeutic range. Will continue current dose of vancomycin and recheck a trough in 2 days to assess dosing at that time. Pending Level: 08/27/24 @0630 Pharmacy Service will continue to monitor and adjust dosing as required.
[2024-08-25] MEDS: Vancomycin HCl 1,500 MG in 0.9% Normal Saline (500mL Bag) 500 ML 250 MG IV ×2 (07:40→18:49)
--- NOTE | 2024-08-25 07:45 | PN.HOSP_ITS ---
Reason for Visit Reason for Visit: Diagnoses Local infection of the skin and subcutaneous tissue, unspecified (08/23/24) Open bite of right hand, initial encounter (08/23/24) Bitten by dog, initial encounter (08/23/24) Subjective Subjective Patient underwent incision of the right hand abscess following a dog bite on 08/24/2024. Cultures were sent. Objective Data Objective Data Vital Signs: Vital Signs Temp Pulse Resp BP Pulse Ox O2 Del Method 98.2 F 59 L 18 146/116 H 96 CPAP 08/25/24 05:56 08/25/24 05:56 08/25/24 05:56 08/25/24 05:56 08/25/24 05:56 08/25/24 05:56 Oxygen Delivery Method CPAP Weight: 127.9 kg Body Mass Index (BMI) 42.8 Intake & Output: Intake and Output for Last 24 Hours 08/23/24 08/24/24 08/25/24 23:59 23:59 23:59 Intake Total 535 / 535 2378.33 / 2578.33 450 / 450 Balance 535 / 535 2378.33 / 2578.33 450 / 450 Lab / Micro Data 08/25/24 06:13 08/25/24 06:13 Labs: Laboratory Results - last 24 hr 08/23/24 19:00: Diff Path Review Reviewed 08/24/24 03:37: Diff Path Review Reviewed 08/24/24 11:43: POC Glucose 108 H 08/24/24 20:49: POC Glucose 190 H 08/25/24 06:04: POC Glucose 96 08/25/24 06:13: WBC 10.0, RBC 4.62, Hgb 12.4 L, Hct 39.1 L, MCV 84.6, MCH 26.8 L , MCHC 31.7 L, RDW Std Deviation 51.8 H, RDW Coeff of Asad 17.0 H, Plt Count 345, MPV 8.4, Immature Gran % (Auto) 3.900 H, Neut % (Auto) 71.0 H, Lymph % (Auto) 14.2 L, [place] % (Auto) 7.0, Eos % (Auto) 2.7, Baso % (Auto) 1.2 H, Absolute Neuts (auto) 7.1, Absolute Lymphs (auto) 1.42, Nucleated RBC % 0, Sodium 140, Potassium 3.9, Chloride 111 H, Carbon Dioxide 24.0, Anion Gap 5, BUN 16, Creatinine 1.00, Estim Creat Clear Calc 92.20, Est GFR (MDRD) Af Amer 96, Est GFR (MDRD) Non-Af 79, BUN/Creatinine Ratio 16.0, Glucose 102, Calcium 8.8, Phosphorus 3.1, Magnesium 2.2, Vancomycin Trough 16.7 H Micro: Microbiology 08/23/24 19:00 Bite, Dog Gram Stain - Final Physical Exam Narrative GENERAL: cooperative HEENT: Atraumatic; normocephalic EYES; Anicteric, Normal Conjunctiva NECK; supple, normal thyroid, RESPIRATORY: Diminished to auscultation CARDIOVASCULAR: Regular S1 S2, GI: soft, normoactive bowel sounds, : No Renal angle tenderness; EXTREMITIES: No edema, no clubbing, MUSCULOSKELETAL: no muscle wasting NEURO: Awake; no lateralizing signs. SKIN: No Rash Skin: Right hand in surgical dressing PSYCH; Flat affect Assessment & Plan Assessment/Plan (1) Dog bite of right hand with infection: PLAN: Plan Patient is a 69-year-old gentleman who presented with right hand and forearm swelling and erythema he had apparently been bitten by a dog 12 days prior to his admission he had been treated with doxycycline and Bactrim without much improvement admitted to regular nursing floor for further management 1. Right hand and distal forearm complicated infection with cellulitis, deep pocket abscess after dog bite -Admitted to regular nursing floor started on vancomycin Cipro and Flagyl (has allergy to penicillin). Imaging studies demonstrated Soft tissue swelling with enlargement and phlegmonous appearance of the first dorsal interosseous muscle. No discrete abscess seen consult was placed orthopedic surgery for possible I&D as well as infectious disease ? 08/25/2024;Patient underwent incision of the right hand abscess following a dog bite on 08/24/2024. Cultures were sent. 2. Coronary artery disease ? With previous CABG and subsequent stent placement patient is on guideline directed medical therapy which was continued 3. Class III obesity with BMI of 42.9 complicating care, weight loss advised 4. Hypertension ? Blood pressure controlled, home medications continued with dose adjustment as needed 5. Diabetes mellitus type II -patient's oral hypoglycemics held. Placed on long acting insulin, Accu-Cheks a.c. and at bedtime and covered with sliding scale insulin 6. Obstructive sleep apnea ? Consistent use of CPAP encouraged 7. Peripheral arterial disease -status post left femoropopliteal surgery: Patient on baby aspirin and cilostazol. Cilostazol was held in anticipation of patient's surgical procedure 8. Paroxysmal A-fib status post RFA: On systemic anticoagulation with warfarin INR was 1.9 on admission subsequently held plan is to resume following patient's surgical process 9. Dyslipidemia -Patient is on statin therapy as well as fenofibrate, continued at home dose 10. DVT prophylaxis ? Warfarin held for proposed surgery tomorrow but resume once hemostasis is controlled. Time spent in the patient's overall evaluation,decision-making process, review of diagnostic data, adjustment of management, discussion with other providers, nursing nursing and ancillary staff involved in patient's care documentation, 40 Minutes Charges/Coding Visit Charges Inpatient E&M: 58709 Subs Hosp L2
[2024-08-25] MEDS: oxyCODONE 5 MG Tablet PO (09:28)
[2024-08-25] MEDS: Metoprolol Tartrate 50 MG Tablet PO ×2 (09:29→22:26)
[2024-08-25] MEDS: Ranolazine 500 MG Tablet PO ×2 (09:29→22:27)
[2024-08-25] MEDS: dilTIAZem CD 120 MG Capsule PO (09:29)
[2024-08-25] MEDS: Fenofibrate 145 MG Tablet PO (09:30)
[2024-08-25] MEDS: Paroxetine 20 MG Tablet 40 MG PO (09:31)
[2024-08-25] MEDS: Senna/Docusate Sodium 1 Tablet 2 TABLET PO (09:31)
[2024-08-25] MEDS: Pantoprazole Sodium 20 MG Tablet PO (09:31)
[2024-08-25] MEDS: Aspirin E.C. 81 MG Tablet PO (09:33)
--- NOTE | 2024-08-25 10:04 | WOUNDNOTE ---
Dressing to the right hand is dry and intact at this time. dressing was changed this am by nursing. will await Dr Richmond. according to the notes, plan is to remove the get drain and start hand soaks. will continue to follow.
--- NOTE | 2024-08-25 10:17 | PCM.PN.ID ---
Physical Exam Narrative Pain improved, no fever, no rash, no n/v/d. Const alert and no apparent distress General Appearance: cooperative Resp normal air movement and clear to auscultation bilaterally Cardio regular rate and regular rhythm GI soft to palpation, non-tender and non-distended Skin Skin Narrative: R hand wrapped ID ID: Route of nutrition/ use of supplements: [] Nutritional Intake: [] IV Site: [] Rodríguez Catheter: [] Assessment & Plan Assessment/Plan (1) Dog bite of right hand with infection: PLAN: He is to double check last tetanus shot. Wound cx pending. OR 08/24/[address] Richmond for I&D. Reports rash with cefazolin ruth-op in the past. No issues with PCN, amox, or keflex previously. Will cont vanc, ceftriaxone, flagyl. Will follow
[2024-08-25] MEDS: Ceftriaxone 2 GM in 0.9% Normal Saline (50mL MB+) 50 ML IV (11:56)
[2024-08-25 12:19] LABS: Bedside Glucose 138 mg/dL (74-106)
--- NOTE | 2024-08-25 14:41 | WOUNDNOTE ---
wound photo: right hand
--- NOTE | 2024-08-25 16:37 | PCM.PN.ORT ---
Subjective Subjective Patient seen and examined. Pain controlled. Denies fevers, chills, nausea vomiting, chest pain or shortness of breath. Objective Data Objective Data Vital Signs: Vital Signs Temp Pulse Resp BP Pulse Ox O2 Del Method 98.6 F 53 L 18 142/77 H 94 Room Air 08/25/24 14:12 08/25/24 14:12 08/25/24 14:12 08/25/24 14:12 08/25/24 14:12 08/25/24 14:12 Oxygen Delivery Method Room Air Weight: 281 lb 15.539 oz Body Mass Index (BMI) 42.8 Intake & Output: Intake and Output for Last 24 Hours 08/23/24 08/24/24 08/25/24 23:59 23:59 23:59 Intake Total 535 / 535 2378.33 / 2578.33 1450 / 1450 Balance 535 / 535 2378.33 / 2578.33 1450 / 1450 Lab / Micro Data 08/25/24 06:13 08/25/24 06:13 Labs: Laboratory Results - last 24 hr 08/24/24 20:49: POC Glucose 190 H 08/25/24 06:04: POC Glucose 96 08/25/24 06:13: WBC 10.0, RBC 4.62, Hgb 12.4 L, Hct 39.1 L, MCV 84.6, MCH 26.8 L, MCHC 31.7 L, RDW Std Deviation 51.8 H, RDW Coeff of Asad 17.0 H, Plt Count 345, MPV 8.4, Immature Gran % (Auto) 3.900 H, Neut % (Auto) 71.0 H, Lymph % (Auto) 14.2 L, [place] % (Auto) 7.0, Eos % (Auto) 2.7, Baso % (Auto) 1.2 H, Absolute Neuts (auto) 7.1, Absolute Lymphs (auto) 1.42, Nucleated RBC % 0, Sodium 140, Potassium 3.9, Chloride 111 H, Carbon Dioxide 24.0, Anion Gap 5, BUN 16, Creatinine 1.00, Estim Creat Clear Calc 92.20, Est GFR (MDRD) Af Amer 96, Est GFR (MDRD) Non-Af 79, BUN/Creatinine Ratio 16.0, Glucose 102, Calcium 8.8, Phosphorus 3.1, Magnesium 2.2, Vancomycin Trough 16.7 H 08/25/24 11:59: POC Glucose 138 H Micro: Microbiology 08/23/24 19:00 Bite, Dog Gram Stain - Final 08/23/24 19:00 Bite, Dog Wound Culture - Preliminary Alpha Hemolytic Streptococcus Physical Exam Narrative General - A&Ox3, NAD. VSS/AF. Right upper Extremity -dressing in place, clean dry and intact. Dressing removed. [place] drain in place. No significant drainage noted. No purulence. No fluctuance. [place] drain removed. Minimal erythema. Patient able to extend his fingers and able to make complete fist. SILT & 5/5 in radial, ulnar, musculocutaneous, axillary, and median nerve distributions. Radial, ulnar pulses 2+. Compartments soft and compressible. BCR in finger tips. Assessment & Plan Assessment/Plan (1) Dog bite of right hand with infection: PLAN: POD# 1 s/p right hand I&D - Patient doing well. Drain removed. We will initiate 3 times daily soap water soaks for 10 minutes. He was educated to perform range of motion and wound expression during soaks. Continue dry sterile dressing changes as needed for saturation and after soaks. - Cultures growing alphahemolytic Streptococcus - Pain control -Antibiotics per ID - PT/OT - DVT PPX -per primary. Okay for full anticoagulation from my standpoint - Case management - D/C planning
[2024-08-25 18:19] LABS: Bedside Glucose 160 mg/dL (74-106)
[2024-08-25] MEDS: 0.9% Saline Lock 10 ML Syringe IV (18:51)
[2024-08-25] MEDS: Atorvastatin Calcium 80 MG Tablet PO (22:26)
[2024-08-25] MEDS: Enoxaparin 40 MG/0.4 ML Syringe SC (22:26)
[2024-08-26 01:46] LABS: Bedside Glucose 108 mg/dL (74-106)
[2024-08-26 02:02] VITALS: BP 149/62; PULSE 57; RESP 18; TEMP 36.6; O2SAT 98
[2024-08-26] MEDS: metroNIDAZOLE 500 MG Tablet PO ×2 (05:26→13:53)
[2024-08-26] MEDS: Acetaminophen 500 MG Tablet 1000 MG PO ×2 (05:26→13:53)
[2024-08-26 06:39] LABS: Anion Gap 5 (5-15); BUN 14 mg/dL (7-18); BUN/Creat Ratio 15.1 RATIO (10-20); Calcium,Total 9.1 mg/dL (8.5-10.1); Chloride 111 mmol/L (98-107); Creatinine, Serum 0.92 mg/dL (0.70-1.30); EST Glomerular Filtration Rate 86 mL/min (>60); Est Glom Filt Rate - Afr Amer 105 mL/min (>60); Estimated Creatinine Clearance 100.22 ml/min; Glucose 100 mg/dL (74-106); Potassium 3.9 mmol/L (3.5-5.1); Sodium Level 139 mmol/L (136-145)
[2024-08-26] MEDS: Vancomycin HCl 1,500 MG in 0.9% Normal Saline (500mL Bag) 500 ML 250 MG IV (06:43)
[2024-08-26 06:57] LABS: Absolute Lymphocyte Count 1.27 X10^3/uL (0.83-4.51); Absolute Neutrophil Count 6.3 X10^3/uL (2.0-7.7); Basophil# 0.08 X10^3/uL; Basophil% 0.9 % (0-1); Eosinophil# 0.34 X10^3/uL; Eosinophils% 3.9 % (0-5); Hematocrit 37.2 % (40-54); Hemoglobin 11.7 g/dL (13.0-16.5); Lymphocyte # 1.27 X10^3/ul (0.83-4.51); Lymphocyte % 14.6 % (19-41); Mean Corp Hgb Conc 31.5 g/dL (32-36); Mean Corpuscular Hgb 26.7 pg (27.0-32.0); Mean Corpuscular Volume 84.7 fL (80-94); Mean Platelet Vol. 9.1 fl (6.2-12.0); Monocyte# 0.51 X10^3/uL; Monocyte% 5.9 % (0-10); NRBC Flagged by Analyzer 0 % (0-5); Neutrophil # 6.25 X10^3/uL (2.7-7.7); Neutrophil % 72.2 % (47-70); Platelet Count 349 K/mm3 (150-450); RBC Distribution Width CV 16.9 % (11.6-14.6); RBC Distribution Width SD 51.9 fl (35.1-43.9); Red Blood Count 4.39 M/mm3 (4.6-6.2); White Blood Count 8.7 K/mm3 (4.4-11.0)
--- NOTE | 2024-08-26 07:17 | PCM.PN.HOSP ---
Reason for Visit Reason for Visit: Diagnoses Local infection of the skin and subcutaneous tissue, unspecified (08/23/24) Open bite of right hand, initial encounter (08/23/24) Bitten by dog, initial encounter (08/23/24) Subjective Subjective Patient wound cultures so far positive for Alpha Hemolytic Streptococcus Objective Data Objective Data Vital Signs: Vital Signs Temp Pulse Resp BP Pulse Ox O2 Del Method O2 Flow Rate 97.9 F 57 L 18 149/62 H 98 Nasal Cannula 2 08/26/24 02:02 08/26/24 02:02 08/26/24 02:02 08/26/24 02:02 08/26/24 02:02 08/26/24 03:25 08/26/24 03:25 Oxygen Flow Rate (L/min) 2 Oxygen Delivery Method Nasal Cannula Weight: 127.9 kg Body Mass Index (BMI) 42.8 Intake & Output: Intake and Output for Last 24 Hours 08/24/24 08/25/24 08/26/24 23:59 23:59 23:59 Intake Total 2378.33 / 2578.33 2380 / 2880 500 / 500 Balance 2378.33 / 2578.33 2380 / 2880 500 / 500 Lab / Micro Data 08/26/24 05:05 08/26/24 05:05 Labs: Laboratory Results - last 24 hr 08/25/24 11:59: POC Glucose 138 H 08/25/24 16:59: POC Glucose 160 H 08/25/24 22:12: POC Glucose 108 H 08/26/24 05:05: WBC 8.7, RBC 4.39 L, Hgb 11.7 L, Hct 37.2 L, MCV 84.7, MCH 26.7 L, MCHC 31.5 L, RDW Std Deviation 51.9 H, RDW Coeff of Asad 16.9 H, Plt Count 349, MPV 9.1, Immature Gran % (Auto) 2.500 H, Neut % (Auto) 72.2 H, Lymph % (Auto) 14.6 L, [place] % (Auto) 5.9, Eos % (Auto) 3.9, Baso % (Auto) 0.9, Absolute Neuts (auto) 6.3, Absolute Lymphs (auto) 1.27, Nucleated RBC % 0, Sodium 139, Potassium 3.9, Chloride 111 H, Carbon Dioxide 23.0, Anion Gap 5, BUN 14, Creatinine 0.92, Estim Creat Clear Calc 100.22, Est GFR (MDRD) Af Amer 105, Est GFR (MDRD) Non-Af 86, BUN/Creatinine Ratio 15.1, Glucose 100, Calcium 9.1 Micro: Microbiology 08/23/24 19:00 Bite, Dog Gram Stain - Final 08/23/24 19:00 Bite, Dog Wound Culture - Preliminary Alpha Hemolytic Streptococcus Physical Exam Narrative GENERAL: cooperative HEENT: Atraumatic; normocephalic EYES; Anicteric, Normal Conjunctiva NECK; supple, normal thyroid, RESPIRATORY: Diminished to auscultation CARDIOVASCULAR: Regular S1 S2, GI: soft, normoactive bowel sounds, : No Renal angle tenderness; EXTREMITIES: No edema, no clubbing, MUSCULOSKELETAL: no muscle wasting NEURO: Awake; no lateralizing signs. SKIN: No Rash Skin: Right hand in surgical dressing PSYCH; Flat affect Assessment & Plan Assessment/Plan (1) Dog bite of right hand with infection: PLAN: Plan Patient is a 69-year-old gentleman who presented with right hand and forearm swelling and erythema he had apparently been bitten by a dog 12 days prior to his admission he had been treated with doxycycline and Bactrim without much improvement admitted to regular nursing floor for further management 1. Right hand and distal forearm complicated infection with cellulitis, deep pocket abscess after dog bite -Admitted to regular nursing floor started on vancomycin Cipro and Flagyl (has allergy to penicillin). Imaging studies demonstrated Soft tissue swelling with enlargement and phlegmonous appearance of the first dorsal interosseous muscle. No discrete abscess seen consult was placed orthopedic surgery for possible I&D as well as infectious disease ? 08/25/2024;Patient underwent incision of the right hand abscess following a dog bite on 08/24/2024. Cultures were sent. ? 08/26/2024;Patient wound cultures so far positive for Alpha Hemolytic Streptococcus. Patient was seen in consultation by Dr. Dye with ID he is noted recommendations reviewed 2. Coronary artery disease ? With previous CABG and subsequent stent placement patient is on guideline directed medical therapy which was continued 3. Class III obesity with BMI of 42.9 complicating care, weight loss advised 4. Hypertension ? Blood pressure controlled, home medications continued with dose adjustment as needed 5. Diabetes mellitus type II -patient's oral hypoglycemics held. Placed on long acting insulin, Accu-Cheks a.c. and at bedtime and covered with sliding scale insulin 6. Obstructive sleep apnea ? Consistent use of CPAP encouraged 7. Peripheral arterial disease -status post left femoropopliteal surgery: Patient on baby aspirin and cilostazol. Cilostazol was held in anticipation of patient's surgical procedure 8. Paroxysmal A-fib status post RFA: On systemic anticoagulation with warfarin INR was 1.9 on admission subsequently held plan is to resume following patient's surgical process 9. Dyslipidemia -Patient is on statin therapy as well as fenofibrate, continued at home dose 10. DVT prophylaxis ? Warfarin held for proposed surgery tomorrow but resume once hemostasis is controlled. 11. History of alcohol use Patient was placed on DT precautions with Ativan as needed Time spent in the patient's overall evaluation,decision-making process, review of diagnostic data, adjustment of management, discussion with other providers, nursing nursing and ancillary staff involved in patient's care documentation, 36 Minutes Charges/Coding Visit Charges Inpatient E&M: 61176 Subs Hosp L2
--- NOTE | 2024-08-26 08:46 | WOUNDNOTE ---
Pt did hand soak this am at 0500. will assess later today.
[2024-08-26 09:30] VITALS: BP 135/86; PULSE 56; RESP 19; TEMP 36.7; O2SAT 100
[2024-08-26] MEDS: Ranolazine 500 MG Tablet PO (09:41)
[2024-08-26] MEDS: Aspirin E.C. 81 MG Tablet PO (09:41)
[2024-08-26 09:42] VITALS: PULSE 56
[2024-08-26] MEDS: Metoprolol Tartrate 50 MG Tablet PO (09:42)
[2024-08-26] MEDS: Paroxetine 20 MG Tablet 40 MG PO (09:42)
[2024-08-26] MEDS: Pantoprazole Sodium 20 MG Tablet PO (09:43)
[2024-08-26] MEDS: dilTIAZem CD 120 MG Capsule PO (09:43)
[2024-08-26] MEDS: Fenofibrate 145 MG Tablet PO (09:44)
[2024-08-26] MEDS: oxyCODONE 5 MG Tablet PO (09:56)
[2024-08-26] MEDS: Ceftriaxone 2 GM in 0.9% Normal Saline (50mL MB+) 50 ML IV (09:58)
[2024-08-26] MEDS: 0.9% Saline Lock 10 ML Syringe IV (10:01)
--- NOTE | 2024-08-26 11:10 | CASEMGMT ---
RN CM into pt room, pt confirmed family able to assist at home with dressing changes and denies any home going needs at this time. RN CM will follow ID for recommendations.
[2024-08-26 11:25] LABS: Bedside Glucose 104 mg/dL (74-106)
--- NOTE | 2024-08-26 12:23 | PCM.PN.ORT ---
Subjective Subjective Patient is 69-year-old male status post incision and drainage right hand after a dog bite infection. Date of operation was 08/24/2024. He is doing well no fevers chest pain shortness of breath no drainage currently seeping through the dressings. Pain is well-controlled.. Objective Data Objective Data Vital Signs: Vital Signs Temp Pulse Resp BP Pulse Ox O2 Del Method O2 Flow Rate 98.0 F 56 L 19 H 135/86 H 100 Room Air 2 08/26/24 09:30 08/26/24 09:42 08/26/24 09:30 08/26/24 09:30 08/26/24 09:30 08/26/24 09:30 08/26/24 03:25 Oxygen Flow Rate (L/min) 2 Oxygen Delivery Method Room Air Weight: 127.9 kg Body Mass Index (BMI) 42.8 Intake & Output: Intake and Output for Last 24 Hours 08/24/24 08/25/24 08/26/24 23:59 23:59 23:59 Intake Total 2378.33 / 2578.33 2380 / 2880 1440 / 1440 Balance 2378.33 / 2578.33 2380 / 2880 1440 / 1440 Lab / Micro Data 08/26/24 05:05 08/26/24 05:05 Labs: Laboratory Results - last 24 hr 08/25/24 16:59: POC Glucose 160 H 08/25/24 22:12: POC Glucose 108 H 08/26/24 05:05: WBC 8.7, RBC 4.39 L, Hgb 11.7 L, Hct 37.2 L, MCV 84.7, MCH 26.7 L, MCHC 31.5 L, RDW Std Deviation 51.9 H, RDW Coeff of Asad 16.9 H, Plt Count 349, MPV 9.1, Immature Gran % (Auto) 2.500 H, Neut % (Auto) 72.2 H, Lymph % (Auto) 14.6 L, [place] % (Auto) 5.9, Eos % (Auto) 3.9, Baso % (Auto) 0.9, Absolute Neuts (auto) 6.3, Absolute Lymphs (auto) 1.27, Nucleated RBC % 0, Sodium 139, Potassium 3.9, Chloride 111 H, Carbon Dioxide 23.0, Anion Gap 5, BUN 14, Creatinine 0.92, Estim Creat Clear Calc 100.22, Est GFR (MDRD) Af Amer 105, Est GFR (MDRD) Non-Af 86, BUN/Creatinine Ratio 15.1, Glucose 100, Calcium 9.1 08/26/24 05:30: POC Glucose 104 Micro: Microbiology 08/23/24 22:25 Blood Culture (Wb) - Left Hand Blood Culture - Preliminary No growth in 48 hours. 08/23/24 19:00 Bite, Dog Gram Stain - Final 08/23/24 19:00 Bite, Dog Wound Culture - Preliminary Alpha Hemolytic Streptococcus Physical Exam Narrative Right upper Extremity dressing in place, clean dry and intact. No significant drainage noted. No purulence. No fluctuance. Minimal erythema. moderate edema Patient able to extend his fingers and able to make complete fist. SILT & 5/5 in radial, ulnar, musculocutaneous, axillary, and median nerve distributions. Radial, ulnar pulses 2+. Compartments soft and compressible. capillary refill < 3 seconds Assessment & Plan Assessment/Plan (1) Dog bite of right hand with infection: PLAN: PLAN: POD# 2 s/p right hand I&D with Dr. Richmond - drain removed yesterday by Dr. Richmond. We will initiate 3 times daily soap water soaks for 10 minutes. He was educated to perform range of motion and wound expression during soaks. Continue dry sterile dressing changes as needed for saturation and after soaks. - Cultures growing alphahemolytic Streptococcus. Will continue to follow -Pain control with Tylenol 1000 g every 8 hours. -Antibiotics per ID - PT/OT - DVT PPX -per primary. Okay for full anticoagulation from my standpoint - Case management - D/C planning -Okay for discharge per primary from an orthopedic standpoint. - upon discharge we should see patient in 1 week for a wound check in our office.
--- NOTE | 2024-08-26 12:50 | PCM.PN.ID ---
Physical Exam Narrative Feeling better, hand improved, no fever, no n/v/d. Const alert and no apparent distress General Appearance: cooperative Resp normal air movement and clear to auscultation bilaterally Cardio regular rate and regular rhythm GI soft to palpation, non-tender and non-distended Skin Skin Narrative: R hand less red/swollen ID ID: Route of nutrition/ use of supplements: [] Nutritional Intake: [] IV Site: [] Rodríguez Catheter: [] Assessment & Plan Assessment/Plan (1) Dog bite of right hand with infection: PLAN: He is to double check last tetanus shot. Wound cx with strep so far. OR 08/24/[address] Richmond for I&D. Reports rash with cefazolin ruth-op in the past. No issues with PCN, amox, or keflex previously. On vanc, ceftriaxone, flagyl. Ok for home with 10 days po omnicef and flagyl. Will follow prn
--- NOTE | 2024-08-26 12:52 | PCM.DC.SUM ---
Providers Date of Admission: 08/23/24 Date of Discharge: 08/26/24 Primary Care Physician: Sara Pemberton, [place] Consultations 08/23/24 21:31 Consult: Infectious Disease Routine Consulting Provider: Jun Dye Reason for Consult: Right hand dog bite, allergic to penicillin EMERGENT Consult: No MD Notified: Yes Date Notified: 08/23/24 Time Notified: 21:13 Method of Notification: Text Consult: Onc/Wound/photographic laboratory supervisor Routine Comment: Reason for Consult:: Right hand dog bite Consult: Orthopedics Routine Consulting Provider: Mike Richmond Reason for Consult: Right hand dog bite, cellulitis with abscess EMERGENT Consult: No MD Notified: Yes Date Notified: 08/23/24 Time Notified: 21:07 Method of Notification: ED Physician Initiated Reason For Visit: RIGHT HAND DOG BITE WITH INFECTION, FAILED Diagnosis Discharge Diagnosis (1) Dog bite of right hand with infection: Status: Acute Code(s): S61.451A - Open bite of right hand, initial encounter; L08.9 - Local infection of the skin and subcutaneous tissue, unspecified; W54.0XXA - Bitten by dog, initial encounter Plan Patient is a 69-year-old gentleman who presented with right hand and forearm swelling and erythema he had apparently been bitten by a dog 12 days prior to his admission he had been treated with doxycycline and Bactrim without much improvement admitted to regular nursing floor for further management 1. Right hand and distal forearm complicated infection with cellulitis, deep pocket abscess after dog bite -Admitted to regular nursing floor started on vancomycin Cipro and Flagyl (has allergy to penicillin). Imaging studies demonstrated Soft tissue swelling with enlargement and phlegmonous appearance of the first dorsal interosseous muscle. No discrete abscess seen consult was placed orthopedic surgery for possible I&D as well as infectious disease ? 08/25/2024;Patient underwent incision of the right hand abscess following a dog bite on 08/24/2024. Cultures were sent. ? 08/26/2024;Patient wound cultures so far positive for Alpha Hemolytic Streptococcus. Patient was seen in consultation by Dr. Dye with ID he is noted recommendations reviewed; Patient was discharged home on cefdinir and Flagyl as recommended by ID 2. Coronary artery disease ? With previous CABG and subsequent stent placement patient is on guideline directed medical therapy which was continued 3. Class III obesity with BMI of 42.9 complicating care, weight loss advised 4. Hypertension ? Blood pressure controlled, home medications continued with dose adjustment as needed 5. Diabetes mellitus type II -patient's oral hypoglycemics held. Placed on long acting insulin, Accu-Cheks a.c. and at bedtime and covered with sliding scale insulin 6. Obstructive sleep apnea ? Consistent use of CPAP encouraged 7. Peripheral arterial disease -status post left femoropopliteal surgery: Patient on baby aspirin and cilostazol. Cilostazol was held in anticipation of patient's surgical procedure 8. Paroxysmal A-fib status post RFA: On systemic anticoagulation with warfarin INR was 1.9 on admission subsequently held plan is to resume following patient's surgical process 9. Dyslipidemia -Patient is on statin therapy as well as fenofibrate, continued at home dose 10. DVT prophylaxis ? Warfarin held for proposed surgery tomorrow but resume once hemostasis is controlled. 11. History of alcohol use Patient was placed on DT precautions with Ativan as needed Time spent in the patient's overall evaluation,decision-making process, review of diagnostic data, adjustment of management, discussion with other providers, nursing nursing and ancillary staff involved in patient's care documentation, 36 Minutes Medications at Discharge Home Medications paroxetine HCl 40 mg tablet (Paxil) 40 mg PO DAILY DEPRESSION 06/10/22 fenofibrate nanocrystallized 145 mg tablet 145 mg PO DAILY TRIGYLCERIDES #90 tabs 08/03/23 aspirin 81 mg tablet,delayed release 81 mg PO BREAKFAST preventative #60 tabs 08/10/23 nitroglycerin 0.4 mg sublingual tablet (Nitrostat) 0.4 mg sublingual Q5-15M PRN chest pain #25 tabs 12/08/23 ranolazine 500 mg tablet,extended release,12 hr 500 mg PO BID angina #180 tabs 01/04/24 metoprolol tartrate 50 mg tablet 50 mg PO BID BP #180 tabs 02/01/24 rosuvastatin 40 mg tablet 40 mg PO QHS CHOLESTEROL #90 tabs 03/24/24 cilostazol 50 mg tablet 100 mg (2 x 50 mg) PO BID BLOOD THINNER 90 days #360 tabs 04/07/24 diltiazem HCl 120 mg capsule,24 hr,extended release 120 mg PO DAILY HTN #90 caps 07/06/24 warfarin 5 mg tablet 5 mg PO .COMPLEX BLOOD THINNER #90 tabs 07/06/24 albuterol sulfate 90 mcg/actuation aerosol inhaler (Ventolin HFA) 2 puff inhalation Q4H PRN shortness of breath or wheezing #18 grams 07/08/24 tiotropium 2.5 mcg-olodaterol 2.5 mcg/actuation mist for inhalation (Stiolto Respimat) 2 inh inhalation DAILY SOB #4 grams 08/01/24 glimepiride 2 mg tablet 4 mg PO DAILY diabetes 08/12/24 omeprazole 20 mg capsule,delayed release 20 mg PO QDAY acid reflux 08/12/24 acetaminophen 500 mg tablet 1,000 mg (2 x 500 mg) PO Q8 10 days #60 tabs 08/26/24 cefdinir 300 mg capsule 300 mg PO BID #20 caps 08/26/24 metronidazole 500 mg tablet 500 mg PO TID 10 days #30 tabs 08/26/24 oxycodone 5 mg tablet 5 mg PO Q4H PRN PRN Pain Score 4-10 3 days #14 tabs 08/26/24 Physical Exam Narrative GENERAL: cooperative HEENT: Atraumatic; normocephalic EYES; Anicteric, Normal Conjunctiva NECK; supple, normal thyroid, RESPIRATORY: Diminished to auscultation CARDIOVASCULAR: Regular S1 S2, GI: soft, normoactive bowel sounds, : No Renal angle tenderness; EXTREMITIES: No edema, no clubbing, MUSCULOSKELETAL: no muscle wasting NEURO: Awake; no lateralizing signs. SKIN: No Rash Skin: Right hand in surgical dressing PSYCH; Flat affect Weight / BMI Weight Weight: 127.9 kg Body Mass Index (BMI) 42.8 ABG / Lab / Microbiology Data 08/26/24 05:05 08/26/24 05:05 Laboratory: Laboratory Results - last 24 hr 08/25/24 16:59: POC Glucose 160 H 08/25/24 22:12: POC Glucose 108 H 08/26/24 05:05: WBC 8.7, RBC 4.39 L, Hgb 11.7 L, Hct 37.2 L, MCV 84.7, MCH 26.7 L, MCHC 31.5 L, RDW Std Deviation 51.9 H, RDW Coeff of Asad 16.9 H, Plt Count 349, MPV 9.1, Immature Gran % (Auto) 2.500 H, Neut % (Auto) 72.2 H, Lymph % (Auto) 14.6 L, Bowman % (Auto) 5.9, Eos % (Auto) 3.9, Baso % (Auto) 0.9, Absolute Neuts (auto) 6.3, Absolute Lymphs (auto) 1.27, Nucleated RBC % 0, Sodium 139, Potassium 3.9, Chloride 111 H, Carbon Dioxide 23.0, Anion Gap 5, BUN 14, Creatinine 0.92, Estim Creat Clear Calc 100.22, Est GFR (MDRD) Af Amer 105, Est GFR (MDRD) Non-Af 86, BUN/Creatinine Ratio 15.1, Glucose 100, Calcium 9.1 08/26/24 05:30: POC Glucose 104 Microbiology: Microbiology 08/23/24 22:25 Blood Culture (Wb) - Left Hand Blood Culture - Preliminary No growth in 48 hours. 08/23/24 19:00 Bite, Dog Gram Stain - Final 08/23/24 19:00 Bite, Dog Wound Culture - Preliminary Alpha Hemolytic Streptococcus D/C Instructions Discharge Diet: 1800 Calorie Control Diet Discharge Activity: Return to Normal Activity Call your doctor if you observe: Fever of 101 or Higher, Shortness of breath, Fainting spells and Chest pain Meaningful Use Info Meaningful Use Meaningful Use Diagnoses (Choose all that apply): None applicable Ischemic Stroke Statin Dosing Therapy Reference: STATIN DOSE THERAPY REFERENCE: * Patients > 75 years receive moderate or high dose statin therapy. * Patients 75 years or YOUNGER should receive HIGH intensity statin dose unless contraindicated. You will be required to document reason for non-treatment if statin daily dose does not meet guidelines. HIGH DOSE STATIN THERAPY DAILY Atorvastatin > than or = to 40 mg Rosuvastatin > than or = to 20 mg Amlodipine + Atorvastatin > than or = to 2.5/40 mg Ezetimibe + Simvastatin 10/80 mg Simvastatin 80mg Discharge Plan Admission Admit Date/Time: 08/23/24 21:06 Attending Provider: Dallas Mane Primary Care Provider: Sara Pemberton Consulting Providers: Murray Ayers; Jun Dye; Mike Richmond Discharge Orders/Prescriptions Prescriptions: New metronidazole 500 mg Tablet 500 mg PO TID 10 Days Qty: 30 0RF cefdinir 300 mg capsule 300 mg PO BID Qty: 20 0RF acetaminophen 500 mg Tablet 1,000 mg PO Q8 10 Days Qty: 60 0RF oxycodone 5 mg Tablet 5 mg PO Q4H PRN PRN (Reason: Pain Score 4-10) 3 Days Qty: 14 0RF Continued paroxetine HCl [Paxil] 40 mg tablet 40 mg PO DAILY omeprazole 20 mg capsule,delayed release(DR/EC) 20 mg PO QDAY glimepiride 2 mg tablet 4 mg PO DAILY aspirin 81 mg Tablet,Delayed Release (Dr/Ec) 81 mg PO BREAKFAST Qty: 60 0RF fenofibrate nanocrystallized 145 mg tablet 145 mg PO DAILY Qty: 90 4RF nitroglycerin [Nitrostat] 0.4 mg tablet, sublingual 0.4 mg sublingual Q5-15M PRN (Reason: chest pain) Qty: 25 3RF Rx Instructions: do not exceed 3 doses per episode ranolazine 500 mg tablet extended release 12 hr 500 mg PO BID Qty: 180 3RF metoprolol tartrate 50 mg tablet 50 mg PO BID Qty: 180 3RF rosuvastatin 40 mg tablet 40 mg PO QHS Qty: 90 3RF cilostazol 50 mg tablet 100 mg PO BID 90 Days Qty: 360 3RF warfarin 5 mg tablet 5 mg PO .COMPLEX Qty: 90 3RF Protocol: Dose Management Condition: Thursday Dose/Route: 2.5 mg Instruction: 0.5 x 5 mg tablets Condition: Thursday Dose/Route: 2.5 mg Instruction: 0.5 x 5 mg tablets Condition: Thursday Dose/Route: 5 mg Instruction: 1 x 5 mg tablet Condition: Thursday Dose/Route: 2.5 mg Instruction: 0.5 x 5 mg tablets Condition: Dose/Route: 5 mg Instruction: 1 x 5 mg tablet Condition: Thursday Dose/Route: 2.5 mg Instruction: 0.5 x 5 mg tablets Condition: Thursday Dose/Route: 2.5 mg Instruction: 0.5 x 5 mg tablets Protocol Text: Adjustment Start Date: Thursday07/29/24 INR Value: 2.3 INR Date: 07/29/24 Recheck Date: 08/05/24 Rx Instructions: 5 mg PO; 5 mg PO 1 tablet by mouth 4 days per week and 1/2 tablet (2.5 mg) by mouth 3 days per week; OR DIRECTED diltiazem HCl 120 mg capsule,extended release 24 hr 120 mg PO DAILY Qty: 90 3RF albuterol sulfate [Ventolin HFA] 90 mcg/actuation HFA aerosol inhaler 2 puff inhalation Q4H PRN (Reason: shortness of breath or wheezing) Qty: 18 6RF Stiolto Respimat 2.5-2.5 mcg/actuation mist 2 inh inhalation DAILY Qty: 4 11RF Referrals / Follow Up: Mike Richmond DO [Med Staff - Active Staff] - Within 1 Week Sara Pemberton NP-C [Primary Care Provider] - Within 1 Week Disposition Disposition (needs filled in before D/C Order can be placed): Home, Self Care Charges/Coding Visit Charges Inpatient E&M: 81148 Disch Hosp >30min
[2024-08-26 13:20] LABS: Bedside Glucose 126 mg/dL (74-106)
[2024-08-26 14:17] VITALS: BP 146/78; PULSE 55; RESP 18; TEMP 36.7; O2SAT 99
== END 2024-08-26 14:23 | disposition home or self-care (01) | DRG 605 ==
LOC: ED 19:14 → MS3 22:00
PROVIDERS: Anesthesiology; Student in an Organized Health Care Education/Training Program; Admitting Provider Internal Medicine; Emergency Provider Emergency Medicine; PCP Nurse Practitioner Family; Visit Provider Internal Medicine
PROC: 0J9J00Z Drainage of Right Hand Subcutaneous Tissue and Fascia with Drainage Device, Open Approach (ICD-10-PCS; principal; 2024-08-24 08:40)
DX: S61.451A Open bite of right hand, initial encounter (principal); Z68.41 Body mass index [BMI] 40.0-44.9, adult; L03.113 Cellulitis of right upper limb; L02.511 Cutaneous abscess of right hand; B95.0 Streptococcus, group A, as the cause of diseases classified elsewhere; E11.9 Type 2 diabetes mellitus without complications; E78.5 Hyperlipidemia, unspecified; E66.813 Obesity, class 3; I10 Essential (primary) hypertension; I48.0 Paroxysmal atrial fibrillation; I25.10 Atherosclerotic heart disease of native coronary artery without angina pectoris; G47.33 Obstructive sleep apnea (adult) (pediatric); F10.90 Alcohol use, unspecified, uncomplicated; Z87.891 Personal history of nicotine dependence; Z79.82 Long term (current) use of aspirin; Z79.84 Long term (current) use of oral hypoglycemic drugs; Z79.01 Long term (current) use 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; W54.0XXA Bitten by dog, initial encounter
CPT/HCPCS: 36415; 73130; 73201; 80048; 80202; 82962; 83735; 84100; 85025; 85610; 85652; 86140; 87040; 87070; 87077; 87205; 93005; 94640; 99283; J7030; J7040; J7120; Q9967; A4216; J0696; J0744; J2405

== ENCOUNTER → 2024-12-16 | Outpatient (CLI) | payer MEDICARE, SELFPAY ==
--- NOTE | 2024-12-16 13:18 | CT_ITS ---
PROCEDURE: LOW DOSE CT LUNG SCREENING REASON FOR EXAM: Patient has smoked 1 pack per day for 30 years. Patient quit 1 year ago. History of COPD. TECHNIQUE: Low Dose CT Lung Screening without contrast COMPARISON: Comparison is made with prior study dated November 26, 2023. FINDINGS: PULMONARY NODULES: (Only nodules >6mm are reported) Nodules described below are on series 1 unless otherwise specified. Pulmonary Nodules: No concerning pulmonary nodules. Hardware:None Lymph Nodes:No mediastinal hilar or axillary lymphadenopathy. Heart and Vasculature:Normal heart size. No pericardial effusion.Atherosclerotic calcifications of the thoracic aorta. Thoracic aorta and pulmonary arteries have normal contours; noncontrast technique limits evaluation. Coronary Artery Calcifications: Present prior CABG. Lungs and Airways: Mild emphysematous changes are present. Stable linear scarring in the anterior medial aspect of the right upper lobe as well as in the lingula segment of the left upper lobe. Bullous changes in the right lower lobe. Pleura:No pleural effusion. No pneumothorax. Upper Abdomen:Visualized portions of the upper abdominal viscera are unremarkable. Bones:Degenerative changes of the thoracic spine. CT/Low Dose CT Lung Screening IMPRESSION: 1. BASED ON THE ACR LUNG RADS FOR THE MOST SUSPICIOUS NODULE (IF ANY) DESCRIBE D IN THIS REPORT, THE OVERALL LUNG RADS SCORE IS 2.2 - BENIGN (BASED ON IMAGING FEATURES OR INDOLENT BEHAVIOR). RECOMMEND 12-Thu SCREENING LDCT.. 2. SMOKING CESSATION COUNSELING IS RECOMMENDED IF THE PATIENT IS STILL SMOKING . 3. OTHER SIGNIFICANT FINDINGSNone. One or more dose reduction techniques were used (e.g., Automated exposure contr ol, adjustment of the mA and/or kV according to patient size, use of iterative reconstruction technique). The following information is provided for reference:Lung-RADS 2021 Assessment C ategories. Additional information involving Lung-RADS is available at www.acr.org. 0-INCOMPLETE 1-NEGATIVE:No nodules or definitely benign nodules. Complete, central, popcorn , or centric ring calcifications OR fat containing 2-BENIGN APPEARANCE (based on imaging features or indolent behavior). Juxtaple ural nodule: < 10mm AND solid; smooth margins; oval, entiform, or triangular shape Solid nodule: <6mm at baseline or new< 4mm Part solid Nodule: < 6mm total mean diameter at baseline Nonsolid nodule:(GGN) < 30mm OR >=30mm stable or slowly growing Airway nodule, subsegmental at baseline, new, or stable Category 3 nodule stabl e or decreased in size at 6-month follow-up CT or Category 3 or 4A nodules that resolve on follow-up OR category 4B findings prov en to be benign following diagnotic work up. 3 - Probably Benign (Based on imaging features or behavior) Solid Nodule: >= 6 to <8mm at baseline OR new 4 to <6mm Part-solid nodule: >= 6mm toal mean diam. with solid component <6mm at baseline OR new < 6mm total mean diam. Non-solid nodule: GGN >= 30mm at baseline or new Atypical pulmonary cyst: Growing cystic component (mean diam.) of thick-walled cyst Category 4A nodule stable or decreased in size at 3-month follow-up CT (excl.ai rway). 4A - Suspicious Solid nodule: >=8 to < 15mm at baseline OR growing < 8mm OR new 6 to < 8mm Part solid nodule: >= 6mm total mean diam. w/ solid component >=6mm to < 8mm at baseline OR new or growing < 4mm solid component Airway nodule, segmental or more proximal at baseline or new Atypical pulmonary cyst: Thick-walled OR multilocular at baseline OR becomes mu ltilocular 4B - Very Suspicious Airway nodule, segmental or more proximal, and stable or growing Solid nodule: >= 15mm at baseline OR new or growing >= 8mm Part solid nodule: Solid component >= 8mm OR new or growing >= 4mm solid compon ent Atypical pulmonary cyst: Thick-walled with growing wall thickness/nodularity OR Growing multilocular (mean diam.) OR Multilocular with increased loculation or new/increased opacity Slow-growing solid or part solid nodule w/ growth over multiple screening exams 4X - Very Suspicious Category 3 or 4 nodules with additional features that increase the suspicion fo r lung cancer. S - Clinically Significant or potentially significant findings (non-lung cancer ) 3. OTHER SIGNIFICANT FINDINGSNone. One or more dose reduction techniques were used (e.g., Automated exposure contr ol, adjustment of the mA and/or kV according to patient size, use of iterative reconstruction technique). The following information is provided for reference:Lung-RADS 2021 Assessment C ategories. Additional information involving Lung-RADS is available at www.acr.org. 0-INCOMPLETE 1-NEGATIVE:No nodules or definitely benign nodules. Complete, central, popcorn , or centric ring calcifications OR fat containing 2-BENIGN APPEARANCE (based on imaging features or indolent behavior). Juxtaple ural nodule: < 10mm AND solid; smooth margins; oval, entiform, or triangular shape Solid nodule: <6mm at baseline or new< 4mm Part solid Nodule: < 6mm total mean diameter at baseline Nonsolid nodule:(GGN) < 30mm OR >=30mm stable or slowly growing Airway nodule, subsegmental at baseline, new, or stable Category 3 nodule stabl e or decreased in size at 6-month follow-up CT or Category 3 or 4A nodules that resolve on follow-up OR category 4B findings prov en to be benign following diagnotic work up. 3 - Probably Benign (Based on imaging features or behavior) Solid Nodule: >= 6 to <8mm at baseline OR new 4 to <6mm Part-solid nodule: >= 6mm toal mean diam. with solid component <6mm at baseline OR new < 6mm total mean diam. Non-solid nodule: GGN >= 30mm at baseline or new Atypical pulmonary cyst: Growing cystic component (mean diam.) of thick-walled cyst Category 4A nodule stable or decreased in size at 3-month follow-up CT (excl.ai rway). 4A - Suspicious Solid nodule: >=8 to < 15mm at baseline OR growing < 8mm OR new 6 to < 8mm Part solid nodule: >= 6mm total mean diam. w/ solid component >=6mm to < 8mm at baseline OR new or growing < 4mm solid component Airway nodule, segmental or more proximal at baseline or new Atypical pulmonary cyst: Thick-walled OR multilocular at baseline OR becomes mu ltilocular 4B - Very Suspicious Airway nodule, segmental or more proximal, and stable or growing Solid nodule: >= 15mm at baseline OR new or growing >= 8mm Part solid nodule: Solid component >= 8mm OR new or growing >= 4mm solid compon ent Atypical pulmonary cyst: Thick-walled with growing wall thickness/nodularity OR Growing multilocular (mean diam.) OR Multilocular with increased loculation or new/increased opacity Slow-growing solid or part solid nodule w/ growth over multiple screening exams 4X - Very Suspicious Category 3 or 4 nodules with additional features that increase the suspicion fo r lung cancer. S - Clinically Significant or potentially significant findings (non-lung cancer ) Reading Location: [facility] [place]
== END | disposition home or self-care (01) ==
PROVIDERS: PCP Nurse Practitioner Family; Referring Provider Nurse Practitioner Acute Care; Visit Provider Nurse Practitioner Acute Care
DX: F17.210 Nicotine dependence, cigarettes, uncomplicated (principal)
CPT/HCPCS: 71271

== ENCOUNTER → 2025-06-13 | Outpatient (CLI) | payer MEDICARE, SELFPAY | END | disposition home or self-care (01) | LOC: LABSPEC 10:12 | PROVIDERS: PCP Nurse Practitioner Family; Referring Provider Nurse Practitioner Acute Care; Visit Provider Nurse Practitioner Acute Care | DX: J44.9 Chronic obstructive pulmonary disease, unspecified (principal) | CPT/HCPCS: 87070; 87205 ==

== ENCOUNTER → 2025-09-26 | Outpatient (CLI) | payer MEDICARE, SELFPAY ==
[2025-09-26 12:09] LABS: Differential Indicated SCAN CRITERIA MET; Hematocrit 47.0 % (40-54); Hemoglobin 14.4 g/dL (13.0-16.5); Immature Granulocytes Count 0.150 X10^3/uL (0.0-0.0); Mean Corp Hgb Conc 30.6 g/dL (32-36); Mean Corpuscular Volume 76.9 fL (80-94); Mean Platelet Vol. 9.1 fl (6.2-12.0); NRBC Flagged by Analyzer 0 % (0-5); POSITIVE MORPHOLOGY YES; Platelet Count 347 K/mm3 (150-450); RBC Distribution Width CV 21.2 % (11.6-14.6); RBC Distribution Width SD 56.0 fl (35.1-43.9); Red Blood Count 6.11 M/mm3 (4.6-6.2); White Blood Count 9.1 K/mm3 (4.4-11.0)
[2025-09-26 12:28] LABS: Anisocytosis RARE
[2025-09-26 12:42] LABS: Creatinine, Urine (random) 85.90 mg/dL (39.00-259.00); Microalbumin,Random Urine 248.0 mg/L (<20 mg/L)
[2025-09-26 12:49] LABS: AST(SGOT) 27 U/L (<=37); Alanine Aminotransfer ALT/SGPT 17 U/L (<=46); Albumin, Serum 3.9 g/dL (3.4-4.8); Alkaline Phosphatase 58 U/L (40-129); Anion Gap 13 (5-15); BUN 21 mg/dL (4-19); BUN/Creat Ratio 19.7 RATIO (10-20); Calcium,Total 9.5 mg/dL (7.6-11.0); Carbon Dioxide 18.8 mmol/L (21.0-32.0); Chloride 108 mmol/L (98-108); Cholesterol 140 mg/dL (<=200); Globulin 3.1 g/dL (2.2-4.2); Glucose 127 mg/dL (70-99); Low Density Lipoprotein Calc. 76 mg/dL; PSA,Total - Annual Screen 0.05 ng/mL (0.02-4.00); Potassium 4.5 mmol/L (3.3-5.1); Triglycerides 152 mg/dL; Very Low Density Lipoprotein 30 mg/dL (5-40); cholesterol:hdl ratio screen 3.77
== END | disposition home or self-care (01) ==
LOC: LAB.FUTURE 11:44
PROVIDERS: Internal Medicine Endocrinology, Diabetes & Metabolism; PCP Nurse Practitioner Family; Referring Provider Nurse Practitioner Family; Visit Provider Nurse Practitioner Family
DX: I10 Essential (primary) hypertension (principal); E66.01 Morbid (severe) obesity due to excess calories; Z68.41 Body mass index [BMI] 40.0-44.9, adult; E11.29 Type 2 diabetes mellitus with other diabetic kidney complication; Z12.5 Encounter for screening for malignant neoplasm of prostate; R80.9 Proteinuria, unspecified; E78.2 Mixed hyperlipidemia
CPT/HCPCS: 36415; 80053; 80061; 82043; 82570; 84153; 84443; 85025; G0103